=== PATIENT | female | born 1960 | race Caucasian/White ===

== ENCOUNTER → 2019-04-04 07:48 | Outpatient (CLI) | payer BC, SELFPAY ==
[2019-04-04 09:20] LABS: Alanine Aminotransferase 33 U/L (12-78); Albumin Level 3.4 gm/dL (3.4-5.0); Albumin/Globulin Ratio 0.9 (1.1-1.8); Alkaline Phosphatase 63 U/L (46-116); Aspartate Amino Transferase 16 U/L (15-37); Bilirubin,Total 0.3 mg/dL (0.2-1.0); Blood Urea Nitrogen 18 mg/dL (7-18); Calcium 9.3 mg/dL (8.5-10.1); Carbon Dioxide 31 mmol/L (21.0-32.0); Chloride 106 mmol/L (98-107); Chol/HDL Ratio 1.9 (1-3.5); Cholesterol 176 mg/dL (140-200); Creatinine,Serum 0.81 mg/dL (0.55-1.02); Estimated Glomerular Filt Rate 73 ml/min (>60); Free T4 (Free Thyroxine) 1.18 ng/dl (0.76-1.46); GFR (African American) 88 ML/MIN (>60); Globulin 3.6 gm/dl (1.3-3.2); Glucose 103 mg/dL (74-106); HDL Cholesterol 94 mg/dL (29-89); LDL Cholesterol 65 mg/dL (0-130); Sodium 143 mmol/L (136-145); Thyroid Stimulating Hormone 4.92 uIU/ml (0.358-3.740); Triglycerides 84 mg/dL (30-200); VLDL Cholesterol 17 mg/dL (0-40)
== END ==
PROVIDERS: Visit Provider Physician Assistant
DX: E03.9 Hypothyroidism, unspecified (principal); E78.5 Hyperlipidemia, unspecified; I10 Essential (primary) hypertension
CPT/HCPCS: 36415; 80053; 80061; 84439; 84443

== ENCOUNTER → 2019-10-15 11:51 | Outpatient (CLI) | payer BC, SELFPAY ==
--- NOTE | 2019-10-15 11:57 | XR_ITS ---
PROCEDURE: XR CHEST 2V CLINICAL HISTORY: BRONCHITIS Abnormal breath sounds COMPARISON: CXR CHEST(2 VIEWS-NOT PORTABLE) from 06/15/2016 FINDINGS: There is borderline cardiomegaly without failure. There is attenuation of the lower lung watson by breast implants on both sides. No lobar consolidation or collapse. No acute bony abnormalities. IMPRESSION: No acute findings. Dictated by: Inocente Aquino MD 10/15/2019 12:24 Electronically signed by Inocente Aquino MD in [place] 10/15/2019 12:24
== END ==
PROVIDERS: PCP Family Medicine; Visit Provider Nurse Practitioner Family
DX: J40 Bronchitis, not specified as acute or chronic (principal)
CPT/HCPCS: 71046

== ENCOUNTER → 2021-02-02 08:05 | Outpatient (CLI) | payer BC, SELFPAY ==
[2021-02-02 10:12] LABS: Chloride 101 mmol/L (98-107); Sodium 137 mmol/L (136-145)
[2021-02-02 10:14] LABS: Alanine Aminotransferase 22 U/L (12-78); Aspartate Amino Transferase 30 U/L (14-36); Blood Urea Nitrogen 19 mg/dl (7-17); Estimated Glomerular Filt Rate 73 ml/min (>60); GFR (African American) 89 ML/MIN (>60)
[2021-02-02 10:15] LABS: Albumin Level 4.3 g/dl (3.5-5.0); Albumin/Globulin Ratio 1.4 (1.1-1.8); Alkaline Phosphatase 77 U/L (38-126); Bilirubin,Total 0.6 mg/dl (0.2-1.3); Calcium 9.6 mg/dl (8.4-10.2); Carbon Dioxide 28 mmol/L (22.0-30.0); Chol/HDL Ratio 2.2 (1-3.5); Cholesterol 216 mg/dl (140-200); Globulin 3.1 g/dL (1.3-3.2); Glucose 106 mg/dl (74-100); HDL Cholesterol 97 mg/dl (40-60); Total Protein,Serum 7.4 g/dl (6.3-8.2); Triglycerides 119 mg/dl (30-150); VLDL Cholesterol 24 mg/dL (0-40)
[2021-02-02 10:26] LABS: Direct LDL Cholesterol 89.34 mg/dL (100-129)
[2021-02-02 10:29] LABS: Free T4 (Free Thyroxine) 1.29 ng/dl (0.78-2.19)
[2021-02-02 10:46] LABS: Thyroid Stimulating Hormone 1.61 uIU/mL (0.465-4.68)
== END ==
PROVIDERS: Visit Provider Physician Assistant
DX: E03.9 Hypothyroidism, unspecified (principal); E78.5 Hyperlipidemia, unspecified; I10 Essential (primary) hypertension
CPT/HCPCS: 36415; 80053; 80061; 84439; 84443

== ENCOUNTER → 2021-05-06 10:08 | Outpatient (CLI) | payer BC, SELFPAY | PROVIDERS: PCP Physician Assistant; Visit Provider Nurse Practitioner | DX: Z20.822 Contact with and (suspected) exposure to COVID-19 (principal) | CPT/HCPCS: C9803; U0003; U0005 ==

== ENCOUNTER → 2023-04-18 07:00 | Outpatient (CLI) | payer BC, SELFPAY ==
[2023-04-18 08:16] LABS: Chol/HDL Ratio 2.1 (1-3.5); Cholesterol 219 mg/dl (140-200); HDL Cholesterol 103 mg/dl (40-60); Triglycerides 116 mg/dl (30-150); VLDL Cholesterol 23 mg/dL (0-40)
[2023-04-18 08:26] LABS: Direct LDL Cholesterol 88.51 mg/dL (100-129)
[2023-04-18 08:32] LABS: Free T4 (Free Thyroxine) 1.46 ng/dl (0.78-2.19)
[2023-04-18 08:46] LABS: Thyroid Stimulating Hormone 3.07 uIU/mL (0.465-4.68)
== END ==
PROVIDERS: PCP Physician Assistant; Visit Provider Physician Assistant
DX: E03.9 Hypothyroidism, unspecified (principal); E78.5 Hyperlipidemia, unspecified
CPT/HCPCS: 36415; 80061; 84439; 84443

== ENCOUNTER 2024-02-19 03:04 | Inpatient (IN) | payer BC, SELFPAY ==
[2024-02-19] VITALS (27 sets, daily range): BP systolic 77–153; BP diastolic 34–97; PULSE 39–83; RESP 15–25; TEMP 36.4–37.1; O2SAT 66–100; BMI 29.9
--- NOTE | 2024-02-19 | IR_ITS ---
APPROVED REPORT Patient Location: [facility] Consultant: AVELINA Carrington RT (R) PROCEDURES Left heart catheterization Left ventriculogram Selective coronary angiogram Drug-eluting stent deployment to the ostial proximal codominant right coronary artery Drug-eluting stent deployment to the proximal left main artery extending into the proximal codominant circumflex artery Drug-eluting stent deployment to the proximal LAD INDICATION Coronary artery disease, Cardiogenic shock, Acute inferolateral ST elevation myocardial infarction, Third-degree heart block Informed consent was obtained prior to the procedure. COMPLICATIONS None Estimated Blood Loss: Less than 10 mls TECHNIQUE 1% lidocaine was used anesthetize the right anterior aspect of the right wrist and the right radial artery was accessed via the Salinger technique. A 6 Kosovan hydrophilic sheath was advanced. The wire immediately met significant tortuosity and would not pass beyond beyond the antecubital area. When the sheath was deployed there was aspiration and blood return in the sheath however it did not appear to be adequate. Because of this it was decided to abandon the right radial access and proceed with right groin access. One percent lidocaine was used to anesthetize the right groin. The right femoral artery was accessed via the Seldinger technique. A 6 Kosovan sheath was placed in the right femoral artery and a JR4 guide catheter was used to perform right coronary artery angiography. Immediately the critical stenosis was identified therefore Choice PT extra-support wire was placed across. A penumbra mechanical aspiration catheter was advanced however would not traverse the ostial proximal segment. Primary stenting could not be performed therefore 2.5 x 12 mm noncompliant balloon was deployed at 20 chelly in the ostial proximal segment. Despite the predilatation a stent could still not be performed therefore a 2.5 x 27 mm noncompliant balloon was deployed at 20 chelly in the ostial proximal segment. With some difficulty and negotiations the 3 mm x 38 mm Jason frontier stent could eventually be placed in the ostial proximal segment and deployed at 18 chelly. The balloon was brought back 10 mm and then deployed at 24 chelly in the ostium to further post dilate. JACIEL II flow was present at the beginning of the procedure with JACIEL-3 flow at the end of the procedure. Following this a JL 4 guide catheter was placed in left main artery and a critical codominant circumflex artery stenosis was identified. Patient also had lesions in the distal left main artery extending into the ostial proximal LAD. Given patient's history of breast cancer she likely is experiencing mediastinitis post radiation. Can patient continue to have ST elevation accompanied by JACIEL II flow in the circumflex artery. A Choice PT extra-support wire was placed into the circumflex artery and predilatation was made with a 3 mm balloon. Following this a 3.5 x 34 mm Jason frontier stent was placed in the mid left main artery extending into the circumflex artery and deployed at 20 chelly. The wire was pulled back and placed into the LAD and a 3 mm balloon was used to open the struts going into the LAD. Following this a 3.5 x 18 mm Barto frontier stent was placed into the mid left main artery extending into the ostial proximal LAD and then deployed at 20 chelly. An additional wire was placed into the circumflex artery and a 3.5 x 12 mm noncompliant balloon was deployed at 24 chelly in the left main artery extending the circumflex artery. A fresh 3.5 x 12 mm balloon was then placed in the left main artery extending into the LAD and also deployed at 20 chelly to further post dilate. JACIEL II flow was present down the circumflex artery before the procedure with JACIEL-3 flow at the end the procedure. JACIEL-3 flow was present down the LAD before and after the procedure. At the end of the procedure the apparatus was removed the groin was reprepped closure change sheath was removed and hemostasis was achieved using Perclose device patient was transferred to the postop holding in stable condition. ANGIOGRAPHIC RESULTS The left main artery Has distal 50% stenosis The left anterior descending artery Has an ostial 40% stenosis with 30% stenoses throughout the mid vessel The circumflex artery Large codominant with an ostial proximal 90% stenosis extending into a tubular 40% stenosis The right coronary artery Codominant with an ostial proximal 90% complex stenosis with mid vessel 40% stenosis The MARTÍNEZ ventriculogram reveals Normal 65% The left ventricular end-diastolic pressure 20 mmHg IMPRESSION Coronary disease as described above Cardiogenic shock complicated by third-degree heart block Successful drug-eluting stent deployment to the ostial proximal codominant right coronary critical disease reduced to 0% with 1 drug-eluting stent Successful stenting of the proximal left main artery extending into a proximal codominant circumflex artery critical disease reduced to 0% with 1 drug-eluting stent Successful stenting of the proximal left main artery extending to the proximal LAD severe disease reduced to 0% with 1 drug-eluting stent Resolution of third-degree heart block following revascularization Normal ejection fraction Elevated LVEDP 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 Effient 10 mg daily plus aspirin 81 mg daily 2. Echocardiogram Tuesday to better evaluate ejection fraction 3. Supportive care with continuous telemetry 4. LDL less than 55 to be achieved with high intensity statin 5. Standard therapy with CT inhibitor and possibly beta-blockers after echocardiogram 6. Avoidance of tobacco products Electronically signed by : Chava Sanders MD 02/19/2024 04:33:24
--- NOTE | 2024-02-19 02:47 | PC.NURSE ---
Report from Medic Kenneth Manrique at this time for possible STEMI. BP 66/39, HR 38, a/o x3. Dr. Faye speaking to Dr. Sanders at this time.
[2024-02-19] MEDS: ASPIRIN 81MG CHEWABLE TABLET 324 MG PO (02:59)
[2024-02-19] MEDS: PRASUGREL 10MG TAB 60 MG PO (02:59)
[2024-02-19] MEDS: HEPARIN SODIUM 5,000 UNIT/ML VIAL 8200 UNIT IV (02:59)
--- NOTE | 2024-02-19 03:03 | ECG_ITS ---
APPROVED REPORT Exam: Resting ECG HR:39 bpm ECG Measurements Heart Rate 39 AXES QRSd 107 QRS 1 QT 527 T 98 QTc 453 Conclusion SUPRAVENTRICULAR BRADYCARDIA INFERIOR MYOCARDIAL INFARCTION , POSSIBLY ACUTE [40+ ms Q WAVE AND/OR ST/T ABNORMALITY IN II/aVF] ST ELEVATION, CONSIDER ANTERIOR INJURY [MARKED ST ELEVATION W/O NORMALLY INFLECTED T-WAVE IN V2-V5] ACUTE [place] Electronically signed by : BABS LOCKWOOD, 02/20/2024 15:03:54
[2024-02-19] MEDS: NOREPINEPHRINE BITARTRATE/D5W 8 MG/250 ML PLAST..BAG 15 MG IV (03:05)
--- NOTE | 2024-02-19 03:06 | XR_ITS ---
PROCEDURE INFORMATION: Exam: XR Chest Exam date and time: 02/19/2024 3:15 AM Age: 63 years old Clinical indication: Other: Stemi TECHNIQUE: Imaging protocol: Radiologic exam of the chest. Views: 1 view. COMPARISON: DX XR CHEST 2V 10/15/2019 12:03 PM FINDINGS: Lungs: Unremarkable. No consolidation. Pleural spaces: Unremarkable. No pleural effusion. No pneumothorax. Heart/Mediastinum: Unremarkable. No cardiomegaly. Bones/joints: Unremarkable. IMPRESSION: No acute findings.
[2024-02-19] MEDS: ONDANSETRON 4MG/2ML VIAL 4 MG IV (03:17)
--- NOTE | 2024-02-19 03:17 | ED_ITS ---
Discharge Plan Disposition Patient Disposition: Admitted Clinical Impressions Clinical Impression: STEMI (ST elevation myocardial infarction), Cardiogenic shock Discharge ED Provider: Rodolfo Faye Adult HPI General Chief complaint: Chest Pain Stated complaint: burning in chest, dizziness Time Seen by Provider: 02/19/24 03:06 Mode of Arrival: EMS Source of Information: EMS Limitations: No Limitations Description of Symptoms (Recalled from ER Triage Doc. by RN): 63 F presents from home via EMS after calling out for dizziness, chest burning, and nausea. Patient reports having these symptoms over the last few days, but became worse this evening. Patient is hypotensive, bradycardic, and showed to be having an active STEMI on EMS' 12-lead. Patient has remained a/o x3. History of Present Illness HPI narrative: 63-year-old female with history of vocal cord paralysis, breast cancer status post double mastectomy presents via EMS with STEMI. She reports that approximately 11 PM she started feeling nauseous, short of breath, generally ill. Reported chest pain. Upon EMS arrival, patient was noted to be hypotensive with systolics in the 60s. Bradycardic with rate in the 40s. Related Data Allergies Allergy/AdvReac Type Severity Reaction Status Date / Time No Known Allergies Allergy Unverified 08/09/17 14:34 [facility] Disclaimer: The information contained in this section may have been updated after the patient was seen, as this information can be updated by other users. Social History Smoking Status: Never smoker alcohol intake: never current occupational status: other Travel in the last 8 weeks: None ROS Obtained: Yes All systems reviewed & no additional complaints except as documented Physical Exam General General appearance: alert Comment: Ill-appearing, cyanotic Head Head exam: atraumatic and normocephalic Eye Eye exam: Present normal appearance, PERRL and EOMI ENT ENT exam: Present normal oropharynx and normal external ear exam Neck Neck exam: Present normal inspection and full ROM Chest Chest inspection: Present normal inspection and symmetric chest wall rise; Absent tenderness Respiratory Respiratory exam: Present normal lung sounds bilaterally; Absent respiratory distress Cardiovascular Cardiovascular exam: Present bradycardia Abdominal Exam Abdominal exam: Present soft; Absent distention, tenderness or guarding Extremities Exam Extremities exam: Present other (Cold, cyanotic, no significant capillary refill in all extremities) Back Exam Back exam: Present normal inspection; Absent tenderness Neurological Exam Neurological exam: Present alert and oriented X3; Absent motor sensory deficit Psychiatric Psychiatric exam: Present anxious Skin Skin exam: Present warm, dry and cyanosis Lymphatic Lymphatic Findings: no adenopathy Medical Decision Making Medical Records Medical records reviewed: Yes I reviewed the patient's medical records. Souleymane Inquiry Pt receiving controlled substance: No Souleymane was queried for this patient: No Vital Signs: 02/19/24 03:04 02/19/24 03:05 02/19/24 03:09 Temperature 97.7 F Temperature Source Oral Pulse Rate 43 L 43 L Pulse Rate [Left] 39 L Respiratory Rate 16 16 16 Blood Pressure 82/38 L 92/76 L Blood Pressure [Right Arm] 77/34 L Blood Pressure Mean 51 81 Blood Pressure Mean [Right Arm] 48 Blood Pressure Source Blood Pressure Source [Right Arm] Automatic Cuff Blood Pressure Position Blood Pressure Position [Right Arm] Supine 02 Sat by Pulse Oximetry 100 100 99 Oxygen Delivery Method Nasal Cannula Nasal Cannula Nasal Cannula Oxygen Flow Rate (LPM) 2 2 2 02/19/24 03:13 02/19/24 03:15 02/19/24 03:18 Temperature Temperature Source Pulse Rate 53 L 49 L 50 L Pulse Rate [Left] Respiratory Rate 16 15 Blood Pressure 98/59 L 100/64 L Blood Pressure [Right Arm] Blood Pressure Mean 72 69 Blood Pressure Mean [Right Arm] Blood Pressure Source Blood Pressure Source [Right Arm] Blood Pressure Position Blood Pressure Position [Right Arm] 02 Sat by Pulse Oximetry 100 93 L Oxygen Delivery Method Nasal Cannula Nasal Cannula Oxygen Flow Rate (LPM) 2 2 02/19/24 03:22 02/19/24 03:24 02/19/24 03:36 Temperature 97.7 F Temperature Source Oral Pulse Rate 62 60 49 L Pulse Rate [Left] Respiratory Rate 15 16 16 Blood Pressure 112/58 L 106/54 L 100/76 L Blood Pressure [Right Arm] Blood Pressure Mean 70 72 Blood Pressure Mean [Right Arm] Blood Pressure Source Automatic Cuff Blood Pressure Source [Right Arm] Blood Pressure Position Sitting Blood Pressure Position [Right Arm] 02 Sat by Pulse Oximetry 66 L 67 L Oxygen Delivery Method Nasal Cannula Non-Rebreather Nasal Cannula Oxygen Flow Rate (LPM) 2 15 2 Lab Data Lab results reviewed: Yes I reviewed the patient's lab results. Lab Results 02/19/24 03:05: WBC 8.8, RBC 3.58 L, Hgb 12.1 L, Hct 38.7, MCV 107.9 H, MCH 33.7 H, MCHC 31.2 L, RDW 14.2, Plt Count 309, MPV 8.6, Neut % (Auto) 71.0, Lymph % (Auto) 22.2, Prowers % (Auto) 5.6, Eos % (Auto) 0.7, Baso % (Auto) 0.6, Neut # (Auto) 6.2, Lymph # (Auto) 1.9, Prowers # (Auto) 0.5, Eos # (Auto) 0.1, Baso # (Auto) 0.1, Sodium 135 L, Potassium 4.2, Chloride 102, Carbon Dioxide 23, Anion Gap 14.2, BUN 23 H, Creatinine 1.70 H, Estimated Creat Clear 44, Estimated GFR 30 L, Est GFR ( Amer) 37 L, Glucose 192 H, Calcium 8.5, Total Bilirubin 0.4, AST 82 H, ALT 87 H, Alkaline Phosphatase 118, Troponin I 0.64 H, Total Protein 6.4, Albumin 3.5, Globulin 2.9, Albumin/Globulin Ratio 1.2 02/19/24 04:02: Activated Clotting Time 304 H* 02/19/24 03:05 02/19/24 03:05 Orders (Tests/Meds): ED MEDICATIONS Generic Name Dose Route Start Last Admin Trade Name Freq PRN Reason Stop Dose Admin Aspirin 81 mg 02/19/24 09:00 Aspirin Ec 81mg Tablet PO 03/20/24 08:59 DAILY WILL Fentanyl Citrate 50 mcg 02/19/24 03:42 Fentanyl 100mcg/2ml Vial IV 02/19/24 15:19 Q3MINP PRN Moderate to Severe Pain (4-10) Fentanyl Citrate 25 mcg 02/19/24 03:42 Fentanyl 250mcg/5ml Vial IV 02/19/24 15:19 Q3MINP PRN Moderate to Severe Pain (4-10) Fentanyl Citrate 50 mcg 02/19/24 03:42 Fentanyl 250mcg/5ml Vial IV 02/19/24 15:19 Q3MINP PRN Moderate to Severe Pain (4-10) Fentanyl Citrate 25 mcg 02/19/24 03:42 02/19/24 04:22 Fentanyl 100mcg/2ml Vial IV 02/19/24 15:19 25 mcg Q3MINP PRN Administration Moderate to Severe Pain (4-10) Flumazenil 0.2 mg 02/19/24 03:42 Flumazenil 0.1mg/Ml 5ml Vial IV 02/19/24 15:19 NEEDED PRN Sedation Heparin Sodium (Porcine) 10,000 unit 02/19/24 03:18 02/19/24 03:33 Heparin 1,000 Units/Ml 10ml Vial (Driver License Reviewing Officer) IV 02/19/24 07:19 3,000 unit NEEDED PRN Administration Emergency Box Business Account Specialist Hydralazine HCl 20 mg 02/19/24 03:42 Hydralazine 20mg/Ml Vial IV 02/19/24 07:19 ONCE PRN sbp>160 Norepinephrine/Dextrose 8 mg in 250 mls @ 15 mls/hr 02/19/24 03:15 02/19/24 03:13 Norepinephrine 8mg/250ml-D5w Premix IV 03/20/24 03:14 6 mcg/min .[id number] WILL 11.25 mls/hr Titration Protocol 8 MCG/MIN Sodium Chloride 1,000 mls @ 25 mls/hr 02/19/24 03:30 02/19/24 03:33 Sod Chloride 0.9% 500ml Bag IV 02/20/24 03:19 25 mls/hr .Q25H WILL Administration Adenosine 180 mg/ Sodium 90 mls @ 440.894 mls/hr 02/19/24 03:42 Chloride IV 02/19/24 07:19 ONCE PRN fractional flow reserve 180 MCG/KG/MIN Adenosine 90 mg/ Sodium 90 mls @ 881.788 mls/hr 02/19/24 03:42 Chloride IV 02/19/24 07:19 ONCE PRN fractional flow reserve 180 MCG/KG/MIN Iopamidol 210 ml 02/19/24 04:43 02/19/24 04:44 Iopamidol-370 (76%);100ml Bottle IV 02/19/24 04:44 210 ml ONCE ONE Administration Labetalol HCl 20 mg 02/19/24 03:42 Labetalol 20mg/4ml Syringe IV 02/19/24 07:19 ONCE PRN sbp>160 Lidocaine HCl 20 ml 02/19/24 03:18 Lidocaine 1% 5ml Pf Vial IJ 02/19/24 03:19 ONCE ONE Midazolam HCl 1 mg 02/19/24 03:42 Midazolam 2mg/2ml Vial IV 02/19/24 15:19 Q3MINP PRN Sedation Midazolam HCl 1 mg 02/19/24 03:42 02/19/24 04:22 Midazolam Hcl 1mg/1ml 5ml Vial IV 02/19/24 15:19 1 mg Q3MINP PRN Administration Sedation Miscellaneous 1 each 02/19/24 04:43 Consider Pt For Dual Antiplatelet Therapy At Discharge-Stent NOTAPPLIC 03/20/24 04:42 NEEDED PRN Reminder for s/p stent Naloxone HCl 0.4 mg 02/19/24 03:42 Naloxone 0.4mg/Ml Vial IV 02/19/24 15:19 Q5MINP PRN Decreased Respirations Nitroglycerin 800 mcg 02/19/24 03:18 02/19/24 03:33 Nitroglycerin 800mcg/8ml Syr (Driver License Reviewing Officer) IA 02/19/24 07:19 800 mcg NEEDED PRN Administration Emergency Box Business Account Specialist Nitroglycerin 0.4 mg 02/19/24 04:43 Nitroglycerin 0.4mg Sl Tablet SL 03/20/24 04:42 Q5MINP PRN Chest Pain Prasugrel 10 mg 02/19/24 09:00 Prasugrel 10mg Tab PO 03/20/24 08:59 DAILY WILL Protamine Sulfate 50 mg 02/19/24 03:42 Protamine Sulfate 50mg/5ml Vial (Driver License Reviewing Officer) IV 02/19/24 07:19 ONCE PRN act>200 Sodium Chloride 10 ml 02/19/24 03:06 Sodium Chloride 0.9% 10ml Flush Syringe IV 03/20/24 03:05 NEEDED PRN Maintain IV Site Discontinued Medications Generic Name Dose Route Start Last Admin Trade Name Freq PRN Reason Stop Dose Admin Aspirin 324 mg 02/19/24 02:48 02/19/24 02:59 Aspirin 81mg Chewable Tablet PO 02/19/24 02:49 324 mg ONCE ONE Administration Diphenhydramine HCl 50 mg 02/19/24 03:18 02/19/24 03:33 Diphenhydramine 50mg/Ml Vial IV 02/19/24 03:19 50 mg ONCE ONE Administration Fentanyl Citrate 50 mcg 02/19/24 03:18 Fentanyl 100mcg/2ml Vial IV 02/19/24 15:19 Q3MINP PRN Moderate to Severe Pain (4-10) Fentanyl Citrate 25 mcg 02/19/24 03:18 Fentanyl 250mcg/5ml Vial IV 02/19/24 15:19 Q3MINP PRN Moderate to Severe Pain (4-10) Fentanyl Citrate 50 mcg 02/19/24 03:18 Fentanyl 250mcg/5ml Vial IV 02/19/24 15:19 Q3MINP PRN Moderate to Severe Pain (4-10) Fentanyl Citrate 25 mcg 02/19/24 03:18 02/19/24 03:50 Fentanyl 100mcg/2ml Vial IV 02/19/24 15:19 25 mcg Q3MINP PRN Administration Moderate to Severe Pain (4-10) Flumazenil 0.2 mg 02/19/24 03:18 Flumazenil 0.1mg/Ml 5ml Vial IV 02/19/24 15:19 NEEDED PRN Sedation Heparin Sodium (Porcine) 8,200 unit 02/19/24 02:58 02/19/24 02:59 Heparin Sodium 5,000 Unit/Ml Vial 100 unit/kg (8200 unit) 02/19/24 02:59 8,200 unit IV Administration ONCE ONE Heparin Sodium/Sodium Chloride 3,000 unit 02/19/24 03:18 02/19/24 03:33 Heparin 1,000 Units/500ml Ns (Driver License Reviewing Officer) IV 02/19/24 03:19 3,000 unit ONCE ONE Administration Hydralazine HCl 20 mg 02/19/24 03:18 Hydralazine 20mg/Ml Vial IV 02/19/24 07:19 ONCE PRN sbp>160 Adenosine 180 mg/ Sodium 90 mls @ 440.894 mls/hr 02/19/24 03:18 Chloride IV 02/19/24 07:19 ONCE PRN fractional flow reserve 180 MCG/KG/MIN Adenosine 90 mg/ Sodium 90 mls @ 881.788 mls/hr 02/19/24 03:18 Chloride IV 02/19/24 07:19 ONCE PRN fractional flow reserve 180 MCG/KG/MIN Labetalol HCl 20 mg 02/19/24 03:18 Labetalol 20mg/4ml Syringe IV 02/19/24 07:19 ONCE PRN sbp>160 Lidocaine HCl 20 ml 02/19/24 03:18 02/19/24 03:33 Lidocaine 1% 10ml Mdv IJ 02/19/24 03:19 10 ml ONCE ONE Administration Lidocaine HCl 20 ml 02/19/24 03:18 Lidocaine 1% 5ml Pf Vial IJ 02/19/24 03:19 ONCE ONE Midazolam HCl 1 mg 02/19/24 03:18 Midazolam 2mg/2ml Vial IV 02/19/24 15:19 Q3MINP PRN Sedation Midazolam HCl 1 mg 02/19/24 03:18 02/19/24 03:51 Midazolam Hcl 1mg/1ml 5ml Vial IV 02/19/24 15:19 1 mg Q3MINP PRN Administration Sedation Naloxone HCl 0.4 mg 02/19/24 03:18 Naloxone 0.4mg/Ml Vial IV 02/19/24 15:19 Q5MINP PRN Decreased Respirations Ondansetron HCl 4 mg 02/19/24 03:16 02/19/24 03:17 Ondansetron 4mg/2ml Vial IV 02/19/24 03:17 4 mg ONCE ONE Administration Prasugrel 60 mg 02/19/24 02:49 02/19/24 02:59 Prasugrel 10mg Tab PO 02/19/24 02:50 60 mg DAILY ONE Administration Prasugrel 60 mg 02/19/24 02:49 02/19/24 03:17 Prasugrel 10mg Tab PO 02/19/24 02:50 Not Given ONCE ONE Protamine Sulfate 50 mg 02/19/24 03:18 Protamine Sulfate 50mg/5ml Vial (Driver License Reviewing Officer) IV 02/19/24 07:19 ONCE PRN act>200 Verapamil HCl 2.5 mg 02/19/24 03:18 02/19/24 03:34 Verapamil 2.5mg/Ml 2ml Vial IV 02/19/24 03:19 2.5 mg ONCE ONE Administration ORDERS Category Date Time Status Consult to Cardiology [CONS] Stat Cons 02/19/24 03:06 Active XR chest portable Stat Exams 02/19/24 03:06 Completed Activated Partial Thrombo Time Stat Lab 02/19/24 03:05 Ordered Complete Blood Count Auto Diff Stat Lab 02/19/24 03:05 Completed Comprehensive Metabolic Panel Stat Lab 02/19/24 03:05 Completed Prothrombin Time INR Stat Lab 02/19/24 03:05 Ordered Troponin I Stat Lab 02/19/24 03:05 Completed VBG [Venous Blood Gas] Stat RT 02/19/24 03:24 Ordered ECG Data Tracing #1: I reviewed this ECG and interpreted as documented below: ST elevation in lead III, aVF, V3, V4, V5, ST depressions in the high lateral leads, third-degree heart block noted. ECG initial impression date: 02/19/24 ECG initial impression time: 03:03 HEART Score History (anamnesis): Highly suspicious ECG: Significant ST-deviation Age: 45-65 years Risk factors: 1-2 risk factors Troponin: > 3x normal limit HEART Score: 8 Medical Decision Narrative: 63-year-old female with history of prior breast cancer, distant history of Hodgkin's lymphoma status postradiation, hypertension presents with a STEMI via EMS in cardiogenic shock.. History was obtained interactive discussion with patient, EMS. On arrival, patient is bradycardic in the 30s and 40s, hypotensive with systolics in the 60s and 70s, alert and oriented x 4, diffusely cyanotic, complaining of nausea and general unease. EKG on arrival consistent with inferior STEMI as well as third-degree heart block. Driver License Reviewing Officer was activated immediately and Dr. Sanders was consulted. Differential includes but is not limited to ACS, PE, tamponade, tension pneumothorax, acute aortic syndrome. Patient was given 100 units/kg of heparin, 60 mg prasugrel, 324 aspirin. Given hypotension, patient was given total 2 L IV fluid bolus and was placed on Levophed at 0.1 ug/kg/min. On re-evaluation, blood pressure improved with interventions, we began down titrating the Levophed. Patient had a episode of hypoxia when we laid her more flat. Reports that she has difficulty breathing secondary to her paralyzed vocal cord. Upon sitting up the hypoxia significantly improved. Laboratory workup independently interpreted by me and significant for elevated initial troponin at 0.64, elevated creatinine 1.7 with normal baseline, no significant electrolyte derangement. Imaging independently interpreted by me and significant for chest x-ray without focal opacity. See radiology read for full review of final results. Given patient history, exam and workup, patient's presentation most likely represents acute cardiogenic shock secondary to STEMI. Patient was transferred immediately to the Driver License Reviewing Officer for further intervention.. Procedures Risk/Benefits of Procedure(s) Were Explained: Yes Critical Care Critical Care Time Critical Care Time: Yes Attestation: On 02/19/24, the high probability of a clinically significant, sudden or life threatening deterioration of the following system(s) cardiac required my full and direct attention, intervention and personal management. The time I documented below is in addition to time spent performing reported procedures but includes the following listed in this critical care notation. Total Time Total Critical Care Time: 35
[2024-02-19 03:25] LABS: Basophils # 0.1 K/mm3 (0-0.2); Basophils % 0.6 % (0.1-2.0); Eosinophils # 0.1 K/mm3 (0.0-0.4); Eosinophils % 0.7 % (0.1-12.0); Hematocrit 38.7 % (37.0-47.0); Hemoglobin 12.1 g/dL (12.2-16.2); Lymphocytes # 1.9 K/mm3 (0.7-4.5); Lymphocytes % 22.2 % (10-50); Mean Corpuscular HGB Conc 31.2 g/dL (31.8-35.4); Mean Corpuscular Hemoglobin 33.7 pg (27.0-31.2); Mean Corpuscular Volume 107.9 fl (81-99); Mean Platelet Volume 8.6 fl (7.4-10.4); Monocytes # 0.5 K/mm3 (0.1-1.0); Monocytes % 5.6 % (1.7-9.3); Neutrophils # 6.2 K/mm3 (1.8-7.8); Platelet Count 309 K/mm3 (142-424); Red Blood Count 3.58 M/mm3 (4.20-5.40); Red Cell Distribution Width 14.2 % (11.5-17.5); White Blood Count 8.8 K/mm3 (4.8-10.8)
[2024-02-19 03:27] LABS: Chloride 102 mmol/L (98-107); Potassium 4.2 mmoL/L (3.5-5.1); Sodium 135 mmol/L (136-145)
[2024-02-19 03:30] LABS: Alanine Aminotransferase 87 U/L (12-78); Albumin Level 3.5 g/dl (3.5-5.0); Albumin/Globulin Ratio 1.2 (1.1-1.8); Alkaline Phosphatase 118 U/L (38-126); Anion Gap 14.2 mEq/L (5-15); Aspartate Amino Transferase 82 U/L (14-36); Bilirubin,Total 0.4 mg/dl (0.2-1.3); Blood Urea Nitrogen 23 mg/dl (7-17); Calcium 8.5 mg/dl (8.4-10.2); Carbon Dioxide 23 mmol/L (22.0-30.0); Creatinine Clearance Estimated 44 mL/min (50-200); Estimated Glomerular Filt Rate 30 ml/min (>60); GFR (African American) 37 ML/MIN (>60); Globulin 2.9 g/dL (1.3-3.2); Glucose 192 mg/dl (74-100); Total Protein,Serum 6.4 g/dl (6.3-8.2)
--- NOTE | 2024-02-19 03:31 | PC.NURSE ---
patient leaving unit to labor utilization superintendent
[2024-02-19] MEDS: 0.9 % SODIUM CHLORIDE 500 ML 25 ML IV (03:33)
[2024-02-19] MEDS: NITROGLYCERIN 800MCG/8ML SYR (CATH LAB) 800 MCG IA (03:33)
[2024-02-19] MEDS: diphenhydrAMINE 50MG/ML VIAL 50 MG IV (03:33)
[2024-02-19] MEDS: HEPARIN 1,000 UNITS/500ML NS (CATH LAB) 3000 UNIT IV (03:33)
[2024-02-19] MEDS: HEPARIN 1,000 UNITS/ML 10ML VIAL (CATH LAB) 10000 UNIT IV (03:33)
[2024-02-19] MEDS: LIDOCAINE 1% 10ML MDV 20 ML IJ (03:33)
[2024-02-19] MEDS: VERAPAMIL 2.5MG/ML 2ML VIAL 2.5 MG IV (03:34)
--- NOTE | 2024-02-19 03:40 | PC.NURSE ---
Patient taken to molder labels [id number]
[2024-02-19 03:50] LABS: Troponin I 0.64 ng/ml (0.00-0.034)
[2024-02-19] MEDS: FENTANYL 100MCG/2ML VIAL 25 MCG IV ×2 (03:50→04:22)
[2024-02-19] MEDS: MIDAZOLAM HCL 1MG/1ML 5ML VIAL 1 MG IV ×2 (03:51→04:22)
[2024-02-19] MEDS: IOPAMIDOL-370 (76%);100ML BOTTLE 210 ML IV (04:44)
[2024-02-19 04:46] LABS: CATHL Activated Clotting Time 304 SEC (74-125)
[2024-02-19 04:47] LABS: CATHL Activated Clotting Time 220 SEC (74-125)
--- NOTE | 2024-02-19 04:58 | PC.NURSE ---
PT ARRIVED TO FLOOR AT THIS TIME
--- NOTE | 2024-02-19 05:47 | EXP.HP ---
History of Present Illness *Admission Date: 02/19/24 *Reason for visit:: STEMI *History of present illness: This is a 63-year-old female with history of vocal cord paralysis secondary to radiation treatment for breast cancer, status post double mastectomy, HTN, HLD, presented via EMS with STEMI. She reports that approximately 11 PM she started feeling nauseous, short of breath, generally ill. Reported chest pain. Upon EMS arrival, patient was noted to be hypotensive with systolics in the 60s. Bradycardic with rate in the 40s. bluish coloraton around mouth and lips. was taken emergently into a manager labor delivery. Patient seen at the floor after procedure hemodynamically stable. Cardiogenic shock resolved. Blood pressure stabilized. Sinus rhythm on the monitor. No signs of bleeding or hematoma throughout both of the surgical site access. Admitted for further management. [facility] Disclaimer: The information contained in this section may have been updated after the patient was seen, as this information can be updated by other users. Medical History (Updated 02/19/24 @ 06:01 by Myron Cash APRN) Hodgkin lymphoma Breast cancer Surgical History (Updated 02/19/24 @ 06:01 by Myron Cash APRN) History of thyroidectomy, subtotal H/O splenectomy Hx of tonsillectomy Tubal ligation status Social History (Updated 02/19/24 @ 04:58 by Rodolfo Faye MD) Smoking Status: Never smoker alcohol intake: never current occupational status: other Travel in the last 8 weeks: None Review of Systems Review of Systems Review of systems:: pertinent systems reviewed and negative unless documented below Meds Home Medications and Allergies Home Medications Medication Instructions Recorded Confirmed Type aspirin 81 mg chewable tablet 81 mg PO DAILY 02/19/24 02/19/24 History bisoprolol fumarate 5 mg tablet 5 mg PO DAILY 02/19/24 02/19/24 History famotidine 20 mg tablet 20 mg PO BID 02/19/24 02/19/24 History fluticasone propionate 50 1 spray intranasal DIRECTED 02/19/24 02/19/24 History mcg/actuation nasal Allergies spray,suspension levothyroxine 125 mcg tablet 125 mcg PO DAILY 02/19/24 02/19/24 History lisinopril 5 mg tablet 5 mg PO DAILY 02/19/24 02/19/24 History pravastatin 40 mg tablet 40 mg PO DAILY 02/19/24 02/19/24 History New Prescriptions to Start Prescriptions: Allergies Allergy/AdvReac Type Severity Reaction Status Date / Time No Known Allergies Allergy Unverified 08/09/17 14:34 Exam Data for Last 24 hours Vital signs and Labs for Last 24 Hours: Temp Pulse Resp BP Pulse Ox O2 Del Method O2 Flow Rate 97.7 F 74 20 133/75 90 L Room Air 2 02/19/24 03:36 02/19/24 04:45 02/19/24 04:45 02/19/24 04:45 02/19/24 04:45 02/19/24 04:45 02/19/24 03:36 Laboratory Results - last 24 hr 02/19/24 03:05: WBC 8.8, RBC 3.58 L, Hgb 12.1 L, Hct 38.7, MCV 107.9 H, MCH 33.7 H, MCHC 31.2 L, RDW 14.2, Plt Count 309, MPV 8.6, Neut % (Auto) 71.0, Lymph % (Auto) 22.2, Crane % (Auto) 5.6, Eos % (Auto) 0.7, Baso % (Auto) 0.6, Neut # (Auto) 6.2, Lymph # (Auto) 1.9, Crane # (Auto) 0.5, Eos # (Auto) 0.1, Baso # (Auto) 0.1, Sodium 135 L, Potassium 4.2, Chloride 102, Carbon Dioxide 23, Anion Gap 14.2, BUN 23 H, Creatinine 1.70 H, Estimated Creat Clear 44, Estimated GFR 30 L, Est GFR ( Amer) 37 L, Glucose 192 H, Calcium 8.5, Total Bilirubin 0.4, AST 82 H, ALT 87 H, Alkaline Phosphatase 118, Troponin I 0.64 H, Total Protein 6.4, Albumin 3.5, Globulin 2.9, Albumin/Globulin Ratio 1.2 02/19/24 03:45: Activated Clotting Time 220 H* 02/19/24 04:02: Activated Clotting Time 304 H* D I & O for Last 24 hours: Intake & Output 02/16/24 02/17/24 02/18/24 02/19/24 23:59 23:59 23:59 23:59 Intake Total 2 / 2 Balance 2 / 2 Weight 81.647 kg Constitutional Constitutional: mild distress, obese and cooperative *Routine HEENT Exam Head: Present normocephalic and atraumatic Eye: Present EOMI and PERRL ENT: Present mucous membranes moist *Routine Neck Exam Neck: Present supple; Absent lymphadenopathy *Routine Respiratory Exam Respiratory: Present CTA bilaterally, normal respiratory effort and symmetric chest movement; Absent respiratory distress *Routine Cardiovascular Exam Cardiovascular: Present RRR, Normal S1 and Normal S2 *Routine Abdominal Exam Abdominal: Present soft and normoactive bowel sounds; Absent tenderness *Routine Rectal Exam Rectal:: deferred *Routine Genitalia Exam Genitalia:: deferred *Routine Extremities Exam Extremities: Present pulses intact and normal capillary refill; Absent cyanosis, clubbing or edema *Routine Skin Exam Skin: Present warm and wounds; Absent rash *Routine Neurological Exam Neurological: Present alert, oriented X3, normal reflexes and normal speech Detailed Extremities Exam: Vascular Peripheral pulses: 4+: femoral (R), 4+: popliteal (L), 4+: popliteal (R), 4+: posterior tibialis (L), 4+: posterior tibialis (R), 4+: dorsalis pedis (L) and 4+: dorsalis pedis (R) H&P: Result Imaging and Cardiology EKG: Status: image reviewed by me, Preliminary report and final report Chest x-ray: Status: image reviewed by me, Preliminary report and final report Assessment and Plan *Assessment and plan (1) STEMI (ST elevation myocardial infarction): Status: Acute Qualifiers: Involved coronary artery: unspecified coronary artery Qualified Code(s): I21.3 - ST elevation (STEMI) myocardial infarction of unspecified site Category: Medical Code(s): I21.3 - ST elevation (STEMI) myocardial infarction of unspecified site (2) Status post coronary artery stent placement: Status: Acute Category: Surgical Code(s): Z95.5 - Presence of coronary angioplasty implant and graft (3) Cardiogenic shock: Status: Acute Category: Medical Code(s): R57.0 - Cardiogenic shock (4) HTN (hypertension): Status: Acute Qualifiers: Hypertension type: unspecified Qualified Code(s): I10 - Essential (primary) hypertension Category: Medical Code(s): I10 - Essential (primary) hypertension (5) HLD (hyperlipidemia): Status: Acute Qualifiers: Hyperlipidemia type: unspecified Qualified Code(s): E78.5 - Hyperlipidemia, unspecified Category: Medical Code(s): E78.5 - Hyperlipidemia, unspecified (6) History of breast cancer: Status: Acute Category: Medical Code(s): Z85.3 - Personal history of malignant neoplasm of breast (7) H/O mastectomy: Status: Acute Qualifiers: Laterality: bilateral Qualified Code(s): Z90.13 - Acquired absence of bilateral breasts and nipples Category: Surgical Code(s): Z90.10 - Acquired absence of unspecified breast and nipple Plan 63-year-old female with history of vocal cord paralysis secondary to radiation treatment for breast cancer, status post double mastectomy, HTN, HLD, presented via EMS with STEMI. On arrival patient patient presented hypotensive, bradycardic, cyanosis. Presumed cardiogenic shock. Was taking into a Purchasing Contracting Clerk. Found to has coronary disease with cardiogenic shock complicated by third-degree heart block. Successfully placed 3 drug-eluting stent. Ostial proximal codominant right coronary, proximal circumflex and left main artery. Patient off pressors. Hemodynamically stable. Discussed with the ED prior to admission. Agreed continue patient management. plan as follow: -STEMI s/p 3 coronary stent placement Cardiogenic shock. resolved Admit patient for continuous cardiac telemetry. Dispo Med surg cardiology consult. follow they recommendation currently off pressor. Resolution of third-degree heart block following revascularization. Normal ejection fraction Elevated LVEDP. recommended ECHO to follow up and assess on Tuesday monitor for VS pr unit bed rest until 6:30am. monitor incision pint right blanca and right wrist for bleeding anticoagulated on manager labor delivery -HTN: monitor for hypotension. currently of levophed HLD: resume statin and aspirin lipid profile Hx of brest cancer and bilateral mastectomy. 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
[2024-02-19] MEDS: 0.9 % SODIUM CHLORIDE 1000ML 1,000 ML 75 ML IV ×2 (06:33→23:17)
[2024-02-19 08:14] LABS: Basophils % 0.4 % (0.1-2.0); Eosinophils % 0.1 % (0.1-12.0); Hematocrit 39.7 % (37.0-47.0); Hemoglobin 12.7 g/dL (12.2-16.2); Lymphocytes # 1.1 K/mm3 (0.7-4.5); Lymphocytes % 15.1 % (10-50); Mean Corpuscular Hemoglobin 34.5 pg (27.0-31.2); Mean Corpuscular Volume 107.9 fl (81-99); Mean Platelet Volume 8.5 fl (7.4-10.4); Monocytes # 0.4 K/mm3 (0.1-1.0); Monocytes % 5.5 % (1.7-9.3); Neutrophils # 5.9 K/mm3 (1.8-7.8); Neutrophils % 78.8 % (37.0-80.0); Platelet Count 277 K/mm3 (142-424); Red Blood Count 3.68 M/mm3 (4.20-5.40); Red Cell Distribution Width 14.1 % (11.5-17.5); White Blood Count 7.4 K/mm3 (4.8-10.8)
[2024-02-19 08:25] LABS: Chloride 104 mmol/L (98-107); Sodium 134 mmol/L (136-145)
[2024-02-19 08:28] LABS: Blood Urea Nitrogen 22 mg/dl (7-17); Creatinine Clearance Estimated 53 mL/min (50-200); Estimated Glomerular Filt Rate 38 ml/min (>60); GFR (African American) 46 ML/MIN (>60)
[2024-02-19 08:29] LABS: Calcium 8.5 mg/dl (8.4-10.2); Carbon Dioxide 18 mmol/L (22.0-30.0); Glucose 131 mg/dl (74-100)
[2024-02-19 08:31] LABS: INR 1.02 (0.9-1.1); Prothrombin Time 11.4 seconds (10.1-12.5)
[2024-02-19] MEDS: DOCUSATE SODIUM 100 MG CAPSULE PO (08:33)
[2024-02-19] MEDS: PANTOPRAZOLE 40MG TABLET 40 MG PO (08:33)
[2024-02-19] MEDS: PRASUGREL 10MG TAB 10 MG PO (08:33)
[2024-02-19] MEDS: ASPIRIN EC 81MG TABLET 81 MG PO (08:33)
[2024-02-19 09:10] LABS: Chol/HDL Ratio 2.6 (1-3.5); Cholesterol 141 mg/dl (140-200); HDL Cholesterol 55 mg/dl (40-60); Triglycerides 50 mg/dl (30-150); VLDL Cholesterol 10 mg/dL (0-40)
[2024-02-19 09:20] LABS: Direct LDL Cholesterol 62.08 mg/dL (100-129)
[2024-02-19 10:15] LABS: Activated Partial Thrombo Time 61.2 seconds (22.8-30.6)
--- NOTE | 2024-02-19 13:09 | HMH.PHAINT1 ---
Pharmacy Intervention Comments: MEDICATION RECONCILIATION COMPLETE VIA PATIENT INTERVIEW.
--- NOTE | 2024-02-19 18:22 | PC.NURSE ---
AOX4, TOLERATING ROM AIR, HAS DENIED CHEST PAIN TODAY. HEART CATH SITE TO R GROIN AND R WRIST FREE FROM SIGNS OF BLEEDING OR HEMATOMA. AMBULATING IN ROOM WITHOUT ISSUES.
[2024-02-20] VITALS (8 sets, daily range): BP systolic 117–177; BP diastolic 68–95; PULSE 70–90; RESP 16–18; TEMP 36.4–37.3; O2SAT 93–99; BMI 29.9
--- NOTE | 2024-02-20 05:59 | PC.NURSE ---
Patient is alert and oriented and has tolerated room air. Family has been at pt bedside the majority of the night. She has been ambulating self to bathroom as needed. She has not called out for anything and has no requests at this time.
[2024-02-20 07:07] LABS: Basophils % 0.5 % (0.1-2.0); Eosinophils # 0.1 K/mm3 (0.0-0.4); Eosinophils % 1.7 % (0.1-12.0); Hematocrit 35.2 % (37.0-47.0); Lymphocytes # 2.5 K/mm3 (0.7-4.5); Mean Corpuscular Hemoglobin 33.7 pg (27.0-31.2); Mean Platelet Volume 8.4 fl (7.4-10.4); Monocytes # 0.6 K/mm3 (0.1-1.0); Monocytes % 9.4 % (1.7-9.3); Neutrophils # 3.3 K/mm3 (1.8-7.8); Neutrophils % 50.4 % (37.0-80.0); Platelet Count 300 K/mm3 (142-424); Red Blood Count 3.35 M/mm3 (4.20-5.40); Red Cell Distribution Width 14.5 % (11.5-17.5); White Blood Count 6.5 K/mm3 (4.8-10.8)
[2024-02-20 07:11] LABS: Alanine Aminotransferase 98 U/L (12-78); Albumin Level 3.4 g/dl (3.5-5.0); Albumin/Globulin Ratio 1.1 (1.1-1.8); Alkaline Phosphatase 106 U/L (38-126); Anion Gap 12.2 mEq/L (5-15); Aspartate Amino Transferase 90 U/L (14-36); Bilirubin,Total 0.4 mg/dl (0.2-1.3); Blood Urea Nitrogen 18 mg/dl (7-17); Calcium 8.6 mg/dl (8.4-10.2); Carbon Dioxide 23 mmol/L (22.0-30.0); Chloride 106 mmol/L (98-107); Creatinine Clearance Estimated 74 mL/min (50-200); Estimated Glomerular Filt Rate 63 ml/min (>60); GFR (African American) 77 ML/MIN (>60); Glucose 109 mg/dl (74-100); Potassium 4.2 mmoL/L (3.5-5.1); Sodium 137 mmol/L (136-145); Total Protein,Serum 6.4 g/dl (6.3-8.2)
[2024-02-20 07:32] LABS: Hemoglobin 11.3 g/dL (12.2-16.2)
--- NOTE | 2024-02-20 07:59 | EXP.ACUTE.PN ---
Subjective *Date: 02/20/24 *Time: 12:09 Interval history: Patient feels well this morning. Denies any chest pain or shortness of breath. No nausea or vomiting. Stable on room air. Afebrile. Requesting her home medications to be resumed. Tolerated breakfast without incident. No events on telemetry overnight Medical Exam Vital signs and Labs for Last 24 Hours: Vital Signs Temp Pulse Pulse Resp BP Pulse Ox O2 Del Method 02/20/24 07:00 Room Air 02/20/24 05:00 Room Air 02/20/24 04:00 80 02/20/24 04:00 98.0 F 79 16 122/71 95 Room Air 02/20/24 03:00 Room Air 02/20/24 01:00 Room Air 02/20/24 00:00 80 02/20/24 00:00 97.9 F 80 18 117/68 95 Room Air 02/19/24 23:00 Room Air 02/19/24 21:00 Room Air 02/19/24 20:00 80 02/19/24 20:00 Room Air 02/19/24 20:00 98.7 F 83 18 146/89 H 97 Room Air 02/19/24 18:20 Room Air 02/19/24 17:00 Room Air 02/19/24 16:00 80 02/19/24 16:00 98.1 F 80 17 133/88 96 Room Air 02/19/24 15:00 Room Air 02/19/24 12:34 Room Air 02/19/24 12:00 77 02/19/24 12:00 98.1 F 73 17 141/80 H 100 Room Air 02/19/24 11:00 Room Air 02/19/24 10:45 79 18 136/82 98 Room Air 02/19/24 09:45 77 18 138/83 97 Room Air 02/19/24 09:00 Room Air 02/19/24 08:45 78 18 153/81 H 98 Room Air 02/19/24 08:00 74 02/19/24 08:00 Room Air Intake and Output 02/19/24 02/19/24 02/20/24 15:59 23:59 07:59 Intake Total 540 / 2404 390 / 2404 1472 / 1472 Output Total 0 / 0 0 / 0 Balance 540 / 2404 390 / 2404 1472 / 1472 Intake: Intake, Oral Amount 540 / 930 390 / 930 Intake, Total IV Amount 147 / 147 0.9 % Sodium Chloride 1000ML 1, 147 / 147 000 ml @ 75 mls/hr IV .[id number] [facility] Rx#:[id number] Output: Output, Urine Amount 0 / 0 0 / 0 Other: Number of Unmeasured Voids 1 1 Weight 81.647 kg Patient Weight 02/20/24 23:59 Weight 81.647 kg Laboratory Results - last 24 hr 02/19/24 07:50: PT 11.4, INR 1.02, APTT 61.2 H*, Sodium 134 L, Potassium 5.0, Chloride 104, Carbon Dioxide 18 L, Anion Gap 17.0 H, BUN 22 H, Creatinine 1.40 H, Estimated Creat Clear 53, Estimated GFR 38 L, Est GFR ( Amer) 46 L D, Glucose 131 H D, Calcium 8.5, Triglycerides 50, Cholesterol 141, LDL Cholesterol Direct 62.08 L, VLDL Cholesterol 10, HDL Cholesterol 55, Cholesterol/HDL Ratio 2.6 02/19/24 08:05: WBC 7.4, RBC 3.68 L, Hgb 12.7, Hct 39.7, MCV 107.9 H, MCH 34.5 H, MCHC 32.0, RDW 14.1, Plt Count 277, MPV 8.5, Neut % (Auto) 78.8, Lymph % (Auto) 15.1, Isabela % (Auto) 5.5, Eos % (Auto) 0.1, Baso % (Auto) 0.4, Neut # (Auto) 5.9, Lymph # (Auto) 1.1, Isabela # (Auto) 0.4, Eos # (Auto) 0.0, Baso # (Auto) 0.0 02/20/24 05:57: WBC 6.5, RBC 3.35 L, Hgb 11.3 L D, Hct 35.2 L, MCV 105.0 H, MCH 33.7 H, MCHC 32.0, RDW 14.5, Plt Count 300, MPV 8.4, Neut % (Auto) 50.4, Lymph % (Auto) 38.0, Isabela % (Auto) 9.4 H, Eos % (Auto) 1.7, Baso % (Auto) 0.5, Neut # (Auto) 3.3, Lymph # (Auto) 2.5, Isabela # (Auto) 0.6, Eos # (Auto) 0.1, Baso # (Auto) 0.0, Sodium 137, Potassium 4.2, Chloride 106, Carbon Dioxide 23, Anion Gap 12.2, BUN 18 H, Creatinine 0.90 D, Estimated Creat Clear 74, Estimated GFR 63, Est GFR ( Amer) 77 D, Glucose 109 H, Calcium 8.6, Total Bilirubin 0.4, AST 90 H, ALT 98 H, Alkaline Phosphatase 106, Total Protein 6.4, Albumin 3.4 L, Globulin 3.0, Albumin/Globulin Ratio 1.1 I & O for Labs for Last 24 Hours: Intake & Output 02/17/24 02/18/24 02/19/24 02/20/24 23:59 23:59 23:59 23:59 Intake Total 932 / 2404 1472 / 1472 Output Total 0 / 0 Balance 932 / 2404 1472 / 1472 Weight 81.647 kg 81.647 kg Constitutional: Present no acute distress, average body habitus and cooperative Head: Present atraumatic and normocephalic ENT: Present normal exam Neck: Present normal inspection Respiratory: Present normal respiratory effort; Absent accessory muscle use, rhonchi, wheezes or crackles Cardiac: Present Reg Rate and Rhythm GI: Present soft and normal bowel sounds; Absent distention or tenderness Extremities: Present normal inspection and full ROM Skin: Present intact; Absent erythema Neuro: Present Grossly Intact, alert, awake, oriented x 3 and moves all extremities Assessment and Plan *Assessment and plan (1) STEMI (ST elevation myocardial infarction): Status: Acute Qualifiers: Involved coronary artery: unspecified coronary artery Qualified Code(s): I21.3 - ST elevation (STEMI) myocardial infarction of unspecified site Category: Medical Code(s): I21.3 - ST elevation (STEMI) myocardial infarction of unspecified site (2) Status post coronary artery stent placement: Status: Acute Category: Surgical Code(s): Z95.5 - Presence of coronary angioplasty implant and graft (3) Cardiogenic shock: Status: Acute Category: Medical Code(s): R57.0 - Cardiogenic shock (4) HTN (hypertension): Status: Acute Qualifiers: Hypertension type: unspecified Qualified Code(s): I10 - Essential (primary) hypertension Category: Medical Code(s): I10 - Essential (primary) hypertension (5) HLD (hyperlipidemia): Status: Acute Qualifiers: Hyperlipidemia type: unspecified Qualified Code(s): E78.5 - Hyperlipidemia, unspecified Category: Medical Code(s): E78.5 - Hyperlipidemia, unspecified (6) History of breast cancer: Status: Acute Category: Medical Code(s): Z85.3 - Personal history of malignant neoplasm of breast (7) H/O mastectomy: Status: Acute Qualifiers: Laterality: bilateral Qualified Code(s): Z90.13 - Acquired absence of bilateral breasts and nipples Category: Surgical Code(s): Z90.10 - Acquired absence of unspecified breast and nipple Plan 63-year-old female with history of vocal cord paralysis secondary to radiation treatment for breast cancer, status post double mastectomy, HTN, HLD, presented via EMS with STEMI. On arrival patient patient presented hypotensive, bradycardic, cyanosis. Presumed cardiogenic shock. Was taking into a Stevedoring Supervisor. Found to has coronary disease with cardiogenic shock complicated by third-degree heart block. Successfully placed 3 drug-eluting stent. Ostial proximal codominant right coronary, proximal circumflex and left main artery. Patient off pressors. Hemodynamically stable for over 24 hours. Cardiology consulted and assisting with care. Continues to require inpatient management for at least 48 hours after her WI. Problems addressed as follows: -STEMI s/p 3 coronary stent placement Cardiogenic shock. resolved Ischemic cardiomyopathy/heart failure with reduced ejection fraction Cardiology consulted, discussed case this morning. Will continue to monitor for at least 48 hours. Status post heart cath on 02/18 at 3 in the morning. Received drug-eluting stents to the ostial proximal codominant RCA, left main extending into the codominant circumflex and proximal left main extending into the proximal LAD. Echo obtained showing EF 40%, moderate hypokinesis of the inferior and inferoseptal LV islas Continue aspirin 81 daily and prasugrel 10 mg daily In the setting of heart failure, cardiology recommends initiating Entresto 24/26 mg twice daily, and carvedilol 3.125 mg twice daily. -Will need 2-week event monitor at discharge Hyperlipidemia LDL goal less than 55 LDL is 62. AST and ALT both 90. Will hold on statin pending improvement in enzymes. Have ordered repeat CMP for the morning. Hx of brest cancer and bilateral mastectomy. 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
--- NOTE | 2024-02-20 08:04 | EXP.CARD.CON ---
History of Present Illness History of Present Illness Consult date: 02/20/24 Requesting physician: Stewart Messina Consult reason: shortness of breath Chief complaint: stemi History of present illness: This is a 63-year-old white female with past medical history of vocal cord paralysis secondary to radiation treatments for breast cancer, status post double mastectomy, hypertension, hyperlipidemia who presented to emergency department with STEMI. Patient reports she had had symptoms intermittently for the past week including dizziness and nausea. Patient reports that she went to bed at approximately 11 PM and shortly afterwards started to feel nauseated, short of breath and dizzy to the extent that she called EMS. Upon arrival of EMS patient was found to be bradycardic with a heart rate in the 40s with a blue discoloration around mouth and lips. Upon arrival to emergency department ST elevation was noted in leads III, aVF, V3, V4, V5 and depression in the lateral leads with a third-degree heart block noted. Family reports patient did have 1 episode of syncope earlier in the week. Patient was taken directly to [facility] for evaluation and underwent YANN to ostial proximal codominant RCA, proximal left main extending into the codominant circumflex and proximal left main extending into the proximal LAD. Third-degree heart block resolved after stenting. This morning patient is sitting up in bed smiling and talking with family. She reports she feels much better and denies chest pain or shortness of breath. Echocardiogram is pending. Morning labs as follow: WBC 6.5, hemoglobin 11.3, sodium 137, potassium 4.2, creatinine 0.9, AST 90, ALT 98. [facility] Disclaimer: The information contained in this section may have been updated after the patient was seen, as this information can be updated by other users. Medical History (Updated 02/19/24 @ 06:01 by Myron Cash APRN) Hodgkin lymphoma Breast cancer Surgical History (Updated 02/19/24 @ 06:01 by Myron Cash APRN) History of thyroidectomy, subtotal H/O splenectomy Hx of tonsillectomy Tubal ligation status Social History (Updated 02/19/24 @ 04:58 by Rodolfo Faye MD) Smoking Status: Never smoker alcohol intake: never current occupational status: other Travel in the last 8 weeks: None Review of Systems Review of Systems Review of systems:: pertinent systems reviewed and negative unless documented below Constitutional Constitutional: Reports system reviewed and no additional complaints, except as documented *Cardiovascular Cardiovascular: Reports system reviewed and no additional complaints, except as documented and Reports dyspnea Comments: Generalized weakness *Respiratory Respiratory: Reports system reviewed and no additional complaints, except as documented and Reports dyspnea *Gastrointestinal Gastrointestinal: Reports system reviewed and no additional complaints, except as documented *Genitourinary Comments: Nausea *Neurologic Neurologic: Reports system reviewed and no additional complaints, except as documented and Denies confusion Psychiatric Psychiatric: Reports system reviewed and no additional complaints, except as documented and Denies confusion Exam Data for Last 24 hours Vital signs and Labs for Last 24 Hours: Temp Pulse Resp BP Pulse Ox O2 Del Method O2 Flow Rate 98.0 F 79 16 122/71 95 Room Air 2 02/20/24 04:00 02/20/24 04:00 02/20/24 04:00 02/20/24 04:00 02/20/24 04:00 02/20/24 07:00 02/19/24 03:36 Laboratory Results - last 24 hr 02/19/24 07:50: PT 11.4, INR 1.02, APTT 61.2 H*, Sodium 134 L, Potassium 5.0, Chloride 104, Carbon Dioxide 18 L, Anion Gap 17.0 H, BUN 22 H, Creatinine 1.40 H, Estimated Creat Clear 53, Estimated GFR 38 L, Est GFR ( Amer) 46 L D, Glucose 131 H D, Calcium 8.5, Triglycerides 50, Cholesterol 141, LDL Cholesterol Direct 62.08 L, VLDL Cholesterol 10, HDL Cholesterol 55, Cholesterol/HDL Ratio 2.6 02/19/24 08:05: WBC 7.4, RBC 3.68 L, Hgb 12.7, Hct 39.7, MCV 107.9 H, MCH 34.5 H, MCHC 32.0, RDW 14.1, Plt Count 277, MPV 8.5, Neut % (Auto) 78.8, Lymph % (Auto) 15.1, Gregory % (Auto) 5.5, Eos % (Auto) 0.1, Baso % (Auto) 0.4, Neut # (Auto) 5.9, Lymph # (Auto) 1.1, Gregory # (Auto) 0.4, Eos # (Auto) 0.0, Baso # (Auto) 0.0 02/20/24 05:57: WBC 6.5, RBC 3.35 L, Hgb 11.3 L D, Hct 35.2 L, MCV 105.0 H, MCH 33.7 H, MCHC 32.0, RDW 14.5, Plt Count 300, MPV 8.4, Neut % (Auto) 50.4, Lymph % (Auto) 38.0, Gregory % (Auto) 9.4 H, Eos % (Auto) 1.7, Baso % (Auto) 0.5, Neut # (Auto) 3.3, Lymph # (Auto) 2.5, Gregory # (Auto) 0.6, Eos # (Auto) 0.1, Baso # (Auto) 0.0, Sodium 137, Potassium 4.2, Chloride 106, Carbon Dioxide 23, Anion Gap 12.2, BUN 18 H, Creatinine 0.90 D, Estimated Creat Clear 74, Estimated GFR 63, Est GFR ( Amer) 77 D, Glucose 109 H, Calcium 8.6, Total Bilirubin 0.4, AST 90 H, ALT 98 H, Alkaline Phosphatase 106, Total Protein 6.4, Albumin 3.4 L, Globulin 3.0, Albumin/Globulin Ratio 1.1 I & O for Last 24 hours: Intake & Output 02/17/24 02/18/24 02/19/24 02/20/24 23:59 23:59 23:59 23:59 Intake Total 932 / 2404 1472 / 1472 Output Total 0 / 0 Balance 932 / 2404 1472 / 1472 Weight 180 lb 0.013 oz 180 lb 0.013 oz Constitutional Constitutional: no acute distress *Routine Respiratory Exam Respiratory: Present CTA bilaterally and symmetric chest movement *Routine Cardiovascular Exam Cardiovascular: Present RRR, Normal S1 and Normal S2 *Routine Abdominal Exam Abdominal: Present soft and normoactive bowel sounds; Absent tenderness *Routine Extremities Exam Extremities: Present full ROM and normal capillary refill; Absent edema *Routine Skin Exam Skin: Present intact, dry and warm Detailed Neck Exam: Thyroids Thyroid: Absent bruit Meds Home Medications and Allergies Home Medications Medication Instructions Recorded Confirmed Type aspirin 81 mg chewable tablet 81 mg PO DAILY 02/19/24 02/19/24 History bisoprolol fumarate 5 mg tablet 5 mg PO DAILY 02/19/24 02/19/24 History calcium carbonate 500 mg PO DAILY 02/19/24 02/19/24 History famotidine 20 mg tablet 20 mg PO BID 02/19/24 02/19/24 History levothyroxine 125 mcg tablet 125 mcg PO DAILYDM 02/19/24 02/19/24 History lisinopril 5 mg tablet 5 mg PO DAILY 02/19/24 02/19/24 History pravastatin 40 mg tablet 40 mg PO DAILY 02/19/24 02/19/24 History New Prescriptions to Start Prescriptions: Allergies Allergy/AdvReac Type Severity Reaction Status Date / Time No Known Allergies Allergy Unverified 08/09/17 14:34 Assessment and Plan *Assessment and plan (1) Cardiogenic shock: Status: Acute Category: Medical Code(s): R57.0 - Cardiogenic shock (2) HTN (hypertension): Status: Acute Qualifiers: Hypertension type: unspecified Qualified Code(s): I10 - Essential (primary) hypertension Category: Medical Code(s): I10 - Essential (primary) hypertension (3) HLD (hyperlipidemia): Status: Acute Qualifiers: Hyperlipidemia type: unspecified Qualified Code(s): E78.5 - Hyperlipidemia, unspecified Category: Medical Code(s): E78.5 - Hyperlipidemia, unspecified (4) STEMI (ST elevation myocardial infarction): Status: Acute Qualifiers: Involved coronary artery: unspecified coronary artery Qualified Code(s): I21.3 - ST elevation (STEMI) myocardial infarction of unspecified site Category: Medical Code(s): I21.3 - ST elevation (STEMI) myocardial infarction of unspecified site Plan STEMI Coronary artery disease Cardiogenic shock-resolved Third-degree block upon presentation resolved after stenting YANN to ostial proximal codominant RCA, left main extending into the codominant circumflex, proximal left main extending into proximal LAD Echocardiogram: EF 40%, moderate hypokinesis of the inferior and inferoseptal LV islas, mild RV dilation with mild reduction in RV function, mild AI mild TR Continue aspirin 81 mg daily, and Effient 10 mg daily. Will add beta-kellen after echocardiogram results. Statin on hold due to elevated liver enzymes likely secondary to cardiogenic shock Will place patient in a 2-week event monitor prior to discharge home Ischemic cardiomyopathy/HFrEF No obvious signs of volume overload at this time. Will start patient on Entresto 24/25mg po BID and coreg 3.125mg po BID. Tomorrow will add jardiance and aldactone. Elevated liver enzymes AST 90 ALT 98 Likely secondary to cardiogenic shock which is now resolved Will continue to closely monitor Hold statin until resolution Hypertension Well-controlled Hyperlipidemia LDL goal less than 55 LDL is 62. Will resume statin once liver enzymes improve CV summary 02/20/2024: Continue to monitor for 48 hours post STEMI. Add Entresto and Coreg for ischemic cardiomyopathy with EF of 40. Cardiac meds Aspirin 81 mg daily Effient 10 mg daily Entresto 24/26 mg p.o. twice daily Coreg 3.125mg p.o. twice daily
[2024-02-20 08:22] LABS: Chol/HDL Ratio 2.5 (1-3.5); Cholesterol 118 mg/dl (140-200); HDL Cholesterol 48 mg/dl (40-60); Triglycerides 108 mg/dl (30-150); VLDL Cholesterol 22 mg/dL (0-40)
[2024-02-20 08:40] LABS: 25-OH Vitamin D, Total 80.6 ng/mL (30-100)
[2024-02-20] MEDS: PANTOPRAZOLE 40MG TABLET 40 MG PO (09:45)
[2024-02-20] MEDS: ASPIRIN EC 81MG TABLET 81 MG PO (09:45)
[2024-02-20] MEDS: PRASUGREL 10MG TAB 10 MG PO (09:45)
[2024-02-20] MEDS: DOCUSATE SODIUM 100 MG CAPSULE PO (09:45)
--- NOTE | 2024-02-20 09:50 | PC.NURSE ---
spoke with MD regarding pts home medications.
[2024-02-20] MEDS: LEVOTHYROXINE 125MCG (0.125MG) TAB 125 MCG PO (11:53)
[2024-02-20] MEDS: PRAVASTATIN 40MG TAB 40 MG PO (11:53)
--- NOTE | 2024-02-20 11:59 | PC.NURSE ---
Per cardiology stop lisinopril and start entresto and carvedilol.
[2024-02-20] MEDS: SACUBITRIL/VALSARTAN 24-26MG TABLET 1 EACH PO ×2 (12:09→20:54)
[2024-02-20] MEDS: CARVEDILOL 3.125MG TABLET 3.125 MG PO ×2 (12:09→20:54)
--- NOTE | 2024-02-20 18:06 | PC.NURSE ---
Pt A&Ox4. Pt denies any chest pain. Ambulating independently around deal and in room. family members at bedside this shift. Pt has no complaints at this time.
--- NOTE | 2024-02-20 22:54 | CA_ITS ---
APPROVED REPORT EXAM: Comprehensive 2D, Doppler, and color-flow Echocardiogram St[facility]er: Danna Eason CRT Ht: 5 ft 4 in Wt: 180lbs BSA: 1.87 BP: 100/76 mmHg Indications: PR,CAD,CP,HTN,H/O CA BREAST,HODGKINS LYMPHOMA,POST RADIATION 2D Dimensions LA Volume 36.90 mL LA Volume Index 19.73 mL/m2 (M/F) 16-34 M-Mode Dimensions RVDd 2.95 cm (0.9-2.6) LA Diam 3.35 cm (1.9-4.0) LVDd 4.60 cm (3.5-5.7) LVDs 3.28 cm (3.5-5.7) IVSd 1.58 cm (0.6-1.1) PWd 0.79 cm (0.6-1.1) EF (Teich) 55.30% FS 28.70% EDV (Teich) 97.30 mL TAPSE 1.65 (<1.7) ESV (Teich) 43.50 mL LV Diastology E Decel Time 150 (160-240 msec) E/A Ratio 1.1 MED A' 6.40 cm/s LAT A' 10.30 cm/s Aortic Valve AI PHT 575.00 ms AO Peak GR. 11.20 mmHg Mitral Valve MV E Max Alexandre. 110.0 (40-130 cm/s) MV A Velocity 101.0 (40-130 cm/s) E/A Ratio 1.09 MV PHT 44.0 ms Pulmonary Valve PV Peak Velocity 96.0 (50-150 cm/s) Tricuspid Valve TR P. Velocity 258.00 cm/s RAP Estimate 10.00 mmHg RVSP 36.70 mmHg Left Ventricle The left ventricle is normal size. Left ventricular systolic function is mild to moderately decreased. There is increased LV wall thickness. There is moderate hypokinesis of the inferior and inferoseptal LV islas. Grade 1 diastolic dysfunction is present. LVEF is 40%. Right Ventricle Right ventricle is mildly dilated. Right ventricle is mildly hypokinetic. Atria The left atrium size is normal. The right atrium size is normal. There is no Doppler evidence of interatrial shunt. Aortic Valve The aortic valve is mildly thickened. There is no aortic valvular stenosis. Mild aortic regurgitation. Mitral Valve The mitral valve leaflets are mildly thickened. No evidence of mitral valve stenosis. Trace mitral regurgitation. Tricuspid Valve The tricuspid valve leaflets are thin and pliable. Mild tricuspid regurgitation. RVSP is 30-35 mmHg. Pulmonic Valve The pulmonary valve is normal in structure. Trace pulmonic regurgitation. Great Vessels The aortic root is normal in size. The ascending aorta is normal in size. IVC is dilated, but collapses >50% with inspiration. RA pressure is estimated at 8 mmHg. Pericardium There is no pericardial effusion. Other Information Study Quality: Technically Difficult Conclusion Technically difficult study due to poor acoustic window. Mild to moderate reduction in LV systolic function (LVEF 40%). Moderate hypokinesis of the inferior and inferoseptal LV islas. Mild RV dilation with mild reduction in RV function. Mild AI, mild TR. Future evaluations with TTE are suggested with administration of ultrasound enhancing agent to better delineate the endocardial borders and estimate the LVEF. Electronically signed by : Kirstin Dorsey MD 02/20/2024 11:16:28
[2024-02-21] VITALS: BP 156/79; PULSE 86; PULSE 91; RESP 18; TEMP 36.8; O2SAT 97
[2024-02-21 04:00] VITALS: BP 134/65; PULSE 82; PULSE 85; RESP 18; TEMP 36.9; O2SAT 96; BMI 32.6
--- NOTE | 2024-02-21 05:57 | PC.NURSE ---
Patient is alert and oriented x4. She has a history of breast cancer. Patient is on room air and tolerates it well. Patient reported she had a bowel movement yesterday (02/19) at 14:00, during the previous shift; she has not had another at this time. She ambulates to the bathroom and in her room by her self; her ambulation has been good. Patient's heart rate has been normal sinus rhythm on telemetry. Patient has not had any complaints of pain or burning in her chest this shift. She received her scheduled medications per OCT. Patient's daughter has slept at bedside in the chair by patient throughout the night. Patient has not had any other further complaints at this time. It has been a decent night overall. Patient is resting at this time. No acute changes noted. Discharge is expected today, per MD (02/20).
[2024-02-21] MEDS: LEVOTHYROXINE 125MCG (0.125MG) TAB 125 MCG PO (06:34)
[2024-02-21 06:44] LABS: Basophils # 0.1 K/mm3 (0-0.2); Basophils % 0.8 % (0.1-2.0); Eosinophils # 0.2 K/mm3 (0.0-0.4); Eosinophils % 3.2 % (0.1-12.0); Hematocrit 36.4 % (37.0-47.0); Hemoglobin 11.6 g/dL (12.2-16.2); Lymphocytes # 1.7 K/mm3 (0.7-4.5); Mean Corpuscular Hemoglobin 33.6 pg (27.0-31.2); Mean Platelet Volume 8.1 fl (7.4-10.4); Monocytes # 0.6 K/mm3 (0.1-1.0); Neutrophils # 3.4 K/mm3 (1.8-7.8); Platelet Count 310 K/mm3 (142-424); Red Blood Count 3.47 M/mm3 (4.20-5.40); Red Cell Distribution Width 14.6 % (11.5-17.5); White Blood Count 5.9 K/mm3 (4.8-10.8)
[2024-02-21 06:49] LABS: Chloride 109 mmol/L (98-107); Potassium 3.8 mmoL/L (3.5-5.1); Sodium 138 mmol/L (136-145)
[2024-02-21 06:52] LABS: Alanine Aminotransferase 75 U/L (12-78); Albumin Level 3.3 g/dl (3.5-5.0); Albumin/Globulin Ratio 1.1 (1.1-1.8); Alkaline Phosphatase 100 U/L (38-126); Anion Gap 5.8 mEq/L (5-15); Aspartate Amino Transferase 56 U/L (14-36); Bilirubin,Total 0.4 mg/dl (0.2-1.3); Blood Urea Nitrogen 11 mg/dl (7-17); Calcium 8.8 mg/dl (8.4-10.2); Carbon Dioxide 27 mmol/L (22.0-30.0); Creatinine Clearance Estimated 81 mL/min (50-200); Estimated Glomerular Filt Rate 85 ml/min (>60); GFR (African American) 102 ML/MIN (>60); Globulin 3.1 g/dL (1.3-3.2); Glucose 104 mg/dl (74-100); Total Protein,Serum 6.4 g/dl (6.3-8.2)
[2024-02-21 07:27] LABS: Magnesium 1.6 mg/dl (1.6-2.3)
[2024-02-21 07:36] VITALS: BP 134/68; PULSE 81; RESP 18; TEMP 36.8; O2SAT 98
--- NOTE | 2024-02-21 07:40 | P.DS_ITS ---
General Admission date:: 02/19/24 Discharge date: 02/21/24 HPI HPI HPI: This is a 63-year-old female with history of vocal cord paralysis secondary to radiation treatment for breast cancer, status post double mastectomy, HTN, HLD, presented via EMS with STEMI. She reports that approximately 11 PM she started feeling nauseous, short of breath, generally ill. Reported chest pain. Upon EMS arrival, patient was noted to be hypotensive with systolics in the 60s. Bradycardic with rate in the 40s. bluish coloraton around mouth and lips. was taken emergently into a laboratory veterinarian. Patient seen at the floor after procedure hemodynamically stable. Cardiogenic shock resolved. Blood pressure stabilized. Sinus rhythm on the monitor. No signs of bleeding or hematoma throughout both of the surgical site access. Admitted for further management. Hospital Course Hospital Course Hospital Course: 63-year-old female with history of vocal cord paralysis secondary to radiation treatment for breast cancer, status post double mastectomy, HTN, HLD, presented via EMS with STEMI. On arrival patient patient presented hypotensive, bradycardic, cyanosis. Presumed cardiogenic shock. Was taking into a Industrial Truck Operator. Found to has coronary disease with cardiogenic shock complicated by third- degree heart block. Successfully placed 3 drug-eluting stent. Ostial proximal codominant right coronary, proximal circumflex and left main artery. Patient was admitted after her event. Monitored for 48 hours. Showed drastic i mprovement, clinically stable for discharge home. Continue medical management. Problems addressed as follows: STEMI s/p 3 coronary stent placement Cardiogenic shock. resolved Ischemic cardiomyopathy/heart failure with reduced ejection fraction Patient admitted for monitoring after heart cath. Status post heart cath on 02/18 at 3 in the morning. Received drug-eluting stents to the ostial proximal codominant RCA, left main extending into the codominant circumflex and proximal left main extending into the proximal LAD. Tolerated procedure well. Echo obtained during admission with EF of 40%, moderate hypokinesis of the inferior and inferoseptal LV islas. Started on goal-directed therapy with dual antiplatelet therapy of aspirin 81 mg daily and prasugrel 10 mg daily. Initiated since 4 heart failure and blood pressure including Entresto 24/26 mg twice daily, carvedilol 3.125 mg twice daily, Jardiance 10 mg daily, spironolactone 12.5 mg daily, and Lipitor 40 mg daily. No events on telemetry for 48 hours after heart cath. Clinically stable to discharge home. Recommend 2-week event monitor at discharge. Close follow-up with cardiology in the coming weeks. Patient reports she is supposed to travel to [place] this coming Tuesday. No medical contraindication to travel. Follow-up with cardiology after she returns home. Hyperlipidemia LDL goal less than 55 LDL is 62. Liver and analyzed by day of discharge. Will initiate statin with Lipitor 40 mg daily as above. Hx of breast cancer and bilateral mastectomy. 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 Exam Data for Last 24 hours Vital signs and Labs for Last 24 Hours: Temp Pulse Resp BP Pulse Ox O2 Del Method O2 Flow Rate 98.3 F 81 18 134/68 98 Room Air 2 02/21/24 07:36 02/21/24 07:36 02/21/24 07:36 02/21/24 07:36 02/21/24 07:36 02/21/24 07:36 02/20/24 16:00 Laboratory Results - last 24 hr 02/20/24 05:57: Triglycerides 108, Cholesterol 118 L, LDL Cholesterol Direct 39.70 L, VLDL Cholesterol 22, HDL Cholesterol 48, Cholesterol/HDL Ratio 2.5, 25- OH Vitamin D Total 80.6 02/21/24 05:38: WBC 5.9, RBC 3.47 L, Hgb 11.6 L, Hct 36.4 L, MCV 105.0 H, MCH 33.6 H, MCHC 32.0, RDW 14.6, Plt Count 310, MPV 8.1, Neut % (Auto) 58.0, Lymph % (Auto) 28.0, Chambers % (Auto) 10.0 H, Eos % (Auto) 3.2, Baso % (Auto) 0.8, Neut # (Auto) 3.4, Lymph # (Auto) 1.7, Chambers # (Auto) 0.6, Eos # (Auto) 0.2, Baso # (Auto) 0.1, Sodium 138, Potassium 3.8, Chloride 109 H, Carbon Dioxide 27, Anion Gap 5.8, BUN 11 D, Creatinine 0.70 D, Estimated Creat Clear 81, Estimated GFR 85, Est GFR ( Amer) 102 D, Glucose 104 H, Calcium 8.8, Magnesium 1.6, Total Bilirubin 0.4, AST 56 H D, ALT 75, Alkaline Phosphatase 100, Total Protein 6.4, Albumin 3.3 L, Globulin 3.1, Albumin/Globulin Ratio 1.1 I & O for Last 24 hours: Intake & Output 02/18/24 02/19/24 02/20/24 02/21/24 23:59 23:59 23:59 23:59 Intake Total 932 / 2404 2322 / 2442 120 / 120 Output Total 0 / 0 Balance 932 / 2404 2321 / 2441 120 / 120 Weight 81.647 kg 81.647 kg 88.904 kg Constitutional Constitutional: no acute distress *Routine HEENT Exam Head: Present normocephalic Eye: Present EOMI and PERRL ENT: Present mucous membranes moist *Routine Neck Exam Neck: Present supple; Absent lymphadenopathy *Routine Respiratory Exam Respiratory: Present CTA bilaterally *Routine Cardiovascular Exam Cardiovascular: Present RRR *Routine Abdominal Exam Abdominal: Present soft and normoactive bowel sounds; Absent tenderness *Routine Extremities Exam Extremities: Absent cyanosis, clubbing or edema *Routine Skin Exam Skin: Present warm; Absent rash *Routine Neurological Exam Neurological: Present alert and oriented X3 Results Data Completed and Pending Labs on day of discharge: Labs from last 24 hours 02/21/24 02/20/24 05:38 05:57 WBC 5.9 RBC 3.47 L Hgb 11.6 L Hct 36.4 L MCV 105.0 H MCH 33.6 H MCHC 32.0 RDW 14.6 Plt Count 310 MPV 8.1 Neut % (Auto) 58.0 Lymph % (Auto) 28.0 Chambers % (Auto) 10.0 H Eos % (Auto) 3.2 Baso % (Auto) 0.8 Neut # (Auto) 3.4 Lymph # (Auto) 1.7 Chambers # (Auto) 0.6 Eos # (Auto) 0.2 Baso # (Auto) 0.1 Sodium 138 Potassium 3.8 Chloride 109 H Carbon Dioxide 27 Anion Gap 5.8 BUN 11 D Creatinine 0.70 D Estimated Creat Clear 81 Estimated GFR 85 Est GFR ( Amer) 102 D Glucose 104 H Calcium 8.8 Magnesium 1.6 Total Bilirubin 0.4 AST 56 H D ALT 75 Alkaline Phosphatase 100 Total Protein 6.4 Albumin 3.3 L Globulin 3.1 Albumin/Globulin Ratio 1.1 Triglycerides 108 Cholesterol 118 L LDL Cholesterol Direct 39.70 L VLDL Cholesterol 22 HDL Cholesterol 48 Cholesterol/HDL Ratio 2.5 25-OH Vitamin D Total 80.6 DS: Diagnosis Discharge Diagnosis (1) Cardiogenic shock: Status: Acute Code(s): R57.0 - Cardiogenic shock (2) HTN (hypertension): Status: Acute Code(s): I10 - Essential (primary) hypertension Qualifiers: Hypertension type: unspecified Qualified Code(s): I10 - Essential (primary) hypertension (3) HLD (hyperlipidemia): Status: Acute Code(s): E78.5 - Hyperlipidemia, unspecified Qualifiers: Hyperlipidemia type: unspecified Qualified Code(s): E78.5 - Hyperlipidemia, unspecified (4) STEMI (ST elevation myocardial infarction): Status: Acute Code(s): I21.3 - ST elevation (STEMI) myocardial infarction of unspecified site Qualifiers: Involved coronary artery: unspecified coronary artery Qualified Code(s): I21.3 - ST elevation (STEMI) myocardial infarction of unspecified site Meds Home Medications and Allergies Home Medications Medication Instructions Recorded Confirmed Type aspirin 81 mg chewable tablet 81 mg PO DAILY 02/19/24 02/19/24 History calcium carbonate 500 mg PO DAILY 02/19/24 02/19/24 History famotidine 20 mg tablet 20 mg PO BID 02/19/24 02/19/24 History levothyroxine 125 mcg tablet 125 mcg PO DAILYDM 02/19/24 02/19/24 History atorvastatin 40 mg tablet 40 mg PO HS 30 days #30 tabs 02/21/24 Rx carvedilol 3.125 mg tablet 3.125 mg PO BID 30 days #60 tabs 02/21/24 Rx empagliflozin 10 mg tablet 10 mg PO DAILY 30 days #30 tabs 02/21/24 Rx (Jardiance) prasugrel 10 mg tablet 10 mg PO DAILY 30 days #30 tabs 02/21/24 Rx sacubitril 24 mg-valsartan 26 mg 1 tab PO BID 30 days #60 tabs 02/21/24 Rx tablet (Entresto) spironolactone 25 mg tablet 12.5 mg (1/2 x 25 mg) PO DAILY 30 07/02/24 Rx days #15 tabs New Prescriptions to Start Prescriptions: atorvastatin Mayuri,Stewart carvedilol Stewart Messina empagliflozin [Jardiance] Stewart Messina prasugrel Stewart Messina sacubitril-valsartan [Entresto] Mayuri,Stewart spironolactone Stewart Messina Allergies Allergy/AdvReac Type Severity Reaction Status Date / Time No Known Allergies Allergy Unverified 08/09/17 14:34 Discharge Plan Disposition Patient Disposition: Home, Self-Care Condition: Good Discharge Order Discharge Orders: Discharge Order (Routine); Ordered 02/21/24 Ordered By: Stewart Messina Follow up Plan Follow up with: Farzana Pereira MD [Staff Physician] - 03/12/24 3:30 pm Chava Sanders MD [Staff Physician] - 03/06/24 2:30 pm Prescriptions/Medication Reconciliation: New prasugrel 10 mg Tablet 10 mg PO DAILY 30 Days Qty: 30 0RF Entresto 24-26 mg Tablet 1 tab PO BID 30 Days Qty: 60 0RF atorvastatin 40 mg Tablet 40 mg PO HS 30 Days Qty: 30 0RF spironolactone 25 mg Tablet 12.5 mg PO DAILY 30 Days Qty: 15 0RF carvedilol 3.125 mg Tablet 3.125 mg PO BID 30 Days Qty: 60 0RF Jardiance 10 mg Tablet 10 mg PO DAILY 30 Days Qty: 30 0RF Continued famotidine 20 mg tablet 20 mg PO BID Patient Comments: TAKE 1 TABLET BY MOUTH TWICE DAILY levothyroxine 125 mcg Tablet 125 mcg PO DAILYDM aspirin 81 mg Tablet,Chewable 81 mg PO DAILY calcium carbonate 500 mg calcium (1,250 mg) Tablet 500 mg PO DAILY Discontinued pravastatin 40 mg Tablet 40 mg PO DAILY bisoprolol fumarate 5 mg Tablet 5 mg PO DAILY lisinopril 5 mg Tablet 5 mg PO DAILY Other Ambulatory Orders: Basic Metabolic Panel (Routine) Timeframe: 20240306 Facility: [facility] - Location: Laboratory Ordered By: Chava Sanders Complete Blood Count Auto Diff (Routine) Timeframe: 20240306 Facility: [facility] - Location: Laboratory Ordered By: Chava Sanders Problem Reconciliation Problems Reviewed?: Yes Patient Discharge Instructions ACTIVITY: Continue current activity DIET: continue same diet Patient Instructions: Heart Attack, DI for Cardiac Catheterization, DI for Surgical Site Infection Providers Primary Care Provider: Provider,Referral Admit Provider: Kirill Griffith Attending Provider: Kirill Griffith
[2024-02-21 07:48] LABS: Hemoglobin A1C 5.8 % (4.0-6.0)
[2024-02-21 08:00] VITALS: PULSE 90; O2SAT 98
[2024-02-21] MEDS: MAGNESIUM SULFATE IN WATER 2 GM/50 ML PIGGYBACK IV (08:20)
--- NOTE | 2024-02-21 08:56 | EXP.CARD.PN ---
Subjective Subjective Date: 02/21/24 Time: 08:30 Principal diagnosis: STEMI Interval history: Patient doing well this morning. Sitting up in bed smiling talking with family. Patient denies chest pain or shortness of breath. Vitals remained stable. Morning labs reviewed. Exam Data for Last 24 hours Vital signs and Labs for Last 24 Hours: Temp Pulse Resp BP Pulse Ox O2 Del Method O2 Flow Rate 98.3 F 81 18 134/68 98 Room Air 2 02/21/24 07:02/21/24 07:02/21/24 07:02/21/24 07:02/21/24 07:36 02/21/24 07:36 02/20/24 16:00 Laboratory Results - last 24 hr 02/21/24 05:38: WBC 5.9, RBC 3.47 L, Hgb 11.6 L, Hct 36.4 L, MCV 105.0 H, MCH 33.6 H, MCHC 32.0, RDW 14.6, Plt Count 310, MPV 8.1, Neut % (Auto) 58.0, Lymph % (Auto) 28.0, [place] % (Auto) 10.0 H, Eos % (Auto) 3.2, Baso % (Auto) 0.8, Neut # (Auto) 3.4, Lymph # (Auto) 1.7, [place] # (Auto) 0.6, Eos # (Auto) 0.2, Baso # (Auto) 0.1, Sodium 138, Potassium 3.8, Chloride 109 H, Carbon Dioxide 27, Anion Gap 5.8, BUN 11 D, Creatinine 0.70 D, Estimated Creat Clear 81, Estimated GFR 85, Est GFR ( Amer) 102 D, Glucose 104 H, Hemoglobin A1c 5.8, Calcium 8.8, Magnesium 1.6, Total Bilirubin 0.4, AST 56 H D, ALT 75, Alkaline Phosphatase 100, Total Protein 6.4, Albumin 3.3 L, Globulin 3.1, Albumin/Globulin Ratio 1.1 I & O for Last 24 hours: Intake & Output 02/18/24 02/19/24 02/20/24 02/21/24 23:59 23:59 23:59 23:59 Intake Total 932 / 2404 2322 / 2442 390 / 390 Output Total 0 / 0 1 / 1 0 / 0 Balance 932 / 2404 2321 / 2441 390 / 390 Weight 180 lb 0.013 oz 180 lb 0.013 oz 196 lb Constitutional Constitutional: no acute distress *Routine Respiratory Exam Respiratory: Present CTA bilaterally and symmetric chest movement *Routine Cardiovascular Exam Cardiovascular: Present RRR, Normal S1 and Normal S2 *Routine Abdominal Exam Abdominal: Present soft and normoactive bowel sounds; Absent tenderness *Routine Extremities Exam Extremities: Present full ROM, pulses intact and normal capillary refill; Absent edema Comments: Right groin access site-minimal bruising present. No active bleeding or swelling noted. *Routine Skin Exam Skin: Present intact, dry and warm Detailed Neck Exam: Thyroids Thyroid: Absent bruit Progress Note: A&P Assessment and plan (1) Cardiogenic shock: Status: Acute (2) HTN (hypertension): Status: Acute (3) HLD (hyperlipidemia): Status: Acute (4) STEMI (ST elevation myocardial infarction): Status: Acute Assessment and Plan Assessment and Plan for All Diagnoses:: Coronary artery disease Cardiogenic shock-resolved Third-degree block upon presentation resolved after stenting YANN to ostial proximal codominant RCA, left main extending into the codominant circumflex, proximal left main extending into proximal LAD Echocardiogram: EF 40%, moderate hypokinesis of the inferior and inferoseptal LV islas, mild RV dilation with mild reduction in RV function, mild AI mild TR Continue aspirin 81 mg daily, Effient 10 mg daily, Coreg 3.125 mg p.o. twice daily and atorvastatin 40 [address] daily Will place patient in a 2-week event monitor prior to discharge home Ischemic cardiomyopathy/HFrEF NYHA class 1 No obvious signs of volume overload at this time. Continue Entresto 24/25mg po BID and coreg 3.125 mg p.o. twice daily. Add Jardiance 10 mg daily and spironolactone 12.5 mg p.o. daily. Elevated liver enzymes-resolving AST 90 ALT 98-today AST is 56 and ALT is 75 Initial elevation likely secondary to cardiogenic shock which is now resolved Start atorvastatin 40 mg daily, continue to monitor Hypertension Well-controlled Hyperlipidemia LDL goal less than 55 LDL is 62. Start atorvastatin 40 mg daily CV summary 02/21/2024: Patient is CV stable for discharge home. Please have patient follow-up in cardiology clinic in 1 week for reevaluation. DC patient home with a 2-week event monitor. Continue below listed cardiac meds. Cardiac meds Aspirin 81 mg daily Effient 10 mg daily Entresto 24/26 mg p.o. twice daily Coreg 3.125mg p.o. twice daily Jardiance 10 mg p.o. daily Spironolactone 12.5 mg p.o. daily Atorvastatin 40 mg p.o. daily
[2024-02-21] MEDS: EMPAGLIFLOZIN 10MG TABLET 10 MG PO (09:40)
[2024-02-21] MEDS: DOCUSATE SODIUM 100 MG CAPSULE PO (09:40)
[2024-02-21] MEDS: ASPIRIN EC 81MG TABLET 81 MG PO (09:40)
[2024-02-21] MEDS: SPIRONOLACTONE 25MG TABLET 12.5 MG PO (09:41)
[2024-02-21] MEDS: PRASUGREL 10MG TAB 10 MG PO (09:41)
[2024-02-21] MEDS: SACUBITRIL/VALSARTAN 24-26MG TABLET 1 EACH PO (09:42)
[2024-02-21] MEDS: CARVEDILOL 3.125MG TABLET 3.125 MG PO (09:42)
[2024-02-21] MEDS: PANTOPRAZOLE 40MG TABLET 40 MG PO (09:42)
--- NOTE | 2024-02-22 13:21 | CARE MANAGER ---
Contacted patient related to hospital discharge. She states she is feeling well. She has all her medications and follow up appointments. She denies questions or concerns. TATI Ervin
== END 2024-02-21 12:35 | disposition home or self-care (01) | DRG 321 ==
LOC: ER 03:12 → CATHLAB 03:41 → 2ND 04:34
PROVIDERS: Internal Medicine; Internal Medicine Adolescent Medicine; Nurse Practitioner; Nurse Practitioner Family; Admitting Provider Internal Medicine; Emergency Provider Emergency Medicine; Visit Provider Internal Medicine
PROC: 02H Heart and Great Vessels, Insertion (ICD-10-PCS; principal; 2024-02-19 03:20)
DX: I21.3 ST elevation (STEMI) myocardial infarction of unspecified site (principal); R57.0 Cardiogenic shock; I44.2 Atrioventricular block, complete; Z95.5 Presence of coronary angioplasty implant and graft; I10 Essential (primary) hypertension; E78.5 Hyperlipidemia, unspecified; Z85.3 Personal history of malignant neoplasm of breast; Z79.899 Other long term (current) drug therapy; Z90.13 Acquired absence of bilateral breasts and nipples; I25.5 Ischemic cardiomyopathy; Z85.72 Personal history of non-Hodgkin lymphomas; I08.2 Rheumatic disorders of both aortic and tricuspid valves
CPT/HCPCS: 36415; 71045; 80048; 80053; 80061; 82306; 83036; 83735; 84484; 85025; 85347; 85610; 85730; 92928; 92941; 93005; 93270; 93306; 93458; 99152; 99153; 99291; C1725; C1760; C1769; C1874; C1894; C9600; C9606; J1644; J2250; J2405; J3010; J3475; Q9967

== ENCOUNTER 2024-02-25 03:11 | Emergency (ER) | payer BC, SELFPAY ==
[2024-02-25] VITALS (9 sets, daily range): BP systolic 92–159; BP diastolic 49–82; PULSE 88–105; RESP 16; TEMP 36.6; O2SAT 96–99; BMI 29.6
--- NOTE | 2024-02-25 03:17 | ECG_ITS ---
APPROVED REPORT Exam: Resting ECG HR:97 bpm ECG Measurements Heart Rate 97 AXES GA 137 P 65 QRSd 94 QRS 11 QT 346 T 134 QTc [address] DEVIATION AND MODERATE T-WAVE ABNORMALITY, CONSIDER LATERAL ISCHEMIA [-0.1+ mV T-WAVE IN I/aVL/V5/V6] ABNORMAL ECG T wave inversions lateral leads Electronically signed by : ILIANA CHAVEZ, 02/25/2024 15:05:37
--- NOTE | 2024-02-25 03:20 | XR_ITS ---
PROCEDURE INFORMATION: Exam: XR Chest Exam date and time: 02/25/2024 3:33 AM Age: 63 years old Clinical indication: Other: Left thoracic back pain TECHNIQUE: Imaging protocol: Radiologic exam of the chest. Views: 2 views. COMPARISON: CR XR CHEST PORTABLE 02/19/2024 3:15 AM FINDINGS: Lungs: Unremarkable. No consolidation. Pleural spaces: Unremarkable. No pleural effusion. No pneumothorax. Heart/Mediastinum: Unremarkable. No cardiomegaly. Bones/joints: Unremarkable. IMPRESSION: No acute findings.
[2024-02-25] MEDS: ACETAMINOPHEN 500MG TAB 1000 MG PO (03:25)
[2024-02-25] MEDS: CYCLOBENZAPRINE 10MG TABLET 10 MG PO (03:26)
[2024-02-25] MEDS: LIDOCAINE 5% TRANSDERMAL PATCH 1 EACH TP (03:26)
[2024-02-25 03:35] LABS: Basophils # 0.1 K/mm3 (0-0.2); Eosinophils # 0.2 K/mm3 (0.0-0.4); Eosinophils % 2.3 % (0.1-12.0); Hematocrit 35.8 % (37.0-47.0); Hemoglobin 11.6 g/dL (12.2-16.2); Lymphocytes # 2.6 K/mm3 (0.7-4.5); Lymphocytes % 30.2 % (10-50); Mean Corpuscular HGB Conc 32.5 g/dL (31.8-35.4); Mean Corpuscular Hemoglobin 34.1 pg (27.0-31.2); Mean Corpuscular Volume 105.1 fl (81-99); Mean Platelet Volume 8.3 fl (7.4-10.4); Monocytes # 0.7 K/mm3 (0.1-1.0); Monocytes % 7.9 % (1.7-9.3); Neutrophils % 58.6 % (37.0-80.0); Platelet Count 400 K/mm3 (142-424); Red Blood Count 3.41 M/mm3 (4.20-5.40); Red Cell Distribution Width 14.3 % (11.5-17.5); White Blood Count 8.5 K/mm3 (4.8-10.8)
--- NOTE | 2024-02-25 03:43 | HMH.EDGENADL ---
Discharge Plan Disposition Patient Disposition: Home, Self-Care Prescriptions Prescriptions: New methocarbamol 500 mg tablet 1,000 mg PO Q6H PRN (Reason: pain) Qty: 30 0RF lidocaine 5 % adhesive patch,medicated 1 patch topical DAILY PRN (Reason: pain) Qty: 30 0RF Rx Instructions: leave on most painful area for up to 12 hrs No Action famotidine 20 mg tablet 20 mg PO BID Patient Comments: TAKE 1 TABLET BY MOUTH TWICE DAILY levothyroxine 125 mcg Tablet 125 mcg PO DAILYDM aspirin 81 mg Tablet,Chewable 81 mg PO DAILY calcium carbonate 500 mg calcium (1,250 mg) Tablet 500 mg PO DAILY prasugrel 10 mg Tablet 10 mg PO DAILY 30 Days Qty: 30 0RF Entresto 24-26 mg Tablet 1 tab PO BID 30 Days Qty: 60 0RF atorvastatin 40 mg Tablet 40 mg PO HS 30 Days Qty: 30 0RF spironolactone 25 mg Tablet 12.5 mg PO DAILY 30 Days Qty: 15 0RF carvedilol 3.125 mg Tablet 3.125 mg PO BID 30 Days Qty: 60 0RF Jardiance 10 mg Tablet 10 mg PO DAILY 30 Days Qty: 30 0RF Referrals Follow up/Referrals: Farzana Pereira MD [Primary Care Provider] - See instructions Activity Restrictions/Add. Instructions Additional Instructions/Restrictions: Please take Tylenol, muscle relaxers and use lidocaine patches as needed for pain. Clinical Impressions Clinical Impression: Back pain Qualifiers: Back pain location: thoracic back pain Chronicity: acute Back pain laterality: left Qualified Code(s): M54.6 - Pain in thoracic spine Instructions Patient Instructions: DI for Low Back Pain Discharge ED Provider: Rodolfo Faye Adult HPI General Chief complaint: Back Pain/Injury Stated complaint: Back pain Time Seen by Provider: 02/25/24 03:18 Mode of Arrival: Wheelchair Source of Information: Patient Limitations: No Limitations Description of Symptoms (Recalled from ER Triage Doc. by RN): pt states had [address] on t[address]. pt c/o left side back pain that started yesterday around 3 in afternoon and woke her up from sleep this am, History of Present Illness HPI narrative: 63-year-old male with history of hypertension hyperlipidemia, STEMI 6 days ago with 3 stents placed, presents with left-sided thoracic back pain. She reports it started this afternoon and has been slowly worsening. got better with massage and with a heating pad. It woke her from sleep this morning and so she was concerned and presents to the ER. She denies any chest pain abdominal pain shortness of breath urinary symptoms etc. Denies any trauma. She also reports that she has been seeing some blood in her stool after starting anticoagulation from her IA. She reports that she had blood work drawn earlier today which showed that she is not anemic. Related Data Home Medications Medication Instructions Recorded Confirmed aspirin 81 mg chewable tablet 81 mg PO DAILY 02/19/24 02/19/24 calcium carbonate 500 mg PO DAILY 02/19/24 02/19/24 famotidine 20 mg tablet 20 mg PO BID 02/19/24 02/19/24 levothyroxine 125 mcg tablet 125 mcg PO DAILYDM 02/19/24 02/19/24 Previous Rx's Medication Instructions Recorded atorvastatin 40 mg tablet 40 mg PO HS 30 days #30 tabs 02/21/24 carvedilol 3.125 mg tablet 3.125 mg PO BID 30 days #60 tabs 02/21/24 empagliflozin 10 mg tablet 10 mg PO DAILY 30 days #30 tabs 02/21/24 (Jardiance) prasugrel 10 mg tablet 10 mg PO DAILY 30 days #30 tabs 02/21/24 sacubitril 24 mg-valsartan 26 mg 1 tab PO BID 30 days #60 tabs 02/21/24 tablet (Entresto) spironolactone 25 mg tablet 12.5 mg (1/2 x 25 mg) PO DAILY 30 02/21/24 days #15 tabs lidocaine 5 % topical patch 1 patch topical DAILY PRN pain #30 02/25/24 ea methocarbamol 500 mg tablet 1,000 mg (2 x 500 mg) PO Q6H PRN 02/25/24 pain #30 tabs Allergies Allergy/AdvReac Type Severity Reaction Status Date / Time No Known Allergies Allergy Unverified 08/09/17 14:34 [facility] Disclaimer: The information contained in this section may have been updated after the patient was seen, as this information can be updated by other users. Medical History (Updated 02/25/24 @ 06:58 by Rodolfo Faye MD) Hodgkin lymphoma Breast cancer Surgical History (Updated 07/06/24 @ 00:00 by Omar Wallace) History of thyroidectomy, subtotal H/O splenectomy Hx of tonsillectomy Tubal ligation status Social History (Updated 02/19/24 @ 04:58 by Rodolfo Faye MD) Smoking Status: Never smoker alcohol intake: never current occupational status: other Travel in the last 8 weeks: None ROS Obtained: Yes All systems reviewed & no additional complaints except as documented Physical Exam General General appearance: alert, in no apparent distress and anxious Head Head exam: atraumatic and normocephalic Eye Eye exam: Present normal appearance, PERRL and EOMI ENT ENT exam: Present normal oropharynx and normal external ear exam Neck Neck exam: Present normal inspection and full ROM Chest Chest inspection: Present normal inspection and symmetric chest wall rise; Absent tenderness Respiratory Respiratory exam: Present normal lung sounds bilaterally; Absent respiratory distress Cardiovascular Cardiovascular exam: Present normal rhythm and tachycardia Abdominal Exam Abdominal exam: Present soft; Absent distention, tenderness or guarding Extremities Exam Extremities exam: Present normal inspection; Absent edema or joint swelling Back Exam Back exam: Present normal inspection and tenderness (Focal pain in the left thoracic back just inferior to the scapula, no midline tenderness. Patient reports that it feels better after you massage it.) Neurological Exam Neurological exam: Present alert and oriented X3; Absent motor sensory deficit Psychiatric Psychiatric exam: Present normal affect and normal mood Skin Skin exam: Present warm, dry and normal color Lymphatic Lymphatic Findings: no adenopathy Medical Decision Making Medical Records Medical records reviewed: Yes I reviewed the patient's medical records. Souleymane Inquiry Pt receiving controlled substance: No Souleymane was queried for this patient: No Vital Signs: 02/25/24 03:11 02/25/24 03:30 02/25/24 04:00 Temperature 97.8 F Temperature Source Oral Pulse Rate 98 H 90 Pulse Rate [Left] 105 H Respiratory Rate 16 Blood Pressure 159/82 H 123/57 L Blood Pressure [Right Arm] 132/73 Blood Pressure Mean 107 79 Blood Pressure Mean [Right Arm] 92 02 Sat by Pulse Oximetry 99 99 96 Oxygen Delivery Method 02/25/24 04:30 02/25/24 05:00 02/25/24 05:30 Temperature Temperature Source Pulse Rate 89 89 88 Pulse Rate [Left] Respiratory Rate Blood Pressure 121/63 122/60 117/64 Blood Pressure [Right Arm] Blood Pressure Mean 80 77 73 Blood Pressure Mean [Right Arm] 02 Sat by Pulse Oximetry 96 96 97 Oxygen Delivery Method 02/25/24 06:00 02/25/24 06:31 02/25/24 06:54 Temperature 97.8 F Temperature Source Oral Pulse Rate 90 95 H 91 H Pulse Rate [Left] Respiratory Rate 16 Blood Pressure 131/65 92/49 L 110/63 Blood Pressure [Right Arm] Blood Pressure Mean 73 65 Blood Pressure Mean [Right Arm] 02 Sat by Pulse Oximetry 97 97 Oxygen Delivery Method Room Air Lab Data Lab results reviewed: Yes I reviewed the patient's lab results. Lab Results 02/25/24 03:20: WBC 8.5, RBC 3.41 L, Hgb 11.6 L, Hct 35.8 L, MCV 105.1 H, MCH 34.1 H, MCHC 32.5, RDW 14.3, Plt Count 400 D, MPV 8.3, Neut % (Auto) 58.6, Lymph % (Auto) 30.2, Emanuel % (Auto) 7.9, Eos % (Auto) 2.3, Baso % (Auto) 1.0, Neut # (Auto) 5.0, Lymph # (Auto) 2.6, Emanuel # (Auto) 0.7, Eos # (Auto) 0.2, Baso # (Auto) 0.1, D-Dimer 0.83 H, Sodium 135 L, Potassium 4.1, Chloride 106, Carbon Dioxide 24, Anion Gap 9.1, BUN 26 H, Creatinine 0.90, Estimated Creat Clear 73, Estimated GFR 63, Est GFR ( Amer) 77, Glucose 121 H, Calcium 9.2, Total Bilirubin 0.6, AST 43 H, ALT 51, Alkaline Phosphatase 92, Troponin I 0.58 H, Total Protein 7.5, Albumin 4.2, Globulin 3.3 H, Albumin/Globulin Ratio 1.3 02/25/24 06:01: Troponin I 0.53 H 02/25/24 03:20 02/25/24 03:20 Orders (Tests/Meds): ED MEDICATIONS Discontinued Medications Generic Name Dose Route Start Last Admin Trade Name Freq PRN Reason Stop Dose Admin Acetaminophen 1,000 mg 02/25/24 03:18 02/25/24 03:25 Acetaminophen 500mg Tab PO 02/25/24 03:19 1,000 mg ONCE ONE Administration Aspirin 324 mg 02/25/24 04:50 02/25/24 04:54 Aspirin 81mg Chewable Tablet PO 02/25/24 04:51 324 mg ONCE ONE Administration Cyclobenzaprine HCl 10 mg 02/25/24 03:18 02/25/24 03:26 Cyclobenzaprine 10mg Tablet PO 02/25/24 03:19 10 mg ONCE ONE Administration Lidocaine 1 each 02/25/24 03:18 02/25/24 03:26 Lidocaine 5% Transdermal Patch TP 02/25/24 03:19 1 each ONCE ONE Administration ORDERS Category Date Time Status CXR 2 view (NOT portable) [XR chest 2V] Stat Exams 02/25/24 03:20 Completed CBC w/Auto Diff [Complete Blood Count Auto Diff] Stat Lab 02/25/24 03:20 Completed CMP [Comprehensive Metabolic Panel] Stat Lab 02/25/24 03:20 Completed D-Dimer Stat Lab 02/25/24 03:20 Completed Troponin I Q3H Lab 02/25/24 03:20 Completed Troponin I Q3H Lab 02/25/24 06:01 Completed ECG Data Tracing #1: I reviewed this ECG and interpreted as documented below: Sinus rhythm with a rate of 97, there is mild ST depression with T wave inversions in lead I and aVL. Subtle ST depression in V6 ECG initial impression date: 02/25/24 ECG initial impression time: 03:17 HEART Score History (anamnesis): Moderately suspicious ECG: Significant ST-deviation Age: 45-65 years Risk factors: Atherosclerosis history Troponin: > 3x normal limit HEART Score: 8 Medical Decision Narrative: 83-year-old female with history of acute IA with 3 stents placed 6 days ago presents with intermittent positional left thoracic back pain. Patient denies any chest pain or shortness of breath. History was obtained via interactive discussion with patient, family, chart review. On arrival, patient is [afebrile, hemodynamically stable, satting appropriately, alert, oriented x4, GCS 15], moving all extremities spontaneously. Full physical exam performed and significant for focal musculoskeletal back pain inferior to the left scapula. Differential includes but is not limited to ACS, PE, musculoskeletal back pain, pneumonia, pneumothorax, rib fracture. Patient was given full dose aspirin, Tylenol, Robaxin, lidocaine patch for symptomatic management and correction of underlying abnormalities. Workup initiated including CBC CMP 2 view chest x-ray EKG troponin. Initial EKG interpreted by me and shows sinus rhythm with a rate of 97, ST depression and inverted T waves in lead I and aVL, subtle horizontal ST depression in lead V6. No acute ST elevation in contiguous leads. The only comparison EKG we have is from her STEMI. On re-evaluation, patient [remains afebrile, HD stable.] Reports that the pain has almost completely gone. When she moves around a little bit, she can get the pain to go away completely. Repeat EKG interpreted by me, sinus rhythm with rate of 87, stable T wave inversions and downsloping ST segment in 1 and aVL, Laboratory workup independently interpreted by me and significant for elevated initial troponin at 0.58. D-dimer negative by years criteria. Imaging independently interpreted by me and significant for no pneumothorax, focal opacity, rib fracture. See radiology read for full review of final results. Repeat troponin 0.53. Patient continues to be pain-free. I had an interactive discussion with Dr. Sanders regarding the patient's presentation. No concern for acute cardiac event at this time. Patient was deemed appropriate for discharge. She was discharged with prescription for Robaxin and lidocaine patches. She was agreeable to plan and discharged in stable condition. Procedures Risk/Benefits of Procedure(s) Were Explained: Yes Critical Care Critical Care Time Critical Care Time: No
[2024-02-25 03:50] LABS: Alanine Aminotransferase 51 U/L (12-78); Albumin Level 4.2 g/dl (3.5-5.0); Albumin/Globulin Ratio 1.3 (1.1-1.8); Alkaline Phosphatase 92 U/L (38-126); Anion Gap 9.1 mEq/L (5-15); Aspartate Amino Transferase 43 U/L (14-36); Bilirubin,Total 0.6 mg/dl (0.2-1.3); Blood Urea Nitrogen 26 mg/dl (7-17); Calcium 9.2 mg/dl (8.4-10.2); Carbon Dioxide 24 mmol/L (22.0-30.0); Chloride 106 mmol/L (98-107); Creatinine Clearance Estimated 73 mL/min (50-200); Estimated Glomerular Filt Rate 63 ml/min (>60); GFR (African American) 77 ML/MIN (>60); Globulin 3.3 g/dL (1.3-3.2); Glucose 121 mg/dl (74-100); Potassium 4.1 mmoL/L (3.5-5.1); Sodium 135 mmol/L (136-145); Total Protein,Serum 7.5 g/dl (6.3-8.2)
[2024-02-25 03:55] LABS: D-Dimer 0.83 ug/mL (0.0-0.5)
--- NOTE | 2024-02-25 04:00 | PC.NURSE ---
Patient sleeping in bed at this time. Respirations even and unlabored.
[2024-02-25 04:23] LABS: Troponin I 0.58 ng/ml (0.00-0.034)
--- NOTE | 2024-02-25 04:23 | PC.NURSE ---
critical result received of Troponin of 0.58 from Lisy in lab. notified
--- NOTE | 2024-02-25 04:33 | ECG_ITS ---
APPROVED REPORT Exam: Resting ECG HR:87 bpm ECG Measurements Heart Rate 87 AXES SD 144 P 45 QRSd 90 QRS -1 QT 356 T 139 QTc 401 Conclusion SINUS RHYTHM LEFT VENTRICULAR HYPERTROPHY AND ST-T CHANGE [VOLTAGE CRITERIA PLUS ST/T ABNORMALITY] ABNORMAL ECG T wave inversions lateral leads Electronically signed by : ILIANA CHAVEZ, 02/25/2024 15:05:11
[2024-02-25] MEDS: ASPIRIN 81MG CHEWABLE TABLET 324 MG PO (04:54)
--- NOTE | 2024-02-25 06:43 | PC.NURSE ---
Received critical trop of 0.53 from lab. HENRIQUEZ aware
--- NOTE | 2024-02-25 06:46 | PC.NURSE ---
Called Eliseo and asked him to page Cardiology for Dr Faye. CR
[2024-02-25 06:47] LABS: Troponin I 0.53 ng/ml (0.00-0.034)
--- NOTE | 2024-02-25 06:49 | PC.NURSE ---
on phone with Dr. Sanders
== END 2024-02-25 07:04 | disposition home or self-care (01) ==
PROVIDERS: Emergency Provider Emergency Medicine; PCP Family Medicine
DX: M54.6 Pain in thoracic spine (principal); I11.9 Hypertensive heart disease without heart failure; I25.10 Atherosclerotic heart disease of native coronary artery without angina pectoris; E78.5 Hyperlipidemia, unspecified; Z95.5 Presence of coronary angioplasty implant and graft
CPT/HCPCS: 71046; 80053; 84484; 85025; 85378; 93005; 99284

== ENCOUNTER 2024-03-06 13:49 | Outpatient (CLI) | payer BC, SELFPAY ==
[2024-03-06 14:05] LABS: Basophils % 0.5 % (0.1-2.0); Eosinophils # 0.1 K/mm3 (0.0-0.4); Eosinophils % 2.4 % (0.1-12.0); Hematocrit 32.3 % (37.0-47.0); Hemoglobin 10.1 g/dL (12.2-16.2); Lymphocytes # 2.1 K/mm3 (0.7-4.5); Lymphocytes % 36.4 % (10-50); Mean Corpuscular HGB Conc 31.3 g/dL (31.8-35.4); Mean Corpuscular Volume 105.4 fl (81-99); Mean Platelet Volume 7.9 fl (7.4-10.4); Monocytes # 0.5 K/mm3 (0.1-1.0); Monocytes % 7.9 % (1.7-9.3); Neutrophils % 52.7 % (37.0-80.0); Platelet Count 661 K/mm3 (142-424); Red Blood Count 3.06 M/mm3 (4.20-5.40); Red Cell Distribution Width 14.2 % (11.5-17.5); White Blood Count 5.7 K/mm3 (4.8-10.8)
[2024-03-06 14:37] LABS: Anion Gap 11.2 mEq/L (5-15); Blood Urea Nitrogen 13 mg/dl (7-17); Calcium 9.4 mg/dl (8.4-10.2); Carbon Dioxide 26 mmol/L (22.0-30.0); Chloride 105 mmol/L (98-107); Estimated Glomerular Filt Rate 72 ml/min (>60); GFR (African American) 88 ML/MIN (>60); Glucose 131 mg/dl (74-100); Potassium 4.2 mmoL/L (3.5-5.1); Sodium 138 mmol/L (136-145)
--- NOTE | 2024-03-06 15:53 | CT_ITS ---
PROCEDURE INFORMATION: Exam: CTA Chest With Contrast Exam date and time: 03/06/2024 3:25 PM Age: 63 years old Clinical indication: Shortness of breath and tachypnea; Additional info: Back pain, tachycardia, shortness of breath, eleva TECHNIQUE: Imaging protocol: Computed tomographic angiography of the chest with contrast. Exam focused on the arteries. 3D rendering (Not supervised by radiologist): MIP and/or 3D reconstructed images were created by the technologist. Radiation optimization: All CT scans at this facility use at least one of these dose optimization techniques: automated exposure control; mA and/or kV adjustment per patient size (includes targeted exams where dose is matched to clinical indication); or iterative reconstruction. Contrast material: ISOVUE 370; Contrast volume: 70 ml; Contrast route: INTRAVENOUS (IV); COMPARISON: CR XR CHEST 2V 02/25/2024 3:33 AM FINDINGS: Pulmonary arteries: Normal. No pulmonary emboli. Aorta: Atherosclerotic changes of the thoracic aorta. Aorta normal caliber. No evidence of aneurysm or dissection. Larynx: Indeterminate 14 x 4 mm benign-appearing calcified lesion located in the upper larynx just above the vocal cords to the left of midline centered on axial image 4 of series 3. Lungs: A 10 x 8 mm subpleural triangular shaped opacity seen in the medial left lung apex centered on axial image 22 of series 3 that demonstrates bandlike and nodular appearing characteristics. Multiple calcified nodules noted bilaterally. Mild bibasilar fibro atelectatic changes. Lung watson otherwise clear. Pleural spaces: Unremarkable. No pneumothorax. No pleural effusion. Heart: Unremarkable. No cardiomegaly. No pericardial effusion. Coronary arteries: Moderate coronary artery calcifications suggesting coronary artery disease. Lymph nodes: Unremarkable. No enlarged lymph nodes. Bones/joints: Unremarkable. No acute fracture. Soft tissues: Unremarkable. IMPRESSION: 1. No evident PE. No other acute findings. 2. Incidental subpleural bandlike nodular density in the medial left lung apex measuring 9 mm an average transverse dimension. Favor pseudo nodule related to scarring or atelectasis. True nodule not absolutely excluded. Advise follow-up CT in 3 months to reassess this finding. If stable at that time then progressively longer follow-up CTs could be performed. 3. Incidental calcified lesion in the upper larynx on the left above the vocal cords. Favor benign process but lesion is incompletely assessed with this exam. Advise further assessment with a nonemergent CT of the neck. 4. Moderate coronary artery calcifications suggesting coronary artery disease.
[2024-03-06] MEDS: SODIUM CHLORIDE 0.9% 10ML SYR (RAD ONLY) 10 ML IV (15:59)
[2024-03-06] MEDS: IOPAMIDOL-370 (76%);100ML BOTTLE 70 ML IV (15:59)
[2024-03-06] MEDS: 0.9 % SODIUM CHLORIDE 50 ML VIAL IV (15:59)
== END 2024-03-06 23:59 | disposition home or self-care (01) ==
PROVIDERS: PCP Family Medicine; Visit Provider Internal Medicine
DX: Z95.5 Presence of coronary angioplasty implant and graft (principal); R00.0 Tachycardia, unspecified; R79.89 Other specified abnormal findings of blood chemistry; M54.6 Pain in thoracic spine; R06.00 Dyspnea, unspecified
CPT/HCPCS: 36415; 71275; 80048; 85025; Q9967

== ENCOUNTER 2024-03-12 17:26 | Outpatient (CLI) | payer BC, SELFPAY ==
--- NOTE | 2024-03-12 17:37 | XR_ITS ---
PROCEDURE INFORMATION: Exam: XR Thoracic Spine Exam date and time: 03/12/2024 5:29 PM Age: 63 years old Clinical indication: Pain in thoracic spine; Additional info: Pain x 3 weeks TECHNIQUE: Imaging protocol: Radiologic exam of the thoracic spine. Views: 3 views. COMPARISON: CT ANGIO CHEST PE PROTOCOL 03/06/2024 3:25 PM FINDINGS: Bones/joints: No acute fracture. No bone lesions. Normal alignment. Disc spaces are well preserved. Soft tissues: No soft tissue masses. Heart/Mediastinum: Coronary artery stent. Vasculature: Atherosclerotic calcifications. IMPRESSION: No acute findings in the thoracic spine.
== END 2024-03-12 23:59 | disposition home or self-care (01) ==
PROVIDERS: PCP Family Medicine; Visit Provider Family Medicine
DX: M54.6 Pain in thoracic spine (principal)
CPT/HCPCS: 72072

== ENCOUNTER 2024-03-19 13:13 | Outpatient (RCR) | payer BC, SELFPAY | END 2024-03-19 23:59 | disposition home or self-care (01) | LOC: PT 13:13 | PROVIDERS: Visit Provider Internal Medicine | DX: Z95.5 Presence of coronary angioplasty implant and graft (principal) ==

== ENCOUNTER 2024-05-07 09:06 | Outpatient (CLI) | payer BC, SELFPAY ==
--- NOTE | 2024-05-07 09:09 | XR_ITS ---
FINAL REPORT TECHNIQUE: Bone densitometry calculations of the lumbar spine and left hip were obtained. CLINICAL HISTORY: SCREENING COMPARISON: None FINDINGS: Using L1-4, the bone mineral density of the spine is 1.012 g/cm2, corresponding to T-score of -0.3 and a Z score of 1.4. This is within the range of normal. Using the left hip, the bone mineral density of the femoral neck is 0.750 g/cm2, corresponding to a T-score of -0.9 and a Z-score of 0.6. This is within the range of normal. NOTE: T-score: Standard deviation compared with peak bone mass of young adult mean. *Following the recommendations of the International Society of Bone densitometry, classification of hip BMD is based on the lower of two T-scores; total hip or femoral neck. IMPRESSION: 1. Bone mineral density of the lumbar spine within the range of normal. 2. Bone mineral density of the left femoral neck within the range of normal. Reviewed, Interpreted and Dictated by Susana Echols MD Transcribed by Flor Fulton Authenticated and [facility]
== END 2024-05-07 23:59 | disposition home or self-care (01) ==
LOC: RAD 09:06
PROVIDERS: PCP Physician Assistant; Visit Provider Physician Assistant
DX: Z13.820 Encounter for screening for osteoporosis (principal)
CPT/HCPCS: 77080

== ENCOUNTER 2024-05-24 08:00 | Outpatient (RCR) | payer BC, SELFPAY | END 2024-05-24 23:59 | disposition home or self-care (01) | LOC: PT 08:00 | PROVIDERS: Visit Provider Physician Assistant | DX: M19.09 Primary osteoarthritis, other specified site (principal); M48.54XA Collapsed vertebra, not elsewhere classified, thoracic region, initial encounter for fracture | CPT/HCPCS: 93798; 97014; 97110; 97140; 97163; 97530; G0283 ==

== ENCOUNTER 2024-07-11 10:02 | Outpatient (CLI) | payer BC, SELFPAY ==
[2024-07-11 10:47] LABS: Basophils # 0.1 K/mm3 (0-0.2); Basophils % 0.8 % (0.1-2.0); Eosinophils # 0.1 K/mm3 (0.0-0.4); Eosinophils % 1.9 % (0.1-12.0); Hematocrit 32.4 % (37.0-47.0); Hemoglobin 9.9 g/dL (12.2-16.2); Lymphocytes # 1.9 K/mm3 (0.7-4.5); Lymphocytes % 31.4 % (10-50); Mean Corpuscular HGB Conc 30.4 g/dL (31.8-35.4); Mean Corpuscular Hemoglobin 24.6 pg (27.0-31.2); Mean Platelet Volume 7.4 fl (7.4-10.4); Monocytes # 0.7 K/mm3 (0.1-1.0); Monocytes % 11.1 % (1.7-9.3); Neutrophils # 3.2 K/mm3 (1.8-7.8); Neutrophils % 54.8 % (37.0-80.0); Platelet Count 445 K/mm3 (142-424); Red Cell Distribution Width 18.7 % (11.5-17.5); White Blood Count 5.9 K/mm3 (4.8-10.8)
[2024-07-11 11:00] LABS: Alanine Aminotransferase 63 U/L (12-78); Albumin Level 3.8 g/dl (3.5-5.0); Alkaline Phosphatase 106 U/L (38-126); Anion Gap 12.6 mEq/L (5-15); Aspartate Amino Transferase 29 U/L (14-36); Bilirubin,Direct 0.3 mg/dl (0.0-0.4); Bilirubin,Indirect 0.1 mg/dL (0.0-0.9); Bilirubin,Total 0.4 mg/dl (0.2-1.3); Bilirubin,Unconjugated 0.2 mg/dL (0.0-1.1); Blood Urea Nitrogen 16 mg/dl (7-17); Calcium 9.2 mg/dl (8.4-10.2); Carbon Dioxide 25 mmol/L (22.0-30.0); Chloride 105 mmol/L (98-107); Chol/HDL Ratio 1.8 (1-3.5); Cholesterol 153 mg/dl (140-200); Estimated Glomerular Filt Rate 72 ml/min (>60); GFR (African American) 87 ML/MIN (>60); Glucose 90 mg/dl (74-100); HDL Cholesterol 85 mg/dl (40-60); Potassium 4.6 mmoL/L (3.5-5.1); Sodium 138 mmol/L (136-145); Total Protein,Serum 6.6 g/dl (6.3-8.2); Triglycerides 100 mg/dl (30-150); VLDL Cholesterol 20 mg/dL (0-40)
[2024-07-11 11:12] LABS: Direct LDL Cholesterol 54.45 mg/dL (100-129)
[2024-07-11 11:18] LABS: Free T4 (Free Thyroxine) 1.43 ng/dl (0.78-2.19)
[2024-07-11 11:32] LABS: Thyroid Stimulating Hormone 3.64 uIU/mL (0.465-4.68)
== END 2024-07-11 23:59 | disposition home or self-care (01) ==
LOC: LAB 10:05
PROVIDERS: PCP Physician Assistant; Visit Provider Physician Assistant
DX: R00.2 Palpitations (principal); I50.20 Unspecified systolic (congestive) heart failure; R06.09 Other forms of dyspnea; R00.0 Tachycardia, unspecified; I25.10 Atherosclerotic heart disease of native coronary artery without angina pectoris; E78.5 Hyperlipidemia, unspecified; I10 Essential (primary) hypertension
CPT/HCPCS: 36415; 80048; 80061; 80076; 84439; 84443; 85025; 93225; 93227

== ENCOUNTER 2024-07-16 11:02 | Outpatient (CLI) | payer BC, SELFPAY ==
--- NOTE | 2024-07-16 11:05 | CA_ITS ---
APPROVED REPORT EXAM: Comprehensive 2D, Doppler, and color-flow Echocardiogram Day Light Relief Operator: Danna Eason CRT Ht: 5 ft 4 in Wt: 179lbs BSA: 1.87 BP: 122/78 mmHg Indications: Congestive Heart Failure, hx lymphoma, breast CA, chemo, bilateral mastectomy, ef 40% echo 02/12 Echo Enhancing Agent Indication: Endocardial border delineation Agent(s) / Amount(s) Used: Definity 2 cc Comments: Definity ordered 2D Dimensions Left Atrium 3.16 cm F: 2.7 - 3.8 LA Volume 36.10 mL LVOT 1.80 cm (M/F) 1.5-2.5 LA Volume Index 19.30 mL/m2 (M/F) 16-34 EF AP4 53.80 % GL Strain -19.7 % M-Mode Dimensions RVDd 3.14 cm (0.9-2.6) LVDd 4.91 cm (3.5-5.7) Ao Diam 4.07 cm (2.0-3.7) LVDs 3.77 cm (3.5-5.7) IVSd 1.26 cm (0.6-1.1) PWd 0.76 cm (0.6-1.1) EF (Teich) 46.40% FS 23.20% EDV (Teich) 113.40 mL ESV (Teich) 60.80 mL LV Diastology E Decel Time 236 (160-240 msec) E/A Ratio 1.2 MED E' 6.5 (>= 7 cm/sec) MED A' 4.40 cm/s E'/MED E' Ratio 16.34 (<= 14) LAT E' 10.6 (>= 10 cm/sec) LAT A' 8.40 cm/s E/LAT E' Ratio 10.02 (<= 14) Aortic Valve AoV Peak Alexandre. 142.0 (50-130 cm/s) AI PHT 565.00 ms AO Peak GR. 8.00 mmHg Mitral Valve MV E Max Alexandre. 106.0 (40-130 cm/s) MV A Velocity 88.0 (40-130 cm/s) E/A Ratio 1.21 MV Decel. Time 236 (160-240 ms) Tricuspid Valve TR P. Velocity 214.00 cm/s RAP Estimate 10.00 mmHg RVSP 28.20 mmHg Left Ventricle The left ventricle is normal size. Left ventricular systolic function is mildly decreased. There is increased LV wall thickness. There is moderate hypokinesis of the basal septal and inferoseptal LV islas. Grade 1 diastolic dysfunction is present. No left ventricle thrombus noted on this study. LVEF is 45%. Right Ventricle The right ventricle is mildly dilated. The right ventricular systolic function is normal. Atria The left atrium size is normal. The right atrium size is normal. There is no Doppler evidence of interatrial shunt. Aortic Valve The aortic valve is mildly thickened. There is no aortic valvular stenosis. Mild aortic regurgitation. Mitral Valve The mitral valve is mildly thickened. No evidence of mitral valve stenosis. Trace mitral regurgitation. Tricuspid Valve The tricuspid valve leaflets are thin and pliable. Trace tricuspid regurgitation. There is insufficient TR jet to estimate RVSP. Pulmonic Valve The pulmonary valve is normal in structure. Trace pulmonic regurgitation. Great Vessels The aortic root is normal in size. The ascending aorta is normal in size. IVC is normal in size and collapses >50% with inspiration. Pericardium There is no pericardial effusion. Electronically signed by : Kirstin Dorsey MD 07/25/2024 12:40:38
[2024-07-16] MEDS: DEFINITY US ECHO CONTRAST 2ML INJ 2 MG IV (14:21)
== END 2024-07-16 23:59 | disposition home or self-care (01) ==
LOC: RT 11:02
PROVIDERS: PCP Physician Assistant; Visit Provider Physician Assistant
DX: I35.1 Nonrheumatic aortic (valve) insufficiency (principal); R00.2 Palpitations; I11.0 Hypertensive heart disease with heart failure; I25.10 Atherosclerotic heart disease of native coronary artery without angina pectoris; I50.20 Unspecified systolic (congestive) heart failure; R06.09 Other forms of dyspnea; R00.0 Tachycardia, unspecified; E78.5 Hyperlipidemia, unspecified
CPT/HCPCS: 93306; Q9957

== ENCOUNTER 2024-11-21 07:44 | Outpatient (CLI) | payer BC, SELFPAY ==
--- NOTE | 2024-11-21 | CA_ITS ---
APPROVED REPORT Exam: Pharmacologic Technologist: Breanna Hou Ht: 5 ft 4 in Wt: 65 lbs BSA: 1.21 m2 HR: 87 bpm BP: 141/82 mmHg Stress Test Details Test: Lexiscan HR Resting HR: 87 bpm Max Heart Rate (APMHR): 156.233579 bpm Max HR Achieved: 102 bpm Target HR (85% APMHR): 132.849843 bpm % of APMHR: 65.38 Recovery HR: 89 bpm BP Resting BP: 141.0/82.0 mmHg Max BP: 141.0/82.0 mmHg Recovery BP: 115.0/66.0 mmHg ECG Stress ECG Conclusion Symptoms: Shortness of breath with Lexiscan Arrhythmias/Ectopy: PVCs noted pre, during and post Lexiscan ST-T Changes: Unremarkable with Lexiscan. Electronically signed by : Kirstin Dorsey MD 11/21/2024 12:47:30
[2024-11-21] MEDS: SODIUM CHLORIDE 0.9% 10ML SYR (RAD ONLY) 10 ML IV ×2 (07:10→09:30)
--- NOTE | 2024-11-21 08:00 | NM_ITS ---
APPROVED REPORT Exam: Nuclear Stress Test Indication: cad, htn, hyperlipidemia, fm hx Patient Location: Outpatient Stress Tech: Breanna Hou MA Tech:Anitha Ibrahim KIAdwoa RT (R)(N)(M) Ht: 5 ft 5 in Wt: 170 lbs Bra Size: c HR: 87 bpm BP: 141/82 mmHg BSA: 1.85 m2 TID: 0.53 BMI: 28.2 History: cad, htn, hyperlipidemia, fm hx Procedure: Patient received 0.4 mg of intravenous Lexiscan, resting heart rate 87 bpm, resting blood pressure 141/82 mmHg, with Lexiscan maximum heart rate achieved was 102 bpm which is % of the maximum predicted heart rate and blood pressure was 124/67 mmHg. With Lexiscan, patient denied any complaint of chest pain. Cardiac Stress and Resting SPECT Images: Cardiac Stress and Resting SPECT images were obtained using technetium 99m Myoview 30.9 mCi stress and 10.69 mCi at rest. Resting and stress imaging in supine and prone positions demonstrate a medium sized, moderate, partially reversible perfusion defect in the basal to mid lateral LV wall. Gated imaging demonstrates mild reduction global LV systolic function. There is moderate hypokinesis of the basal to mid lateral LV islas. LVEF is calculated at 42%. Conclusion: Medium sized, moderate, partially reversible perfusion defect in the basal to mid inferior lateral LV wall. Findings are suggestive of partial reversible ischemia. Gated imaging demonstrates mild reduction global LV systolic function. There is moderate hypokinesis of the basal to mid inferior and lateral LV islas. LVEF is calculated at 42%. Electronically signed by : Kirstin Dorsey MD 11/21/2024 12:46:59
[2024-11-21] MEDS: REGADENOSON 0.4MG/5ML SYRINGE 0.4 MG IV (09:30)
[2024-11-21] MEDS: ISOTOPE MYOVIEW (PER STUDY) 1 DOSE IV (11:19)
== END 2024-11-21 23:59 | disposition home or self-care (01) ==
LOC: RAD 07:45
PROVIDERS: PCP Physician Assistant; Visit Provider Physician Assistant
DX: I25.10 Atherosclerotic heart disease of native coronary artery without angina pectoris (principal); I10 Essential (primary) hypertension; I50.20 Unspecified systolic (congestive) heart failure
CPT/HCPCS: 78452; 93017; 93018; A9502; J2785

== ENCOUNTER 2024-11-29 08:40 | Day surgery (SDC) | payer BC, SELFPAY ==
[2024-11-29] VITALS (12 sets, daily range): BP systolic 102–140; BP diastolic 58–79; PULSE 82–92; RESP 17–20; O2SAT 93–100; BMI 29.4
--- NOTE | 2024-11-29 07:14 | IR_ITS ---
APPROVED REPORT Patient Location: Outpatient PROCEDURES Left heart catheterization Left ventriculogram Selective coronary angiogram INDICATION History of ST elevation myocardial infarction, History of mediastinal x-ray therapy 45 years ago, History of breast cancer, Chronic aortitis/mediastinitis, Abnormal Myoview, Known multivessel coronary disease with multivessel stenting Informed consent was obtained prior to the procedure. COMPLICATIONS NONE Estimated Blood Loss: LESS THAN 10 ML TECHNIQUE One percent lidocaine was used to anesthetize the right groin. The right femoral artery was accessed via the Seldinger technique. A 4-Azerbaijani sheath was placed in the right femoral artery. The JL-4 and JR-4 catheter was also used to perform left heart catheterization left ventriculogram and selective coronary angiogram. At the end of the procedure the patient was transferred to the post-op holding area in stable condition for arterial sheath removal. ANGIOGRAPHIC RESULTS The left main artery Has a stent in the distal segment which extends into the proximal LAD. The left main stent is widely patent The left anterior descending artery Has a stent originating from the left main artery extending to the proximal segment the stent is widely patent free of in-stent restenosis with excellent distal transitioning. There is an additional 30% concentric stenosis distal to the stent and adjacent to the large first diagonal artery. There is additional 30% disease along tortuous bend. A large first diagonal artery is widely patent The circumflex artery Nondominant and gives rise to 3 small to medium sized obtuse marginal arteries. 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 Patient will be referred to the [facility] for consideration of brachytherapy to the ostial proximal circumflex artery versus drug-coated balloon angioplasty versus medical management 2. Continue risk factor modification 3. Remain on prasugrel and aspirin until further notice Electronically signed by : Chava Sanders MD 11/29/2024 13:48:19
[2024-11-29 09:15] LABS: Basophils % 0.8 % (0.1-2.0); Eosinophils # 0.1 K/mm3 (0.0-0.4); Eosinophils % 2.2 % (0.1-12.0); Hematocrit 42.1 % (37.0-47.0); Hemoglobin 14.4 g/dL (12.2-16.2); Lymphocytes # 1.6 K/mm3 (0.7-4.5); Lymphocytes % 30.6 % (10-50); Mean Corpuscular HGB Conc 34.2 g/dL (31.8-35.4); Mean Corpuscular Volume 96.6 fl (81-99); Mean Platelet Volume 9.8 fl (7.4-10.4); Monocytes # 0.6 K/mm3 (0.1-1.0); Monocytes % 12.6 % (1.7-9.3); Neutrophils # 2.7 K/mm3 (1.8-7.8); Neutrophils % 53.4 % (37.0-80.0); Nucleated Red Blood Cells # 0 10^3/uL; Nucleated Red Blood Cells % 0 %; Platelet Count 332 K/mm3 (142-424); Red Blood Count 4.36 M/mm3 (4.20-5.40); Red Cell Distribution Width 17.7 % (11.5-17.5); Red Cell Distribution Width-SD 60.9 fL; White Blood Count 5.1 K/mm3 (4.8-10.8)
[2024-11-29 09:34] LABS: Blood Urea Nitrogen 14 mg/dl (7-17); Calcium 9.4 mg/dl (8.4-10.2); Carbon Dioxide 29 mmol/L (22.0-30.0); Chloride 101 mmol/L (98-107); Creatinine Clearance Estimated 72 mL/min (50-200); Estimated Glomerular Filt Rate 72 ml/min (>60); GFR (African American) 87 ML/MIN (>60); Glucose 114 mg/dl (74-100); Sodium 139 mmol/L (136-145)
[2024-11-29] MEDS: diphenhydrAMINE 50MG/ML VIAL 50 MG IV (11:36)
[2024-11-29] MEDS: HEPARIN 1,000 UNITS/500ML NS (CATH LAB) 3000 UNIT IV (11:36)
[2024-11-29] MEDS: MIDAZOLAM HCL 1MG/ML 5ML VIAL 1 MG IV (11:37)
[2024-11-29] MEDS: LIDOCAINE 1% 10ML MDV 10 ML IJ (11:37)
[2024-11-29] MEDS: FENTANYL 100MCG/2ML VIAL 50 MCG IV (11:37)
[2024-11-29] MEDS: 0.9 % SODIUM CHLORIDE 500 ML 25 ML IV (11:37)
[2024-11-29] MEDS: IOPAMIDOL-370 (76%);100ML BOTTLE 70 ML IV (14:21)
== END 2024-11-29 15:20 | disposition home or self-care (01) ==
PROVIDERS: PCP Physician Assistant; Visit Provider Internal Medicine
DX: I25.10 Atherosclerotic heart disease of native coronary artery without angina pectoris (principal); R94.39 Abnormal result of other cardiovascular function study; Z79.899 Other long term (current) drug therapy; I25.2 Old myocardial infarction; Z95.5 Presence of coronary angioplasty implant and graft; E78.5 Hyperlipidemia, unspecified; I50.20 Unspecified systolic (congestive) heart failure; Z85.3 Personal history of malignant neoplasm of breast; I25.5 Ischemic cardiomyopathy; I11.0 Hypertensive heart disease with heart failure
CPT/HCPCS: 80048; 85025; 93458; 99152; C1725; C1769; J1200; J1644; J3010; Q9967

== ENCOUNTER 2025-02-26 12:16 | Outpatient (CLI) | payer BC, SELFPAY ==
--- OUTSIDE RECORDS SUMMARY | 2024-05-02 07:00 | XMS_ITS ---
Author Organization [facility] Address [address] [place] [phone] Care Team Providers Care Apartment Locator Name Role Phone Odette Pereira Primary Care Provider FiliEsther maldonado Unavailable [phone] Allergies No Known Allergies Results Component Value [...] Encounter Location Date Provider Diagnosis [facility] [address] [place] [phone] 05/02/2024 Esther Bobo Osteoporosis screeni ng Z13.820 [...] Reason: Progress Notes * Jennifer KRISHNAMURTHYDOB:1960 ( 64 yo F)Acc No.[id number]:05/02/2024 Progress Notes Patient: Jennifer MARIA Provider: MACI Boogie :1960 A ge:64 Y S ex:Female Date:05/02/2024 Address:[address] [address] Pcp:Odette Pereira Subjective: * Chief Complaints: * [...] 2024, with PCI (3 stents placed) at [facility]. * Surgical History: S plenectomy , Tubal Ligation , Tonsillectomy , Partial Thyroidectomy , Heart Cath 02/01/2012, Colonoscopy 03/18/2014, Small Bowel Obstruction 05/2014, LT Wrist Ganglion Cyst Removal 12/2014, Double Masectomy 09/2018, Reconstruction 12/2018, STEMI s/p 3 Coronary Stent Placement 02/19/2024. * Hospitalization/Major Diagno stic Procedure: B bowel Obstruction 03/2014, [facility] ER - L sided chest and [...] * Images: Billing Information: * Visit Code: 24283 Office Visit, Est Pt., Level 3. * Procedure Codes: * Electronic signature of MACI Mcgill on 02/26/2025 at 12:19 PM EDT Sign off status: Pending * Provider: MACI Boogie Date: 05/02/2024 Generated for Pat blankenship/Lizette/eTransmitting on: 02/26/2025 12:19 PM EDT History and Physical Notes * Examination Category Sub-Category Detail Notes Category Not es General Examination Heart: RSR Lungs: clear to auscultatio n General Appearance: NAD Back: ttp along the T-spin e Chest: normal shape and exp ansion
--- OUTSIDE RECORDS SUMMARY | 2024-09-24 06:00 | XMS_ITS ---
Author Organization [facility] Address [address] [facility] [address] [place] [phone] Care Team Providers Care Gis Technician Name Role Phone Odette Pereira Primary Care Provider Chuyita Vidales Unavailable [phone] Allergies No Known Allergies Results Component Value [...] 09/24/2024 Encounters En[facility] Date [facility] [address] [phone] 09/24/2024 Chuyita Vidales URI (upper respirato ry [...] * Jennifer KRISHNAMURTHYDOB:1960 ( 64 yo F)Acc No.[id number]:09/24/2024 Progress Notes Patient: Jennifer MARIA Provider: MERCEDEZ Coulter :1960 A ge:64 Y S ex:Female Date:09/24/2024 [address] Pcp:Odette Pereira Subjective: * Chief Complaints: * [...] 2024, with PCI (3 stents placed) at [facility]. * Surgical History: S plenectomy , [...] * Procedure Codes: 9 4760 [place], [address] CAPILLARY BLOOD DRAW, 91039 CBC WITH AUTO DIFF, 70134 Flu Test- Nasal Swab, Modifiers: QW , 32329 COVID TEST IN HOUSE, Modifiers: QW , 3074F SYST BP LT 130 MM HG, 3078F DIAST BP < 80 MM HG * Follow Up: p rn * Images: Billing Information: * Visit Code: 99785 Office Visit, Est Pt., Level 3. * Procedure Codes: [address] [place]. [address] CAPILLARY BLOOD DRAW. 41938 CBC WITH AUTO DIFF. 86046 Flu Test- Nasal Swab. Modifiers: QW 43927 COVID TEST IN HOUSE. Modifiers: QW 3074F SYST BP LT 130 MM HG. 3078F DIAST BP < 80 MM HG. * Electronic signature of Meryl Vidales APRN on 02/26/2025 at 12:18 PM EDT Sign off status: Pending * Provider: ZACHARY CoulterP Date: 0 09/24/2024 Generated for Pat blankenship/Lizette/Vishnuitting on: 0 02/26/2025 12:18 PM EDT History and Physical Notes * HPI (History [...]
--- OUTSIDE RECORDS SUMMARY | 2025-02-06 07:45 | XMS_ITS ---
Author Organization [facility] Address [address] [place] [id number] Care Team Providers Care Bail Attacher Name Role Phone Odette Pereira Primary Care Provider Hakeem Jason Unavailable [phone] Allergies No Known Allergies Results Component Value [...] 02/06/2025 Encounters Encounter Location Date Provider Diagnosis [facility] [address] [facility] 36 [facility] [address] [place] [address], [place] [id number] 02/06/2025 Hakeem Jason Acute UTI N39.0 ; [...] Reason: Progress Notes * Verito KRISHNAMURTHYDOB:1960 ( 64 yo F)Acc No.[id number]:02/06/2025 Progress Notes Patient: Verito MARIA Provider: Nathalie Jason M.D. :1960 A ge:64 Y S ex:Female Date:02/06/2025 Address:[place] [address], [place], [place] [phone] Pcp:Odette Pereira Subjective: * Chief Complaints: * [...] 2024, with PCI (3 stents placed) at [facility]. * Surgical History: S plenectomy , Tubal Ligation , Tonsillectomy , Partial Thyroidectomy , Heart Cath 02/01/2012, Colonoscopy 03/18/2014, Small Bowel Obstruction 05/2014, LT Wrist Ganglion Cyst Removal 12/2014, Double Masectomy 09/2018, Reconstruction 12/2018, STEMI s/p 3 Coronary Stent Placement 02/19/2024. * Hospitalization/Major Diagno stic Procedure: B bowel Obstruction 03/2014, [facility] ER - L sided chest [...] * Images: Billing Information: * Visit Code: 78255 Office Visit, Est Pt., Level 3. * Procedure Codes: 30793 Urinalysis, no micro. 1036F TOBACCO NON-USER. G8783 BP SCR PRFRM RCMDD DEFIND SCR INTVL. G8752 MOST RECENT SYSTOLIC BP < 140MM HG. G8754 MOST RECENT DIASTOLIC BP < 90MM HG. * Electronic signature of Merissa Jason MD on 02/26/2025 at 12:19 PM EDT Sign off status: Pending * Provider: Nathalie Jason M.D. Date: 0 02/06/2025 Generated for Pat blankenship/Lizette/Roxanna on: 0 02/26/2025 12:19 PM EDT History and Physical [...]
--- OUTSIDE RECORDS SUMMARY | 2025-02-26 12:18 | XMS_ITS | Encounter Summary ---
Author Organization [facility] Address [address] [place] [address] Care Team Providers Care Paint Brush Maker Name Role Phone Unknown, Unknown Primary Care Provider Unavailab Esther Molina Primary Care Provider [phone] Sonny Gonzalez MD Unavailable [phone] Chava Sanders MD Unavailable [phone] Encounter Details Date Type Department Care Team (Late Contact Info) Description 12/25/2021 Orders Only [facility] at [facility] [address] [place] [address] Sonny Gonzalez MD [address] [place] [address] Social History Tobacco Use Types Packs/Day Years Used Date Smoking Tobacco: Never Assessed Comments Unknown Sex and Gender Information Value Date Recorded Sex Assigned at Not on file Legal Sex Female 7:43 PM EDT Gender Identity Not on file Sexual Orientation Not on file COVID-19 Exposure Response Date Recorded In the last 10 days, have yo u been in contact with someone who was confirmed or suspected to have Coronavirus/COVID-19? No / Unsure 12/18/2021 8:30 AM EDT documented as of this encounter Plan of Treatment Upcoming Encounters Date Type Department Care Team (Late Contact Info) Description 10/18/2025 1:30 PM EST Office Visit [facility] [address] [place] [address] Sonny Gonzalez MD [address] [place] [address] 11/19/2025 1:30 PM EDT Ovarian Cancer Screening [facility] [address] [place] [address] documented as of this encounter Procedures Procedure Name Priority Date/Time Associated Diagnosis Comments CBC WITH AUTO DIFFERENTIAL Routine 12/25/2021 10:56 AM EDT documented in this encounter Results * (ABNORMAL) CBC and Differential (12/25/2021 10:56 AM EDT) External WBC 6.5 3.8 - 10.8 K/uL [facility] External Red Blood Cell (RBC) 4.07 3.80 - 5.20 M/uL [facility] External Hemoglobin 13.5 12.0 - 16.0 G/DL [facility] External Hematocrit 39.7 35.0 - 47.0 % [facility] External MCV 97 80 - 100 fL [facility] External MCH 33 26 - 35 PG [facility] External MCHC 34 32 - 36 G/DL [facility] External RDW 13.9 11.0 - 15.0 % [facility] External Mean Platelet Volume 8.6 6.2 - 10.5 fL [facility] External Platelets 289 130 - 400 K/uL [facility] External Neutrophil# 3.0 1.6 - 8.4 K/uL [facility] External Lymphocyte# 2.5 0.4 - 5.1 K/uL [facility] External Absolute Monocyte (Abs Baldwin) 0.8 0.0 - 1.2 K/uL [facility] External Eosinophils# 0.1 0.0 - 0.8 K/uL [facility] External Baso# 0.1 0.0 - 0.3 K/uL [facility] External Neutrophils % 46.6 42.0 - 78.0 % [facility] External Lymphocyte % 37.7 11.0 - 47.0 % [facility] External Monocyte % 12.6(H) 0.0 - 11.0 % [facility] External Eosinophil% 2.3 0.0 - 7.0 % [facility] External Basophil % 0.8 0.0 - 3.0 % [facility] External Nucleated RBC%-Auto 0.1 0.0 - 0.9 % [facility] External Nucleated RBC Absolute 0.01 Not Estab. K/uL [facility] 12/25/2021 10:5 6 AM EDT 12/25/2021 11:03 AM EDT Sonny Gonzalez MD LAB BLOOD ORDERABLES Final Res ult [facility] [address] [place] [address], documented in this encounter Visit Diagnoses Not on filedocumented in this encounter Care Teams Paint Brush Maker Relationship Specialty Start Date End Date Unknown, Unknown [place], [place] PCP - General Dental Hot Dip Plating Supervisor 08/22/20 01/14/22 Esther Bobo PA [facility] [address] [place] [address] PCP - General 01/15/22 Sonny Gonzalez MD [address] [place], [place] [id number] Medical Oncologist Medical Oncology 12/22/23 Chava Sanders MD [address] [facility] [address] [place] [address] Asphalt Paving Foreman 08/09/24 documented as of this encounter
--- OUTSIDE RECORDS SUMMARY | 2025-02-26 12:18 | XMS_ITS | Encounter Summary ---
Author Organization [facility] Address [address] [place] [address] Care Team Providers Care Bacteriologist Dairy Name Role Phone Unknown, Unknown Primary Care Provider Unavailab Esther Molina Primary Care Provider Sonny Gonzalez MD Unavailable [phone] Chava Sanders MD Unavailable [phone] Encounter Details Date Type Department Care Team (Late Contact Info) Description 12/25/2021 Orders Only [facility] at [facility] [address] [place] [address] Sonny Gonzalez MD [address] [place] [address] Social History Tobacco Use Types Packs/Day [...] Description 10/18/2025 1:30 PM EST Office Visit [facility] at [facility] [address] [place] [address] Sonny Gonzalez MD [address] [place] [address] 11/19/2025 1:30 PM EDT Ovarian Cancer Screening [facility] [address]rd [place] [address] documented as of this encounter Procedures Procedure Name Priority Date/Time Associated Diagnosis Comments COMPREHENSIVE METABOLIC PANEL, PLASMA Routine 12/25/2021 10:56 AM EDT documented in this encounter Results * (ABNORMAL) Comprehensive Metabolic Panel, Plasma (12/25/2021 10:56 AM EDT) External Glucose 101(H) 74 - 100 mg/dL [facility] External BUN 16 6 - 20 mg/dL [facility] External Creatinine Blood 0.90 0.50 - 0.95 mg/dL [facility] External BUN/Creat Ratio 18 10 - 20 (calc) [facility] External Sodium 142 136 - 145 mmol/L [facility] External Potassium 4.8 3.4 - 5.0 mmol/L [facility] External Chloride 103 98 - 107 mmol/L [facility] External Carbon Dioxide 27 22 - 31 mmol/L [facility] External Anion Gap (AG) 12 7 - 25 (calc) [facility] External Calcium 9.8 8.6 - 10.2 mg/dL [facility] External Total Protein 7.8 6.4 - 8.3 g/dL [facility] External Albumin 4.4 3.5 - 5.2 g/dL [facility] External Globulin 3.4 1.5 - 4.5 g/dL (calc) [facility] External Albumin/Globulin Ratio 1.3 1.1 - 2.5 (calc) [facility] External Bilirubin Total 0.2 0.1 - 1.2 mg/dL [facility] External Alkaline Phosphatase 73 30 - 121 U/L [facility] External AST (SGOT) 24 0 - 32 U/L [facility] External ALT (SGPT) 21 0 - 33 U/L [facility] External EGFR (If AFR/AM) 80 >=60 [facility] External Estimated GFR 69 >=60 [facility] Comment: NOTE Chronic kidney disease is defined as kidney damage for more than 3 months or a GFR less than 60 mL/min/1.73 m2 for greater than 3 months. This calculation has not been validated in women. For pediatric patients refer to [employer] https://www.kidney.org/professionals/KDOQI/gfr_calculatorPed 12/25/2021 10:5 6 AM EDT 12/25/2021 11:03 AM EDT us Sonny Gonzalez MD LAB BLOOD ORDERABLES Final Res ult [facility] [address] [place] [address], documented in this encounter Visit Diagnoses Not on filedocumented in this encounter Care Teams Bacteriologist Dairy Relationship Specialty Start Date End Date Unknown, Unknown [place], [place] PCP - General Dental Manager Environmental Health 08/22/20 01/14/22 Esther Bobo PA [facility] [address] [place] [address] PCP - General 01/15/22 Sonny Gonzalez MD [address] [place] [address] Medical Oncologist Medical Oncology 12/22/23 Chava Sanders MD [address] [place] [address] [address] [place] [address] Perinatal Nurse 08/09/24 documented as of this encounter
--- OUTSIDE RECORDS SUMMARY | 2025-02-26 12:18 | XMS_ITS | Clinical Summary ---
Author Organization [employer] ([place], [place], [place], [place]) Address [address] [place] [address] Care Team Providers Care Brim Plater Name Role Phone Esther Bobo Primary Care Provider [phone] Allergies No known active allergies Medications levothyroxine (SYNTHROID, LEVOTHROID) 125 MCG tablet Take 1 tablet (125 mcg total) by mouth Every morning on an empty stomach. Active bisoprolol (ZEBETA) 5 MG tablet Take 1 tablet (5 mg total) by mouth daily. 90 tablet 3 10/06/2023 Active lisinopriL (PRINIVIL,ZESTR IL) 5 MG tablet Take 1 tablet (5 mg total) by mouth daily. Active pravastatin (PRAVACHOL) 40 MG tablet Take 1 tablet (40 mg total) by mouth daily. Active famotidine (PEPCID) 20 MG tablet Take 1 tablet (20 mg total) by mouth 2 (two) times daily. Active Active Problems Problem Noted Date Diagnosed Date Malignant neoplasm of breast 10/06/2023 Primary hypertension 10/06/2023 Aortic valve regurgitation 07/23/202110/06 Hyperlipidemia 07/23/2021 10/06/2023 Carotid bruit 08/27/2019 10/06/2023 History of Hodgkin's lymphoma 01/27/2018 Family History Medical History Relation Name Comments Coronary artery disease Father Coronary artery disease Mother Relation Name Status Comments Father Mother Social History Tobacco Use Types Packs/Day Years Used Date Smoking Tobacco: Never Smokeless Tobacco: Never Tobacco Cessation:Counseling Given: Not Answered Alcohol Use Standard Drinks/Week Comments Yes 0 (1 standard drink = 0.6 oz pur e alcohol) socially Family and Community Support Answer Zach e Recorded Help with Day to Day Activities Not on file 09/09/2023 Feeling Lonely or Isolated Not on file 09/09 Educational Attainment Answer Date Kristofer rded Speak language other than Puerto Rican at home Not on file 09/09/2023 Want help with school or training Not on file 09/09/2023 Substance Use Answer Date Recorded Used prescription meds for non-medical reasons N ot on file 09/09/2023 Used illegal drugs past 12 months Not on file 09/09/2023 Comments Unknown Sex and Gender Information Value Date Recorded Sex Assigned at Not on file Legal Sex Female 1:42 PM CDT Gender Identity Not on file Sexual Orientation Not on file Last Filed Vital Signs Vital Sign Reading Time Taken Comments Blood Pressure 146/84 02/14/2024 10:42 AM EDT Pulse 77 02/14/2024 10:20 AM EDT Temperature - - Respiratory Rate - - Oxygen Saturation - - Inhaled Oxygen Concentration - - Weight 83.9 kg (185 lb) 02/14/2024 10:20 AM EDT Height 165.1 cm (5' 5 ) 02/14/2024 10:20 AM EDT Body Mass Index 30.79 02/14/2024 10:20 AM EDT Plan of Treatment Health Maintenance Due Date Last Done Comments CT Colonography 1960 Colonoscopy 1960 Colorectal Cancer Screening 1960 FOBT/FIT 1960 Fit-DNA (Cologuard) 1960 Sigmoidoscopy 1960 Depression Screening (12+) 1972 HIV Screening 1975 Hepatitis C Screening 1978 DTAP/TDAP/TD VACCINES (1 - Tdap) 1979 Pap Smear 1981 Lipid Panel 2005 Pneumococcal 50+ years (2 of 2 - PCV) 06/16/2019 06/16/2018 Respiratory Syncytial Virus (RSV) Adult or (1 - Risk 60-74 years 1-dose series) 2020 Breast Cancer Screening 08/04/2020 08/04/2018, 08/02 COVID-19 VACCINE (5 - 2023-2 5 season) 2024 07/21/2022, 06/09/2021, 09/24/2020, Additional history exists Tobacco Cessation Counseling and Screening (12+) 02/13/2025 02/14/2024 Influenza Vaccine (#1) 2025 0, 05/29/2019, 05/22/2019, Additional history exists Shingles Vaccine (Zoster) Completed 2018, 07/27/2018, 05/09/2018 Insurance BLUE CROSS/BLUE SHIELD Care Teams Brim Plater Relationship Specialty Start Date End Date Esther Bobo PA [address] [place] [address] PCP - General Physician Sales Team Manager 07/29/23
--- OUTSIDE RECORDS SUMMARY | 2025-02-26 12:19 | XMS_ITS | Encounter Summary ---
Author Organization [employer] ([place], [place], [place], [place]) Address [address] [place] [address] Care Team Providers Care Lens Mold Setter Name Role Phone Esther Bobo Primary Care Provider [phone] Reason for Referral * Consultation (Routine) - Closed Specialty Diagnoses / Procedures Referred By Samuel murrell Referred To Contact Speech Pathology Diagnoses Dysphonia Efrain Lerma MD [address] [place] [id number] Phone: tel: fax: Referral ID Status Reason Start Date Expiration Date V isits Requested Visits Authorized [id number] Closed Specialty Services Required 03/11/2023 09/07/2023 15 15 Encounter Details Date Type Department Care Team (Late st Contact Info) Description 03/11/2023 Outside Orders [facility] Outpatient Physical Therapy [address] [facility] [address] [place] [phone] Efrain Lerma MD [address] [place] [address] Dysphonia (Primary Dx) Social History Tobacco Use Types Packs/Day Years Used Date Smoking Tobacco: Never Assessed Family and Community Support Answer Zach e Recorded Help with Day to Day Activities Not on file 09/09/2023 Feeling Lonely or Isolated Not on file 09/09 Educational Attainment Answer Date Kristofer rded Speak language other than Luxembourgish at home Not on file 09/09/2023 Want [...] on file Sexual Orientation Not on file documented as of this encounter Plan of Treatment Scheduled Referrals Name Type Priority Associated Diagnoses Orde r Schedule AMB REFERRAL TO SPEECH THERAPY EVALUATE, TREAT, AND PLAN OF CARE Outpatient Referral Routine Dysphonia Expected: 03/11/2023, Expires: 03/11/2024 documented as of this encounter Visit Diagnoses Diagnosis Dysphonia- Primary documented in this encounter Care Teams Lens Mold Setter Relationship Specialty Start Date End Date Esther Bobo, MACI [address] [place] [address] PCP - General Physician Drawer In Stitch Bonding Machine 07/29/23 documented as of this encounter
--- OUTSIDE RECORDS SUMMARY | 2025-02-26 12:19 | XMS_ITS | Clinical Summary ---
Author Organization [facility] Address [address] [place] [address] Care Team Providers Care Catcher Helper Name Role Phone Esther Bobo Primary Care Provider [phone] Sonny Gonzalez MD Unavailable [phone] Chava Sanders MD Unavailable [phone] Allergies No known active allergies Medications * This document contains information received from the source organization and may not represent a complete record from that organization. levothyroxine (Synthroid, Levoxyl) 125 MCG tablet Take 1 tablet (125 mcg) by mouth. Active aspirin 81 MG EC tablet Take 1 tablet (81 mg) by mouth Daily. Active calcium carbonate (Os-Mak) 600 MG tablet Take 1 tablet (600 mg) by mouth 1 (one) time each day. Active atorvastatin (Lipitor) 40 MG tablet Take 1 tablet (40 mg) by mouth Daily. 03/06/2024 Active carvedilol (Coreg) 3.125 MG tablet Take 1 tablet (3.125 mg) by mouth 2 (two) times a day. 03/06/2024 Active empagliflozin (Jardiance) 10 MG Take 1 tablet (10 mg) by mouth Daily. 05/21/2024 Active methocarbamol (Robaxin) 750 MG tablet Take 1 tablet (750 mg) by mouth 2 (two) times a day. 06/25/2024 Active prasugrel (Effient) 10 MG tablet Take 1 tablet (10 mg) by mouth Daily. 03/06/2024 Active pantoprazole (Protonix) 40 MG EC tablet 1 tablet (40 mg). 03/06/2024 Active spironolactone (Aldactone) 25 MG tablet Take 1 tablet (25 mg) by mouth Daily. 03/06/2024 Active ferrous sulfate 325 (65 Fe) MG EC tablet Take 1 tablet (325 mg) by mouth 3 (three) times a day with meals. Do not crush, chew, or split. Active Active Problems Problem Noted Date Diagnosed Date Anemia, unspecified 10/18/2024 Personal history of Hodgkin lymphoma 10/18/2024 History of breast cancer 10/18/2024 History of thoracic irradiation 10/18/2024 Immunizations Immunization Administration Dates Next Due Hep A, Adult 02/06/2019,07/18/2018 Influenza, Unspecified 06/14/2020,2017,06/23/2017,2015,06/04/2015,06/04/2014,06/06/2013,1 ,06/09/2011 Influenza, injectable, quadr ivalent, preservative free 05/10/2023,05/26/2022,06/03/2021 Influenza, seasonal, injecta ble, preservative free 06/11/2024 PPD Skin Test (TB Skin Test) 12/09/2006,11/26/19 07 Pfizer-CactusNTSentisis COVID-19 Biv alent (Mo Cap) 12+ years (arron-sucrose) 07/21/2022 Pfizer-BioNTech COVID-19 Vac cine (Purple Cap) 12+ 06/09/2021,09/02/2020 Social History Tobacco Use Types Packs/Day Years Used Date Smoking Tobacco: Never Passive Smoke Exposure: Never Smokeless Tobacco: Never Tobacco Cessation:Counseling Given: Not Answered Alcohol Use Standard Drinks/Week Comments Yes 0 (1 standard drink = 0.6 oz pur e alcohol) 0ccasionally Comments Unknown Sex and Gender Information Value Date Recorded Sex Assigned at Not on file Legal Sex Female 7:43 PM EDT Gender Identity Not on file Sexual Orientation Not on file Last Filed Vital Signs Vital Sign Reading Time Taken Comments Blood Pressure 116/72 10/18/2024 2:57 PM EST Pulse 94 10/18/2024 2:57 PM EST Temperature 36.3 C (97.3 F) 10/18/2024 2:57 PM EST Respiratory Rate 22 01/15/2022 4:00 PM EDT Oxygen Saturation 98% 10/18/2024 2:57 PM EST Inhaled Oxygen Concentration - - Weight 80.4 kg (177 lb 4 oz) 10/18/2024 2:57 PM EST Height 165.1 cm (5' 5 ) 10/18/2024 2:57 PM EST Body Mass Index 29.5 10/18/2024 2:57 PM EST Plan of Treatment Upcoming Encounters Date Type Department Care Team (Late st Contact Info) Description 10/18/2025 1:30 PM EST Office Visit [facility] [address] [place] [phone] Sonny Gonzalez MD [address] [place] [phone] 11/19/2025 1:30 PM EDT Ovarian Cancer Screening [facility] [address] [place] [address] Health Maintenance Due Date Last Done Comments [facility]-Depression Screening 1960 [facility]-HIV Screening 1960 [facility]-Hepatitis C Screening 1960 [facility]-Infant/Child/Adol SDOH Screenings 1960 [facility]-Obesity Intervention 1966 [facility]- SDOH Screenings 1978 [facility]-Adult SDOH Screenings 1978 [facility]-DTaP,Tdap,and Td Vaccines (1 - Tdap) 1979 [facility]-HPV/Cotest 1990 CT Colonography 2005 Colonoscopy 2005 FIT-DNA 2005 FIT 2005 FOBT 2005 Sigmoidoscopy 2005 [facility]-Colorectal Cancer Screening 2005 [facility]-Pneumococcal Vaccine: 50+ Years (2 of 2 - PCV) 10/19/2019 10/19/2018, 06/16/2018, 06/05/2018 [facility]-RSV Vaccine: 60+ Years or (1 - Risk 60-74 years 1-dose series) 2020 QTO-PAJUA-11 Vaccine ( - season) 2024 07/21/2022, 06/09/2021, 09/24/2020, Additional history exists [facility]-Influenza Vaccine (#1) 04/22/202506/11, 05/10/2023, 05/26/2022, Additional history exists [facility]-Cervical Cancer Screening 06/14/2027 [facility]-Pap Smear 06/14/2027 06/14/2024 [facility]-Zoster Vaccines Completed 10/19/2018, 07/27/2018, 05/09/2018 [facility]-Hepatitis A Vaccines Aged Out 02/06/2019, 06/23 No longer eligible based on patient's age to complete this topic HPV Vaccines Aged Out No longer eligi ble based on patient's age to complete this topic [facility]-HIB Vaccines Aged Out No longer e ligible based on patient's age to complete this topic [facility]-IPV Vaccines Aged Out No longer e ligible based on patient's age to complete this topic [facility]-Rotavirus Vaccines Aged Out No lo nger eligible based on patient's age to complete this topic Procedures Procedure Name Priority Date/Time Associated Diagnosis Comments PAP TEST - CYTOLOGY Routine 06/14/2024 1 1:34 AM EDT from Last 3 Months or Most Recently Relevant to Health Maintenance Results * (ABNORMAL) Pap Test (06/14/2024 11:34 AM EDT) External AGENCY SALES MANAGEMENT ASSISTANT Cytology SEE BELOW(A) [facility] Comment: Department of Pathology GYNECOLOGICAL CYTOLOGY REPORT NAME:JENNIFER KRISHNAMURTHY PATHOLOGY NO.: [id number] Copy to: SOURCE OF SPECIMEN: CERVICAL/ENDOCERVICAL-THIN PREP RELEVANT HISTORY: No LMP given. Comment: HPV CO-TESTING SPECIMEN ADEQUACY SATISFACTORY FOR EVALUATION. ENDOCERVICAL/TRANSFORMATION ZONE COMPONENT PRESENT GENERAL CATEGORIZATION EPITHELIAL CELL ABNORMALITY. DESCRIPTIVE DIAGNOSIS SQUAMOUS CELL ABNORMALITY ATYPICAL SQUAMOUS CELLS OF UNDETERMINED SIGNIFICANCE. RELATED LABORATORY RESULTS Test Name Result Collected D and T HIGH RISK HPV Negative 06/14/2024 11:34 <Sign Out Dr[address] Johnson> KIM WOODS MD Signed Out Date: 06/22/2024 13:56 Cervical/vaginal cytology is a screening test with a recognized false negative rate. New technologies may decrease, but will not eliminate false negative results. Regular cytology screening is recommended to minimize false negative results. The ThinPrep(R) Imaging system is used to assist in primary cervical cancer screening of ThinPrep(R) Pap test slides. Page 1 of 1 06/14/2024 11:3 4 AM EDT 06/15/2024 9:10 AM EDT us Meg Machado [facility] CYTOLOGY ORDERABLES Fin al Result [facility] [address] [place] [address], from Last 3 Months or Most Recently Relevant to Health Maintenance Insurance [facility] Care Teams Catcher Helper Relationship Specialty Start Date End Date Esther Bobo PA [address] [facility] [address] [place] [address] PCP - General 01/15/22 Sonny Gonzalez MD [address] [place] [address] Medical Oncologist Medical Oncology 12/22/23 Chava Sanders MD [address] [facility] [address] [place], [place] [id number] (work) Edge Burnisher 08/09/24
--- OUTSIDE RECORDS SUMMARY | 2025-02-26 12:19 | XMS_ITS | Referral Summary ---
Author Organization [employer] ([place], [place], [place], [place]) Address [address] [place] [address] Care Team Providers Care Pouako Kura [place] Maori Name Role Phone Esther Bobo Primary Care Provider [phone] Allergies No known active allergies Medications levothyroxine [...] 08/27/2019 10/06/2023 History of Hodgkin's lymphoma 01/27/2018 Social History Tobacco Use Types Packs/Day Years [...] Date Kristofer rded Speak language other than Yak[place] at home Not on file 09/09/2023 Want [...] 02/14/2024 10:20 AM EDT Plan of Treatment Not on file Insurance BLUE CROSS/BLUE SHIELD Care Teams Pouako Kura [place] Maori Relationship Specialty Start Date End Date Esther Bobo PA [address] [place] [address] PCP - General Physician Printer Floor Covering Assistant 07/29/23
--- OUTSIDE RECORDS SUMMARY | 2025-02-26 12:19 | XMS_ITS | Data Portability ---
Author Organization [facility] [place] Address [address] [place] [address] Care Team Providers Care Sound Technician Supervisor Name Role Phone DONAVAN CASTANO Hematology/Oncology MASSIEL COLBERT Primary Care Provider MASSIEL ACEVEDO JR General Surgeon BRIGIDA LOREDO Emergency Physician [phone] ÓSCAR PERALTA Hematology/Oncology Unavailable Assessment Encounter Date Assessment Date Assessment LastModified by Organization Details LastModified Time 05/21/2024 05/21/2024 F/up yearly FSE recommended Going to [place] this [email or web address] Not available 05/21/2024 15:50:36 Plan of Treatment Reminders Order Date Submit Date Provider Last Modified By Organization Details Last Modified Time Details Appointments RECHECK 2024 11:00A M ASHISH DUARTE PA-C Not available Not available Not available 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 Procedures None recorded . Surgeries None recorded . Imaging None recorded . Medication Orders None recorded . Patient TargetsNo targets recorded. Patient Instructions Encounter Date Encounter Id Patient Instructions Last Modified By Organization Details Last Modified Time 05/21/2024 [id number] Education/alt/ri s ks/benefits/SE of Dx & Tx discussed. Daily UV protection with broad-spectrum SPF 30+ on exposed areas recommended. Pt encouraged to RTC with any new/changing lesions. [email or web address] Not available 05/21/2024 08:24:45 Reason for Referral None Reported. Results Created Date Observation Date Name Description Value Unit Range Abnormal Flag Note LastModifiedBy Organization Detail LastModifiedTime 06/14/2006/18/2024 HPV, HIGH RISK high risk HPV Negati ve negati ve normal This assay detec ts E6/E7 viral messe nger RNA (mRNA ) from 14 high- risk HPV types (16,1 8,31, 33,35 ,39,4 5,51, 52,56 , 58,59 ,66,6 8) witho ut diffe renti ation . Sensi tivit y may be affec mauricio by speci men colle ction metho ds, stage of infec tion, and the prese nce of inter roque g subst ances . Resul ts shoul d be inter prete d in conju nctio n with other avail able labor atory and clini rafiq data. A negat cici Aptim a HPV assay resul t does not exclu de the possi bilit y of cytol ogic abnor malit ies or futur e or under lying CIN2, CIN3, or cance r. This test is inten ded for medic al purpo ses and has not been evalu ated in cases of suspe cted abuse . This assay is not inten ded for use as a scree tamara devic e for women under age 30 with guadalupe l cervi rafiq cytol ogy. The Aptim a HPV assay is not inten ded to subst itute for regul ar cervi rafiq cytol ogy. Test metho dolog y is Nucle ic Acid Ampli ficat ion (NAAT ) Not Available [facility], [place], [address], 06/18/2024 11:45:00 06/14/2006/14/2024 PAP SMEAR Pap smear SEE BELOW abnormal Depar tment of Patho logy GYNEC OLOGI RAFIQ CYTOL OGY REPOR T NAME: JENNIFER KRISHNAMURTHY PATHO LOGY NO.: [id number] 2 Copy to: [facility] E OF SPECI MEN: CERVI RAFIQ/E NDOCE RVICA L-THI N PREP RELEV ANT HISTO RY: No LMP given . Comme nt: HPV CO-TE STING SPECI MEN ADEQU ACY SATIS FACTO RY FOR EVALU ATION . ENDOC ERVIC AL/TR ANSFO RMATI ON ZONE COMPO NENT PRESE NT GENER AL CATEG ORIZA TION EPITH ELIAL CELL ABNOR MALIT Y. DESCR IPTIV E DIAGN OSIS SQUAM OUS CELL ABNOR MALIT Y ATYPI RAFIQ SQUAM OUS CELLS OF UNDET ERMIN ED SIGNI FICAN CE. RELAT ED LABOR ATORY RESUL TS Test Name Resul t Colle cted D and T HIGH RISK HPV Negat cici 06/14 11:34 KIM GONZALEZ-Kecia DEL VALLE MD Caitlin d Out Date: 06/22 13:56 Cervi rafiq/v agina l cytol ogy is a scree tamara test with a recog nized false negat cici rate. New techn ologi es may decre ase, but will not elimi tigre false negat cici resul ts. Regul ar cytol ogy scree tamara is recom uzair d to minim ize false negat cici resul ts. The ThinP rep(R ) Imagi ng syste m is used to johnny t in prima ry cervi rafiq cance r scree tamara of ThinP rep(R ) Pap test slide s. Page 1 of 1 Not Available [facility] [address] [place] [address], [address], 06/22/2024 13:56:41 08/09/20 24 08/14/2024 HAPTO GLOBI N haptoglobin 293 mg/dL 43-212 high Not Available [facility] [address] [place] [address], [address], 08/14/2024 15:18:02 08/09/20 24 08/11/2024 PROTE IN ELECT ROPHO RESIS , SERUM protein, total 7.0 g/dL 6.1-8. 1 normal Not Available [facility] [address] [place], [address], 08/13/2024 21:20:59 08/09/20 24 08/13/2024 PROTE IN ELECT ROPHO RESIS , SERUM albumin 3.6 g/dL 3.8-4. 8 low Not Available [facility] [address] [place], [address], 08/13/2024 21:20:59 08/09/20 24 08/13/2024 PROTE IN ELECT ROPHO RESIS , SERUM jjqhq-4-pozd ulin 0.4 g/dL 0.2-0. 3 high Not Available [facility] [address] [place], [address], 08/13/2024 21:20:59 08/09/20 24 08/13/2024 PROTE IN ELECT ROPHO RESIS , SERUM wnzyk-8-rrbs ulin 0.9 g/dL 0.5-0. 9 normal Not Available [facility] [address] [place], [address], 08/13/2024 21:20:59 08/09/20 24 08/13/2024 PROTE IN ELECT ROPHO RESIS , SERUM beta 1 globulin 0.6 g/dL 0.4-0. 6 normal Not Available [facility] [address] [place], [address], 08/13/2024 21:20:59 08/09/20 24 08/13/2024 PROTE IN ELECT ROPHO RESIS , SERUM beta 2 globulin 0.4 g/dL 0.2-0. 5 normal Not Available [facility] [address] [place], [address], 08/13/2024 21:20:59 08/09/20 24 08/13/2024 PROTE IN ELECT [facility] RESIS , SERUM gamma globulin 1.2 g/dL 0.8-1. 7 normal Not Available [facility] [address] [place], [address], 08/13/2024 21:20:59 08/09/20 24 08/13/2024 PROTE IN ELECT [facility] RESIS , SERUM abn. protein band 1 0.3 g/dL none detect ed high Not Available [facility] [address] [place], [address], 08/13/2024 21:20:59 08/09/20 24 08/13/2024 PROTE IN ELECT [facility] RESIS , SERUM interpretati on SEE NOTE normal Faint restr icted band (M-sp jesus) migra ting in the gamma regio n. Consi tahmina serum immun ofixa tion to rule out a monoc lonal prote in if clini murphy indic ated. Not Available [facility] [address] [place], [address], 08/13/2024 21:20:59 08/09/20 24 08/11/2024 DIREC T COOMB S direct drew NEGATI VE negati ve normal Not Available [facility] [address] [place] [address], [address], 08/11/2024 17:51:11 08/09/20 24 08/09/2024 MANUA L DIFFE RENTI AL % band neutrophils 0.0 % 0.0-7. 0 normal Not Available [facility] [address] [place], [address], 08/10/2024 15:34:02 08/09/20 24 08/09/2024 MANUA L DIFFE RENTI AL % atypical lymphocytes 2 % 0-1 high Not Available [facility] [address] [place], [address], 08/10/2024 15:34:02 08/09/20 24 08/09/2024 MANUA L DIFFE RENTI AL % metamyelocyt es 0 % 0-1 normal Not Available [facility] [address] [place] [address], [address], 08/10/2024 15:34:02 08/09/20 24 08/09/2024 MANUA L DIFFE RENTI AL % myelocytes 0 % 0-1 normal Not Available [facility] [address] [place] [address], [address], 08/10/2024 15:34:02 08/09/20 24 08/09/2024 MANUA L DIFFE RENTI AL % promyelocyte s 0 % 0 normal Not Available [facility] [address] [place] [address], [address], 08/10/2024 15:34:02 08/09/20 24 08/09/2024 MANUA L DIFFE RENTI AL % blast 0 % 0 normal Not Available [facility] [address] [place] [address], [address], 08/10/2024 15:34:02 08/09/20 24 08/09/2024 MANUA L DIFFE RENTI AL nucleated red cells 0 /100{ WBC} 0-1 normal Not Available [facility] [address] [place] [address], [address], 08/10/2024 15:34:02 08/09/20 24 08/09/2024 MANUA L DIFFE RENTI AL smudge cells 0 /100{ WBC} 0 normal Not Available [facility] [address] [place] [address], [address], 08/10/2024 15:34:02 08/09/20 24 08/09/2024 MANUA L DIFFE RENTI AL anisocytosis MODERA TE abnormal Not Available [facility] [address] [place] [address], [address], 08/10/2024 15:34:02 08/09/20 24 08/09/2024 MANUA L DIFFE RENTI AL hypochromasi a SLIGHT abnormal Not Available [facility] [address] [place] [address], [address], 08/10/2024 15:34:02 08/09/20 24 08/09/2024 MANUA L DIFFE RENTI AL polychromasi a SLIGHT abnormal Not Available [facility] [address] [place] [address], [address], 08/10/2024 15:34:02 08/09/20 24 08/09/2024 MANUA L DIFFE RENTI AL target cells SLIGHT abnormal Not Available [facility] [address] [place] [address], [address], 08/10/2024 15:34:02 08/09/20 24 08/09/2024 MANUA L DIFFE RENTI AL acanthocytes MODERA TE abnormal Not Available [facility] [address] [place] [address], [address], 08/10/2024 15:34:02 08/09/20 24 08/09/2024 MANUA L DIFFE RENTI AL schistocytes SLIGHT abnormal Not Available [facility] [address] [place] [address], [address], 08/10/2024 15:34:02 08/09/20 24 08/09/2024 RETIC ULOCY TE COUNT reticulocyte count 2.16 % 0.87-2 .60 normal Not Available [facility] [address] [place] [address], [address], 08/10/2024 15:34:01 08/09/20 24 08/09/2024 RETIC ULOCY TE COUNT reticulocyte ,absol. 0.08 10*6/ uL 0.02-0 .13 normal Not Available [facility] [address] [place] [address], [address], 08/10/2024 15:34:01 08/09/20 24 08/09/2024 B12/F OLIC ACID PANEL folic acid 10.7 NG/mL 4.6-34 .8 normal Not Available [facility] [address] [place] [address], [address], 08/10/2024 15:34:00 08/09/20 24 08/09/2024 B12/F OLIC ACID PANEL vitamin B12 432 pg/mL 232-12 45 normal Not Available [facility] [address] [place] [address], [address], 08/10/2024 15:34:00 08/09/20 24 08/09/2024 BASHIR TIN ferritin 7 NG/mL 13-157 low Not Available [facility] [address] [place] [address], [address], 08/10/2024 15:33:58 08/09/20 24 08/09/2024 IRON PANEL -TOTA L AND TIBC iron 14 ug/dL 37-145 low Not Available [facility] [address] [place] [address], [address], 08/10/2024 15:33:57 08/09/20 24 08/09/2024 IRON PANEL -TOTA L AND TIBC total iron binding cap. 446 ug/dL _(rafiq c) 250-45 0 normal Not Available [facility] [address] [place] [address], [address], 08/10/2024 15:33:57 08/09/20 24 08/09/2024 IRON PANEL -TOTA L AND TIBC unsat.iron binding cap. 432 ug/dL 112-34 7 high Not Available [facility] [address] [place] [address], [address], 08/10/2024 15:33:57 08/09/20 24 08/09/2024 IRON PANEL -TOTA L AND TIBC % saturation 3 %_(ca lc) 15-50 low Not Available [facility] [address] [place] [address], [address], 08/10/2024 15:33:57 08/09/20 24 08/09/2024 COMP. METAB OLIC PANEL glucose 96 mg/dL 74-100 normal Not Available [facility] [address] [place] [address], [address], 08/10/2024 15:33:57 08/09/20 24 08/09/2024 COMP. METAB OLIC PANEL blood urea nitrogen 14 mg/dL 6-20 normal Not Available [facility] [address] [place] [address], [address], 08/10/2024 15:33:57 08/09/20 24 08/09/2024 COMP. METAB OLIC PANEL creatinine 0.80 mg/dL 0.50-0 .95 normal Not Available [facility] [address] [place] [address], [address], 08/10/2024 15:33:57 08/09/20 24 08/09/2024 COMP. METAB OLIC PANEL BUN/creatini ne ratio 18 (calc ) 10-20 normal Not Available [facility] [address] [place] [address], [address], 08/10/2024 15:33:57 08/09/20 24 08/09/2024 COMP. METAB OLIC PANEL sodium 139 mmol/ L 136-14 5 normal Not Available [facility] [address] [place] [address], [address], 08/10/2024 15:33:57 08/09/20 24 08/09/2024 COMP. METAB OLIC PANEL potassium 4.3 mmol/ L 3.4-5. 0 normal Not Available [facility] [address] [place] [address], [address], 08/10/2024 15:33:57 08/09/20 24 08/09/2024 COMP. METAB OLIC PANEL chloride 103 mmol/ L 98-107 normal Not Available [facility] [address] [place] [address], [address], 08/10/2024 15:33:57 08/09/20 24 08/09/2024 COMP. METAB OLIC PANEL carbon dioxide 23 mmol/ L 22-31 normal Not Available [facility] [address] [place] [address], [address], 08/10/2024 15:33:57 08/09/20 24 08/09/2024 COMP. METAB OLIC PANEL anion gap 13 (calc ) 7-25 normal Not Available [facility] [address] [place] [address], [address], 08/10/2024 15:33:57 08/09/20 24 08/09/2024 COMP. METAB OLIC PANEL calcium 9.0 mg/dL 8.6-10 .2 normal Not Available [facility] [address] [place] [address], [address], 08/10/2024 15:33:57 08/09/20 24 08/09/2024 COMP. METAB OLIC PANEL total protein 7.2 g/dL 6.4-8. 3 normal Not Available [facility] [address] [place] [address], [address], 08/10/2024 15:33:57 08/09/20 24 08/09/2024 COMP. METAB OLIC PANEL albumin 3.9 g/dL 3.5-5. 2 normal Not Available [facility] [address] [place] [address], [address], 08/10/2024 15:33:57 08/09/20 24 08/09/2024 COMP. METAB OLIC PANEL globulin 3.3 1.5-4. 5 normal Not Available [facility] [address] [place] [address], [address], 08/10/2024 15:33:57 08/09/20 24 08/09/2024 COMP. METAB OLIC PANEL albumin/glob ulin ratio 1.2 (calc ) 1.1-2. 5 normal Not Available [facility] [address] [place], [address], 08/10/2024 15:33:57 08/09/20 24 08/09/2024 COMP. METAB OLIC PANEL bilirubin, total 0.2 mg/dL 0.1-1. 2 normal Not Available [facility] [address] [place] [address], [address], 08/10/2024 15:33:57 08/09/20 24 08/09/2024 COMP. METAB OLIC PANEL alkaline phosphatase 112 U/L 30-121 normal Not Available [facility] [address] [place] [address], [address], 08/10/2024 15:33:57 08/09/20 24 08/09/2024 COMP. METAB OLIC PANEL AST 19 U/L 0-32 normal Not Available [facility] [address] [place] [address], [address], 08/10/2024 15:33:57 08/09/20 24 08/09/2024 COMP. METAB OLIC PANEL ALT 29 U/L 0-33 normal Not Available [facility] [address] [place] [address], [address], 08/10/2024 15:33:57 08/09/20 24 08/09/2024 COMP. METAB OLIC PANEL GFR 82 >= 60 normal NOT E New calcu latio n for GFR (CKD- EPI 2020) is formu lated witho ut race adjus tment facto rs at the recom menda tion of the Brandt Turner y Sebastian atyasmin and Therese Beauchamp ty of Nephr ology . This calcu latio n has not been valid ated in pregn ant women . For pedia tric patie nts refer to https ://ester dong.o rg/pr ofess ional s/KDO QI/gf r_cal culat orPed Not Available [facility] [address] [place] [address], [address], 08/10/2024 15:33:57 08/09/20 24 08/09/2024 COMPL ETE BLOOD COUNT red blood cells 3.58 10*6/ uL 3.80-5 .20 low Not Available [facility] [address] [place] [address], [address], 08/10/2024 15:33:56 08/09/20 24 08/09/2024 COMPL ETE BLOOD COUNT hemoglobin 9.3 g/dL 12.0-1 6.0 low Not Available [facility] [address] [place] [address], [address], 08/10/2024 15:33:56 08/09/20 24 08/09/2024 COMPL ETE BLOOD COUNT hematocrit 30.0 % 35.0-4 7.0 low Not Available [facility] [address] [place] [address], [address], 08/10/2024 15:33:56 08/09/20 24 08/09/2024 COMPL ETE BLOOD COUNT MCV 84 fL 80-100 normal Not Available [facility] [address] [place] [address], [address], 08/10/2024 15:33:56 08/09/20 24 08/09/2024 COMPL ETE BLOOD COUNT MCH 26 pg 26-35 normal Not Available [facility] [address] [place] [address], [address], 08/10/2024 15:33:56 08/09/20 24 08/09/2024 COMPL ETE BLOOD COUNT MCHC 31 g/dL 32-36 low Not Available [facility] [address] [place] [address], [address], 08/10/2024 15:33:56 08/09/20 24 08/09/2024 COMPL ETE BLOOD COUNT RDW 19.2 % 11.0-1 5.0 high Not Available [facility] [address] [place] [address], [address], 08/10/2024 15:33:56 08/09/20 24 08/09/2024 COMPL ETE BLOOD COUNT MPV 7.9 fL 6.2-10 .5 normal Not Available [facility] [address] [place] [address], [address], 08/10/2024 15:33:56 08/09/20 24 08/09/2024 COMPL ETE BLOOD COUNT platelet count 479 10*3/ uL 150-40 0 high Occ. macro throm bocyt es noted . Not Available [facility] [address] [place] [address], [address], 08/10/2024 15:33:56 08/09/20 24 08/09/2024 COMPL ETE BLOOD COUNT % neutrophils 49.0 % 42.0-7 8.0 normal Not Available [facility] [address] [place] [address], [address], 08/10/2024 15:33:56 08/09/20 24 08/09/2024 COMPL ETE BLOOD COUNT % lymphocytes 40.0 % 11.0-4 7.0 normal Not Available [facility] [address] [place] [address], [address], 08/10/2024 15:33:56 08/09/20 24 08/09/2024 COMPL ETE BLOOD COUNT % monocytes 8.0 % 0.0-11 .0 normal Not Available [facility] [address] [place] [address], [address], 08/10/2024 15:33:56 08/09/20 24 08/09/2024 COMPL ETE BLOOD COUNT % eosinophils 0.0 % 0.0-7. 0 normal Not Available [facility] [address] [place] [address], [address], 08/10/2024 15:33:56 08/09/20 24 08/09/2024 COMPL ETE BLOOD COUNT % basophils 1.0 % 0.0-3. 0 normal Not Available [facility] [address] [place], [address], 08/10/2024 15:33:56 08/09/20 24 08/09/2024 COMPL ETE BLOOD COUNT nucleated red cells 0.2 % 0.0-0. 9 normal Not Available [facility] [address] [place], [address], 08/10/2024 15:33:56 08/09/20 24 08/09/2024 COMPL ETE BLOOD COUNT nucleated RBCs, absolute 0.01 10*3/ uL not estab. normal Not Available [facility] [address] [place], [address], 08/10/2024 15:33:56 08/09/20 24 08/10/2024 COMPL ETE BLOOD COUNT white blood cells 7.0 10*3/ uL 3.8-10 .8 normal RESUL TS RECHE CKED CBC TO BE REVIE WED BY PATHO LOGIS T. PAT HOLOG Y REVIE W PERFO RMED BY JAMILAH WALTERS M.D. CBC AND SMEAR ARE NOTAB LE FOR ANEMI A, WITH LOW MCH, INCRE ASED RDW AND MARKE D ANISO POIKI LOCYT OSIS. NO DEFIN ITE IMMAT URE MYELO ID CELLS , NRBCs OR BLAST S. MOST OF THESE JAMESON ES COULD BE EXPLA INED BY IRON DEFIC IENCY ANEMI A. THE POSSI BILIT Y OF OTHER CONTR IBUTI NG FACTO RS (HEMO LYSIS , ETC.) CANNO T BE EXCLU DED. Not Available [facility] [address] [place], [address], 08/10/2024 15:33:56 08/09/20 24 08/10/2024 COMPL ETE BLOOD COUNT neutrophil,a bsolute 3.4 10*3/ uL 1.6-8. 4 normal Not Available [facility] [address] [place], [address], 08/10/2024 15:33:56 08/09/20 24 08/10/2024 COMPL ETE BLOOD COUNT lymphocyte,a bsolute 2.9 10*3/ uL 0.4-5. 1 normal Not Available [facility] [address] [place] [address], [address], 08/10/2024 15:33:56 08/09/20 24 08/10/2024 COMPL ETE BLOOD COUNT monocyte,abs olute 0.6 10*3/ uL 0.0-1. 2 normal Not Available [facility] [address] [place] [address], [address], 08/10/2024 15:33:56 08/09/20 24 08/10/2024 COMPL ETE BLOOD COUNT eosinophil,a bsolute 0.0 10*3/ uL 0.0-0. 8 normal Not Available [facility] [address] [place] [address], [address], 08/10/2024 15:33:56 08/09/20 24 08/10/2024 COMPL ETE BLOOD COUNT basophil,abs olute 0.1 10*3/ uL 0.0-0. 3 normal Smear revie wed to confi rm cell morph ology . Not Available [facility] [address] [place] [address], [address], 08/10/2024 15:33:56 08/09/20 24 08/09/2024 COMPL ETE BLOOD COUNT red blood cells 3.58 10*6/ uL 3.80-5 .20 low Not Available [facility] [address] [place] [address], [address], 08/10/2024 15:33:55 08/09/20 24 08/09/2024 COMPL ETE BLOOD COUNT hemoglobin 9.3 g/dL 12.0-1 6.0 low Not Available [facility] [address] [place] [address], [address], 08/10/2024 15:33:55 08/09/20 24 08/09/2024 COMPL ETE BLOOD COUNT hematocrit 30.0 % 35.0-4 7.0 low Not Available [facility] [address] [place], [address], 08/10/2024 15:33:55 08/09/20 24 08/09/2024 COMPL ETE BLOOD COUNT MCV 84 fL 80-100 normal Not Available [facility] [address] [place] [address], [address], 08/10/2024 15:33:55 08/09/20 24 08/09/2024 COMPL ETE BLOOD COUNT MCH 26 pg 26-35 normal Not Available [facility] [address] [place] [address], [address], 08/10/2024 15:33:55 08/09/20 24 08/09/2024 COMPL ETE BLOOD COUNT MCHC 31 g/dL 32-36 low Not Available [facility] [address] [place], [address], 08/10/2024 15:33:55 08/09/20 24 08/09/2024 COMPL ETE BLOOD COUNT RDW 19.2 % 11.0-1 5.0 high Not Available [facility] [address] [place] [address], [address], 08/10/2024 15:33:55 08/09/20 24 08/09/2024 COMPL ETE BLOOD COUNT MPV 7.9 fL 6.2-10 .5 normal Not Available [facility] [address] [place] [address], [address], 08/10/2024 15:33:55 08/09/20 24 08/09/2024 COMPL ETE BLOOD COUNT platelet count 479 10*3/ uL 150-40 0 high Occ. macro throm bocyt es noted . Not Available [facility] [address] [place] [address], [address], 08/10/2024 15:33:55 08/09/20 24 08/09/2024 COMPL ETE BLOOD COUNT % neutrophils 49.0 % 42.0-7 8.0 normal Not Available [facility] [address] [place] [address], [address], 08/10/2024 15:33:55 08/09/20 24 08/09/2024 COMPL ETE BLOOD COUNT % lymphocytes 40.0 % 11.0-4 7.0 normal Not Available [facility] [address] [place] [address], [address], 08/10/2024 15:33:55 08/09/20 24 08/09/2024 COMPL ETE BLOOD COUNT % monocytes 8.0 % 0.0-11 .0 normal Not Available [facility] [address] [place] [address], [id number], 08/10/2024 15:33:55 08/09/20 24 08/09/2024 COMPL ETE BLOOD COUNT % eosinophils 0.0 % 0.0-7. 0 normal Not Available [facility] [address] [place] [address], [id number], 08/10/2024 15:33:55 08/09/20 24 08/09/2024 COMPL ETE BLOOD COUNT % basophils 1.0 % 0.0-3. 0 normal Not Available [facility] [address] [place] [address], [id number], 08/10/2024 15:33:55 08/09/20 24 08/09/2024 COMPL ETE BLOOD COUNT nucleated red cells 0.2 % 0.0-0. 9 normal Not Available [facility] [address] [place] [address], [id number], 08/10/2024 15:33:55 08/09/20 24 08/09/2024 COMPL ETE BLOOD COUNT nucleated RBCs, absolute 0.01 10*3/ uL not estab. normal Not Available [facility] [address] [place] [address], [id number], 08/10/2024 15:33:55 08/09/20 24 08/10/2024 COMPL ETE BLOOD COUNT white blood cells 7.0 10*3/ uL 3.8-10 .8 normal RESUL TS RECHE CKED CBC TO BE REVIE WED BY PATHO LOGIS T. PAT HOLOG Y REVIE W PERFO RMED BY JAMILAH WALTERS M.D. CBC AND SMEAR ARE NOTAB LE FOR ANEMI A, WITH LOW MCH, INCRE ASED RDW AND MARKE D ANISO POIKI LOCYT OSIS. NO DEFIN ITE IMMAT URE MYELO ID CELLS , NRBCs OR BLAST S. MOST OF THESE JAMESON ES COULD BE EXPLA INED BY IRON DEFIC IENCY ANEMI A. THE POSSI BILIT Y OF OTHER CONTR IBUTI NG FACTO RS (HEMO LYSIS , ETC.) CANNO T BE EXCLU DED. Not Available [facility] [address] [place] [address], [address], 08/10/2024 15:33:55 08/09/20 24 08/10/2024 COMPL ETE BLOOD COUNT neutrophil,a bsolute 3.4 10*3/ uL 1.6-8. 4 normal Not Available [facility] [address] [place] [address], [address], 08/10/2024 15:33:55 08/09/20 24 08/10/2024 COMPL ETE BLOOD COUNT lymphocyte,a bsolute 2.9 10*3/ uL 0.4-5. 1 normal Not Available [facility] [address] [place], [address], 08/10/2024 15:33:55 08/09/20 24 08/10/2024 COMPL ETE BLOOD COUNT monocyte,abs olute 0.6 10*3/ uL 0.0-1. 2 normal Not Available [facility] [address] [place] [address], [address], 08/10/2024 15:33:55 08/09/20 24 08/10/2024 COMPL ETE BLOOD COUNT eosinophil,a bsolute 0.0 10*3/ uL 0.0-0. 8 normal Not Available [facility] [address] [place] [address], [phone], 08/10/2024 15:33:55 08/09/20 24 08/10/2024 COMPL ETE BLOOD COUNT basophil,abs olute 0.1 10*3/ uL 0.0-0. 3 normal Smear revie wed to confi rm cell morph ology . Not Available [facility] [address] [place] [address], [address], 08/10/2024 15:33:55 08/09/20 24 08/09/2024 MANUA L DIFFE RENTI AL % band neutrophils 0.0 % 0.0-7. 0 normal Not Available [facility] [address] [place] [address], [phone], 08/09/2024 18:13:19 08/09/20 24 08/09/2024 MANUA L DIFFE RENTI AL % atypical lymphocytes 2 % 0-1 high Not Available [facility] [address] [place] [address], [address], 08/09/2024 18:13:19 08/09/20 24 08/09/2024 MANUA L DIFFE RENTI AL % metamyelocyt es 0 % 0-1 normal Not Available [facility] [address] [place] [address], [address], 08/09/2024 18:13:19 08/09/20 24 08/09/2024 MANUA L DIFFE RENTI AL % myelocytes 0 % 0-1 normal Not Available [facility] [address] [place] [address], [address], 08/09/2024 18:13:19 08/09/20 24 08/09/2024 MANUA L DIFFE RENTI AL % promyelocyte s 0 % 0 normal Not Available [facility] [address] [place] [address], [address], 08/09/2024 18:13:19 08/09/20 24 08/09/2024 MANUA L DIFFE RENTI AL % blast 0 % 0 normal Not Available [facility] [address] [place] [address], [address], 08/09/2024 18:13:19 08/09/20 24 08/09/2024 MANUA L DIFFE RENTI AL nucleated red cells 0 /100{ WBC} 0-1 normal Not Available [facility] [address] [place] [address], [address], 08/09/2024 18:13:19 08/09/20 24 08/09/2024 MANUA L DIFFE RENTI AL smudge cells 0 /100{ WBC} 0 normal Not Available [facility] [address] [place] [address], [address], 08/09/2024 18:13:19 08/09/20 24 08/09/2024 MANUA L DIFFE RENTI AL anisocytosis MODERA TE abnormal Not Available [facility] [address] [place] [address], [address], 08/09/2024 18:13:19 08/09/20 24 08/09/2024 MANUA L DIFFE RENTI AL hypochromasi a SLIGHT abnormal Not Available [facility] [address] [place] [address], [address], 08/09/2024 18:13:19 08/09/20 24 08/09/2024 MANUA L DIFFE RENTI AL polychromasi a SLIGHT abnormal Not Available [facility] [address] [place] [address], [address], 08/09/2024 18:13:19 08/09/20 24 08/09/2024 MANUA L DIFFE RENTI AL target cells SLIGHT abnormal Not Available [facility] [address] [place] [address], [address], 08/09/2024 18:13:19 08/09/20 24 08/09/2024 MANUA L DIFFE RENTI AL acanthocytes MODERA TE abnormal Not Available [facility] [address] [place] [address], [address], 08/09/2024 18:13:19 08/09/20 24 08/09/2024 MANUA L DIFFE RENTI AL schistocytes SLIGHT abnormal Not Available [facility] [address] [place] [address], [address], 08/09/2024 18:13:19 08/09/20 24 08/09/2024 RETIC ULOCY TE COUNT reticulocyte count 2.16 % 0.87-2 .60 normal Not Available [facility] [address] [place] [address], [address], 08/09/2024 18:13:18 08/09/20 24 08/09/2024 RETIC ULOCY TE COUNT reticulocyte ,absol. 0.08 10*6/ uL 0.02-0 .13 normal Not Available [facility] [address] [place] [address], [address], 08/09/2024 18:13:18 08/09/20 24 08/09/2024 COMPL ETE BLOOD COUNT white blood cells 7.0 10*3/ uL 3.8-10 .8 normal RESUL TS RECHE CKED CBC TO BE REVIE WED BY PATHO LOGIS T. Not Available [facility] [address] [place] [address], [address], 08/09/2024 18:13:17 08/09/20 24 08/09/2024 COMPL ETE BLOOD COUNT red blood cells 3.58 10*6/ uL 3.80-5 .20 low Not Available [facility] [place], [address], 08/09/2024 18:13:17 08/09/20 24 08/09/2024 COMPL ETE BLOOD COUNT hemoglobin 9.3 g/dL 12.0-1 6.0 low Not Available [facility] [address] [place] [address], [address], 08/09/2024 18:13:17 08/09/20 24 08/09/2024 COMPL ETE BLOOD COUNT hematocrit 30.0 % 35.0-4 7.0 low Not Available [facility] [address] [place] [address], [address], 08/09/2024 18:13:17 08/09/20 24 08/09/2024 COMPL ETE BLOOD COUNT MCV 84 fL 80-100 normal Not Available [facility] [address] [place] [address], [address], 08/09/2024 18:13:17 08/09/20 24 08/09/2024 COMPL ETE BLOOD COUNT MCH 26 pg 26-35 normal Not Available [facility] [address] [place] [address], [address], 08/09/2024 18:13:17 08/09/20 24 08/09/2024 COMPL ETE BLOOD COUNT MCHC 31 g/dL 32-36 low Not Available [facility] [address] [place] [address], [address], 08/09/2024 18:13:17 08/09/20 24 08/09/2024 COMPL ETE BLOOD COUNT RDW 19.2 % 11.0-1 5.0 high Not Available [facility] [address] [place] [address], [address], 08/09/2024 18:13:17 08/09/20 24 08/09/2024 COMPL ETE BLOOD COUNT MPV 7.9 fL 6.2-10 .5 normal Not Available [facility] [address] [place] [address], [address], 08/09/2024 18:13:17 08/09/20 24 08/09/2024 COMPL ETE BLOOD COUNT platelet count 479 10*3/ uL 150-40 0 high Occ. macro throm bocyt es noted . Not Available [facility] [address] [place], [address], 08/09/2024 18:13:17 08/09/20 24 08/09/2024 COMPL ETE BLOOD COUNT neutrophil,a bsolute 3.4 10*3/ uL 1.6-8. 4 normal Not Available [facility] [address] [place] [address], [address], 08/09/2024 18:13:17 08/09/20 24 08/09/2024 COMPL ETE BLOOD COUNT lymphocyte,a bsolute 2.9 10*3/ uL 0.4-5. 1 normal Not Available [facility] [address] [place] [address], [address], 08/09/2024 18:13:17 08/09/20 24 08/09/2024 COMPL ETE BLOOD COUNT monocyte,abs olute 0.6 10*3/ uL 0.0-1. 2 normal Not Available [facility] [address] [place] [address], [address], 08/09/2024 18:13:17 08/09/20 24 08/09/2024 COMPL ETE BLOOD COUNT eosinophil,a bsolute 0.0 10*3/ uL 0.0-0. 8 normal Not Available [facility] [address] [place] [address], [address], 08/09/2024 18:13:17 08/09/20 24 08/09/2024 COMPL ETE BLOOD COUNT basophil,abs olute 0.1 10*3/ uL 0.0-0. 3 normal Smear revie wed to confi rm cell morph ology . Not Available [facility] [address] [place] [address], [address], 08/09/2024 18:13:17 08/09/20 24 08/09/2024 COMPL ETE BLOOD COUNT % neutrophils 49.0 % 42.0-7 8.0 normal Not Available [facility] [address] [place] [address], [address], 08/09/2024 18:13:17 08/09/20 24 08/09/2024 COMPL ETE BLOOD COUNT % lymphocytes 40.0 % 11.0-4 7.0 normal Not Available [facility] [address] [place] [address], [address], 08/09/2024 18:13:17 08/09/20 24 08/09/2024 COMPL ETE BLOOD COUNT % monocytes 8.0 % 0.0-11 .0 normal Not Available [facility] [address] [place] [address], [address], 08/09/2024 18:13:17 08/09/20 24 08/09/2024 COMPL ETE BLOOD COUNT % eosinophils 0.0 % 0.0-7. 0 normal Not Available [facility] [address] [place] [address], [address], 08/09/2024 18:13:17 08/09/20 24 08/09/2024 COMPL ETE BLOOD COUNT % basophils 1.0 % 0.0-3. 0 normal Not Available [facility] [address] [place] [address], [address], 08/09/2024 18:13:17 08/09/20 24 08/09/2024 COMPL ETE BLOOD COUNT nucleated red cells 0.2 % 0.0-0. 9 normal Not Available [facility] [address] [place] [address], [address], 08/09/2024 18:13:17 08/09/20 24 08/09/2024 COMPL ETE BLOOD COUNT nucleated RBCs, absolute 0.01 10*3/ uL not estab. normal Not Available [facility] [address] [place] [address], [address], 08/09/2024 18:13:17 08/09/20 24 08/09/2024 B12/F OLIC ACID PANEL folic acid 10.7 NG/mL 4.6-34 .8 normal Not Available [facility] [address] [place] [address], [address], 08/09/2024 17:53:58 08/09/20 24 08/09/2024 B12/F OLIC ACID PANEL vitamin B12 432 pg/mL 232-12 45 normal Not Available [facility] [address] [place] [address], [address], 08/09/2024 17:53:58 08/09/20 24 08/09/2024 BASHIR TIN ferritin 7 NG/mL 13-157 low Not Available [facility] [address] [place] [address], [address], 08/09/2024 17:53:57 08/09/20 24 08/09/2024 IRON PANEL -TOTA L AND TIBC iron 14 ug/dL 37-145 low Not Available [facility] [address] [place] [address], [address], 08/09/2024 17:53:56 08/09/20 24 08/09/2024 IRON PANEL -TOTA L AND TIBC total iron binding cap. 446 ug/dL _(rafiq c) 250-45 0 normal Not Available [facility] [address] [place] [address], [address], 08/09/2024 17:53:56 08/09/20 24 08/09/2024 IRON PANEL -TOTA L AND TIBC unsat.iron binding cap. 432 ug/dL 112-34 7 high Not Available [facility] [address] [place] [address], [address], 08/09/2024 17:53:56 08/09/20 24 08/09/2024 IRON PANEL -TOTA L AND TIBC % saturation 3 %_(ca lc) 15-50 low Not Available [facility] [address] [place] [address], [address], 08/09/2024 17:53:56 08/09/20 24 08/09/2024 COMP. METAB OLIC PANEL glucose 96 mg/dL 74-100 normal Not Available [facility] [address] [place] [address], [address], 08/09/2024 17:53:55 08/09/20 24 08/09/2024 COMP. METAB OLIC PANEL blood urea nitrogen 14 mg/dL 6-20 normal Not Available [facility] [address] [place] [address], [address], 08/09/2024 17:53:55 08/09/20 24 08/09/2024 COMP. METAB OLIC PANEL creatinine 0.80 mg/dL 0.50-0 .95 normal Not Available [facility] [address] [place] [address], [address], 08/09/2024 17:53:55 08/09/20 24 08/09/2024 COMP. METAB OLIC PANEL BUN/creatini ne ratio 18 (calc ) 10-20 normal Not Available [facility] [address] [place] [address], [address], 08/09/2024 17:53:55 08/09/20 24 08/09/2024 COMP. METAB OLIC PANEL sodium 139 mmol/ L 136-14 5 normal Not Available [facility] [address] [place] [address], [address], 08/09/2024 17:53:55 08/09/20 24 08/09/2024 COMP. METAB OLIC PANEL potassium 4.3 mmol/ L 3.4-5. 0 normal Not Available [facility] [address] [place] [address], [address], 08/09/2024 17:53:55 08/09/20 24 08/09/2024 COMP. METAB OLIC PANEL chloride 103 mmol/ L 98-107 normal Not Available [facility] [address] [place] [address], [address], 08/09/2024 17:53:55 08/09/20 24 08/09/2024 COMP. METAB OLIC PANEL carbon dioxide 23 mmol/ L 22-31 normal Not Available [facility] [address] [place] [address], [address], 08/09/2024 17:53:55 08/09/20 24 08/09/2024 COMP. METAB OLIC PANEL anion gap 13 (calc ) 7-25 normal Not Available [facility] [address] [place] [address], [address], 08/09/2024 17:53:55 08/09/20 24 08/09/2024 COMP. METAB OLIC PANEL calcium 9.0 mg/dL 8.6-10 .2 normal Not Available [facility] [address] [place] [address], [address], 08/09/2024 17:53:55 08/09/20 24 08/09/2024 COMP. METAB OLIC PANEL total protein 7.2 g/dL 6.4-8. 3 normal Not Available [facility] [address] [place] [address], [address], 08/09/2024 17:53:55 08/09/20 24 08/09/2024 COMP. METAB OLIC PANEL albumin 3.9 g/dL 3.5-5. 2 normal Not Available [facility] [address] [place] [address], [address], 08/09/2024 17:53:55 08/09/20 24 08/09/2024 COMP. METAB OLIC PANEL globulin 3.3 1.5-4. 5 normal Not Available [facility] [address] [place] [address], [address], 08/09/2024 17:53:55 08/09/20 24 08/09/2024 COMP. METAB OLIC PANEL albumin/glob ulin ratio 1.2 (calc ) 1.1-2. 5 normal Not Available [facility] [address] [place] [address], [address], 08/09/2024 17:53:55 08/09/20 24 08/09/2024 COMP. METAB OLIC PANEL bilirubin, total 0.2 mg/dL 0.1-1. 2 normal Not Available [facility] [address] [place], [address], 08/09/2024 17:53:55 08/09/20 24 08/09/2024 COMP. METAB OLIC PANEL alkaline phosphatase 112 U/L 30-121 normal Not Available [facility] [address] [place], [address], 08/09/2024 17:53:55 08/09/20 24 08/09/2024 COMP. METAB OLIC PANEL AST 19 U/L 0-32 normal Not Available [facility] [address] [place], [address], 08/09/2024 17:53:55 08/09/20 24 08/09/2024 COMP. METAB OLIC PANEL ALT 29 U/L 0-33 normal Not Available [facility] [address] [place], [address], 08/09/2024 17:53:55 08/09/20 24 08/09/2024 COMP. METAB OLIC PANEL GFR 82 >= 60 normal NOT E New calcu latio n for GFR (CKD- EPI 2020) is formu lated witho ut race adjus tment facto rs at the recom menda tion of the [employer] and [employer] of Nephr ology . This calcu latio n has not been valid ated in pregn ant women . For pedia naye patie nts refer to https ://ester dong.o jeanine/pr gelacio marc s/KDO QI/gf r_cal culat orPed Not Available [facility] [address] [place], [address], 08/09/2024 17:53:55 08/09/20 24 08/11/2024 PROTE IN ELECT ROPHO RESIS , SERUM protein, total 7.0 g/dL 6.1-8. 1 normal Not Available [facility] [address] [place] [address], [address], 08/11/2024 08:29:02 10/18/19 25 10/18/2024 BASHIR TIN ferritin 38 NG/mL 13-157 normal Not Available [facility] [address] [place] [address], [address], 10/18/2024 14:27:14 10/18/19 25 10/18/2024 IRON PANEL -TOTA L AND TIBC iron 45 ug/dL 37-145 normal Not Available [facility] [address] [place] [address], [address], 10/18/2024 14:27:14 10/18/19 25 10/18/2024 IRON PANEL -TOTA L AND TIBC total iron binding cap. 381 ug/dL _(rafiq c) 250-45 0 normal Not Available [facility] [address] [place] [address], [address], 10/18/2024 14:27:14 10/18/19 25 10/18/2024 IRON PANEL -TOTA L AND TIBC unsat.iron binding cap. 336 ug/dL 112-34 7 normal Not Available [facility] [address] [place] [address], [address], 10/18/2024 14:27:14 10/18/19 25 10/18/2024 IRON PANEL -TOTA L AND TIBC % saturation 12 %_(ca lc) 15-50 low Not Available [facility] [address] [place] [address], [address], 10/18/2024 14:27:14 10/18/19 25 10/18/2024 COMP. METAB OLIC PANEL glucose 95 mg/dL 74-100 normal Not Available [facility] [address] [place] [address], [address], 10/18/2024 14:27:13 10/18/19 25 10/18/2024 COMP. METAB OLIC PANEL blood urea nitrogen 12 mg/dL 6-20 normal Not Available [facility] [address] [place] [address], [address], 10/18/2024 14:27:13 10/18/19 25 10/18/2024 COMP. METAB OLIC PANEL creatinine 0.83 mg/dL 0.50-0 .95 normal Not Available [facility] [address] [place] [address], [address], 10/18/2024 14:27:13 10/18/19 25 10/18/2024 COMP. METAB OLIC PANEL BUN/creatini ne ratio 14 (calc ) 10-20 normal Not Available [facility] [address] [place] [address], [address], 10/18/2024 14:27:13 10/18/19 25 10/18/2024 COMP. METAB OLIC PANEL sodium 137 mmol/ L 136-14 5 normal Not Available [facility] [address] [place] [address], [address], 10/18/2024 14:27:13 10/18/19 25 10/18/2024 COMP. METAB OLIC PANEL potassium 4.3 mmol/ L 3.4-5. 0 normal Not Available [facility] [address] [place] [address], [address], 10/18/2024 14:27:13 10/18/19 25 10/18/2024 COMP. METAB OLIC PANEL chloride 101 mmol/ L 98-107 normal Not Available [facility] [address] [place] [address], [address], 10/18/2024 14:27:13 10/18/19 25 10/18/2024 COMP. METAB OLIC PANEL carbon dioxide 25 mmol/ L 22-31 normal Not Available [facility] [address] [place] [address], [address], 10/18/2024 14:27:13 10/18/19 25 10/18/2024 COMP. METAB OLIC PANEL anion gap 11 (calc ) 7-25 normal Not Available [facility] [address] [place] [address], [address], 10/18/2024 14:27:13 10/18/19 25 10/18/2024 COMP. METAB OLIC PANEL calcium 9.3 mg/dL 8.6-10 .2 normal Not Available [facility] [address] [place] [address], [address], 10/18/2024 14:27:13 10/18/19 25 10/18/2024 COMP. METAB OLIC PANEL total protein 7.4 g/dL 6.4-8. 3 normal Not Available [facility] [address] [place] [address], [address], 10/18/2024 14:27:13 10/18/19 25 10/18/2024 COMP. METAB OLIC PANEL albumin 3.9 g/dL 3.5-5. 2 normal Not Available [facility] [address] [place] [address], [address], 10/18/2024 14:27:13 10/18/19 25 10/18/2024 COMP. METAB OLIC PANEL globulin 3.5 1.5-4. 5 normal Not Available [facility] [address] [place] [address], [address], 10/18/2024 14:27:13 10/18/19 25 10/18/2024 COMP. METAB OLIC PANEL albumin/glob ulin ratio 1.1 (calc ) 1.1-2. 5 normal Not Available [facility] [address] [place] [address], [address], 10/18/2024 14:27:13 10/18/19 25 10/18/2024 COMP. METAB OLIC PANEL bilirubin, total 0.2 mg/dL 0.1-1. 2 normal Not Available [facility] [address] [place] [address], [address], 10/18/2024 14:27:13 10/18/19 25 10/18/2024 COMP. METAB OLIC PANEL alkaline phosphatase 89 U/L 30-121 normal Not Available [facility] [address] [place] [address], [address], 10/18/2024 14:27:13 10/18/19 25 10/18/2024 COMP. METAB OLIC PANEL AST 18 U/L 0-32 normal Not Available [facility] [address] [place] [address], [address], 10/18/2024 14:27:13 10/18/19 25 10/18/2024 COMP. METAB OLIC PANEL ALT 18 U/L 0-33 normal Not Available [facility] [address] [place] [address], [address], 10/18/2024 14:27:13 10/18/19 25 10/18/2024 COMP. METAB OLIC PANEL GFR 78 >= 60 normal NOT E New calcu latio n for GFR (CKD- EPI 2020) is formu lated witho ut race adjus tment facto rs at the recom menda tion of the [employer] [facility] and Therese pablo [facility] . This calcu latio n has not been valid ated in pregn ant women . For pedia tric patie nts refer to https ://ester w.jaime dong.o rg/pr ofess ional s/KDO QI/gf r_cal culat orPed Not Available [facility] [address] [place] [address], [address], 10/18/2024 14:27:13 10/18/19 25 10/18/2024 MANUA L DIFFE RENTI AL % band neutrophils 0.0 % 0.0-7. 0 normal Not Available [facility] [address] [place] [address], [address], 10/18/2024 14:22:01 10/18/19 25 10/18/2024 MANUA L DIFFE RENTI AL % atypical lymphocytes 0 % 0-1 normal Not Available [facility] [address] [place] [address], [address], 10/18/2024 14:22:01 10/18/19 25 10/18/2024 MANUA L DIFFE RENTI AL % metamyelocyt es 0 % 0-1 normal Not Available [facility] [address] [place] [address], [address], 10/18/2024 14:22:01 10/18/19 25 10/18/2024 MANUA L DIFFE RENTI AL % myelocytes 0 % 0-1 normal Not Available [facility] [address] [place] [address], [address], 10/18/2024 14:22:01 10/18/19 25 10/18/2024 MANUA L DIFFE RENTI AL % promyelocyte s 0 % 0 normal Not Available [facility] [address] [place] [address], [address], 10/18/2024 14:22:01 10/18/19 25 10/18/2024 MANUA L DIFFE RENTI AL % blast 0 % 0 normal Not Available [facility] [address] [place] [address], [address], 10/18/2024 14:22:01 10/18/19 25 10/18/2024 MANUA L DIFFE RENTI AL nucleated red cells 0 /100{ WBC} 0-1 normal Not Available [facility] [address] [place] [address], [address], 10/18/2024 14:22:01 10/18/19 25 10/18/2024 MANUA L DIFFE RENTI AL smudge cells 0 /100{ WBC} 0 normal Not Available [facility] [address] [place] [address], [address], 10/18/2024 14:22:01 10/18/19 25 10/18/2024 MANUA L DIFFE RENTI AL platelet morphology NORMAL normal Not Available [facility] [address] [place] [address], [address], 10/18/2024 14:22:01 10/18/19 25 10/18/2024 MANUA L DIFFE RENTI AL anisocytosis MODERA TE abnormal Not Available [facility] [address] [place] [address], [address], 10/18/2024 14:22:01 10/18/19 25 10/18/2024 MANUA L DIFFE RENTI AL hypochromasi a SLIGHT abnormal Not Available [facility] [address] [place] [address], [address], 10/18/2024 14:22:01 10/18/19 25 10/18/2024 MANUA L DIFFE RENTI AL ovalocytes SLIGHT abnormal Not Available [facility] [address] [place] [address], [address], 10/18/2024 14:22:01 10/18/19 25 10/18/2024 MANUA L DIFFE RENTI AL target cells SLIGHT abnormal Not Available [facility] [address] [place] [address], [phone], 10/18/2024 14:22:01 10/18/19 25 10/18/2024 MANUA L DIFFE RENTI AL acanthocytes SLIGHT abnormal Not Available [facility] [address] [place] [address], [phone], 10/18/2024 14:22:01 10/18/19 25 10/18/2024 MANUA L DIFFE RENTI AL schistocytes SLIGHT abnormal Not Available [facility] [address] [place] [address], [phone], 10/18/2024 14:22:01 10/18/19 25 10/18/2024 COMPL ETE BLOOD COUNT white blood cells 6.6 10*3/ uL 3.8-10 .8 normal RESUL TS RECHE CKED Not Available [facility] [address] [place] [address], [phone], 10/18/2024 14:22:00 10/18/19 25 10/18/2024 COMPL ETE BLOOD COUNT red blood cells 4.48 10*6/ uL 3.80-5 .20 normal Not Available [facility] [address] [place] [address], [phone], 10/18/2024 14:22:00 10/18/19 25 10/18/2024 COMPL ETE BLOOD COUNT hemoglobin 13.1 g/dL 12.0-1 6.0 normal Not Available [facility] [address] [place] [address], [phone], 10/18/2024 14:22:00 10/18/19 25 10/18/2024 COMPL ETE BLOOD COUNT hematocrit 40.3 % 35.0-4 7.0 normal Not Available [facility] [address] [place] [address], [phone], 10/18/2024 14:22:00 10/18/19 25 10/18/2024 COMPL ETE BLOOD COUNT MCV 90 fL 80-100 normal Not Available [facility] [address] [place] [address], [phone], 10/18/2024 14:22:00 10/18/19 25 10/18/2024 COMPL ETE BLOOD COUNT MCH 29 pg 26-35 normal Not Available [facility] [address] [place] [address], [phone], 10/18/2024 14:22:00 10/18/19 25 10/18/2024 COMPL ETE BLOOD COUNT MCHC 33 g/dL 32-36 normal Not Available [facility] [address] [place] [address], [phone], 10/18/2024 14:22:00 10/18/19 25 10/18/2024 COMPL ETE BLOOD COUNT RDW 26.0 % 11.0-1 5.0 high Not Available [facility] [address] [place] [address], [address], 10/18/2024 14:22:00 10/18/19 25 10/18/2024 COMPL ETE BLOOD COUNT MPV 8.3 fL 6.2-10 .5 normal Not Available [facility] [address] [place] [address], [address], 10/18/2024 14:22:00 10/18/19 25 10/18/2024 COMPL ETE BLOOD COUNT platelet count 308 10*3/ uL 150-40 0 normal Not Available [facility] [address] [place] [address], [address], 10/18/2024 14:22:00 10/18/19 25 10/18/2024 COMPL ETE BLOOD COUNT neutrophil,a bsolute 3.2 10*3/ uL 1.6-8. 4 normal Not Available [facility] [address] [place] [address], [address], 10/18/2024 14:22:00 10/18/19 25 10/18/2024 COMPL ETE BLOOD COUNT lymphocyte,a bsolute 2.2 10*3/ uL 0.4-5. 1 normal Not Available [facility] [address] [place] [address], [address], 10/18/2024 14:22:00 10/18/19 25 10/18/2024 COMPL ETE BLOOD COUNT monocyte,abs olute 1.0 10*3/ uL 0.0-1. 2 normal Not Available [facility] [address] [place] [address], [address], 10/18/2024 14:22:00 10/18/19 25 10/18/2024 COMPL ETE BLOOD COUNT eosinophil,a bsolute 0.1 10*3/ uL 0.0-0. 8 normal Not Available [facility] [address] [place] [address], [address], 10/18/2024 14:22:00 10/18/19 25 10/18/2024 COMPL ETE BLOOD COUNT basophil,abs olute 0.1 10*3/ uL 0.0-0. 3 normal Not Available [facility] [address] [place] [address], [address], 10/18/2024 14:22:00 10/18/19 25 10/18/2024 COMPL ETE BLOOD COUNT % neutrophils 49.0 % 42.0-7 8.0 normal Not Available [facility] [address] [place] [address], [address], 10/18/2024 14:22:00 10/18/19 25 10/18/2024 COMPL ETE BLOOD COUNT % lymphocytes 34.0 % 11.0-4 7.0 normal Not Available [facility] [address] [place] [address], [address], 10/18/2024 14:22:00 10/18/19 25 10/18/2024 COMPL ETE BLOOD COUNT % monocytes 15.0 % 0.0-11 .0 high Not Available [facility] [address] [place] [address], [address], 10/18/2024 14:22:00 10/18/19 25 10/18/2024 COMPL ETE BLOOD COUNT % eosinophils 1.0 % 0.0-7. 0 normal Not Available [facility] [address] [place] [address], [address], 10/18/2024 14:22:00 10/18/19 25 10/18/2024 COMPL ETE BLOOD COUNT % basophils 1.0 % 0.0-3. 0 normal Not Available [facility] [address] [place] [address], [address], 10/18/2024 14:22:00 10/18/19 25 10/18/2024 COMPL ETE BLOOD COUNT nucleated red cells 0.1 % 0.0-0. 9 normal Not Available [facility] [address] [place], [address], 10/18/2024 14:22:00 10/18/19 25 10/18/2024 COMPL ETE BLOOD COUNT nucleated RBCs, absolute 0.00 10*3/ uL not estab. normal Not Available [facility] [address] [place], [address], 10/18/2024 14:22:00 10/18/19 25 10/18/2024 CT, chest , w/o contr ast Madeline [place] [address] [facility] [place] [address] Patien t Name: JENNIFER KRISHNAMURTHY Patien t : 960 Patien t 0 Orderi ng Provid er: TRUDY PERALTA EXAM DATE: 2024 EXAM: CT CHEST W/O CONTRA ST CLINIC AL INFORM ATION: Kevan roberts TECHNI QUE: Multip le axial CT images of the chest were obtain ed withou t inject ion of IV contra st. COMPAR DEMIAN: None. FINDIN GS: AIRWAY S AND LUNGS: Trache a, princi pal bronch i and major bronch ial branch es are patent and normal . Stable chroni c appear ing pleura l parenc hymal scarri ng in the medial left apex. Scatte red multif ocal benign granul omas are presen t. No acute infilt rate is seen MEDIAS TINUM: No medias tinal lympha denopa thy. Aorta, SVC, pulmon munir arteri es, pulmon munir veins and their major branch es and tribut neal are normal . No gross cardia c abnorm ality. PLEURA AND CHEST WALL: No pleura l effusi on or mass. No chest wall abnorm ality. Bilate ral breast implan ts with intact elasto aneta shells UPPER ABDOMI NAL ORGANS : Liver, gallbl adder, spleen , pancre as, adrena ls and both kidney s are normal . COMBIN ED IMPRES DELFINO: Stable exam with benign change s in lung watson . No new adenop athy is detect ed Interp reted By: Massiel Barraza MD Electr onical ly Signed By: Massiel Barrzaa MD on 1:10 PM INTERFACE [facility] [address] , [place], [address], 10/18/2024 13:15:52 Result Notes Documentation Provider Name and Address Organization Details Recorded Time Ct, Chest, W/o Contrast : [address] [place] [address] Patient Name: JENNIFER KRISHNAMURTHY Patient : 1960 Patient Ordering Provider: ÓSCAR PERALTA EXAM DATE: 10/18/2024 EXAM: CT CHEST W/O CONTRAST CLINICAL INFORMATION: Lymphoma TECHNIQUE: Multiple axial CT images of the chest were obtained without injection of IV contrast. COMPARISON: None. FINDINGS: AIRWAYS AND LUNGS: Trachea, principal bronchi and major bronchial branches are patent and normal. Stable chronic appearing pleural parenchymal scarring in the medial left apex. Scattered multifocal benign granulomas are present. No acute infiltrate is seen MEDIASTINUM: No mediastinal lymphadenopathy. Aorta, SVC, pulmonary arteries, pulmonary veins and their major branches and tributaries are normal. No gross cardiac abnormality. PLEURA AND CHEST WALL: No pleural effusion or mass. No chest wall abnormality. Bilateral breast implants with intact elastomer shells UPPER ABDOMINAL ORGANS: Liver, gallbladder, spleen, pancreas, adrenals and both kidneys are normal. COMBINED IMPRESSION: Stable exam with benign changes in lung watson. No new adenopathy is detected Interpreted By: Massiel Barraza MD Not Available [facility] 10/18/2024 13:15:52 Problems Name Problem SNOMED Code Status Onset Date Resolution Date Notes Provider Name and Address Organization Details Recorded Time History of Hodgkin lymphoma 088564085 Active 2017 [facility] 9 14:12:01 Screening for malignant neoplasm of respirator y tract Active 2017 [facility] 9 14:12:01 Malignant tumor of breast 747648142 Active 2018 Julia Hou [facility] 15:05:58 Inflammato ry polyarthro partha 527293664 Active 2015 From Automated Load;Provi tahmina: Stepan Houston;Sta tus: Active Julia Hou [facility] 15:05:58 Hodgkin's disease of lymph nodes of head, face AND/OR neck 87829471 Active 2015 From Automated Load;Provi tahmina: Donavan Castano; atus: Active Iza Parmar [facility] 9 14:12:01 Problem Notes None recorded. Procedures Surgical History Date Name Laterality Status Provider Name and Address Organization Details Recorded Time 025 Nasolaryngoscopy completed DONAVAN MONROE MD [facility] [place], [address], [facility] 11/07/2024 12:47:25 024 Date of Last Pap Smear completed Bhumika Sotomayor [facility] 06/27/2024 11:12:17 024 Paring BN Lesion(s) completed Radha Winchester [facility] 05/21/2024 15:46:51 024 Destruction BN Lesions completed Radha Winchester [facility] 05/21/2024 15:49:07 024 Nasolaryngoscopy completed DONAVAN MONROE MD [facility] [place], [address], [facility] 05/11/2024 12:05:18 024 Nasolaryngoscopy completed DONAVAN MONROE MD [facility] [place], [address], [facility] 02/07/2024 12:41:00 024 Nasolaryngoscopy completed DONAVAN MONROE MD [facility] [place], [address], [facility] 10/03/2023 17:06:56 023 Nasolaryngoscopy completed Kaylene Rai [facility] 06/13/2023 16:46:26 023 Nasolaryngoscopy completed DONAVAN MONROE MD [address] [place] [address], [address], [facility] 02/18/2023 12:44:28 021 Laryngoscopy Flex completed DONAVAN MONROE MD [address] [place] [address], [address], [facility] 12/16/2020 12:06:29 020 Biopsy Skin Lesion; Tangential completed ASHISH DUARTE PA-C [address] [place] [address], [address], [facility] 09/04/2019 09:14:11 020 Date of Last Colonoscopy completed [facility] 02/15/2020 15:05:00 019 DXA Normal completed ECHO FORDE MD [address] [place] [address], [address], [facility] 11/03/2018 12:01:25 019 Most Recent Bone Density completed [facility] 06/14/2019 13:29:38 019 excision of bilateral breasts completed Jewels Kapoor [facility] 10/12/2018 10:06:40 018 Most Recent Mammogram completed [facility] 06/14/2019 13:29:20 Tubal Ligation completed [facility] 02/17/2017 13:05:57 Removal of tonsils completed Elida l [facility] 02/17/2017 13:06:04 Removal of spleen total completed [facility] 02/17/2017 13:06:23 Other completed [facility] 02/17/2017 13:06:47 Other completed [facility] 02/17/2017 13:06:54 Other completed [facility] 02/17/2017 13:07:09 biopsy of breast completed Milliecnt Pickering [facility] 09/05/2018 08:45:25 Nipple/areola reconstruction completed Juanis Olivarez [facility] 06/14/2019 13:30:20 Imaging Results None recorded. Procedure Notes None recorded. Medical Equipment None Reported. Allergies No known drug allergies Medications Name Sig Start Date Stop Date Status Note LastModified by Organization Details LastModified Time atorvasta tin 40 mg tablet Take 1 tablet every day by oral route. active Not Available Not Available No t Available pravastat in 40 mg tablet 05/21 completed stopped Not Available Not Available Not Available nystatin 100,000 unit/gram topical ointment APPLY TO THE AFFECTED AREA(S) BY TOPICAL ROUTE 2 TIMES PER DAY 02/17 completed Not Available Not Available Not Available hydrocodo ne 5 mg-acetam inophen 325 mg tablet Take 1 tablet(s ) EVERY 6 HOURS by oral route as needed for pain 05/21 completed Not Available Not Available Not Available famotidin e 40 mg tablet TAKE 1 TABLET BY MOUTH EVERY DAY AT BEDTIME 08/03 completed Not Available Not Available Not Available Medrol (Carson) 4 mg tablets in a dose pack Take as directed on package 06/13 completed Not Available Not Available Not Available Synthroid 100 mcg tablet Daily 2010 active Frequenc y: daily;Me dication Descript ion: levothyr oxine; Dosage:1 ; Route:or al; refills: 11; Quantity :30 tablet Not Available Not Available Not Available Diflucan 150 mg tablet Take 1 tablet twice a week by oral route. 02/17 completed Not Available Not Available Not Available omeprazol e 40 mg capsule,d elayed release TAKE 1 CAPSULE BY MOUTH DAILY IN THE MORNING 06/09 completed Not Available Not Available Not Available spironola ctone 25 mg tablet Take 1 tablet every day by oral route. active Not Available Not Available No t Available carvedilo l 3.125 mg tablet Take 1 tablet twice a day by oral route. active Not Available Not Available No t Available lidocaine -prilocai ne 2.5 %-2.5 % topical cream Apply 1 applicat ion by topical route for 1 day. 10/12 completed Not Available Not Available Not Available bisoprolo l fumarate 10 mg tablet 05/21 completed stopped Not Available Not Available Not Available famotidin e 20 mg tablet TAKE 1 TABLET BY MOUTH TWICE DAILY 2022 active Not Available Not Available Not Avai lable omeprazol e 20 mg capsule,d elayed release TAKE 1 CAPSULE DAILY 08/04 completed Not Available Not Available Not Available Arimidex 1 mg tablet Take 1 tablet every day by oral route. 05/21 completed Not Available Not Available Not Available aspirin 81 mg tablet Daily active Duration : 30 days;Sohan quency: daily;Me dication Descript ion: aspirin; Dosage:1 ; Route:or al; refills: 0; Quantity :30 tablet Not Available Not Available Not Available lisinopri l 5 mg tablet Daily active stopped Not Available Not Available Not Available clobetaso l 0.05 % topical ointment APPLY A THIN LAYER TO THE AFFECTED AREA(S) BY TOPICAL ROUTE 2 TIMES PER DAY for 2 weeksn then daily for another 2 weeks then 3 x week 05/21 completed not taking Not Available Not Available Not Available vitamin E 268 mg (400 unit) capsule 09/05 completed Medicati on Descript ion: vitamin E; Route:or al; refills: 0; Quantity :1 capsule Not Available Not Available Not Available Calcium-V itamin D Daily active Frequenc y: daily;Me dication Descript ion: calcium- vitamin D; Dosage:1 ; Route:or al; refills: 0 Not Available Not Available Not Available prasugrel HCl 10 mg tablet Take 1 tablet every day by oral route. active Not Available Not Available No t Available vit D3-folic acid-B2-B 6-B12 10/12 completed Not Available Not Available Not Available empaglifl ozin 10 mg tablet Take 1 tablet every day by oral route. active Not Available Not Available No t Available Entresto 24 mg-26 mg tablet Take 1 tablet twice a day by oral route. active Not Available Not Available No t Available Vitals Date Recorded Body height Body mass index (BMI) Body weight Systolic And Diastolic Provider Name and Address Organization Details Last Updated DateTime 11/07/2024 165.1 cm 28.3 kg/m2 76606.7 g 136/71 mm[Hg] Jacki Butcher [facility] 11/07/2024 11:24:33 Date Recorded Body height Body mass index (BMI) Body weight Provider Name and Address Organization Details Last Updated DateTime 02/07/2024 165.1 cm 30 kg/m2 32261.63 g Kelly Rendon [facility] 02/07/2024 09:41:07 Date Recorded Body height Heart rate Systolic And Diastolic Provider Name and Address Organization Details Last Updated DateTime 05/11/2024 165.1 cm 58 /min 137/71 mm[Hg] Zach Leong [facility] 05/11/2024 10:20:27 Date Recorded Body height Body mass index (BMI) Body weight Systolic And Diastolic Provider Name and Address Organization Details Last Updated DateTime 06/14/2024 165.1 cm 29.9 kg/m2 74932.83 g 128/84 mm[Hg] Karine Palak [facility] 06/14/2024 10:13:19 Social History Question Answer Notes LastModified by [email or web address] ion Details LastModified Time Tobacco Smoking Status [facility]/17[facility]2017 13:05:37 What Is Your Level Of Caffeine Consumption? Moderate [email or web address] Information not available 02/17/2017 Marital Status [email or web address] Informatio n not available 02/17/2017 What Was The Date Of Your Most Recent Tobacco Screening? 03/10/2021 [email or web address] Information not available 03/10/2021 Sex: Female Functional Status None recorded. Mental Status None recorded. Family History Relationship Description Onset Age of this Age Resolved Age Notes LastModified by Organization Details LastModified Time Mother Myocardial infarction [email or web address] Not available 01/21 13:05:06 Mother Cerebrovascu lar accident [email or web address] Not available 13:05:11 Mother Hypertensive disorder [email or web address] Not available 02/17 13:05:20 Mother Heart disease [email or web address] Not available 02/17 13:05:26 Mother Hyperlipidem ia [email or web address] Not available 2018 08:43:42 Mother Kidney disease [email or web address] Not available 2018 08:44:16 Father Hypertensive disorder [email or web address] Not available 02/17 13:05:20 Father Malignant neoplasm of prostate [email or web address] Not available 2018 08:43:22 Maternal Aunt Malignant tumor of breast 2 aunts breast cancer [email or web address] Not available 09/05/2018 08:43:09 Medical History Condition Response Thyroid Disease Y Kidney Stones N Hyperthyroidism N Heart Arrhythmia N Emphysema N Esophagus/swallowing troubles N Depression N Lung Disease N Hypothyroidism Y Glaucoma N Anesthesia Complications N Deep Vein Thrombosis N Anxiety Disorder N Arthritis N Hearing Loss N Acid Reflux (GERD) Y Cancer Y Stroke N Hoarseness Y Alcohol Overuse/Alcohol Abuse N High Cholesterol N Snoring problems N Liver Disease N Headaches N Kidney Disease N Allergies/Hayfever N Heart Problems Y Mental handicap N Ear or Hearing Problems N Gallbladder Disease N Migraines N Thyroid Problems Y Goiter N Anemia N Immune System Disorder N Chest Pain N Stomach trouble N Ulcers N Heart Attack (NE) Y Diabetes N Rheumatic Fever N Bleeding Disorder N Tuberculosis N AIDS/HIV N Hyperlipidemia Y Asthma N Epilepsy/Seizures N Sleep Apnea N Sleep Disorder N Hepatitis N Heart Disease Y Hypertension N Gynecological History Statement/Question Response Abnormal Pap N Date of Last Colonoscopy 08/31/2019 Most Recent Bone Density 10/26/2018 Sexually Active? Y Post Menopausal Bleeding N Date of Last Pap Smear 06/14/2024 Current Control Method Menopause Most Recent Mammogram 08/04/2018 Ovarian Cancer Screening? Y Obstetrics History GPAL:G 4 P 3 0 0 0 Type Value Full Term 3 Total 4 Immunizations Vaccine Type Date Status Note Provider Nam e and Address Organization Details Recorded Time Influenza, split virus, quadrivalent, preservative 8 completed Julia Hou [facility] 12/10/2020 15:05:58 pneumococcal, unspecified formulation 8 completed Julia Hou [facility] 12/10/2020 15:05:58 Hep A, live attenuated 8 completed Julia Hou [facility] 12/10/2020 15:05:58 COVID-19, mRNA, LNP-S, PF, 30 mcg/0.3 mL dose 1 completed Julia Hou [facility] 12/10/2020 15:05:58 COVID-19, mRNA, LNP-S, PF, 30 mcg/0.3 mL dose 1 completed Julia Ameya [facility] 12/10/2020 15:05:58 Influenza, split virus, quadrivalent, preservative 0 completed Julia Ameya [facility] 12/10/2020 15:05:58 zoster live 9 completed Julia Ameya [facility] 12/10/2020 15:05:58 pneumococcal, unspecified formulation 9 completed Julia Ameya [facility] 12/10/2020 15:05:58 Influenza, split virus, quadrivalent, preservative 9 completed Julia Ameya [facility] 12/10/2020 15:05:58 Past Encounters Encounter ID Performer Location Encounter Start Date Encounter Closed Date Diagnosis/Indication Diagnosis SNOMED-CT Code Diagnosis ICD10 Code Diagnosis Note [id number] DONAVAN CASTANO MD HEM[facility] [address],[facility] [address] [place] [address] 01/21/2017 11:44:29 01/21/2017 14:25:28 History of Hodgkin lymphoma 327338586 Z85.71 [id number] BRIGIDA LOREDO MD [facility] [employer] [facility] [facility] [address] [place] [address] 02/17/2017 12:54:26 02/17/2017 13:46:53 Routine gynecologic examination done 3713051099 9101 Z01.419 pap due in 2019. she has clinical exam every year. Screening for malignant neoplasm of breast 006618474 Z12.31 up to date At [facility] for malignant neoplasm of breast 2806821284 27129 Z78.9 due to chest radiation age 20, lymphoma. Dr Castano, checking mri/ mammo q 6 months, exam neg today Screening for malignant neoplasm of ovary 388834188 Z12.73 doing yearly at . not due til Aug 2017 [id number] DONAVAN CASTANO MD HEM/[facility]C [facility] [address],[facility] [address] [place] [address] 01/27/2018 11:57:17 01/27/2018 13:24:11 History of Hodgkin lymphoma 175421065 Z85.71 Screening for malignant neoplasm of respiratory tract 353095743 Z12.2 [id number] BRIGIDA LOREDO MD [facility] [employer] [facility] [address] [place] [address] 08/03/2018 13:52:32 08/03/2018 14:24:45 Routine gynecologic examination done 9285595511 9101 Z01.419 pap due in 2019. she has clinical exam every year. pap due in 2019 doing weight watchers and has lost lbs. Screening for malignant neoplasm of breast 969415507 Z12.31 [facility] breast 3803242933 59865 Z78.9 due to chest radiation age 20, lymphoma. Dr Castano, checking mri/ mammo q 6 months, exam neg today [id number] MASSIEL ACEVEDO JR, MD GENERAL SURGERY [address] [address] 09/05/2018 08:18:31 09/12/2018 08:15:08 History of Hodgkin lymphoma 064529613 Z85.71 Malignant tumor of breast 250798060 C50.411 Low-grade mammary carcinoma of right breast that is estrogen positive and HER-2/myrna negative. Normally would proceed with breast conserving therapy; however prior history of chest axillary radiation makes her not a candidate for adjuvant radiation therapy as part of breast conserving therapy. She is best served with mastectomy . I explained she could have lumpectomy without radiation but would be worrisome for recurrence . History of prior radiation also makes her at increased risk for further breast cancer as does her family history. She has already considered her options and has chosen bilateral mastectomy with immediate reconstruc tion by Dr. Alonzo. I discussed the surgical risks of this surgery. I explained she would also need right axillary sentinel lymph node biopsy. This would have 5% chance of long-term arm swelling. If she has positive axillary lymph node, she would need completion x-ray dissection which would have 15% chance of lymphedema . [id number] MASSIEL ACEVEDO JR, MD GENERAL SURGERY [address] [address] 10/12/2018 09:52:10 10/13/2018 14:01:17 History of Hodgkin lymphoma 326194233 Z85.71 Malignant tumor of breast 511474842 C50.411 S/p right skin sparing mastectomy , left prophylact ic mastectomy , right sentinel lymph node biopsy with immediate reconstruc tion ( 9) -Healing well without signs of infection -Pathology reviewed: Colo lymph nodes negative, margins clear. -Follow up with Dr. Castano heme/onc and with Dr. Alonzo plastics as directed. -Follow up with me as needed. [id number] DONAVAN CASTANO MD HEM/[facility]C [facility] [address],[facility] [address] [place] [address] 10/19/2018 15:08:39 10/20/2018 09:29:59 Malignant tumor of breast 873220498 C50.147 [id number] ECHO FORDE MD BONE DENSITY [address] [place] [address] 10/26/2018 14:42:53 10/26/2018 15:06:53 Menopausal syndrome 093221893 N95.8 [id number] DONAVAN CASTANO MD H[facility]C [facility] [address],[facility] [place] [address] 01/26/2019 11:36:33 01/26/2019 13:03:08 Malignant tumor of breast 796965093 C50.893 [id number] DONAVAN CASTANO MD HEM/ONC [facility] CLOSED [address] [place] [address] 04/26/2019 09:47:03 04/26/2019 10:29:26 [id number] BRIGIDA LOREDO MD [employer] [employer] [facility] [facility] CL[facility] [address] [place] [id number] 06/14/2019 13:20:48 06/14/2019 15:03:59 Hemorrhoids 82166808 K64.9 hemorrhoid al skin, will refer to colorectal for consultati on to discuss removal. Educated she can try using some hemorrhoid cream while waiting for her consult. Personal h istory of primary malignant neoplasm of breast 832601038 Z85.3 Currently on arimidex. [id number] DONAVAN CASTANO MD HEM/ONC [facility] CLOSED [address] [place] [address] 07/26/2019 09:18:32 07/26/2019 12:46:01 [id number] ASHISH DUARTE PA-C DERMATOLO [facility] [address] [place] [address] 09/04/2019 08:29:26 09/04/2019 10:28:29 Multiple benign melanocytic nevi 038211708 D22.9 Benign reassuranc e Solar lentigo 43447092 L 81.4 Benign reassuranc e Hemangioma 023412921 D18 .00 Benign reassuranc e Blue nevus of skin 56927 6009 D23.9 Benign reassuranc e Raised [facility]den orrheic keratosis [id number] 44384 L82.1 Benign reassuranc e Neoplasm o f uncertain behavior of skin 25433867 D48.5 central upper back r/o SBCC shave biopsy - f/up pending path results [id number] BRIGIDA LOREDO MD RESIDENTIAL ROOFER HELPER [facility] CLOSED [address] [place] [address] 09/18/2019 13:14:39 09/18/2019 14:10:55 Vulvitis 50718381 N76.2 if not better wtih this tx come back, diflucan every 3 days for 4 doses. epsoms salts sitz baths. d/c pads and other contact irritants. topical nystatin/ vaseling after sitx baths. return 2 weeks if not better. Bacterial vaginosis 4197 78531 N76.0 Candidiasis of vagina 72 538405 B37.3 [id number] ÓSCAR PERALTA MD HEM/ONC SB CLOSED [address] [place] [address] 01/09/2020 08:57:57 01/09/2020 10:08:32 [id number] BRIGIDA LOREDO MD RESIDENTIAL ROOFER HELPER [facility] CLOSED [address] [place] [address] 02/18/2020 11:39:12 02/18/2020 12:20:43 Routine gynecologic examination done [id number] 9101 Z01.419 hx bilateral mastectomy . breast cancer. on arimidex Infection screening 2437 58031 Z11.51 Screening for malignant neoplasm of cervix 999623563 Z12.4 If pap and HPV cotesting normal recheck 3 years. [id number] ÓSCAR PERALTA MD HEM/ONC SB CLOSED [address] [place] [address] 07/11/2020 11:27:58 07/11/2020 12:18:43 [id number] ASHISH DUARTE PA-C [facility] [address] [place] [address] 11/17/2020 11:37:33 11/17/2020 12:18:22 Multiple benign melanocytic nevi 762538314 D22.9 Benign reassuranc e Solar lentigo 11530275 L 81.4 Benign reassuranc e Hemangioma 827253519 D18 .00 Benign reassuranc e Blue nevus of skin 11234 6009 D23.9 Benign reassuranc e Raised hayden orrheic keratosis 1727423856 01622 L82.1 Benign reassuranc e Patient ad vised about exposure to the sun 174284090 Z71.89 Counseled on sun protective clothing and daily UV protection with ot broad-spec trum SPF 30+ on exposed areas. Regular self-skin exams recommende d. Pt encouraged to RTC with any new/changi ng lesions. Tick bite 11263877 W57.X XXA Numbed site, removed entire tick body with forceps. Polysporin and bandage applied Pt tolerated well Recommende d tick repellent when in wooded areas outside on [place] Advised to let me know if she develops bullseye rash and would immediatel y start doxycyclin e [id number] ÓSCAR PERALTA MD HEM/ONC SB CLOSED [address] [place] [address] 12/10/2020 14:10:52 12/12/2020 14:50:49 [id number] DONAVAN MONROE MD ENT SB [address] [place] [address] 12/16/2020 11:24:40 12/16/2020 13:57:11 Gastroesophageal reflux disease without esophagitis 266422019 K21.9 Pepcid and Omeprazole . Follow-up 6 weeks Feeling of lump in throat 880325685 F45.8 With a history of radiation to the neck years ago. No evidence of malignancy on exam or endoscopy. Has findings consistent with reflux laryngitis . [id number] ÓSCAR PERALTA MD HEM/ONC SB CLOSED [address] 1 01/02/2021 11:42:22 01/02/2021 12:34:11 [id number] DONAVAN MONROE MD ENT SB [address] [place] [address] 1 01/21/2021 11:11:31 01/22/2021 11:22:41 Feeling of lump in throat 551143096 F45.8 Resolved with treatment for reflux laryngitis . Continue omeprazole at the same dose and stop Pepcid since she is having dry mouth secondary to Pepcid. Follow-up 6 weeks. Gastroesop hageal reflux disease without esophagitis 385625921 K21.9 [id number] BRIGIDA LOREDO MD RESIDENTIAL ROOFER HELPER SB CLOSED [address] [place] [address] 0 03/10/2021 12:57:45 03/10/2021 13:29:46 Routine gynecologic examination done 4041357900 9101 Z01.419 pap due in 2 years, last 2019 , hpv neg.prior bilateral mastectomy , hx of breast cancer. [id number] DONAVAN MONROE MD ENT SB [address] [place] [address] 1 03/10/2021 12:58:44 03/10/2021 15:08:34 Gastroesophageal reflux disease without esophagitis 394298871 K21.9 Much improved. Decrease omeprazole to 20 mg. Discussed risks of osteoporos is. F/u 3 mo. [id number] DONAVAN MONROE MD ENT SB [address] [place] [address] 1 06/09/2021 13:26:56 06/10/2021 08:15:43 Gastroesophageal reflux disease without esophagitis 599769787 K21.9 Has been taking omeprazole . Developing symptoms. Stop omeprazole . Start 20 mg pepcid twice daily. f/u 6-8 weeks. She will call back in a month if not improved. At that time if not improved I would change back to Prilosec 40 and Pepcid 40 [id number] ÓSCAR PERALTA MD HEM/ONC SB CLOSED [address] 1 06/26/2021 11:02:29 06/26/2021 12:04:38 [id number] DONAVAN MONROE MD ENT SB [address] [place] [address] 08/04/2021 15:57:24 08/05/2021 09:38:26 Gastroesophageal reflux disease without esophagitis 888868189 K21.9 Much improved with reflux therapy. Continue 20 mg of pepcid twice daily. f/u prn. [id number] ÓSCAR PERALTA MD HEM/ONC SB CLOSED [address] [facility] [address] [address] [place] [address] 12/25/2021 12:55:37 12/25/2021 13:37:02 [id number] BRIGIDA LOREDO MD OBGYN E[facility] [address] ,[address] [place] [address] 04/13/2022 13:31:08 04/13/2022 14:49:12 Routine gynecologic examination done 0199573126 9101 Z01.419 Pruritus of vulva 574215 00 L29.2 Carcinoma of female breast 128999412 C50.919 on arimidex , 2019. from the radiation for LYmphoma. Dr Peralta following too. [id number] ÓSCAR PERALTA MD HEM/ONC SB CLOSED [address] [facility] [address] [place] [address] 12/24/2022 12:44:51 12/24/2022 13:31:05 [id number] [place] [address] [place] [address] 02/18/2023 11:09:50 02/18/2023 13:07:59 Chronic hoarseness 6831406652 105 R49.0 History of hoarseness improved significan tly in the past with reflux therapy. Only recent changes taking Pepcid 40 mg once daily instead of 20 twice daily. Will change back to twice daily. On endoscopy her left vocal fold was not moving. Uncertain etiology. Had a CT of the chest in December which was normal but since this is new onset I will repeat a chest CT and get a neck CT to look at the course of the recurrent laryngeal nerve. We will try steroids in case this is a viral Paralysis of left vocal cord 262589969 J38.01 Gastroesop hageal reflux disease without esophagitis 732192077 K21.9 [id number] DONAVAN MONROE MD ENT SB [address] [place] [address] 1 03/07/2023 11:24:15 03/07/2023 13:10:20 Chronic hoarseness 1869743742 105 R49.0 History of hoarseness improved significan tly in the past with reflux therapy. On endoscopy last visit left vocal fold not moving. No improvemen t with Medrol dose pack. CT neck and CT chest reviewed. Normal. Recommend voice therapy to improve voice. Will arrange that. If no improvemen t may recommend temporary vocal fold augmentati on. F/u in a few months Paralysis of left vocal cord 718624425 J38.01 Gastroesop hageal reflux disease without esophagitis 248500957 K21.9 [id number] DONAVAN OMNROE MD ENT SB [address] [place] [address] 1 06/13/2023 16:09:43 06/14/2023 10:16:46 Chronic hoarseness 1227889323 105 R49.0 Secondary to left true vocal fold paralysis of uncertain etiology. Some improvemen t with voice therapy but not normal. Nasolaryng oscopy performed, left vocal fold still not moving. Recommend temporary left vocal fold augmentati on at least until we could do a permanent augmentati on next January. She agrees. Risks and complicati ons discussed including failure to improve her voice, bleeding, infection, risk of anesthesia . Consent obtained. Paralysis of left vocal cord 191675982 J38.01 [id number] DONAVAN MONROE MD SURGERY SCHEDULE [address] [place] [address] 1 07/11/2023 09:46:05 07/11/2023 09:47:30 [id number] DONAVAN MONROE MD ENT SB [address] [place] [address] 1 08/03/2023 09:08:32 08/03/2023 15:35:50 Chronic hoarseness 2682705767 105 R49.0 3 weeks s/p s/p microscopi c direct laryngosco py with left true vocal fold augmentati on for vocal cord paralysis 07/11/23. Voice is improved. F/u 2-3 months to reassess Paralysis of left vocal cord 695359089 J38.01 [id number] DONAVAN MONROE MD ENT SB [address] [place] [address] 1 10/03/2023 13:23:50 10/04/2023 07:29:36 Chronic hoarseness 4902560421 105 R49.0 <3mo s/p s/p microscopi c direct laryngosco py with left true vocal fold augmentati on for vocal cord paralysis 07/11/23. Voice had improved but now starting to weaken. Nasolaryng oscopy performed. Will plan for more semiperman ent MSDL w/ vocal fold augmentati on with Pro-Laryn voice in January. She agrees. Schedule. Paralysis of left vocal cord 914402953 J38.01 [id number] DONAVAN MONROE MD SURGERY SCHEDULE [address] [place] [address] 1 01/30/2024 11:04:09 01/30/2024 11:04:57 [id number] DONAVAN MONROE MD ENT SB [address] [place] [address] 1 02/07/2024 09:38:01 02/07/2024 15:42:22 Chronic hoarseness 3896830572 105 R49.0 8 days s/p microscopi c direct laryngosco py with left true vocal fold augmentati on 01/30/24 with Pro-Laryn. Voice is raspy. Nasolaryng oscopy performed, left vocal fold meeting up with right and medialized very well. 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 Recommend voice therapy. Will arrange that. F/u in 2-3mo Paralysis of left vocal cord 960746016 J38.01 Ventricular dysphonia 43 461329 R49.0 [id number] DONAVAN MONROE MD ENT SB [address] [place] [address] 1 05/11/2024 10:08:33 05/11/2024 14:27:52 Chronic hoarseness 9216397001 105 R49.0 3 months s/p microscopi c direct laryngosco py with left true vocal fold augmentati on 01/30/24 with Pro-Laryn. Last visit left vocal fold was meeting up with right and medialized very well but had ventricula r dysphonia. Did only one session of voice therapy due to having an NE in late January. Nasolaryng oscopy performed, vocal folds are meeting up well- left medialized - and see no evidence of ventricula r dysphonia. Continued hoarseness likely from poor vibration of the left vocal fold. Hopefully will improve with time. F/u 6 months Paralysis of left vocal cord 206231876 J38.01 Ventricular dysphonia 43 212559 R49.0 [id number] BRIAN CARVAJAL APRN-JANICE [facility] [address] [place] [address] 06/14/2024 10:04:21 06/14/2024 11:05:56 Gynecologic examination 04490236 Z01.419 Discussed routine well woman exams, mammograms , colonoscop ies after age 45 or sooner if a strong family history, bone density scans once postmenopa usal. Eat a healthy diet and exercise regularly. Consider calcium and vitamin D supplement ation for healthy bones. [id number] ASHISH DUARTE PA-C [facility] [address] [place] [address] 05/21/2024 14:59:33 05/21/2024 16:02:37 Multiple benign melanocytic nevi 791729824 D22.9 Benign reassuranc e Solar lentigo 94535176 L 81.4 Benign reassuranc e Hemangioma 278704583 D18 .00 Benign reassuranc e Blue nevus of skin 66761 6009 D23.9 Benign reassuranc e Raised hayden orrheic keratosis 4163214180 80441 L82.1 Benign reassuranc e Patient ad vised about exposure to the sun 151495260 Z71.89 Counseled on sun protective clothing and daily UV protection with otc broad-spec trum SPF 30+ on exposed areas. Regular self-skin exams recommende d. Pt encouraged to RTC with any new/changi ng lesions. Milia 424746618 L72.0 Benign reassuranc eL forehead x 2Lesions were extracted using an 11 blade and extractorP atient tolerated procedure wellAfterc are given Verruca vulgaris 7554015 3 B07.9 Benign reassuranc eLesion was pared with a 10 blade to pinpoint bleeding followed by cryotherap y freeze and thaw x 2 cyclesSee procedure notePatien t tolerated procedure wellAfterc are instructio ns givenEduca mauricio not to shave in the area until warts resolved Skin tag L91.8 Lesion was numbed and snip excision was performedS ee procedure notePatien t tolerated procedure well Skin sensa tion disturbance 58369008 R20.8 Lesions are bothersome due to locationsk in tag and warts [id number] DONAVAN MONROE MD ENT SB [address] [place] [address] 11/07/2024 11:05:49 11/07/2024 14:35:14 Chronic hoarseness 9676974767 105 R49.0 9months s/p microscopi c direct laryngosco py with left true vocal fold augmentati on 01/30/24 with Pro-Laryn. nasolaryng oscopy performed: the true vocal cords are coming together well. The false vocal cords are moving, consistent with ventricula r dysphonia, leading to her vocal changes. She did voice therapy elsewhere in the past without much improvemen t. Recommend voice therapy @ . F/u in 1 yr Paralysis of left vocal cord 981260741 J38.01 Ventricular dysphonia 43 774279 R49.0 Health Concerns Section Related Observation LastModified by Organization Detai ls LastModified Time None Recorded Concern Status LastModified by Organization Details LastModified Time None Recorded Advance Directives Directive None Recorded Payers Insurance Date Sequence Insurance Name Policy Number Policy Nicole Covered Member ID Nicole Member ID Guarantor Name 03/14/2022 PAYMENT PLAN Jennifer Krishnamurthy 11/12/2024 1 [place] [id number] Jennifer Krishnamurthy [id number] Jennifer Krishnamurthy Notes Date Note Type Note Provider Name and Address Organization Details Recorded Time 02/07/2024 text/html Chief Complaint: s/p semipermanent MSDL w/ vocal fold augmentation with Pro-LarynTimin/1 Duration:Locati on:Severity:healing Quality:Context:Mod ifying Factors:tylenol for pain only one dose the day of surgery at nightAssoc signs and symptoms: no bleeding, not noticed any improvement in voice, eating and drinking well, no fever, feels like something stuck in throat, no nausea/ vomiting, dyspnea at times DONAVAN MONROE MD [address] [place], [address], [facility] 02/07/2024 12:41:25 05/11/2024 text/html Chief Complaint: chronic hoarsenessTiming: >1 yearDuration:Locati on:Severity: no significant improvementQuality: Context: STEMI Heart attack 02/19/24 and three stents were placed, semi-permanent MSDL w/ vocal fold augmentation with Pro-Laryn 01/30/24, has a fractured T6 as wellModifying Factors: recent NE has causes delay in voice therapy - has had 1 session - was given at-home exercises and has another session next weekAssoc signs and symptoms: no bleeding, not noticed any improvement in voice, eating and drinking well, no fever, feels like something stuck in throat, no nausea/ vomiting, dyspnea at times DONAVAN MONROE MD [facility] [place], [address], [facility] 05/11/2024 12:05:30 05/21/2024 text/html New Patient - Erica stapleton seen 11-17-2020 Patient presents to clinic today to re-establish care and to have a FSE, she also would like a mole to be evaluated that has popped up since this last weekend in her groin area. Reports lesion is sore and itchy. Also has some places on her L popliteal that she would like to have removed. Had heart attack February 19 2024. Denies any other new, changing, or bleeding lesions, or other rashes, feels well, presents in a good mood, and has no family history of melanoma. ASHISH DUARTE PA-C [address] [place], [address], [facility] 05/21/2024 17:33:54 06/14/2024 text/html 64yo presents fo r Annual, Hx of breast cancer. Mastectomy done 10/04/2018. She didn't have radiation with the double mastectomy but had Hodgkin's lymphoma and had strong radiation then. She took anastrazole for 5 years and finished it this year. She fell in January and had a heart attack and had a fractured vertebrae. She believes the radiation is what caused her heart disease because she didn't have plaque build up but had scar tissue in her tissue. She also has a paralyzed vocal cord that they think is due to the radiation she received. Pap - 02/18/2020 (Normal, Repeat 3yrs)Mammo - 08/04/2018 (BR4)Colon - 2019 per [facility] Ovarian Cancer Screening ProgramBone Density- earlier this year was normal per patient Family hx:Breast cancer - 2x maternal auntProstate cancer - Father BRIAN CARVAJAL, BREAKFAST ATTENDANT-WHNP [address] [place], [address], [facility] 06/14/2024 11:00:57 11/07/2024 text/html Chief Complaint: chronic hoarsenessTiming: ~ 2YRDuration:Locatio n:Left vocal cord paralysisSeverity:Q uality:Context: STEMI Heart attack 02/19/24 and three stents were placed, semi-permanent MSDL w/ vocal fold augmentation with Pro-Laryn 01/30/24, has a fractured T6 as wellModifying Factors: Hx of Hodgkin's DzAssoc signs and symptoms: No dysphagia, has intermittent cough, no shortness of breath. DONAVAN MONROE MD [address] [place], [address], [facility] 11/07/2024 12:47:41 OBGyn Episode No OBEpisode recorded.
--- OUTSIDE RECORDS SUMMARY | 2025-02-26 12:19 | XMS_ITS | Encounter Summary ---
Author Organization [facility] Address [address] [place] [address] Care Team Providers Care Solid Waste Facility Operator Name Role Phone Esther Bobo Primary Care Provider Sonny Gonzalez MD Unavailable [phone] Chava Sanders MD Unavailable [phone] Encounter Details Date Type Department Care Team (Late st Contact Info) Description 12/24/2022 Orders Only [facility] [address] [place] [phone] Sonny Gonzalez MD [address] [place] [phone] Social History Tobacco Use Types Packs/Day [...] Description 10/18/2025 1:30 PM EST Office Visit [facility] [address] [place] [address] Sonny Gonzalez MD [address] [place] [phone] 11/19/2025 1:30 PM EDT Ovarian Cancer Screening [facility] [address] [place] [address] documented as of this encounter Procedures Procedure Name Priority Date/Time Associated Diagnosis Comments COMPREHENSIVE METABOLIC PANEL, PLASMA Routine 12/24/2022 10:43 AM EDT documented in this encounter Results * (ABNORMAL) Comprehensive Metabolic Panel, Plasma (12/24/2022 10:43 AM EDT) External Glucose 105(H) 74 - 100 mg/dL [facility] External BUN 9 6 - 20 mg/dL [facility] External Creatinine Blood 0.70 0.50 - 0.95 mg/dL [facility] External BUN/Creat Ratio 13 10 - 20 (calc) [facility] External Sodium 140 136 - 145 mmol/L [facility] External Potassium 4.5 3.4 - 5.0 mmol/L [facility] External Chloride 101 98 - 107 mmol/L [facility] External Carbon Dioxide 28 22 - 31 mmol/L [facility] External Anion Gap (AG) 11 7 - 25 (calc) [facility] External Calcium 10.3(H) 8.6 - 10.2 mg/dL [facility] External Total Protein 7.8 6.4 - 8.3 g/dL [facility] External Albumin 4.2 3.5 - 5.2 g/dL [facility] External Globulin 3.6 1.5 - 4.5 g/dL (calc) [facility] External Albumin/Globulin Ratio 1.2 1.1 - 2.5 (calc) [facility] External Bilirubin Total 0.2 0.1 - 1.2 mg/dL [facility] External Alkaline Phosphatase 80 30 - 121 U/L [facility] External AST (SGOT) 25 0 - 32 U/L [facility] External ALT (SGPT) 24 0 - 33 U/L [facility] External Estimated GFR 97 >=60 [facility] Comment: NOTE New calculation for GFR (CKD-EPI 2020) is formulated without race adjustment factors at the recommendation of the National Kidney Foundation and [place] [employer]ph[employer]. This calculation has not been validated in women. For pediatric patients refer to https://www.kidney.org/professionals/KDOQI/gfr_calculatorPed 12/24/2022 10:4 3 AM EDT 12/24/2022 10:46 AM EDT Sonny Gonzalez MD LAB BLOOD ORDERABLES Final Res ult [facility] [address] [place] [address], documented in this encounter Visit Diagnoses Not on filedocumented in this encounter Care Teams Solid Waste Facility Operator Relationship Specialty Start Date End Date Esther Bobo PA [facility] [address] [place] [address] PCP - General 01/15/22 Sonny Gonzalez MD [address] [place], [place] [id number] Medical Oncologist Medical Oncology 12/22/23 Chava Sanders MD [address] [facility] [address] [place] [address] Pc Maintenance Technician 08/09/24 documented as of this encounter
--- OUTSIDE RECORDS SUMMARY | 2025-02-26 12:19 | XMS_ITS | Patient Health Record ---
Author Organization [facility] Address [address] [facility] [address] [place] [id number] Care Team Providers Care Abalone Fisherman Name Role Phone Odette Pereira Primary Care Provider [phone] Andre Jasonian Unavailable [phone] Sobeida Chuyita Unavailable [phone] Esther Bobo Unavailable [phone] Allergies No Known Allergies Results Component Value [...] Interpretation:neg Performing Lab: Notes/Report: neg Result: neg Urinalysis - Inhouse Reviewed date:02/07/2025 09:52:19 AM Interpretation: Performing Lab: Notes/Report: Color/Clarity yellow/clowdy Leuk trace Nitrite neg Urobili 3.2 Protein 2+ pH 7.0 Blood 3+ Sp. Gr. 1.015 Ketone neg Bili neg Gluc 3+ TEN-UTI panel Reviewed date:02/08/2025 01:49:29 PM Interpretation:E. Coli Performing Lab: Notes/Report: E. Coli X ray : Spine, thoracic spin e Reviewed date:03/16/2024 12:14:15 PM Interpretation:Negative Performing Lab: Notes/Report: Negative DEXA Hip and Spine Reviewed date:06/07/2024 12:51:02 PM Interpretation:Normal Performing Lab: Notes/Report: Normal Reason For Referral Reason upper back pain Diagnosis 1 Acute midline thorac ic back pain (M54.6) Referral Organization [facility] Referring Provider First Name Odette Archie Referring Provider Last Name Randall Referring Provider Speciality Family Pra ctice Referred Provider Specialty Physical The rapist General Notes Radha Cid 03/19/20 24 3:48:39 PM > faxed to scheduling Referral Priority Routine Medications Medication SIG (Take, Route, Frequency, Duration) Notes Start Date End Date Status Iron 325 (65 Fe) MG 1 tablet Orally Thre e times a Week; Duration: 30 day(s) Active Protonix 40 MG 1 tablet 1/2 to 1 ho ur before morning meal Orally Once a day; Duration: 30 day(s) Active Macrobid 100 MG 1 capsule with food Orally every 12 hrs; Duration: 5 days 02/06/2025 Active Fluticasone Propionate 50 MCG/ACT 1 spray each nostril as needed 01/30/2011 Active Synthroid 125 MCG 1 tablet in the morn ing on an empty stomach Orally Once a day; Duration: 90 days Active Prasugrel HCl 10 MG as directed Orally Active Empagliflozin 10 MG 1 tablet Orally Once a day; Duration: 30 day(s) Active Carvedilol 3.125 MG 1 tablet with food O rally Twice a day; Duration: 30 day(s) Active Nitrostat 0.4 MG 1 tab(s) sublinguall y every 5 minutes prn; Duration: 0 02/24/2015 Active Atorvastatin Calcium 40 MG 1 tablet Orally MWF Active Calcium Carbonate 1250 (500 Ca) MG 1 tablet with food Orally Twice a day; Duration: 30 day(s) Active Spironolactone 25 MG 1 tablet Orally; Duration: 30 day(s) Active Sacubitril-Valsartan 24-26 MG 1 tablet Orally Twice a day; Duration: 30 day(s) Active Immunizations Vaccine Route Administration Date Status Comme nts Tetanus Tdap-Adacel (over 7yrs) IM Intramuscular 05/14/2013 Administered Shingrix Unknown 05/09/2018 Administered Shingrix Unknown 07/27/2018 Administered PNEUMOVAX 23 VACCINE IM Intramuscular 06/16/2018 Administe red Hepatitis A (adult) IM Intramuscular 07/18/2018 Administer ed Fluzone PF Quad (6-35 months) Unknown 06/03/2021 Administered Fluzone PF Quad (6-35 months) Unknown 05/26/2022 Administered Fluzone PF Quad (6-35 months) Unknown 05/10/2023 Administered COVID 19 Pfizer Unknown 09/02/2020 Administered COVID 19 Pfizer Unknown 09/24/2020 Administered COVID 19 Pfizer Unknown 06/09/2021 Administered Problems Problem Type SNOMED Code ICD Code Onset Dates Problem Status W/U Status Risk Notes Problem Carotid artery occlusion without infarction (053394594179937) STENOSIS OF CAROTID ARTERY WITHOUT INFARCTION (433.10) Active confirmed Problem Sinusitis (26082446) Sinusitis (J32.9) Active confirmed Problem Hyperlipidemia (08243951) Hyperlipidemia (E78.5) Active confirmed Problem Essential hypertension (23169308) Essential hypertension (I10) Active confirmed Problem Hypothyroidism (31327218) Hypothyroidism (E03.9) Active confirmed Problem Hyperlipidemia (81597385) Other and unspecified hyperlipidemia (E78.5) Active confirmed Low Problem Stented coronary artery (058474185) Stented coronary artery (Z95.5) Active confirmed Problem Multi vessel coronary artery disease (459431344) CAD, multiple vessel (I25.10) Active confirmed Vital Signs Heart Rate 87 /min 02/06/2025 Blood pressure diastolic 80 mm Hg 02/06/2025 Height 64.25 in 02/06/2025 Blood pressure systolic 130 mm Hg 02/06/2025 Weight 172 lbs 02/06/2025 BMI 29.29 kg/m2 02/06/2025 Encounters Encounter Location Date Provider Diagnosis [facility] [address] [place] [id number] 03/12/2024 Odette Pereira Upper back pain M54. 9 ; CAD, multiple vessel I25.10 and Stented coronary artery Z95.5 [facility] [address] [place] [id number] 03/19/2024 Odette Pereira Acute midline thorac ic back pain M54.6 and CAD, multiple vessel I25.10 [facility] [address] [place] [id number] 05/02/2024 Esther Bobo Osteoporosis screeni ng Z13.820 and Back pain, unspecified back location, unspecified back pain laterality, unspecified chronicity M54.9 [facility] [address] [place] [id number] 09/24/2024 Chuyita Vidales URI (upper respirato ry infection) J06.9 and Sinusitis J32.9 [facility] [address] [place] [address] [place] [id number] 02/06/2025 Hakeem Jason Acute UTI N39.0 ; Dysuria R30.0 and BMI 29.0-29.9,adult Z68.29 [facility] [address] [place] [address] [place] [id number] 02/18/2025 Odette Pereira Assessments Encounter Date Diagnosis (ICD Code) Assessment Notes Treatment Notes Treatment Clinical Notes Section Notes 03/12/2024 Upper back pain (ICD-10 - M54.9) 03/12/2024 CAD, multiple vessel (ICD-10 - I25.10) 03/19/2024 Acute midline thoracic back pain (ICD-10 - M54.6) Stop Methacarbamol 03/19/2024 CAD, multiple vessel (ICD-10 - I25.10) 05/02/2024 Osteoporosis screening (ICD-10 - Z13.820) 09/24/2024 URI (upper respiratory infection) (ICD-10 - J06.9) stressed, fluids, rest, supportive measures for fever/symptom relief; to use inhaler qid prn and q4h prn 09/24/2024 Sinusitis (ICD-10 - J32.9) 02/06/2025 Dysuria (ICD-10 - R30.0) 02/06/2025 Acute UTI (ICD-10 - N39.0) 02/06/2025 BMI 29.0-29.9,adult (ICD-10 - Z68.29) 05/02/2024 Back pain, unspecified back location, unspecified back pain laterality, unspecified chronicity (ICD-10 - M54.9) 03/12/2024 Stented coronary artery (ICD-10 - Z95.5) Plan Of Treatment No Information Insurance Providers Payer Name Payer Address Payer Phone Subscriber Number Group Number Insured Name Patient Relationship to Insured Coverage Start Date Coverage End Date [employer] [address] [place] [address] [id number] Verito Melgoza Self - patient is the insured Medical (General) History Medical History History ICD Code Hypothyroid Hodgkins Disease Broken neck Moderate Aortic insufficency on Cath 01/21 012 Right Breast cancer Coronary Artery Disease Myocardial Infarction, February 20, 2024, wit h PCI (3 stents placed) at [facility] Surgical History Surgery Date(Month/Year) Splenectomy Tubal Ligation Tonsillectomy Partial Thyroidectomy Heart Cath 02/01/2012 Colonoscopy 03/18/2014 Small Bowel Obstruction 05/2014 LT Wrist Ganglion Cyst Removal 12/2014 Double Masectomy 09/2018 Reconstruction 12/2018 STEMI s/p 3 Coronary Stent Placement Hospitalization History Reason Date(Month/Year) [facility] ER - L sided chest and shoulder pain 06/15/2015 Bbowel Obstruction 03/2014
--- OUTSIDE RECORDS SUMMARY | 2025-02-26 12:19 | XMS_ITS | Encounter Summary ---
Author Organization [facility] Address [address] [place] [address] Care Team Providers Care Director Of Instruction Name Role Phone Esther Bobo Primary Care Provider Sonny Gonzlaez MD Unavailable [phone] Chava Sanders MD Unavailable Encounter Details Date Type Department Care Team (Late st Contact Info) Description 12/24/2022 Orders Only [facility] [address] [place] [phone] Sonny Gonzalez MD [address] [place] [phone] Social History Tobacco Use Types Packs/Day [...] 10/18/2025 1:30 PM EST Office Visit [facility] [address] [place] [address] Sonny Gonzalez MD [address] [place] [phone] 11/19/2025 1:30 PM EDT Ovarian Cancer Screening [facility] [address] [place] [address] documented as of this encounter Procedures Procedure Name Priority Date/Time Associated Diagnosis Comments RBC MORPHOLOGY ([facility]) Routine 12/24/2022 10:43 AM EDT documented in this encounter Results * (ABNORMAL) RBC MORPHOLOGY ([facility]) (12/24/2022 10:43 AM EDT) External Platelet Morphology NORMAL [facility] External Ovalocytes SLIGHT(A) [facility] External Stomatocyte SLIGHT(A) [facility] Comment: Smear reviewed to confirm cell morphology. 12/24/2022 10:4 3 AM EDT 12/24/2022 10:46 AM EDT Sonny Gonzalez MD LAB BLOOD ORDERABLES Final Res ult Performing Organization Address City/State/[facility] Co de Phone Number [facility] [address] [place] [address], documented in this encounter Visit Diagnoses Not on filedocumented in this encounter Care Teams Director Of Instruction Relationship Specialty Start Date End Date Esther Bobo PA [facility] [address] [place] [address] PCP - General 01/15/22 Sonny Gonzalez MD [address] [place] [address] Medical Oncologist Medical Oncology 12/22/23 Chava Sanders MD [address] [facility] [address] [place] [address] Tung Nut Grower 08/09/24 documented as of this encounter
--- OUTSIDE RECORDS SUMMARY | 2025-02-26 12:19 | XMS_ITS | Encounter Summary ---
Author Organization [facility] ([place], [place], [place], [place]) Address [address] [place] [address] Care Team Providers Care Geotechnical Operating Engineer Name Role Phone Esther Bobo Primary Care Provider [phone] Reason for Visit * Reason Comments Medication Refill Encounter Details Date Type Department Care Team (Late st Contact Info) Description 07/12/2023 Refill [facility] Cardiology [address] [place] [address] [place] [address] [place] [address] [address] [place] [address] Social History Tobacco Use Types Packs/Day Years Used Date Smoking Tobacco: Never Assessed Comments Unknown Sex and Gender Information Value Date Recorded Sex Assigned at Not on file Legal Sex Female 1:42 PM CDT Gender Identity Not on file Sexual Orientation Not on file documented as of this encounter Plan of Treatment Not on file documented as of this encounter Visit Diagnoses Not on filedocumented in this encounter Care Teams Geotechnical Operating Engineer Relationship Specialty Start Date End Date Esther Bobo PA [address] [place] [address] PCP - General Physician Cooperer 07/29/23 documented as of this encounter
--- OUTSIDE RECORDS SUMMARY | 2025-02-26 12:19 | XMS_ITS | Encounter Summary ---
Author Organization [facility] Address [address] [place] [address] Care Team Providers Care Scientific Photographer Name Role Phone Esther Bobo Primary Care Provider Sonny Gonzalez MD Unavailable [phone] Chava Sanders MD Unavailable Encounter Details Date Type Department Care Team (Late st Contact Info) Description 12/24/2022 Orders Only [facility] [address] [place] [phone] Sonny Gonzalez MD [address] [place] [phone] Social History Tobacco Use Types Packs/Day [...] Description 10/18/2025 1:30 PM EST Office Visit [facility] [address] [place] [address] Sonny Gonzalez MD [address] [place] [phone] 11/19/2025 1:30 PM EDT Ovarian Cancer Screening [facility] [address] [place] [address] documented as of this encounter Procedures Procedure Name Priority Date/Time Associated Diagnosis Comments CBC WITH AUTO DIFFERENTIAL Routine 12/24/2022 10:43 AM EDT documented in this encounter Results * (ABNORMAL) CBC and Differential (12/24/2022 10:43 AM EDT) External WBC 7.5 3.8 - 10.8 K/uL [facility] External Red Blood Cell (RBC) 4.12 3.80 - 5.20 M/uL [facility] External Hemoglobin 14.0 12.0 - 16.0 G/DL [facility] External Hematocrit 41.1 35.0 - 47.0 % [facility] External MCV 100 80 - 100 fL [facility] External MCH 34 26 - 35 PG [facility] External MCHC 34 32 - 36 G/DL [facility] External RDW 14.8 11.0 - 15.0 % [facility] External Mean Platelet Volume 8.7 6.2 - 10.5 fL [facility] External Platelets 297 130 - 400 K/uL [facility] Comment: Platelet count confirmed by slide estimate. External Neutrophil# 3.3 1.6 - 8.4 K/uL [facility] External Lymphocyte# 3.0 0.4 - 5.1 K/uL [facility] External Absolute Monocyte (Abs Dodge) 0.9 0.0 - 1.2 K/uL [facility] External Eosinophils# 0.2 0.0 - 0.8 K/uL [facility] External Baso# 0.1 0.0 - 0.3 K/uL [facility] External Neutrophils % 44.3 42.0 - 78.0 % [facility] External Lymphocyte % 40.1 11.0 - 47.0 % [facility] External Monocyte % 12.1(H) 0.0 - 11.0 % [facility] External Eosinophil% 2.7 0.0 - 7.0 % [facility] External Basophil % 0.8 0.0 - 3.0 % [facility] External Nucleated RBC%-Auto 0.0 0.0 - 0.9 % [facility] External Nucleated RBC Absolute 0.00 Not Estab. K/uL [facility] 12/24/2022 10:4 3 AM EDT 12/24/2022 10:46 AM EDT Sonny Gonzalez MD LAB BLOOD ORDERABLES Final Res ult [facility] [address] [place] [address], documented in this encounter Visit Diagnoses Not on filedocumented in this encounter Care Teams Scientific Photographer Relationship Specialty Start Date End Date Esther Bobo PA [address] [facility] [address] [place] [address] PCP - General 01/15/22 Sonny Gonzalez MD [address] [place] [address] Medical Oncologist Medical Oncology 12/22/23 Chava Sanders MD [address] [facility] [address] [place] [address] Technology Sales Consultant 08/09/24 documented as of this encounter
--- OUTSIDE RECORDS SUMMARY | 2025-02-26 12:19 | XMS_ITS | Clinical Summary ---
Author Organization [facility] (Formerly [facility]) Address [address] [place] [id number] Care Team Providers Care Director Surface Transportation Name Role Phone Nonstaff, Referring MD Primary Care Provider [phone] Allergies No known active allergies Medications aspirin 81 mg Tablet, Delayed Release (E.C.) Take 81 mg by mouth daily. Active atorvastatin (LIPITOR) 40 mg Tablet Take 40 mg by mouth daily. Active calcium carbonate 1250 mg (500 mg elemental) tablet Take 1,250 mg by mouth daily (with breakfast). Active carvediloL (COREG) 3.125 mg Tablet Take 3.125 mg by mouth 2 times daily (with meals). Active ferrous sulfate 325 mg (65 mg iron) tablet Take 325 mg by mouth daily. Active empagliflozin (Jardiance) 10 mg Tablet tablet Take 10 mg by mouth daily. Active levothyroxine (SYNTHROID) 125 mcg tablet Take 125 mcg by mouth daily. Active pantoprazole (PROTONIX) 40 mg Tablet, Delayed Release (E.C.) Take 40 mg by mouth daily. Active PRASUGREL (Effient) 10 MG Tablet Take 10 mg by mouth daily. Active sacubitriL-valsa rtan (Entresto) 24-26 mg Tablet Take 1 Tablet by mouth 2 times daily. 12/09/2024 Active spironolactone (ALDACTONE) 25 mg tablet Take 1 Tablet by mouth. 12/09/2024 Active Active Problems Problem Noted Date Diagnosed Date CAD (coronary artery disease) 12/07/2024 Restenosis of arterial stent, initial encounter ([facility]) 11/29/2024 Encounters Date Type Department Care Team Description 12/07/2024 8:00 AM EDT - 12/07/2024 9:15 AM EDT Surgery Cardiac Associate Financial Representative [address] [place] [address] Rod Fuller MD LEFT HEART CATH w/[facility] 12/07/2024 5:51 AM EDT - 12/08/2024 9:50 AM EDT Hospital Encounter Cardiovascular Stepdown Unit (CVSU) [address] [place] [address] Rod Fuller MD Restenosis of arterial stent, initial encounter ([facility]) Discharge Disposition: Home or Self Care 12/07/2024 Travel 12/04/2024 Lab Results The [address] [phone] Luis Eduardo Dahl, DISPATCH COORDINATOR 12/03/[address] [phone] Luis Eduardo Dahl, DISPATCH COORDINATOR Correspondence (Hotel and directions to [facility]) 12/03/20[address] Tele[address] The [address] [phone] Luis Eduardo Dahl, DISPATCH COORDINATOR Correspondence (Cath Letter for 12/07/24) 11/29/2024 Telephone The [address] [phone] Rod Fuller MD Other from Last 3 Months Family History Medical History Relation Name Comments Heart Problems Father Heart Problems Mother Relation Name Status Comments Father Alive Mother Social History Tobacco Use Types Packs/Day Years Used Date Smoking Tobacco: Never Smokeless Tobacco: Never Tobacco Cessation:Counseling Given: Not Answered Alcohol Use Standard Drinks/Week Comments Not Asked 0 (1 standard drink = 0.6 oz pur e alcohol) occasionally Comments Unknown Sex and Gender Information Value Date Recorded Sex Assigned at Not on file Legal Sex Female 3:25 PM EDT Gender Identity Not on file Sexual Orientation Not on file Last Filed Vital Signs Vital Sign Reading Time Taken Comments Blood Pressure 99/57 12/08/2024 7:25 AM EDT Pulse 93 12/08/2024 7:25 AM EDT Temperature 36.8 C (98.2 F) 12/08/2024 7:25 AM EDT Respiratory Rate 18 12/08/2024 7:25 AM EDT Oxygen Saturation 94% 12/08/2024 7:25 AM EDT Inhaled Oxygen Concentration - - Weight 79.2 kg (174 lb 8 oz) 12/07/2024 3:08 PM EDT Height 172.7 cm (5' 8 ) 12/07/2024 3:08 PM EDT Body Mass Index 26.53 12/07/2024 3:08 PM EDT Plan of Treatment Health Maintenance Due Date Last Done Comments Cologuard 1960 Colonoscopy 1960 Colorectal Cancer Screening 1960 FIT 1960 Tetanus Vaccination (Every 1 0 Years) 1978 Cervical Cancer Screening 1981 Hepatitis C Virus (HCV) Screening 1981 Breast Cancer Screening 2010 Pneumococcal Vaccine: 50+ Ye ars (1 of 1 - PCV) 2010 Zoster-RZV(Shingrix) (1 of 2) 2010 RSV Vaccines (1 - Risk 60-74 years 1-dose series) 2020 COVID-19 Vaccine (1 - 2023-2 5 season) 2024 BMI Counseling 08/22/2024 Depression Screening 08/22/2024 Influenza Vaccination (#1) 04/22/202506/11, 05/10/2023, 05/26/2022, Additional history exists Lipid Monitoring 12/07/2025 12/07/2024 Lipid Screening Discontinued 12/07/2024 Goals Goal Patient Goal Type Associated Problems Recent Progress Patient-Stated? Author Increase physical activity Lifestyle No Letty Castellano BS Medical Devices Implanted Type Area Senior Engineering Associate Device Identifier Shelf Expiration Date Model / Serial / Lot Perclose Prostyle. - [id number] Implanted:Qty: 1 on 12/07/2024 by Rod Fuller MD at [facility] [employer] [id number] 10/19/2026 [id number] / [id number] Description:RFA Procedures Procedure Name Priority Date/Time Associated Diagnosis Comments RSM TELEMONITORING Routine 12/08/2024 7: 00 AM EDT RSM TELEMONITORING Routine 12/07/2024 7: 00 PM EDT RSM TELEMONITORING Routine 12/07/2024 2: 56 PM EDT ECG Routine 12/07/2024 10:31 AM EDT LEFT HEART CATH Routine 12/07/2024 9:34 AM EDT Restenosis of arterial stent, initial encounter ([facility]) INTERVENTION - CORONARY Routine 12/08/19 9:34 AM EDT Restenosis of arterial stent, initial encounter ([facility]) POC ACT LOW RANGE Routine 12/07/2024 9:2 5 AM EDT POC ACT LOW RANGE Routine 12/07/2024 9:0 1 AM EDT ECG STAT 12/07/2024 6:17 AM EDT LIPID PROFILE Routine 12/07/2024 6:10 AM EDT CBC (COMPLETE BLOOD COUNT) Routine 11/30/2024 COMPREHENSIVE METABOLIC PANEL Routine 11/30/2024 from Last 3 Months Results * RSM TELEMONITORING (12/08/2024 7:00 AM EDT) Only the most recent of3 resultswithin the time period is included. IA 0.17 [facility] CLERICAL ADMINISTRATIVE ASSISTANT AL LAB QRS 0.06 [facility] CLERICAL ADMINISTRATIVE ASSISTANT AL LAB RR 0.70 [facility] CLERICAL ADMINISTRATIVE ASSISTANT AL LAB QT 0.37 [facility] CLERICAL ADMINISTRATIVE ASSISTANT AL [facility] QTc 0.44 [facility] CLERICAL ADMINISTRATIVE ASSISTANT AL LAB Rhythm Interpretation Sinus Rhythm [facility] EXTERNAL LAB 12/08/2024 7:00 AM EDT us Unknown Provider RSM TELEMONITORING ORDERABLES F inal Result [facility] [address] [place] [address], [facility] * ECG (12/07/2024 10:31 AM EDT) Only the most recent of2 resultswithin the time period is included. Heart Rate 79 bpm [facility] EXTER NAL LAB QRS Interval 113 ms [facility] EXT ERNAL LAB QT Interval 407 ms [facility] EXTE RNAL LAB QTc Interval 467 ms [facility] EXT ERNAL LAB P [place] 54 deg [facility] CLERICAL ADMINISTRATIVE ASSISTANT AL LAB QRS [place] -8 deg [facility] CLERICAL ADMINISTRATIVE ASSISTANT AL LAB T Wave [place] -80 deg [facility] EXTE RNAL LAB P-R Interval 160 msec [facility] EXT ERNAL LAB 12/07/2024 10:3 1 AM EDT Narrative [facility] - 12/07/2024 11:30 AM EDT [facility] Test Date: 2024-12-07 10:31:33 Pat Name: JENNIFER KRISHNAMURTHY Department: [facility] Room: LOCK EXPERT POOL Gender: Female Wellness Rn: [facility] : 1960 Requested By: DANNA Smith Order Number: [id number] Reading MD: Michael Mcgarry MD Interpretive Statements Sinus rhythm LVH with IVCD and secondary ST-T changes Inferior infarct, remote Compared to the prior tracing, there is no significant change Electronically Signed On 12-07-2024 11:30:21 EDT by Michael Mcgarry MD Procedure Note Michael Mcgarry MD - 12/07/2024 [facility] Test Date: 2024-12-07 10:31:33 Pat Name: JENNIFER KRISHNAMURTHY Department: [facility] Room: LOCK EXPERT POOL Gender: Female Wellness Rn: [facility] : 1960 Requested By: DANNA Smith Order Number: [id number] Reading MD: Michael Mcgarry MD Interpretive Statements Sinus rhythm LVH with IVCD and secondary ST-T changes Inferior infarct, remote Compared to the prior tracing, there is no significant change Electronically Signed On 12-07-2024 11:30:21 EDT by Michael Mcgarry MD us Danna MontalvoShahram Cavanaugh NP ECG ORDERABLES Final Result [facility] [address] [place] [address], [facility] * INTERVENTION - CORONARY, LEFT HEART CATH (12/07/2024 9:34 AM EDT) Addenda Addendum by Rod Fuller MD on 12/10/2024 10:43 AM EDT Left heart catheterization: Left heart catheterization coronary angiogram was performed with 5 Austrian diagnostic catheters. Left ventricular ejection fraction of 40% with inferobasal hypokinesia. Left ventricular end-diastolic pressure is 6 mm Hg right coronary artery is totally occluded at its origin from the aorta and fills distally if clinically from collaterals from the circumflex and distal left anterior descending coronary artery. The left main and left anterior descending are widely patent with a stent and a previously stent placed at the origin of the circumflex coronary artery has 99% obstructed with diminished distal flow. This represents a 0 0 1 classification branch vessel stenosis. There were no complications of the procedure. The left anterior descending is free of significant atherosclerotic involvement. Percutaneous coronary intervention with kissing balloon angioplasty: Because of diminished distal flow JACIEL grade 2 in the circumflex coronary artery with a 99% stenosis and total occlusion of the dominant right coronary artery vessel percutaneous intervention was performed. A 6 Austrian Monica left 4 Milo short tip guiding catheter was positioned in the origin of the left main coronary artery and a Prowater flex wire was passed down the length of circumflex and she on blue catheter down the left anterior descending a 2.0 2 Alvarez balloon was used to pre dilate followed by 3.0 NC balloon to 18 atmospheres. A 3.0 x 10 mm cutting balloon was then used in the restenotic area. This represents in stent restenosis of 99% with diminished distal flow. Following us a 3.5 mm x 20 mm agent drug coated balloon was inflated to 12 atmospheres in the target area stenosis 2 separate times for 10-15 seconds each because of intolerance due to relative hypotension. Following this kissing balloon angioplasty was performed with a 3.5 mm NC balloon in the left anterior descending and left main and a 3.5 mm balloon in the circumflex origin both of which were inflated to 12 atmospheres simultaneously. All balloons were removed selective angiography demonstrated 0% residual blockage no evidence of dissection and normal JACIEL grade 3 flow. Hemostasis was achieved in right femoral access with a single 6 Austrian Perclose. There were no complications of the procedure. Angiographic findings pre dilatation angiography of the circumflex demonstrates a 99% in stent restenosis involving the origin of the circumflex from the left main coronary artery with diminished JACIEL 2 flow distally. Post dilatation angiography demonstrates a 0% residual narrowing with JACIEL grade 3 flow following intervention. Coronary Findings Diagnostic Dominance: Right Left Anterior Descendin% stenosed Ost LAD lesion. JACIEL flow is 3. Left Circumflex: Prox Cx lesion is 99% stenosed. JACIEL flow is 2. Intervention Ost LAD lesion: Angioplasty: The lesion was treated with angioplasty using a standard balloon. The balloon used was a BLLN NC EMERGE 3.5X12. Initial inflation pressure: 12 chelly. Kissing balloons Supplies Used: BLLN NC EMERGE 3.5X12 Post-Intervention Lesion Assessment: Post-intervention JACIEL flow is 3. There is a 0% residual stenosis post intervention. Prox Cx lesion: Angioplasty: The lesion was treated with angioplasty using a standard balloon. The balloon used was a BLLN TAKERU 2.0X20 MM. Initial inflation pressure: 14 chelly. 2nd inflation pressure: 14 chelly. Supplies Used: BLLN TAKERU 2.0X20 MM Angioplasty: The lesion was treated with angioplasty using a standard balloon. The balloon used was a BLLN NC EMERGE 3X20. Initial inflation pressure: 16 chelly. Supplies Used: BLLN NC EMERGE 3X20 Angioplasty: The lesion was treated with angioplasty using a standard balloon. The balloon used was a BLLN NC EMERGE 3X20. Initial inflation pressure: 16 chelly. Supplies Used: BLLN NC EMERGE 3X20 Angioplasty: The lesion was treated with angioplasty using a cutting balloon. The balloon used was a BLLN WOLVRINE RX 3.5X10. Initial inflation pressure: 5 chelly. 2nd inflation pressure: 6 chelly. Supplies Used: BLLN WOLVRINE RX 3.5X10 Angioplasty: The lesion was treated with angioplasty using a drug-coated balloon. The balloon used was a AGENT US MR 3.50 X 20MM. Initial inflation pressure: 10 chelly. 2nd inflation pressure: 12 chelly. Supplies Used: AGENT US MR 3.50 X 20MM Angioplasty: The lesion was treated with angioplasty using a drug-coated balloon. The balloon used was a AGENT US MR 3.50 X 20MM. Initial inflation pressure: 12 chelly. Kissing balloons Supplies Used: AGENT US MR 3.50 X 20MM Post-Intervention Lesion Assessment: Post-intervention JACIEL flow is 3. There is a 0% residual stenosis post intervention. Left Ventricle There is mild to moderate left ventricular systolic dysfunction. LV systolic pressure is normal. LV end diastolic pressure is normal. The ejection fraction is estimated to be 40%. 40-45% EF us Rod Fuller MD CV CARDIAC CATH PROCEDURES Edited Result - Final * POC ACT LOW RANGE (12/07/2024 9:25 AM EDT) Only the most recent of2 resultswithin the time period is included. Pathologist [facility] POC ACTLR 270 seconds [facility] CLERICAL ADMINISTRATIVE ASSISTANT AL LAB Comment: ACT TARGET RANGES : Line pull: <=180 seconds Interventional cardiology with GP IIb/IIIa inhibitors: 220-300 seconds Interventional cardiology without GP IIb/IIIa inhibitors: >250 seconds Peripheral and Neuroradiology: 250-300 seconds Afib ablation: MD pope Ablation (other than Afib): MD pope Normal range generated from normal volunteer donors: 113-149 seconds Normal range generated from hospitalized patients not receiving heparin: 89-169 seconds Target ranges are suggested ranges only. Suggested ranges are overridden by specific physician order. Whole Blood 12/07/2024 9:25 AM EDT 12/07/2024 9:33 AM EDT us Rod Fuller MD POINT OF CARE TEST ORDERABL ES Final Result [facility] [address] * LIPID PROFILE (12/07/2024 6:10 AM EDT) [facility] Cholesterol 157 125 - 199 mg/dL [facility] Comment: TOTAL CHOLESTEROL INTERPRETATION: Less than 200 mg/dL Desireable 200-239 mg/dL Borderline Greater or Equal to 240 mg/dL High LDL Calculated 68 0 - 100 mg/dL [facility] Comment: LDL CHOLESTEROL INTERPRETATION: Less than 100 mg/dL Optimal 100-129 mg/dL Near optimal/above optimal 130-159 mg/dL Borderline High 160-189 mg/dL High Greater or Equal to 190 mg/dL Very High HDL 74 40 - 180 mg/dL [facility] Comment: HDL CHOLESTEROL INTERPRETATION: Less than 40 mg/dL Low Greater than 60 mg/dL Desirable Triglycerides 77 0 - 149 mg/dL [facility] Comment: TOTAL TRIGLYCERIDE INTERPRETATION: Less than 150 mg/dL Normal 150-199 mg/dL Borderline HIgh 200-499 mg/dL High Greater or Equal to 500 mg/dL Very High NONHDL Calculated 83 0 - 129 mg/dL [facility] Comment: NON-HDL INTERPRETATION: Less than 130 mg/dL Desirable 130-159 mg/dL Above Desirable 160-189 mg/dL Borderline High 190-219 mg/dL High Greater than or equal to 220 mg/dL Very High Plasma (Blood) 12/07/2024 6: 10 AM EDT 12/07/2024 6:26 AM EDT Rodxiomara Fuller MD CHEMISTRY ORDERABLES Final Result Performing Organization Address [facility] de Phone Number [facility] [address] * CBC (COMPLETE BLOOD COUNT) (11/30/2024) Hemoglobin 14.4 g/dL [facility] EX[facility] Hematocrit Blood 42.1 [facility] Platelets 332 K/uL [facility] CLERICAL ADMINISTRATIVE ASSISTANT AL LAB Whole Blood Historical Provider HEMATOLOGY ORDERABLES Final Result Performing Organization Address [facility] Co de Phone Number [facility] [address] * COMPREHENSIVE METABOLIC PANEL (11/30/2024) Glucose 114 TC CLERICAL ADMINISTRATIVE ASSISTANT AL LAB Anion Gap 13 mmol/L [facility] CLERICAL ADMINISTRATIVE ASSISTANT AL LAB CO2 29 mmol/L [facility] CLERICAL ADMINISTRATIVE ASSISTANT AL LAB Creatinine 0.80 mg/dL [facility] EXTER NAL LAB Potassium 4.0 mmol/L [facility] CLERICAL ADMINISTRATIVE ASSISTANT AL LAB Sodium 139 mmol/L [facility] CLERICAL ADMINISTRATIVE ASSISTANT AL LAB Calcium 9.4 mg/dL [facility] CLERICAL ADMINISTRATIVE ASSISTANT AL LAB BUN 14 [facility] CLERICAL ADMINISTRATIVE ASSISTANT AL LAB Chloride 101 [facility] CLERICAL ADMINISTRATIVE ASSISTANT AL LAB Plasma us Historical Provider CHEMISTRY ORDERABLES Final R esult [facility] [address] [place] [address], [facility] from Last 3 Months Insurance ANTHEM Advance Directives For more information, please contact: [phone] * Full Code (Latest Code Status on File) Date Activated Date Inactivated Comments 12/07/2024 9:42 AM No automated c hest compression devices for VAD Patients Care Teams Director Surface Transportation Relationship Specialty Start Date End Date Felix Nicole MD [address] [place], [place] [id number] PCP - General 12/07/24
--- OUTSIDE RECORDS SUMMARY | 2025-02-26 12:20 | XMS_ITS | Encounter Summary ---
Author Organization [facility] Address [address] [place] [address] Care Team Providers Care Dining Room Attendant Cafeteria Name Role Phone Unknown, Unknown Primary Care Provider Unavailab Esther Molina Primary Care Provider Sonny Gonzalez MD Unavailable [phone] Chava Sanders MD Unavailable Encounter Details Date Type Department Care Team (Late st Contact Info) Description 06/26/2021 Orders Only [facility] [address] [place] [phone] Sonny Gonzalez MD [address] [place], [place] [address] [phone] Social History Tobacco Use Types Packs/Day Years [...] Description 10/18/2025 1:30 PM EST Office Visit [facility] [address] [place] [phone] Sonny Gonzalez MD [address] [phone] 11/19/2025 1:30 PM EDT Ovarian Cancer Screening [facility] [address] [place] [phone] documented as of this encounter Procedures Procedure Name Priority Date/Time Associated Diagnosis Comments RBC MORPHOLOGY ([facility]) Routine 06/26/2021 10:32 AM EDT documented in this encounter Results * RBC MORPHOLOGY ([facility]) (06/26/2021 10:32 AM EDT) External RBC Morphology Comment NORMAL [facility] 06/26/2021 10:3 2 AM EDT 06/26/2021 10:32 AM EDT Sonny Gonzalez MD LAB BLOOD ORDERABLES Final Res ult [facility] [address] [place] [address], documented in this encounter Visit Diagnoses Not on filedocumented in this encounter Care Teams Dining Room Attendant Cafeteria Relationship Specialty Start Date End Date Unknown, Unknown [place], [place] PCP - General Dental Wind Science And Planning 08/22/20 01/14/22 Esther Bobo PA [address] [facility] [address] [place] [address] PCP - General 01/15/22 Sonny Gonzalez MD [address] [place] [address] Medical Oncologist Medical Oncology 12/22/23 Chava Sanders MD [address] [facility] [address] [place] [address] Garden Implement Mechanic 08/09/24 documented as of this encounter
--- OUTSIDE RECORDS SUMMARY | 2025-02-26 12:20 | XMS_ITS | Data Portability ---
Author Organization [facility], HEM[facility] Address [address] [place] [address] Care Team Providers Care Laborer [facility] Name Role Phone MASSIEL ACEVEDO JR General Surgeon BEBRIGIDA ROMERO Computer Hardware Developer MASSIEL COLBERT Primary Care Provider [phone] ÓSCAR PERALTA Hematology/Oncology Assessment Encounter Date Assessment Date Assessment LastModified by Organization Details LastModified Time 12/10/2020 12/10/2020 This is a 60-year-old female with a history of radiation and diagnosis of breast cancer, early stage with sort of a last 3- to 4-week history of general fullness. It may be this is just purely acid reflux and possible something going on with the esophagus; however, given her prior history of extensive neck radiation, I think I would like her initially to be seen by ENT to get their thoughts and maybe even just do laryngoscopic examination to rule out any sort of local issues. I think if that is all unremarkable, then maybe quickly we will get her referred to GI to do an upper endoscopy to evaluate there as well. We will try to get her and will see Dr. Monroe in the next week or so and certainly get his counts. If he feels that she needs any specific imaging for this, we will be happy to. I am sure she will comply. Unfortunately, she is planning on going on a trip in the next 3 to 4 weeks and would like to try to get everything evaluated as quickly as possible, but certainly will be thorough and accurate, most importantly. I do feel like I would like her to see an ENT 1st, so that we just do not simply fail to look within the head and neck as a possible source of issues as well. [email or web address] Not available 12/11/2020 11:29:48 01/02/2021 01/02/2021 This is a 60-year-old female with the above history and please see previous dictated note. History of remote Hodgkin's, radiation, thoracic, breast cancer early stage, and she is on anastrozole now about 2 years. She has had a recent scare, some swallowing issues and some feelings of abnormality. Given her history of radiation, she was concerned about some type of cancer in her throat. We appreciate Dr. Monroe rapidly evaluating her and kind of just reviewing this and this was felt to be just acid reflux and she is very pleased with that. At this point, we will just see her back in about another 6 months and repeat labs and exam at that time. We will probably re-image her in another year, but really not. We are going to cut back on every 6 months imaging just concerned about her small lymph node. [email or web address] Not available 01/08/2021 04:59:58 06/26/2021 06/26/2021 This is a 61-year-old female with; 1. A history of Hodgkin's disease and thoracic radiation. 2. She is 2-1/2 years out from diagnosis of an early stage right-sided breast cancer, quadrant unspecified. It is a very stage I ER positive, IA positive, HER-2/myrna negative, status post partial mastectomies in September 2018. No evidence of any recurrent disease. At this point, we will see her back in 6 months, repeat labs and exam and we will also do a CT scan of the chest as we have done for many years now. All this is discussed at length with the patient. She is pleased with the discussion. [email or web address] Not available 07/02/2021 03:57:29 12/25/2021 12/25/2021 This is a 61-year-old female with: 1. History more than 40 years ago of thoracic radiation for Hodgkin disease, now status post bilateral mastectomies due to an early stage breast cancer. We will continue followup CAT scans in 1 year for her Hodgkin's disease. 2. Early stage, ER positive breast cancer, status post bilateral mastectomies. No need for adjuvant radiation. Adjuvant hormonal therapy with Arimidex, now 3 years. We will see her back in another year, repeat labs, exam and CT scan. Our goal is 5 years worth of adjuvant hormonal therapy, but we will continue Hodgkin's screening for her lung issues. [email or web address] Not available 12/30/2021 02:51:47 12/24/2022 12/24/2022 This is a 62-year-old female with; 1. A history of Hodgkin's disease and thoracic radiation. Followup CAT scan done today shows no evidence of malignancy. 2. A history of early stage ER positive breast cancer. We are now more than 4 years out from bilateral mastectomies and adjuvant hormonal therapy. She continues on Arimidex. Our goal is 5 years worth of therapy. She will come back in another year, repeat labs and scans and most likely we will discontinue the Arimidex at that time. [email or web address] Not available 12/25/2022 03:22:28 Plan of Treatment Reminders Order Date Submit Date Provider Last Modified By Organization Details Last Modified Time Details Appointments RECHECK 2024 11:00A M ASHISH DUARTE PA-C Not available Not available Not available ANNUAL PRODUCTION FLOATER 2024 11:00A M HIREN CARVAJAL QUALITY IMPROVEMENT CONSULTANT Not available Not available Not available CT SCAN 2025 11:00A M ct_scan Not available Not available Not available Lab None recorded . Referral None recorded . Procedures None recorded . Surgeries None recorded . Imaging None recorded . Medication Orders None recorded . Patient TargetsNo targets recorded. Patient InstructionsNo instructions recorded. Reason for Referral None Reported. Results Created Date Observation Date Name Description Value Unit Range Abnormal Flag Note LastModifiedBy Organization Detail LastModifiedTime 01/03/2001/02/2021 CBC w/ auto diff white blood cells 6.3 K/uL 3.8-10 .8 normal Not Available [facility] [address] [place], [address], 01/02/2021 10:51:01 01/03/20 21 01/02/2021 CBC w/ auto diff red blood cells 3.84 M/uL 3.80-5 .20 normal Not Available [facility] [address] [place], [address], 01/02/2021 10:51:01 01/03/20 21 01/02/2021 CBC w/ auto diff hemoglobin 12.8 g/dL 12.0-1 6.0 normal Not Available [facility] [address] [place] [address], [address], 01/02/2021 10:51:01 01/03/20 21 01/02/2021 CBC w/ auto diff hematocrit 38.6 % 35.0-4 7.0 normal Not Available [facility] [address] [place] [address], [address], 01/02/2021 10:51:01 01/03/20 21 01/02/2021 CBC w/ auto diff MCV 101 fL 80-100 high Not Available [facility] [address] [place] [address], [address], 01/02/2021 10:51:01 01/03/20 21 01/02/2021 CBC w/ auto diff MCH 33 pg 26-35 normal Not Available [facility] [address] [place] [address], [address], 01/02/2021 10:51:01 01/03/20 21 01/02/2021 CBC w/ auto diff MCHC 33 g/dL 32-36 normal Not Available [facility] [address] [place] [address], [address], 01/02/2021 10:51:01 01/03/20 21 01/02/2021 CBC w/ auto diff RDW 13.0 % 11.0-1 5.0 normal Not Available [facility] [address] [place] [address], [address], 01/02/2021 10:51:01 01/03/20 21 01/02/2021 CBC w/ auto diff MPV 9.3 fL 6.2-10 .5 normal Not Available [facility] [address] [place] [address], [address], 01/02/2021 10:51:01 01/03/20 21 01/02/2021 CBC w/ auto diff platelet count 273 K/uL 130-40 0 normal Not Available [facility] [address] [place] [address], [address], 01/02/2021 10:51:01 01/03/20 21 01/02/2021 CBC w/ auto diff neutrophil,a bsolute 2.7 K/uL 1.6-8. 4 normal Not Available [facility] [address] [place] [address], [address], 01/02/2021 10:51:01 01/03/20 21 01/02/2021 CBC w/ auto diff lymphocyte,a bsolute 2.6 K/uL 0.4-5. 1 normal Not Available [facility] [address] [place] [address], [address], 01/02/2021 10:51:01 01/03/20 21 01/02/2021 CBC w/ auto diff monocyte,abs olute 0.8 K/uL 0.0-1. 2 normal Not Available [facility] [address] [place] [address], [address], 01/02/2021 10:51:01 01/03/20 21 01/02/2021 CBC w/ auto diff eosinophil,a bsolute 0.1 K/uL 0.0-0. 8 normal Not Available [facility] [address] [place] [address], [id number], 01/02/2021 10:51:01 01/03/20 21 01/02/2021 CBC w/ auto diff basophil,abs olute 0.1 K/uL 0.0-0. 3 normal Not Available [facility] [address] [place] [address], [address], 01/02/2021 10:51:01 01/03/20 21 01/02/2021 CBC w/ auto diff % neutrophils 43.0 % 42.0-7 8.0 normal Not Available [facility] [address] [place] [address], [address], 01/02/2021 10:51:01 01/03/20 21 01/02/2021 CBC w/ auto diff % lymphocytes 40.6 % 11.0-4 7.0 normal Not Available [facility] [address] [place] [address], [address], 01/02/2021 10:51:01 01/03/20 21 01/02/2021 CBC w/ auto diff % monocytes 13.4 % 0.0-11 .0 high Not Available [facility] [address] [place] [address], [address], 01/02/2021 10:51:01 01/03/20 21 01/02/2021 CBC w/ auto diff % eosinophils 2.1 % 0.0-7. 0 normal Not Available [facility] [address] [place] [address], [address], 01/02/2021 10:51:01 01/03/20 21 01/02/2021 CBC w/ auto diff % basophils 0.9 % 0.0-3. 0 normal Not Available [facility] [address] [place] [address], [address], 01/02/2021 10:51:01 01/03/20 21 01/02/2021 CBC w/ auto diff nucleated red cells 0.1 % 0.0-0. 9 normal Not Available [facility] [address] [place] [address], [address], 01/02/2021 10:51:01 01/03/20 21 01/02/2021 CBC w/ auto diff nucleated RBCs, absolute 0.01 K/uL not estab. normal Not Available [facility] [address] [place] [address], [address], 01/02/2021 10:51:01 01/03/20 21 01/02/2021 CMP, serum or plasm a glucose 98 mg/dL 74-100 normal Not Available [facility] [address] [place] [address], [address], 01/02/2021 11:04:57 01/03/20 21 01/02/2021 CMP, serum or plasm a blood urea nitrogen 16 mg/dL 6-20 normal Not Available [facility] [address] [place] [address], [address], 01/02/2021 11:04:57 01/03/20 21 01/02/2021 CMP, serum or plasm a creatinine 0.92 mg/dL 0.50-0 .90 high Not Available [facility] [address] [place] [address], [address], 01/02/2021 11:04:57 01/03/20 21 01/02/2021 CMP, serum or plasm a BUN/creatini ne ratio 17 (calc ) 10-20 normal Not Available [facility] [address] [place] [address], [address], 01/02/2021 11:04:57 01/03/20 21 01/02/2021 CMP, serum or plasm a sodium 141 mmol/ L 136-14 5 normal Not Available [facility] [address] [place] [address], [address], 01/02/2021 11:04:57 01/03/20 21 01/02/2021 CMP, serum or plasm a potassium 4.5 mmol/ L 3.4-5. 0 normal Not Available [facility] [address] [place] [address], [address], 01/02/2021 11:04:57 01/03/20 21 01/02/2021 CMP, serum or plasm a chloride 104 mmol/ L 98-107 normal Not Available [facility] [address] [place] [address], [address], 01/02/2021 11:04:57 01/03/20 21 01/02/2021 CMP, serum or plasm a carbon dioxide 29 mmol/ L 22-29 normal Not Available [facility] [address] [place] [address], [address], 01/02/2021 11:04:57 01/03/20 21 01/02/2021 CMP, serum or plasm a anion gap 8 (calc ) 7-25 normal Not Available [facility] [address] [place] [address], [address], 01/02/2021 11:04:57 01/03/20 21 01/02/2021 CMP, serum or plasm a calcium 9.3 mg/dL 8.6-10 .2 normal Not Available [facility] [address] [place] [address], [address], 01/02/2021 11:04:57 01/03/20 21 01/02/2021 CMP, serum or plasm a total protein 7.0 g/dL 6.4-8. 3 normal Not Available [facility] [address] [place] [address], [address], 01/02/2021 11:04:57 01/03/20 21 01/02/2021 CMP, serum or plasm a albumin 3.9 g/dL 3.5-5. 2 normal Not Available [facility] [address] [place] [address], [address], 01/02/2021 11:04:57 01/03/20 21 01/02/2021 CMP, serum or plasm a globulin 3.1 g/dL_ (calc ) 1.5-4. 5 normal Not Available [facility] [address] [place] [address], [address], 01/02/2021 11:04:57 01/03/20 21 01/02/2021 CMP, serum or plasm a albumin/glob ulin ratio 1.3 (calc ) 1.1-2. 5 normal Not Available [facility] [address] [place] [address], [address], 01/02/2021 11:04:57 01/03/20 21 01/02/2021 CMP, serum or plasm a bilirubin, total <0.2 mg/dL 0.1-1. 2 normal Not Available [facility] [address] [place] [address], [address], 01/02/2021 11:04:57 01/03/20 21 01/02/2021 CMP, serum or plasm a alkaline phosphatase 65 U/L 35-104 normal Not Available [facility] [address] [place] [address], [address], 01/02/2021 11:04:57 01/03/2001/02/2021 CMP, serum or plasm a AST 19 U/L 0-32 normal Not Available [facility] [address] [place] [address], [address], 01/02/2021 11:04:57 01/03/20 21 01/02/2021 CMP, serum or plasm a ALT 19 U/L 0-33 normal Not Available [facility] [address] [place] [address], [address], 01/02/2021 11:04:57 01/03/20 21 01/02/2021 CMP, serum or plasm a GFR 78 >= 60 normal Not Available [facility] [address] [place] [address], [address], 01/02/2021 11:04:57 01/03/2001/02/2021 CMP, serum or plasm a GFR non- 67 >= 60 normal NOT E Chron ic kidne y disea se is defin ed as kidne y damag e for more than 3 month s or a GFR less than 60 mL/mi n/1.7 3 m2 for great er than 3 month s. This calcu latio n has not been valid ated in pregn ant women . For pedia tric patie nts refer to Brandt Turner y Found ation https ://ester [email or web address] [email or web address].o rg/pr ofess ional s/KDO QI/gf r_cal culat orPed Not Available [facility] [address] [place] [address], [address], 01/02/2021 11:04:57 06/26/20 21 06/26/2021 COMPL ETE BLOOD COUNT white blood cells 7.8 K/uL 3.8-10 .8 normal Not Available [facility] [address] [place] [address], [address], 06/26/2021 11:07:33 06/26/20 21 06/26/2021 COMPL ETE BLOOD COUNT red blood cells 4.02 M/uL 3.80-5 .20 normal Not Available [facility] [address] [place] [address], [address], 06/26/2021 11:07:33 06/26/20 21 06/26/2021 COMPL ETE BLOOD COUNT hemoglobin 13.7 g/dL 12.0-1 6.0 normal Not Available [facility] [address] [place] [address], [address], 06/26/2021 11:07:33 06/26/20 21 06/26/2021 COMPL ETE BLOOD COUNT hematocrit 40.3 % 35.0-4 7.0 normal Not Available [facility] [address] [place] [address], [address], 06/26/2021 11:07:33 06/26/20 21 06/26/2021 COMPL ETE BLOOD COUNT MCV 100 fL 80-100 normal Not Available [facility] [address] [place] [address], [address], 06/26/2021 11:07:33 06/26/20 21 06/26/2021 COMPL ETE BLOOD COUNT MCH 34 pg 26-35 normal Not Available [facility] [address] [place] [address], [address], 06/26/2021 11:07:33 06/26/20 21 06/26/2021 COMPL ETE BLOOD COUNT MCHC 34 g/dL 32-36 normal Not Available [facility] [address] [place] [address], [address], 06/26/2021 11:07:33 06/26/20 21 06/26/2021 COMPL ETE BLOOD COUNT RDW 13.4 % 11.0-1 5.0 normal Not Available [facility] [address] [place] [address], [address], 06/26/2021 11:07:33 06/26/20 21 06/26/2021 COMPL ETE BLOOD COUNT MPV 8.8 fL 6.2-10 .5 normal Not Available [facility] [address] [place] [address], [address], 06/26/2021 11:07:33 06/26/20 21 06/26/2021 COMPL ETE BLOOD COUNT platelet count 284 K/uL 130-40 0 normal Plate let count confi rmed by slide estim ate. Occ. macro throm bocyt es noted . Not Available [facility] [address] [place] [address], [address], 06/26/2021 11:07:33 06/26/20 21 06/26/2021 COMPL ETE BLOOD COUNT neutrophil,a bsolute 4.0 K/uL 1.6-8. 4 normal Not Available [facility] [address] [place] [address], [address], 06/26/2021 11:07:33 06/26/20 21 06/26/2021 COMPL ETE BLOOD COUNT lymphocyte,a bsolute 2.6 K/uL 0.4-5. 1 normal Not Available [facility] [address] [place] [address], [address], 06/26/2021 11:07:33 06/26/20 21 06/26/2021 COMPL ETE BLOOD COUNT monocyte,abs olute 1.0 K/uL 0.0-1. 2 normal Not Available [facility] [address] [place] [address], [address], 06/26/2021 11:07:33 06/26/20 21 06/26/2021 COMPL ETE BLOOD COUNT eosinophil,a bsolute 0.1 K/uL 0.0-0. 8 normal Not Available [facility] [address] [place] [address], [address], 06/26/2021 11:07:33 06/26/20 21 06/26/2021 COMPL ETE BLOOD COUNT basophil,abs olute 0.1 K/uL 0.0-0. 3 normal Not Available [facility] [address] [place] [address], [address], 06/26/2021 11:07:33 06/26/20 21 06/26/2021 COMPL ETE BLOOD COUNT % neutrophils 51.0 % 42.0-7 8.0 normal Not Available [facility] [address] [place] [address], [address], 06/26/2021 11:07:33 06/26/20 21 06/26/2021 COMPL ETE BLOOD COUNT % lymphocytes 33.9 % 11.0-4 7.0 normal Not Available [facility] [address] [place] [address], [address], 06/26/2021 11:07:33 06/26/20 21 06/26/2021 COMPL ETE BLOOD COUNT % monocytes 12.3 % 0.0-11 .0 high Not Available [facility] [address] [place] [address], [address], 06/26/2021 11:07:33 06/26/20 21 06/26/2021 COMPL ETE BLOOD COUNT % eosinophils 1.9 % 0.0-7. 0 normal Not Available [facility] [address] [place] [address], [address], 06/26/2021 11:07:33 06/26/20 21 06/26/2021 COMPL ETE BLOOD COUNT % basophils 0.9 % 0.0-3. 0 normal Not Available [facility] [address] [place] [address], [address], 06/26/2021 11:07:33 06/26/20 21 06/26/2021 COMPL ETE BLOOD COUNT nucleated red cells 0.1 % 0.0-0. 9 normal Not Available [facility] [address] [place] [address], [address], 06/26/2021 11:07:33 06/26/20 21 06/26/2021 COMPL ETE BLOOD COUNT nucleated RBCs, absolute 0.01 K/uL not estab. normal Not Available [facility] [address] [place] [address], [address], 06/26/2021 11:07:33 06/26/20 21 06/26/2021 MORPH OLOGY RBC morphology NORMAL normal Not Available [facility] [address] [place] [address], [address], 06/26/2021 11:07:35 06/26/20 21 06/26/2021 COMP. METAB OLIC PANEL glucose 96 mg/dL 74-100 normal Not Available [facility] [address] [place] [address], [address], 06/26/2021 11:48:14 06/26/20 21 06/26/2021 COMP. METAB OLIC PANEL blood urea nitrogen 15 mg/dL 6-20 normal Not Available [facility] [address] [place] [address], [address], 06/26/2021 11:48:14 06/26/20 21 06/26/2021 COMP. METAB OLIC PANEL creatinine 0.79 mg/dL 0.50-0 .95 normal Not Available [facility] [address] [place] [address], [address], 06/26/2021 11:48:14 06/26/20 21 06/26/2021 COMP. METAB OLIC PANEL BUN/creatini ne ratio 19 (calc ) 10-20 normal Not Available [facility] [address] [place] [address], [address], 06/26/2021 11:48:14 06/26/20 21 06/26/2021 COMP. METAB OLIC PANEL sodium 141 mmol/ L 136-14 5 normal Not Available [facility] [address] [place] [address], [address], 06/26/2021 11:48:14 06/26/20 21 06/26/2021 COMP. METAB OLIC PANEL potassium 4.8 mmol/ L 3.4-5. 0 normal Not Available [facility] [address] [place] [address], [address], 06/26/2021 11:48:14 06/26/20 21 06/26/2021 COMP. METAB OLIC PANEL chloride 101 mmol/ L 98-107 normal Not Available [facility] [address] [place] [address], [address], 06/26/2021 11:48:14 06/26/20 21 06/26/2021 COMP. METAB OLIC PANEL carbon dioxide 27 mmol/ L 22-31 normal Not Available [facility] [address] [place] [address], [address], 06/26/2021 11:48:14 06/26/20 21 06/26/2021 COMP. METAB OLIC PANEL anion gap 13 (calc ) 7-25 normal Not Available [facility] [address] [place] [address], [address], 06/26/2021 11:48:14 06/26/20 21 06/26/2021 COMP. METAB OLIC PANEL calcium 10.3 mg/dL 8.6-10 .2 high Not Available [facility] [address] [place] [address], [address], 06/26/2021 11:48:14 06/26/20 21 06/26/2021 COMP. METAB OLIC PANEL total protein 7.6 g/dL 6.4-8. 3 normal Not Available [facility] [address] [place] [address], [address], 06/26/2021 11:48:14 06/26/20 21 06/26/2021 COMP. METAB OLIC PANEL albumin 4.6 g/dL 3.5-5. 2 normal Not Available [facility] [address] [place] [address], [address], 06/26/2021 11:48:14 06/26/20 21 06/26/2021 COMP. METAB OLIC PANEL globulin 3.0 g/dL_ (calc ) 1.5-4. 5 normal Not Available [facility] [address] [place] [address], [address], 06/26/2021 11:48:14 06/26/20 21 06/26/2021 COMP. METAB OLIC PANEL albumin/glob ulin ratio 1.5 (calc ) 1.1-2. 5 normal Not Available [facility] [address] [place] [address], [address], 06/26/2021 11:48:14 06/26/20 21 06/26/2021 COMP. METAB OLIC PANEL bilirubin, total 0.2 mg/dL 0.1-1. 2 normal Not Available [facility] [address] [place] [address], [address], 06/26/2021 11:48:14 06/26/20 21 06/26/2021 COMP. METAB OLIC PANEL alkaline phosphatase 76 U/L 35-106 normal Not Available [facility] [address] [place] [address], [address], 06/26/2021 11:48:14 06/26/20 21 06/26/2021 COMP. METAB OLIC PANEL AST 21 U/L 0-32 normal Not Available [facility] [address] [place] [address], [address], 06/26/2021 11:48:14 06/26/20 21 06/26/2021 COMP. METAB OLIC PANEL ALT 21 U/L 0-33 normal Not Available [facility] [address] [place] [address], [address], 06/26/2021 11:48:14 06/26/20 21 06/26/2021 COMP. METAB OLIC PANEL GFR 94 >= 60 normal Not Available [facility] [address] [place] [address], [address], 06/26/2021 11:48:14 06/26/20 21 06/26/2021 COMP. METAB OLIC PANEL GFR non- 81 >= 60 normal NOT E Chron ic kidne y disea se is defin ed as kidne y damag e for more than 3 month s or a GFR less than 60 mL/mi n/1.7 3 m2 for great er than 3 month s. This calcu latio n has not been valid ated in pregn ant women . For pedia tric patie nts refer to Brandt Turner y Found ation https :[email or web address] [email or web address] [email or web address].o rg/pr gelacio marc s/KDO QI/gf r_cal culat orPed Not Available [facility] [address] [place] [address], [id number], 06/26/2021 11:48:14 12/26/19 22 12/25/2021 COMPL ETE BLOOD COUNT white blood cells 6.5 K/uL 3.8-10 .8 normal Not Available [facility] [address] [place] [address], [address], 12/25/2021 11:08:11 12/26/19 22 12/25/2021 COMPL ETE BLOOD COUNT red blood cells 4.07 M/uL 3.80-5 .20 normal Not Available [facility] [address] [place] [address], [id number], 12/25/2021 11:08:11 12/26/19 22 12/25/2021 COMPL ETE BLOOD COUNT hemoglobin 13.5 g/dL 12.0-1 6.0 normal Not Available [facility] [address] [place] [address], [address], 12/25/2021 11:08:11 12/26/19 22 12/25/2021 COMPL ETE BLOOD COUNT hematocrit 39.7 % 35.0-4 7.0 normal Not Available [facility] [address] [place] [address], [address], 12/25/2021 11:08:11 12/26/19 22 12/25/2021 COMPL ETE BLOOD COUNT MCV 97 fL 80-100 normal Not Available [facility] [address] [place] [address], [address], 12/25/2021 11:08:11 12/26/19 22 12/25/2021 COMPL ETE BLOOD COUNT MCH 33 pg 26-35 normal Not Available [facility] [address] [place] [address], [address], 12/25/2021 11:08:11 12/26/19 22 12/25/2021 COMPL ETE BLOOD COUNT MCHC 34 g/dL 32-36 normal Not Available [facility] [address] [place] [address], [address], 12/25/2021 11:08:11 12/26/19 22 12/25/2021 COMPL ETE BLOOD COUNT RDW 13.9 % 11.0-1 5.0 normal Not Available [facility] [address] [place] [address], [address], 12/25/2021 11:08:11 12/26/19 22 12/25/2021 COMPL ETE BLOOD COUNT MPV 8.6 fL 6.2-10 .5 normal Not Available [facility] [address] [place] [address], [address], 12/25/2021 11:08:11 12/26/19 22 12/25/2021 COMPL ETE BLOOD COUNT platelet count 289 K/uL 130-40 0 normal Not Available [facility] [address] [place] [address], [address], 12/25/2021 11:08:11 12/26/19 22 12/25/2021 COMPL ETE BLOOD COUNT neutrophil,a bsolute 3.0 K/uL 1.6-8. 4 normal Not Available [facility] [address] [place] [address], [address], 12/25/2021 11:08:11 12/26/19 22 12/25/2021 COMPL ETE BLOOD COUNT lymphocyte,a bsolute 2.5 K/uL 0.4-5. 1 normal Not Available [facility] [address] [place] [address], [address], 12/25/2021 11:08:11 12/26/19 22 12/25/2021 COMPL ETE BLOOD COUNT monocyte,abs olute 0.8 K/uL 0.0-1. 2 normal Not Available [facility] [address] [place] [address], [address], 12/25/2021 11:08:11 12/26/19 22 12/25/2021 COMPL ETE BLOOD COUNT eosinophil,a bsolute 0.1 K/uL 0.0-0. 8 normal Not Available [facility] [address] [place] [address], [address], 12/25/2021 11:08:11 12/26/19 22 12/25/2021 COMPL ETE BLOOD COUNT basophil,abs olute 0.1 K/uL 0.0-0. 3 normal Not Available [facility] [address] [place] [address], [address], 12/25/2021 11:08:11 12/26/19 22 12/25/2021 COMPL ETE BLOOD COUNT % neutrophils 46.6 % 42.0-7 8.0 normal Not Available [facility] [address] [place] [address], [address], 12/25/2021 11:08:11 12/26/19 22 12/25/2021 COMPL ETE BLOOD COUNT % lymphocytes 37.7 % 11.0-4 7.0 normal Not Available [facility] [address] [place] [address], [address], 12/25/2021 11:08:11 12/26/19 22 12/25/2021 COMPL ETE BLOOD COUNT % monocytes 12.6 % 0.0-11 .0 high Not Available [facility] [address] [place] [address], [address], 12/25/2021 11:08:11 12/26/19 22 12/25/2021 COMPL ETE BLOOD COUNT % eosinophils 2.3 % 0.0-7. 0 normal Not Available [facility] [address] [place] [address], [address], 12/25/2021 11:08:11 12/26/19 22 12/25/2021 COMPL ETE BLOOD COUNT % basophils 0.8 % 0.0-3. 0 normal Not Available [facility] [address] [place] [address], [address], 12/25/2021 11:08:11 12/26/19 22 12/25/2021 COMPL ETE BLOOD COUNT nucleated red cells 0.1 % 0.0-0. 9 normal Not Available [facility] [address] [place] [address], [address], 12/25/2021 11:08:11 12/26/19 22 12/25/2021 COMPL ETE BLOOD COUNT nucleated RBCs, absolute 0.01 K/uL not estab. normal Not Available [facility] [address] [place] [address], [address], 12/25/2021 11:08:11 12/26/19 22 12/25/2021 COMP. METAB OLIC PANEL glucose 101 mg/dL 74-100 high Not Available [facility] [address] [place] [address], [address], 12/25/2021 11:39:43 12/26/19 22 12/25/2021 COMP. METAB OLIC PANEL blood urea nitrogen 16 mg/dL 6-20 normal Not Available [facility] [address] [place] [address], [address], 12/25/2021 11:39:43 12/26/19 22 12/25/2021 COMP. METAB OLIC PANEL creatinine 0.90 mg/dL 0.50-0 .95 normal Not Available [facility] [address] [place] [address], [address], 12/25/2021 11:39:43 12/26/19 22 12/25/2021 COMP. METAB OLIC PANEL BUN/creatini ne ratio 18 (calc ) 10-20 normal Not Available [facility] [address] [place] [address], [address], 12/25/2021 11:39:43 12/26/19 22 12/25/2021 COMP. METAB OLIC PANEL sodium 142 mmol/ L 136-14 5 normal Not Available [facility] [address] [place] [address], [address], 12/25/2021 11:39:43 12/26/19 22 12/25/2021 COMP. METAB OLIC PANEL potassium 4.8 mmol/ L 3.4-5. 0 normal Not Available [facility] [address] [place] [address], [address], 12/25/2021 11:39:43 12/26/19 22 12/25/2021 COMP. METAB OLIC PANEL chloride 103 mmol/ L 98-107 normal Not Available [facility] [address] [place] [address], [address], 12/25/2021 11:39:43 12/26/19 22 12/25/2021 COMP. METAB OLIC PANEL carbon dioxide 27 mmol/ L 22-31 normal Not Available [facility] [address] [place] [address], [address], 12/25/2021 11:39:43 12/26/19 22 12/25/2021 COMP. METAB OLIC PANEL anion gap 12 (calc ) 7-25 normal Not Available [facility] [address] [place] [address], [address], 12/25/2021 11:39:43 12/26/19 22 12/25/2021 COMP. METAB OLIC PANEL calcium 9.8 mg/dL 8.6-10 .2 normal Not Available [facility] [address] [place] [address], [address], 12/25/2021 11:39:43 12/26/19 22 12/25/2021 COMP. METAB OLIC PANEL total protein 7.8 g/dL 6.4-8. 3 normal Not Available [facility] [address] [place] [address], [address], 12/25/2021 11:39:43 12/26/19 22 12/25/2021 COMP. METAB OLIC PANEL albumin 4.4 g/dL 3.5-5. 2 normal Not Available [facility] [address] [place] [address], [address], 12/25/2021 11:39:43 12/26/19 22 12/25/2021 COMP. METAB OLIC PANEL globulin 3.4 g/dL_ (calc ) 1.5-4. 5 normal Not Available [facility] [address] [place] [address], [address], 12/25/2021 11:39:43 12/26/19 22 12/25/2021 COMP. METAB OLIC PANEL albumin/glob ulin ratio 1.3 (calc ) 1.1-2. 5 normal Not Available [facility] [address] [place] [address], [address], 12/25/2021 11:39:43 12/26/19 22 12/25/2021 COMP. METAB OLIC PANEL bilirubin, total 0.2 mg/dL 0.1-1. 2 normal Not Available [facility] [address] [place] [address], [address], 12/25/2021 11:39:43 12/26/19 22 12/25/2021 COMP. METAB OLIC PANEL alkaline phosphatase 73 U/L 30-121 normal Not Available [facility] [address] [place] [address], [address], 12/25/2021 11:39:43 12/26/19 22 12/25/2021 COMP. METAB OLIC PANEL AST 24 U/L 0-32 normal Not Available [facility] [address] [place] [address], [address], 12/25/2021 11:39:43 12/26/19 22 12/25/2021 COMP. METAB OLIC PANEL ALT 21 U/L 0-33 normal Not Available [facility] [address] [place] [address], [address], 12/25/2021 11:39:43 12/26/19 22 12/25/2021 COMP. METAB OLIC PANEL GFR 80 >= 60 normal Not Available [facility] [address] [place] [address], [address], 12/25/2021 11:39:43 12/26/19 22 12/25/2021 COMP. METAB OLIC PANEL GFR non- 69 >= 60 normal NOT E Chron ic kidne y disea se is defin ed as kidne y damag e for more than 3 month s or a GFR less than 60 mL/mi n/1.7 3 m2 for great er than 3 month s. This calcu latio n has not been valid ated in pregn ant women . For pedia tric patie nts refer to Natio nal Kidne y Found ation https ://ester w.jaime dong.o rg/pr ofess ional s/KDO QI/gf r_cal culat orPed Not Available [facility] [address] [place] [address], [address], 12/25/2021 11:39:43 12/25/19 23 12/24/2022 COMPL ETE BLOOD COUNT white blood cells 7.5 K/uL 3.8-10 .8 normal Not Available [facility] [address] [place] [address], [address], 12/24/2022 11:20:08 12/25/19 23 12/24/2022 COMPL ETE BLOOD COUNT red blood cells 4.12 M/uL 3.80-5 .20 normal Not Available [facility] [address] [place] [address], [address], 12/24/2022 11:20:08 12/25/19 23 12/24/2022 COMPL ETE BLOOD COUNT hemoglobin 14.0 g/dL 12.0-1 6.0 normal Not Available [facility] [address] [place] [address], [address], 12/24/2022 11:20:08 12/25/19 23 12/24/2022 COMPL ETE BLOOD COUNT hematocrit 41.1 % 35.0-4 7.0 normal Not Available [facility] [address] [place] [address], [address], 12/24/2022 11:20:08 12/25/19 23 12/24/2022 COMPL ETE BLOOD COUNT MCV 100 fL 80-100 normal Not Available [facility] [address] [place] [address], [address], 12/24/2022 11:20:08 12/25/19 23 12/24/2022 COMPL ETE BLOOD COUNT MCH 34 pg 26-35 normal Not Available [facility] [address] [place] [address], [address], 12/24/2022 11:20:08 12/25/19 23 12/24/2022 COMPL ETE BLOOD COUNT MCHC 34 g/dL 32-36 normal Not Available [facility] [address] [place] [address], [address], 12/24/2022 11:20:08 12/25/19 23 12/24/2022 COMPL ETE BLOOD COUNT RDW 14.8 % 11.0-1 5.0 normal Not Available [facility] [address] [place] [address], [address], 12/24/2022 11:20:08 12/25/19 23 12/24/2022 COMPL ETE BLOOD COUNT MPV 8.7 fL 6.2-10 .5 normal Not Available [facility] [address] [place] [address], [address], 12/24/2022 11:20:08 12/25/19 23 12/24/2022 COMPL ETE BLOOD COUNT platelet count 297 K/uL 130-40 0 normal Plate let count confi rmed by slide estim ate. Not Available [facility] [address] [place] [address], [address], 12/24/2022 11:20:08 12/25/19 23 12/24/2022 COMPL ETE BLOOD COUNT neutrophil,a bsolute 3.3 K/uL 1.6-8. 4 normal Not Available [facility] [address] [place] [address], [address], 12/24/2022 11:20:08 12/25/19 23 12/24/2022 COMPL ETE BLOOD COUNT lymphocyte,a bsolute 3.0 K/uL 0.4-5. 1 normal Not Available [facility] [address] [place] [address], [address], 12/24/2022 11:20:08 12/25/19 23 12/24/2022 COMPL ETE BLOOD COUNT monocyte,abs olute 0.9 K/uL 0.0-1. 2 normal Not Available [facility] [address] [place] [address], [address], 12/24/2022 11:20:08 12/25/19 23 12/24/2022 COMPL ETE BLOOD COUNT eosinophil,a bsolute 0.2 K/uL 0.0-0. 8 normal Not Available [facility] [address] [place] [address], [address], 12/24/2022 11:20:08 12/25/19 23 12/24/2022 COMPL ETE BLOOD COUNT basophil,abs olute 0.1 K/uL 0.0-0. 3 normal Not Available [facility] [address] [place] [address], [address], 12/24/2022 11:20:08 12/25/19 23 12/24/2022 COMPL ETE BLOOD COUNT % neutrophils 44.3 % 42.0-7 8.0 normal Not Available [facility] [address] [place] [address], [address], 12/24/2022 11:20:08 12/25/19 23 12/24/2022 COMPL ETE BLOOD COUNT % lymphocytes 40.1 % 11.0-4 7.0 normal Not Available [facility] [address] [place] [address], [address], 12/24/2022 11:20:08 12/25/19 23 12/24/2022 COMPL ETE BLOOD COUNT % monocytes 12.1 % 0.0-11 .0 high Not Available [facility] [address] [place] [address], [address], 12/24/2022 11:20:08 12/25/19 23 12/24/2022 COMPL ETE BLOOD COUNT % eosinophils 2.7 % 0.0-7. 0 normal Not Available [facility] [address] [place] [address], [address], 12/24/2022 11:20:08 12/25/19 23 12/24/2022 COMPL ETE BLOOD COUNT % basophils 0.8 % 0.0-3. 0 normal Not Available [facility] [address] [place] [address], [address], 12/24/2022 11:20:08 12/25/19 23 12/24/2022 COMPL ETE BLOOD COUNT nucleated red cells 0.0 % 0.0-0. 9 normal Not Available [facility] [address] [place] [address], [address], 12/24/2022 11:20:08 12/25/19 23 12/24/2022 COMPL ETE BLOOD COUNT nucleated RBCs, absolute 0.00 K/uL not estab. normal Not Available [facility] [address] [place] [address], [address], 12/24/2022 11:20:08 12/25/19 23 12/24/2022 MORPH OLOGY platelet morphology NORMAL normal Not Available [facility] [address] [place] [address], [address], 12/24/2022 11:20:10 12/25/19 23 12/24/2022 MORPH OLOGY ovalocytes SLIGHT abnormal Not Available [facility] [address] [place] [address], [address], 12/24/2022 11:20:10 12/25/19 23 12/24/2022 MORPH OLOGY stomatocytes SLIGHT abnormal Smear revie wed to confi rm cell morph ology . Not Available [facility] [address] [place] [address], [address], 12/24/2022 11:20:10 12/25/19 23 12/24/2022 COMP. METAB OLIC PANEL glucose 105 mg/dL 74-100 high Not Available [facility] [address] [place] [address], [address], 12/24/2022 11:26:34 12/25/19 23 12/24/2022 COMP. METAB OLIC PANEL blood urea nitrogen 9 mg/dL 6-20 normal Not Available [facility] [address] [place] [address], [address], 12/24/2022 11:26:34 12/25/19 23 12/24/2022 COMP. METAB OLIC PANEL creatinine 0.70 mg/dL 0.50-0 .95 normal Not Available [facility] [address] [place] [address], [address], 12/24/2022 11:26:34 12/25/19 23 12/24/2022 COMP. METAB OLIC PANEL BUN/creatini ne ratio 13 (calc ) 10-20 normal Not Available [facility] [address] [place] [address], [address], 12/24/2022 11:26:34 12/25/19 23 12/24/2022 COMP. METAB OLIC PANEL sodium 140 mmol/ L 136-14 5 normal Not Available [facility] [address] [place] [address], [address], 12/24/2022 11:26:34 12/25/19 23 12/24/2022 COMP. METAB OLIC PANEL potassium 4.5 mmol/ L 3.4-5. 0 normal Not Available [facility] [address] [place] [address], [address], 12/24/2022 11:26:34 12/25/19 23 12/24/2022 COMP. METAB OLIC PANEL chloride 101 mmol/ L 98-107 normal Not Available [facility] [address] [place] [address], [address], 12/24/2022 11:26:34 12/25/19 23 12/24/2022 COMP. METAB OLIC PANEL carbon dioxide 28 mmol/ L 22-31 normal Not Available [facility] [address] [place] [address], [address], 12/24/2022 11:26:34 12/25/19 23 12/24/2022 COMP. METAB OLIC PANEL anion gap 11 (calc ) 7-25 normal Not Available [facility] [address] [place] [address], [address], 12/24/2022 11:26:34 12/25/19 23 12/24/2022 COMP. METAB OLIC PANEL calcium 10.3 mg/dL 8.6-10 .2 high Not Available [facility] [address] [place] [address], [address], 12/24/2022 11:26:34 12/25/19 23 12/24/2022 COMP. METAB OLIC PANEL total protein 7.8 g/dL 6.4-8. 3 normal Not Available [facility] [address] [place] [address], [address], 12/24/2022 11:26:34 12/25/19 23 12/24/2022 COMP. METAB OLIC PANEL albumin 4.2 g/dL 3.5-5. 2 normal Not Available [facility] [address] [place] [address], [address], 12/24/2022 11:26:34 12/25/19 23 12/24/2022 COMP. METAB OLIC PANEL globulin 3.6 g/dL_ (calc ) 1.5-4. 5 normal Not Available [facility] [address] [place] [address], [address], 12/24/2022 11:26:34 12/25/19 23 12/24/2022 COMP. METAB OLIC PANEL albumin/glob ulin ratio 1.2 (calc ) 1.1-2. 5 normal Not Available [facility] [address] [place] [address], [address], 12/24/2022 11:26:34 12/25/19 23 12/24/2022 COMP. METAB OLIC PANEL bilirubin, total 0.2 mg/dL 0.1-1. 2 normal Not Available [facility] [address] [place] [address], [address], 12/24/2022 11:26:34 12/25/19 23 12/24/2022 COMP. METAB OLIC PANEL alkaline phosphatase 80 U/L 30-121 normal Not Available [facility] [address] [place] [address], [address], 12/24/2022 11:26:34 12/25/19 23 12/24/2022 COMP. METAB OLIC PANEL AST 25 U/L 0-32 normal Not Available [facility] [address] [place] [address], [address], 12/24/2022 11:26:34 12/25/19 23 12/24/2022 COMP. METAB OLIC PANEL ALT 24 U/L 0-33 normal Not Available [facility] [address] [place], [address], 12/24/2022 11:26:34 12/25/19 23 12/24/2022 COMP. METAB OLIC PANEL GFR 97 >= 60 normal NOT E New calcu latio n for GFR (CKD- EPI 2020) is formu lated witho ut race adjus tment facto rs at the recom menda tion of the Brandt Turner y Sebastian nicolas and Therese Antone ty of Nephr ology . This calcu latio n has not been valid ated in pregn ant women . For pedia tric patie nts refer to https ://estre simon.jaime dong.o rg/pr gelacio marc s/KDO QI/gf r_cal culat orPed Not Available [facility] [address] [place] [address], [address], 12/24/2022 11:26:34 12/30/19 24 12/30/2023 COMPL ETE BLOOD COUNT white blood cells 6.8 10*3/ uL 3.8-10 .8 normal Not Available [facility] [address] [place], [address], 12/30/2023 10:41:35 12/30/19 24 12/30/2023 COMPL ETE BLOOD COUNT red blood cells 4.22 10*6/ uL 3.80-5 .20 normal Not Available [facility] [address] [place] [address], [address], 12/30/2023 10:41:35 12/30/19 24 12/30/2023 COMPL ETE BLOOD COUNT hemoglobin 14.6 g/dL 12.0-1 6.0 normal Not Available [facility] [address] [place] [address], [address], 12/30/2023 10:41:35 12/30/19 24 12/30/2023 COMPL ETE BLOOD COUNT hematocrit 42.5 % 35.0-4 7.0 normal Not Available [facility] [address] [place] [address], [address], 12/30/2023 10:41:35 12/30/19 24 12/30/2023 COMPL ETE BLOOD COUNT MCV 101 fL 80-100 high Not Available [facility] [address] [place] [address], [address], 12/30/2023 10:41:35 12/30/19 24 12/30/2023 COMPL ETE BLOOD COUNT MCH 35 pg 26-35 normal Not Available [facility] [address] [place] [address], [address], 12/30/2023 10:41:35 12/30/19 24 12/30/2023 COMPL ETE BLOOD COUNT MCHC 34 g/dL 32-36 normal Not Available [facility] [address] [place] [address], [address], 12/30/2023 10:41:35 12/30/19 24 12/30/2023 COMPL ETE BLOOD COUNT RDW 13.6 % 11.0-1 5.0 normal Not Available [facility] [address] [place] [address], [address], 12/30/2023 10:41:35 12/30/19 24 12/30/2023 COMPL ETE BLOOD COUNT MPV 8.6 fL 6.2-10 .5 normal Not Available [facility] [address] [place] [address], [address], 12/30/2023 10:41:35 12/30/19 24 12/30/2023 COMPL ETE BLOOD COUNT platelet count 327 10*3/ uL 150-40 0 normal Not Available [facility] [address] [place] [address], [address], 12/30/2023 10:41:35 12/30/19 24 12/30/2023 COMPL ETE BLOOD COUNT neutrophil,a bsolute 2.7 10*3/ uL 1.6-8. 4 normal Not Available [facility] [address] [place] [address], [address], 12/30/2023 10:41:35 12/30/19 24 12/30/2023 COMPL ETE BLOOD COUNT lymphocyte,a bsolute 3.0 10*3/ uL 0.4-5. 1 normal Not Available [facility] [address] [place] [address], [address], 12/30/2023 10:41:35 12/30/19 24 12/30/2023 COMPL ETE BLOOD COUNT monocyte,abs olute 0.9 10*3/ uL 0.0-1. 2 normal Not Available [facility] [address] [place] [address], [address], 12/30/2023 10:41:35 12/30/19 24 12/30/2023 COMPL ETE BLOOD COUNT eosinophil,a bsolute 0.1 10*3/ uL 0.0-0. 8 normal Not Available [facility] [address] [place] [address], [address], 12/30/2023 10:41:35 12/30/19 24 12/30/2023 COMPL ETE BLOOD COUNT basophil,abs olute 0.1 10*3/ uL 0.0-0. 3 normal Not Available [facility] [address] [place] [address], [address], 12/30/2023 10:41:35 12/30/19 24 12/30/2023 COMPL ETE BLOOD COUNT % neutrophils 39.8 % 42.0-7 8.0 low Not Available [facility] [address] [place] [address], [address], 12/30/2023 10:41:35 12/30/19 24 12/30/2023 COMPL ETE BLOOD COUNT % lymphocytes 44.0 % 11.0-4 7.0 normal Not Available [facility] [address] [place] [address], [address], 12/30/2023 10:41:35 12/30/19 24 12/30/2023 COMPL ETE BLOOD COUNT % monocytes 13.4 % 0.0-11 .0 high Not Available [facility] [address] [place] [address], [address], 12/30/2023 10:41:35 12/30/19 24 12/30/2023 COMPL ETE BLOOD COUNT % eosinophils 2.0 % 0.0-7. 0 normal Not Available [facility] [address] [place] [address], [address], 12/30/2023 10:41:35 12/30/19 24 12/30/2023 COMPL ETE BLOOD COUNT % basophils 0.8 % 0.0-3. 0 normal Not Available [facility] [address] [place] [address], [address], 12/30/2023 10:41:35 12/30/19 24 12/30/2023 COMPL ETE BLOOD COUNT nucleated red cells 0.0 % 0.0-0. 9 normal Not Available [facility] [address] [place] [address], [address], 12/30/2023 10:41:35 12/30/19 24 12/30/2023 COMPL ETE BLOOD COUNT nucleated RBCs, absolute 0.00 10*3/ uL not estab. normal Not Available [facility] [address] [place] [address], [address], 12/30/2023 10:41:35 12/30/19 24 12/30/2023 COMP. METAB OLIC PANEL glucose 98 mg/dL 74-100 normal Not Available [facility] [address] [place] [address], [address], 12/30/2023 11:06:04 12/30/19 24 12/30/2023 COMP. METAB OLIC PANEL blood urea nitrogen 15 mg/dL 6-20 normal Not Available [facility] [address] [place] [address], [address], 12/30/2023 11:06:04 12/30/19 24 12/30/2023 COMP. METAB OLIC PANEL creatinine 0.84 mg/dL 0.50-0 .95 normal Not Available [facility] [address] [place] [address], [address], 12/30/2023 11:06:04 12/30/19 24 12/30/2023 COMP. METAB OLIC PANEL BUN/creatini ne ratio 18 (calc ) 10-20 normal Not Available [facility] [address] [place] [address], [address], 12/30/2023 11:06:04 12/30/19 24 12/30/2023 COMP. METAB OLIC PANEL sodium 138 mmol/ L 136-14 5 normal Not Available [facility] [address] [place] [address], [address], 12/30/2023 11:06:04 12/30/19 24 12/30/2023 COMP. METAB OLIC PANEL potassium 4.4 mmol/ L 3.4-5. 0 normal Not Available [facility] [address] [place] [address], [address], 12/30/2023 11:06:04 12/30/19 24 12/30/2023 COMP. METAB OLIC PANEL chloride 100 mmol/ L 98-107 normal Not Available [facility] [address] [place] [address], [address], 12/30/2023 11:06:04 12/30/19 24 12/30/2023 COMP. METAB OLIC PANEL carbon dioxide 28 mmol/ L 22-31 normal Not Available [facility] [address] [place] [address], [address], 12/30/2023 11:06:04 12/30/19 24 12/30/2023 COMP. METAB OLIC PANEL anion gap 10 (calc ) 7-25 normal Not Available [facility] [address] [place] [address], [id number], 12/30/2023 11:06:04 12/30/19 24 12/30/2023 COMP. METAB OLIC PANEL calcium 9.8 mg/dL 8.6-10 .2 normal Not Available [facility] [address] [place] [address], [id number], 12/30/2023 11:06:04 12/30/19 24 12/30/2023 COMP. METAB OLIC PANEL total protein 7.8 g/dL 6.4-8. 3 normal Not Available [facility] [address] [place] [address], [id number], 12/30/2023 11:06:04 12/30/19 24 12/30/2023 COMP. METAB OLIC PANEL albumin 4.0 g/dL 3.5-5. 2 normal Not Available [facility] [address] [place] [address], [id number], 12/30/2023 11:06:04 12/30/19 24 12/30/2023 COMP. METAB OLIC PANEL globulin 3.8 1.5-4. 5 normal Not Available [facility] [address] [place] [address], [id number], 12/30/2023 11:06:04 12/30/19 24 12/30/2023 COMP. METAB OLIC PANEL albumin/glob ulin ratio 1.1 (calc ) 1.1-2. 5 normal Not Available [facility] [address] [place] [address], [id number], 12/30/2023 11:06:04 12/30/19 24 12/30/2023 COMP. METAB OLIC PANEL bilirubin, total 0.2 mg/dL 0.1-1. 2 normal Not Available [facility] [address] [place] [address], [id number], 12/30/2023 11:06:04 12/30/19 24 12/30/2023 COMP. METAB OLIC PANEL alkaline phosphatase 83 U/L 30-121 normal Not Available [facility] [address] [place] [address], [phone], 12/30/2023 11:06:04 12/30/19 24 12/30/2023 COMP. METAB OLIC PANEL AST 20 U/L 0-32 normal Not Available [facility] [address] [place] [address], [phone], 12/30/2023 11:06:04 12/30/19 24 12/30/2023 COMP. METAB OLIC PANEL ALT 18 U/L 0-33 normal Not Available [facility] [address] [place] [address], [phone], 12/30/2023 11:06:04 12/30/19 24 12/30/2023 COMP. METAB OLIC PANEL GFR 78 >= 60 normal NOT E New calcu latio n for GFR (CKD- EPI 2020) is formu lated witho ut race adjus tment facto rs at the recom menda tion of the Brandt Turner y Sebastian atyasmin and Ammoise pablo Socie ty of Nephr ology . This calcu latio n has not been valid ated in pregn ant women . For pedia tric patie nts refer to https ://ester dong.o rg/pr ofess ional s/KDO QI/gf r_cal culat orPed Not Available [facility] [address] [place] [address], [phone], 12/30/2023 11:06:04 01/03/20 21 01/02/2021 CT, chest , w/o contr ast [facility] [address] [place] [id number] [place] Name: JENNIFER Medrano t : [phone] 0 Orderi ng Provid er: TRUDY PERALTA EXAM DATE: 2020 EXAM: CT CHEST W/O CONTRA ST CLINIC AL INFORM ATION: Histor y of lympho ma and breast cancer . TECHNI QUE: Multip le axial CT images of the chest were obtain ed withou t inject ion of IV contra st. COMPAR DEMIAN: None FINDIN GS: AIRWAY S AND LUNGS: Trache a, princi pal bronch i and major bronch ial branch es are patent and normal . Stable mild fibrot ic change s are seen in the left lung apex. Calcif ied granul omata are seen in both lungs. Mild fibrot ic change s are seen in both lung bases. MEDIAS TINUM: Limite d evalua tion due to absenc e of IV contra st. Calcif ied lymph nodes are seen in the medias tinum and leanne. Aorta shows athero sclero tic calcif icatio ns with normal calibe r. SVC, pulmon munir arteri es, pulmon munir veins and their major branch es and tribut neal are normal . Machado ry artery calcif icatio ns are noted. PLEURA AND CHEST WALL: No pleura l effusi on or mass. Bilate ral breast recons tructi on is noted. No chest wall abnorm ality. UPPER ABDOMI NAL ORGANS : Liver, gallbl adder, spleen , pancre as, adrena ls and both kidney s are normal . COMBIN ED IMPRES DELFINO: No CT eviden ce of neopla stic recurr ence in the chest or upper abdome n. Interp reted By: Yonis Ge MD Electr onical ly Signed By: Yonis Ge MD on 021 10:34 AM [email or web address] [facility] [address] [place], [phone], 01/02/2021 11:20:26 12/26/19 22 12/25/2021 CT, chest , w[facility] [address] [place] [id number] [place] Name: JENNIFER Medrano t : [phone] 0 Orderi ng Provid er: TRUDY PERALTA EXAM DATE: 2021 EXAM: CT CHEST W/O CONTRA ST CLINIC AL INFORM ATION: Histor y of Hodgki n's diseas e and breast cancer . TECHNI QUE: Multip le axial CT images of the chest were obtain ed withou t inject ion of IV contra st. COMPAR DEMIAN: 021. FINDIN GS: AIRWAY S AND LUNGS: Trache a, princi pal bronch i and major bronch ial branch es are patent and normal . Calcif ied granul omata are seen in both lungs. Mild fibrot ic change s are seen in the left lung apex. MEDIAS TINUM: Limite d evalua tion due to absenc e of IV contra st. No medias tinal lympha denopa thy. Aorta shows athero sclero tic calcif icatio ns with normal calibe r. SVC, pulmon munir arteri es, pulmon munir veins and their major branch es and tribut neal are normal . Machado ry artery calcif icatio ns are noted. PLEURA AND CHEST WALL: No pleura l effusi on or mass. Bilate ral breast recons tructi on is seen. No axilla ry lympha denopa thy is seen. No chest wall abnorm ality. UPPER ABDOMI NAL ORGANS : Liver, gallbl adder, spleen , pancre as, adrena ls and both kidney s are normal . COMBIN ED IMPRES DELFINO: No CT eviden ce of neopla stic recurr ence in the chest or upper abdome n. Interp reted By: Yonis Ge MD Electr onical ly Signed By: Yonis Ge MD on 12/26/19 22 12:18 PM [email or web address] [address] [place] [address], [phone], 12/25/2021 12:46:16 12/25/19 23 12/24/2022 CT, chest , w/o contr ast [facility] [address] [place] [id number] [place] Name: JENNIFER murrell : [phone] 0 Orderi ng Provid er: TRUDY PERALTA EXAM DATE: 2022 EXAM: CT CHEST W/O CONTRA ST CLINIC AL INFORM ATION: Kevan roberts. Breast cancer TECHNI QUE: Multip le axial CT images of the chest were obtain ed withou t inject ion of IV contra st. COMPAR DEMIAN: 2021 FINDIN GS: AIRWAY S AND LUNGS: Trache a, princi pal bronch i and major bronch ial branch es are patent and normal . Calcif ied granul omas are noted. No suspic ious mass or infilt rate in the lung watson . MEDIAS TINUM: No medias tinal lympha denopa thy. Aorta, SVC, pulmon munir arteri es, pulmon munir veins and their major branch es and tribut neal are normal . No gross cardia c abnorm ality. PLEURA AND CHEST WALL: No pleura l effusi on or mass. No chest wall abnorm ality. UPPER ABDOMI NAL ORGANS : Liver, gallbl adder, spleen , pancre as, adrena ls and both kidney s are normal . COMBIN ED IMPRES DELFINO: Exam is stable . No indica tion neopla stic recurr ence involv ing the chest and upper abdome n Interp reted By: Massiel Barraza MD Electr onical ly Signed By: Massiel Barraza MD on 12/25/19 11:[address] [facility] [address], [phone], 12/24/2022 11:32:40 12/30/19 24 12/30/2023 CT, chest , w/o contr ast [facility] [address] [address] [place] Name: JENNIFER murrell : [address] 0 Orderi ng Provid er: TRUDY Rodrigez Albertina CAMP EXAM DATE: 2023 EXAM: CT CHEST W/O CONTRA ST CLINIC AL INFORM ATION: Breast cancer . Lympho ma. Evalua te for lung nodule TECHNI QUE: Multip le axial CT images of the chest were obtain ed withou t inject ion of IV contra st. COMPAR DEMIAN: 023, 2022, 2021 FINDIN GS: AIRWAY S AND LUNGS: Trache a, princi pal bronch i and major bronch ial branch es are patent and normal . Focal somewh at nodula r appear ing pleura l thicke tamara involv ing the anteri or medial left apex. This is stable and likely chroni c fibron odular change s multip le benign calcif ied granul omas are presen t. MEDIAS TINUM: No medias tinal lympha denopa thy. SVC, pulmon munir arteri es, pulmon munir veins and their major branch es and tribut neal are normal . Extens cici machado ry calcif icatio ns. Heavil y calcif ied thorac ic aorta. PLEURA AND CHEST WALL: No pleura l effusi on or mass. No chest wall abnorm ality. UPPER ABDOMI NAL ORGANS : Liver, gallbl adder, spleen , pancre as, adrena ls and both kidney s are normal . COMBIN ED IMPRES DELFINO: No defini te suspic ious lung nodule is noted. There is focal nodula r left apical pleura l thicke tamara howeve r this is stable over multip le prior studie s Interp reted By: Massiel Barraza MD Electr onical ly Signed By: Massiel Barraza MD on 024 11:01 AM [email or web address] [facility] [address], [phone], 06/05/2024 13:17:58 Result Notes Documentation Provider Name and Address Organization Details Recorded Time Ct, Chest, W/o Contrast : [address] [address] Patient Name: JENNIFER KRISHNAMURTHY Patient : 1960 Patient Ordering Provider: ÓSCAR PERALTA EXAM DATE: 01/02/2021 EXAM: CT CHEST W/O CONTRAST CLINICAL INFORMATION: History of lymphoma and breast cancer. TECHNIQUE: Multiple axial CT images of the chest were obtained without injection of IV contrast. COMPARISON: None FINDINGS: AIRWAYS AND LUNGS: Trachea, principal bronchi and major bronchial branches are patent and normal. Stable mild fibrotic changes are seen in the left lung apex. Calcified granulomata are seen in both lungs. Mild fibrotic changes are seen in both lung bases. MEDIASTINUM: Limited evaluation due to absence of IV contrast. Calcified lymph nodes are seen in the mediastinum and leanne. Aorta shows atherosclerotic calcifications with normal caliber. SVC, pulmonary arteries, pulmonary veins and their major branches and tributaries are normal. Coronary artery calcifications are noted. PLEURA AND CHEST WALL: No pleural effusion or mass. Bilateral breast reconstruction is noted. No chest wall abnormality. UPPER ABDOMINAL ORGANS: Liver, gallbladder, spleen, pancreas, adrenals and both kidneys are normal. COMBINED IMPRESSION: No CT evidence of neoplastic recurrence in the chest or upper abdomen. Interpreted By: Babak Ge MD ÓSCAR PERALTA MD [address] [place] [address], [phone] [place] [address] 01/02/2021 11:20:26 Ct, Chest, W/o Contrast : [address] [address] Patient Name: JENNIFER KRISHNAMURTHY Patient : 1960 Patient Ordering Provider: ÓSCAR PERALTA EXAM DATE: 12/25/2021 EXAM: CT CHEST W/O CONTRAST CLINICAL INFORMATION: History of Hodgkin's disease and breast cancer. TECHNIQUE: Multiple axial CT images of the chest were obtained without injection of IV contrast. COMPARISON: 01/02/2021. FINDINGS: AIRWAYS AND LUNGS: Trachea, principal bronchi and major bronchial branches are patent and normal. Calcified granulomata are seen in both lungs. Mild fibrotic changes are seen in the left lung apex. MEDIASTINUM: Limited evaluation due to absence of IV contrast. No mediastinal lymphadenopathy. Aorta shows atherosclerotic calcifications with normal caliber. SVC, pulmonary arteries, pulmonary veins and their major branches and tributaries are normal. Coronary artery calcifications are noted. PLEURA AND CHEST WALL: No pleural effusion or mass. Bilateral breast reconstruction is seen. No axillary lymphadenopathy is seen. No chest wall abnormality. UPPER ABDOMINAL ORGANS: Liver, gallbladder, spleen, pancreas, adrenals and both kidneys are normal. COMBINED IMPRESSION: No CT evidence of neoplastic recurrence in the chest or upper abdomen. Interpreted By: Babak Ge MD ÓSCAR PERALTA MD [address] [place] [address], [phone], [facility] 12/25/2021 12:46:16 Ct, Chest, W/o Contrast : [address] [address] Patient Name: JENNIFER KRISHNAMURTHY Patient : 1960 Patient Ordering Provider: ÓSCAR PERALTA EXAM DATE: 12/24/2022 EXAM: CT CHEST W/O CONTRAST CLINICAL INFORMATION: Lymphoma. Breast cancer TECHNIQUE: Multiple axial CT images of the chest were obtained without injection of IV contrast. COMPARISON: 12/25/2021 FINDINGS: AIRWAYS AND LUNGS: Trachea, principal bronchi and major bronchial branches are patent and normal. Calcified granulomas are noted. No suspicious mass or infiltrate in the lung watson. MEDIASTINUM: No mediastinal lymphadenopathy. Aorta, SVC, pulmonary arteries, pulmonary veins and their major branches and tributaries are normal. No gross cardiac abnormality. PLEURA AND CHEST WALL: No pleural effusion or mass. No chest wall abnormality. UPPER ABDOMINAL ORGANS: Liver, gallbladder, spleen, pancreas, adrenals and both kidneys are normal. COMBINED IMPRESSION: Exam is stable. No indication neoplastic recurrence involving the chest and upper abdomen Interpreted By: Massiel Barraza MD ÓSCAR PERALTA MD [address] [place] [address], [phone], [facility] 12/24/2022 11:32:40 Ct, Chest, W/o Contrast : [address] [address] Patient Name: JENNIFER KRISHNAMURTHY Patient : 1960 Patient Ordering Provider: ÓSCAR PERALTA EXAM DATE: 12/30/2023 EXAM: CT CHEST W/O CONTRAST CLINICAL INFORMATION: Breast cancer. Lymphoma. Evaluate for lung nodule TECHNIQUE: Multiple axial CT images of the chest were obtained without injection of IV contrast. COMPARISON: 03/03/2023, 12/24/2022, 12/25/2021 FINDINGS: AIRWAYS AND LUNGS: Trachea, principal bronchi and major bronchial branches are patent and normal. Focal somewhat nodular appearing pleural thickening involving the anterior medial left apex. This is stable and likely chronic fibronodular changes multiple benign calcified granulomas are present. MEDIASTINUM: No mediastinal lymphadenopathy. SVC, pulmonary arteries, pulmonary veins and their major branches and tributaries are normal. Extensive coronary calcifications. Heavily calcified thoracic aorta. PLEURA AND CHEST WALL: No pleural effusion or mass. No chest wall abnormality. UPPER ABDOMINAL ORGANS: Liver, gallbladder, spleen, pancreas, adrenals and both kidneys are normal. COMBINED IMPRESSION: No definite suspicious lung nodule is noted. There is focal nodular left apical pleural thickening however this is stable over multiple prior studies Interpreted By: Massiel Barraza MD Moisés Fatimasarbjit [facility] 06/05/2024 13:17:58 Problems Name Problem SNOMED Code Status Onset Date Resolution Date Notes Provider Name and Address Organization Details Recorded Time Malignant tumor of breast 291024803 Active Jesica Fried [facility] 9 10:03:49 Screening for malignant neoplasm of respiratory tract Active Jesica Fried [facility] 9 10:04:05 History of Hodgkin lymphoma 989487189 Active Jesica Fried [facility] 9 10:04:19 Hodgkin's disease of lymph nodes of head, face AND/OR neck 28254958 Completed 04/26/2019 DONAVAN CASTANO MD [address] [place] [address], [phone], [facility] 9 10:15:48 Malignant tumor of breast 088044195 Active 2019 ÓSCAR PERALTA MD [address] [place] [address], [phone], [facility] 0 08:17:19 Problem Notes Documentation Provider Name and Address Organization Details Recorded Time Ent Consult Note : [address] [place] [address]BHWVX, DIANA L (id #[id number], : 1960) [facility] [address] [place] [address] Date: 1RE: Jennifer Krishnamurthy, : 1960, PT ID #[id number] Peralta MD, I would like to thank you for referring Jennifer Krishnamurthy to our practice for consultation and evaluation. I have enclosed a copy of the office evaluation for your records. Sincerely, Electronically Signed by: DONAVAN MONROE [facility] Reason/DateTransition of Care Encounter 12/16/2020 - 11:30AM - ENT [facility] History of Present Illness Ref : Dr. Peralta Chief Complaint:FB sensation in throat Timing: > 1 mo Duration:Constant some days worse than others Location:throat Severity:Moderate Quality:Lump Context:No trauma, history of radiation therapy to her neck in the for Hodgkin's lymphoma. Modifying Factors:No Tx. Assoc Signs and Symptoms:No dysphagia, intermittent hoarseness, no hemoptysis, has reflux and heartburn, intermittent dry cough, has PND due to allergy. NO SOA Review of Systems Patient reports no significant weight loss. She reports no double vision. She reports no bleeding gums. She reports no loss of consciousness. She reports no chest pain. She reports no wheezing. She reports normal appetite. She reports no bleeding problems. She reports no depression. She reports no joint pain/arthralgias. She reports no skin itching. She reports no endocrine symptoms. She reports no sneezing. She reports no difficulty urinating. Physical ExamPatient is a 60-year-old female. Constitutional:General Appearance: well-nourished and in no acute distress. Communication: normal voice quality. Head/Face:Inspection: atraumatic. Facial strength: normal strength. Sinuses: no tenderness. Salivary glands: no parotid masses or submandibular masses. Palpation of the TMJ: non-tender. Eyes:Pupils: EOM intact. Ears:Right Hearing: Rinne AC>BC and Caraballo midline. Left Hearing: Rinne AC>BC. Right External ear: free of lesions. Left External ear: free of lesions. Right Tympanic membrane: landmarks clear. Left Tympanic membrane: landmarks clear. Nose:Nasal Dorsum: symmetric with no visible or palpable deformities. Septum: not markedly deformed. Turbinates: normal size and confrontation. Oral Cavity/Mouth:Lips, teeth, gums: normal lips and gums. Oral Mucosa: normal. Palate: normal hard palate and soft palate. Tongue: normal tongue. Posterior pharynx: normal. Neck:Neck: trachea midline. Thyroid: no enlargement. Respiratory:Inspection/Auscultati on: good air movement, chest expands symmetrically. Cardiovascular System:Observation/Palpation of peripheral vascular system: carotid pulse normal. Lymph Nodes:Cervical: no palpable lymph node enlargement. Neurological System:Orientation: oriented to time, place, and person. Mood and affect: normal mood and affect. Cranial Nerves: Cranial Nerves II-XII intact.Procedure DocumentationLaryngoscopy Flex:After discussing the risks and complications of the procedure the patient was agreeable to proceed. Topical lidocaine and oxymetazoline was applied and a flexible fiberoptic nasal laryngoscope was passed in the nasal cavity. The entire nasal cavity, nasopharynx, hypopharynx and larynx were examined. Findings were pharyngeal islas and tongue base normal. Epiglottis normal. Vocal folds move well. No supraglottic lesions. Mild erythema of the arytenoids Assessment/Plan1. Feeling of lump in throat- With a history of radiation to the neck years ago. No evidence of malignancy on exam or endoscopy. Has findings consistent with reflux laryngitis.F45.8: Other somatoform disorders 2. Gastroesophageal reflux disease without esophagitis- Pepcid and Omeprazole. Follow-up 6 [id number]: Gastro-esophageal reflux disease without esophagitis omeprazole 40 mg capsule,delayed release - take 1 capsule daily in the morning Qty: 30 capsule(s) Refills: 1 Pharmacy: [facility] #[id number] Pepcid 40 mg tablet - Take 1 tablet(s) every day by oral route at bedtime. Qty: 30 tablet(s) Refills: 1 Pharmacy: [facility] #[id number] Return to Office LAB [facility] TENT for LAB ONLY at LAB SCHEDULES on 01/02/2021 at 09:30 AM DONAVAN MONROE MD for RECHECK at ENT SB on 01/23/2021 at 10:40 AM BRIGIDA LOREDO MD for ANNUAL PRODUCTION FLOATER at PRODUCTION FLOATER [facility] on 02/19/2021 at 11:45 AM ASHISH DUARTE PA-C for RECHECK at [facility] on 11/16/2021 at 11:30 AM at PRODUCTION FLOATER [facility] CLOSED on or around 03/03/2023 ÓSCAR PERALTA MD [address] [place] [address], [phone], [facility] 12/17/2020 08:15:49 Procedures Surgical History Date Name Laterality Status Provider Name and Address Organization Details Recorded Time 12/21/19 19 Nipple/areola reconstruction completed [facility] 12/09/2020 15:26:07 08/22/19 19 Bilateral mastectomy completed Jackie Garcia [facility] 06/26/2021 11:24:46 Removal of tonsils completed [facility] 12/09/2020 15:24:50 Removal of spleen total completed [facility] 12/09/2020 15:25:03 Other completed [facility] 12/09/2020 15:25:29 Other completed [facility] 12/09/2020 15:25:48 biopsy of breast completed [facility] 12/09/2020 15:26:25 Imaging Results None recorded. Procedure Notes None recorded. Medical Equipment None Reported. Allergies No known drug allergies Medications Name Sig Start Date Stop Date Status Note LastModified by Organization Details LastModified Time anastrozole 1 mg tablet TAKE 1 TABLET DAILY 2022 active Not Available Not Available Not Avai lable pravastatin 40 mg tablet Take 1 tablet every day by oral route. active Not Available Not Available No t Available Synthroid 125 mcg tablet Take 1 tablet every day by oral route. active Not Available Not Available No t Available Synthroid 100 mcg tablet Take 1 tablet every day by oral route. 04/26 completed Not Available Not Available Not Available aspirin 81 mg tablet,delaye d release Take 1 tablet every day by oral route. active Not Available Not Available No t Available bisoprolol fumarate 10 mg tablet Take 1 tablet every day by oral route. active Not Available Not Available No t Available famotidine 20 mg tablet Take 1 tablet twice a day by oral route. active Not Available Not Available No t Available lisinopril 5 mg tablet Take 1 tablet every day by oral route. active Not Available Not Available No t Available Calcium-Vitam in D 1 daily active Not Available Not Available Not Available Prilosec 1 tablet daily 06/26 completed Not Available Not Available Not Available Prevacid 1 tablet daily 06/26 completed Not Available Not Available Not Available Vitals Date Recorded Body height Body mass index (BMI) Body weight Body temperature Heart rate Oxygen saturation Oxygen saturation in Arterial blood by Pulse oximetry Systolic And Diastolic Provider Name and Address Organization Details Last Updated DateTime 1 165.1 cm 29.5 kg/m2 85364.6 5 g 97.1 [degF] 64 /min 97 % 97 % 133/75 mm[Hg] Jesica [facility] 1 14:27:49 Date Recorded Body height Body mass index (BMI) Body weight Body temperature Heart rate Oxygen saturation Oxygen saturation in Arterial blood by Pulse oximetry Systolic And Diastolic Provider Name and Address Organization Details Last Updated DateTime 3 165.1 cm 31 kg/m2 22362.2 3 g 97.5 [degF] 75 /min 96 % 96 % 147/73 mm[Hg] Palak Segura [facility] 3 12:48:45 Date Recorded Body height Body mass index (BMI) Body weight Body temperature Heart rate Oxygen saturation Oxygen saturation in Arterial blood by Pulse oximetry Systolic And Diastolic Provider Name and Address Organization Details Last Updated DateTime 2 165.1 cm 29.8 kg/m2 15543.3 8 g 97.1 [degF] 73 /min 100 % 100 % 130/76 mm[Hg] Jesica Fried [facility] 2 13:04:51 Date Recorded Body height Body temperature Body mass index (BMI) Body weight Heart rate Oxygen saturation Oxygen saturation in Arterial blood by Pulse oximetry Systolic And Diastolic Provider Name and Address Organization Details Last Updated DateTime 1 165.1 cm 97.5 [degF] 29.5 kg/m2 37907.9 g 62 /min 98 % 98 % 152/77 mm[Hg] Mira Jimenez [facility] 1 12:05:18 Date Recorded Body height Body mass index (BMI) Body weight Heart rate Oxygen saturation Oxygen saturation in Arterial blood by Pulse oximetry Body temperature Systolic And Diastolic Provider Name and Address Organization Details Last Updated DateTime 1 165.1 cm 28.5 kg/m2 88573.0 5 g 59 /min 99 % 99 % 97.5 [degF] 155/78 mm[Hg] Jackie Garcia [facility] 1 11:26:23 Social History Question Answer Notes LastModified by [employer] ion Details LastModified Time Tobacco Smoking Status Never Smoker Jackie Garcia [facility] 04/26/2019 09:53:40 How Much Tobacco Do You Chew? None Information not available 04/26/2019 Have You Been To An Area Known To Be High Risk For COVID-19? No Information not available 07/11/2020 Live Alone Or With Others? With Others [email or web address] Information not available 07/11/2020 Education Level High School [email or web address] Informat ion not available 07/11/2020 Would You Like Any HELP Quitting Tobacco? No [email or web address] Information not available 12/25/2021 Exposure To Smoke No [email or web address] Informa tion not available 12/25/2021 Marital Status [email or web address] Informatio n not available 07/11/2020 What Was The Date Of Your Most Recent Tobacco Screening? 12/24/2022 [email or web address] Information not available 12/24/2022 How Many Children Do You Have? 3 [email or web address] Information not available 07/11/2020 What Is Your Relationship Status? [email or web address] Information not available 12/25/2021 How Much Tobacco Do You Smoke? No Information not available 04/26/2019 Has Tobacco Cessation Counseling Been Provided? No Information not available 12/25/2021 How Many Years Have You Smoked Tobacco? 0 Information not available 04/26/2019 Have You Recently Traveled Abroad? No [email or web address] Information not available 12/25/2021 Sex: Female Functional Status Question Answer Note LastModified by Organizat ion Details LastModified Time Do you use any illicit or recreational drugs? No [email or web address] Information not available 12/25/2021 Do you or have you ever used any other forms of tobacco or nicotine? No [email or web address] Information not available 12/25/2021 What is your level of alcohol consumption? None Information not available 04/26/2019 Do you or have you ever used smokeless tobacco? 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 Never used electronic cigarettes Information not available 04/26/2019 Mental Status None recorded. Family History Relationship Description Onset Age of this Age Resolved Age Notes LastModified by Organization Details LastModified Time Father No current problems or disability Not available 04/25 10:07:06 Father Hypertensive disorder [email or web address] Not available 2020 15:22:49 Father Hyperlipidem ia [email or web address] Not available 2020 15:23:34 Mother No current problems or disability [email or web address] Not available 04/25 10:07:06 Mother Myocardial infarction [email or web address] Not available 12/09 15:22:06 Mother Heart disease Not available 2020 15:22:24 Mother Cerebrovascu lar accident [email or web address] Not available 15:22:36 Mother Hypertensive disorder Not available 2020 15:22:49 Mother Kidney disease [email or web address] Not available 2020 15:23:02 Maternal Aunt Malignant tumor of breast [email or web address] Not available 2020 15:23:21 Medical History Condition Response Other Y High Cholesterol Y Thyroid Disorder Y Heart Disease Y Cancer Y Hypertension Y Gynecological HistoryNo gynecological history recorded. Obstetrics History GPAL:G 0 P 0 0 0 0 Immunizations Vaccine Type Date Status Note Provider Nam e and Address Organization Details Recorded Time Influenza, split virus, quadrivalent, preservative 9 completed Jesica Fried [facility] 07/26/2019 09:27:01 zoster live 9 chanelle Fried [facility] 07/26/2019 09:27:13 pneumococcal, unspecified formulation 9 chanelle Fried [facility] 07/26/2019 09:27:21 Influenza, split virus, quadrivalent, preservative 0 completed Jesica Fried [facility] 07/11/2020 11:33:00 COVID-19, mRNA, LNP-S, PF, 30 mcg/0.3 mL dose 1 completed Jesica Fried [facility] 12/10/2020 14:25:33 COVID-19, mRNA, LNP-S, PF, 30 mcg/0.3 mL dose 1 completed Jesica Fried [facility] 12/10/2020 14:25:38 COVID-19, mRNA, LNP-S, PF, 30 mcg/0.3 mL dose 1 completed Jackie Venturaselwynsarbjit [facility] 06/26/2021 11:23:57 Influenza, split virus, quadrivalent, preservative 1 completed Jackiefelix Venturataile [facility] 06/26/2021 11:24:11 Past Encounters Encounter ID Performer Location Encounter Start Date Encounter Closed Date Diagnosis/Indication Diagnosis SNOMED-CT Code Diagnosis ICD10 Code Diagnosis Note [id number] DONAVAN CASTANO MD HEM/ONC [facility] CL[facility] [address] [address] 01/21/2017 11:44:29 01/21/2017 14:25:28 [id number] BRIGIDA LOREDO MD PRODUCTION FLOATER [facility] CLOSED [address] [place] [address] 02/17/2017 12:54:26 02/17/2017 13:46:53 [id number] DONAVAN CASTANO MD HEM/ONC [place] CLOSED [address],[facility] [address] [place] [address] 01/27/2018 11:57:17 01/27/2018 13:24:11 [id number] BRIGIDA LOREDO MD PRODUCTION FLOATER [facility] CLOSED [address] [place] [address] 08/03/2018 13:52:32 08/03/2018 14:24:45 [id number] MASSIEL ACEVEDO JR, MD GENERAL SURGERY [place] [address] [place] [address] 09/05/2018 08:18:31 09/12/2018 08:15:08 [id number] MASSIEL ACEVEDO JR, MD GENERAL SURGERY [address] [address] 10/12/2018 09:52:10 10/13/2018 14:01:17 [id number] DONAVAN CASTANO MD HEM/ONC [place] CLOSED [address],[facility] [address] [place] [id number] 10/19/2018 15:08:39 10/20/2018 09:29:59 [id number] ECHO FORDE MD BONE DENSITY [place] [id number] 10/26/2018 14:42:53 10/26/2018 15:06:53 [id number] DONAVAN CASTANO MD HEM/ONC [place] CLOSED [address],[facility] [address] [place] [id number] 01/26/2019 11:36:33 01/26/2019 13:03:08 [id number] DONAVAN CASTANO MD HEM/ONC [place] CLOSED [address] [place] [id number] 04/26/2019 09:47:03 04/26/2019 10:29:26 Malignant tumor of breast 021524194 C50.011 History of Hodgkin lymphoma [id number] Z85.71 [id number] BRIGIDA LOREDO MD PRODUCTION FLOATER [facility] CLOSED [address] [place] [address] 06/14/2019 13:20:48 06/14/2019 15:03:59 [id number] DONAVAN CASTANO MD HEM/ONC SB CLOSED [address] [address] 07/26/2019 09:18:32 07/26/2019 12:46:01 Malignant tumor of breast 396315602 C50.668 [id number] ASHISH DUARTE PA-C [facility] [address] [place] [address] 09/04/2019 08:29:26 09/04/2019 10:28:29 [id number] BRIGIDA LOREDO MD PRODUCTION FLOATER [facility] CLOS[facility] [address] [place] [address] 09/18/2019 13:14:39 09/18/2019 14:10:55 [id number] ÓSCAR PERALTA MD HEM/ONC SB CLOSED [address] [place] [address] 01/09/2020 08:57:57 01/09/2020 10:08:32 Malignant tumor of breast 113473459 C50.919 History of Hodgkin lymphoma 377930432 Z85.71 Screening for malignant neoplasm of respiratory tract 916556608 Z12.2 [id number] BRIGIDA LOREDO MD PRODUCTION FLOATER [facility] CLOSED [address] [place] [address] 02/18/2020 11:39:12 02/18/2020 12:20:43 [id number] ÓSCAR PERALTA MD HEM/ONC SB CLOSED [address] [place] [address] 07/11/2020 11:27:58 07/11/2020 12:18:43 Malignant tumor of breast 737391424 C50.919 Screening for malignant neoplasm of respiratory tract 254731414 Z12.2 [id number] ASHISH DUARTE PA-C [facility] [address] [place] [address] 11/17/2020 11:37:33 11/17/2020 12:18:22 [id number] ÓSCAR PERALTA MD HEM/ONC SB CLOSED [address] [place] [address] 12/10/2020 14:10:52 12/12/2020 14:50:49 Malignant tumor of breast 755208144 C50.919 Screening for malignant neoplasm of respiratory tract 959553389 Z12.2 History of Hodgkin lymphoma 094144503 Z85.71 [id number] DONAVAN MONROE MD ENT [address] [place] [address] 12/16/2020 11:24:40 12/16/2020 13:57:11 [id number] ÓSCAR PERALTA MD HEM/ONC SB CLOSED [address] [place], [place] [id number] 1 01/02/2021 11:42:22 01/02/2021 12:34:11 Malignant tumor of breast 091194006 C50.919 Screening for malignant neoplasm of respiratory tract 925069370 Z12.2 History of Hodgkin lymphoma 308116364 Z85.71 [id number] [address] [place] [address] 1 01/21/2021 11:11:31 01/22/2021 11:22:41 [id number] BRIGIDA LOREDO MD PRODUCTION FLOATER SB CLOSED [address] [place] [address] 0 03/10/2021 12:57:45 03/10/2021 13:29:46 [id number] DONAVAN MONROE MD ENT SB [address] [place] [address] 1 03/10/2021 12:58:44 03/10/2021 15:08:34 [id number] DONAVAN MONROE MD ENT SB [address] [place] [address] 1 06/09/2021 13:26:56 06/10/2021 08:15:43 [id number] ÓSCAR PERALTA MD HEM/ONC SB CLOSED [address] [place] [address] 1 06/26/2021 11:02:29 06/26/2021 12:04:38 Malignant tumor of breast 331986456 C50.919 Screening for malignant neoplasm of respiratory tract 191754502 Z12.2 History of Hodgkin lymphoma 608384368 Z85.71 [id number] DONAVAN MONROE MD ENT SB [address] [place] [address] 1 08/04/2021 15:57:24 08/05/2021 09:38:26 [id number] ÓSCAR PERALTA MD HEM/ONC SB CLOSED [address] [place] [address] 1 12/25/2021 12:55:37 12/25/2021 13:37:02 Malignant tumor of breast 898007765 C50.919 Screening for malignant neoplasm of respiratory tract 140246655 Z12.2 History of Hodgkin lymphoma 512189380 Z85.71 [id number] BRIGIDA LOREDO MD OBGYN [facility] [address] [place] [address] 04/13/2022 13:31:08 04/13/2022 14:49:12 [id number] ÓSCAR PERALTA MD HEM/ONC SB CLOSED [address] [place] [id number] 12/24/2022 12:44:51 12/24/2022 13:31:05 Malignant tumor of breast 945588201 C50.919 Screening for malignant neoplasm of respiratory tract 049436936 Z12.2 History of Hodgkin lymphoma 925326680 Z85.71 [id number] DONAVAN MONROE MD ENT SB [address] [place] [address] 1 02/18/2023 11:09:50 02/18/2023 13:07:59 [id number] DONAVAN MONROE MD ENT SB [address] [place] [address] 1 03/07/2023 11:24:15 03/07/2023 13:10:20 [id number] DONAVAN MONROE MD ENT SB [address] [place] [address] 1 06/13/2023 16:09:43 06/14/2023 10:16:46 [id number] DONAVAN MONROE MD SURGERY SCHEDULE [address] [place] [address] 1 07/11/2023 09:46:05 07/11/2023 09:47:30 [id number] DONAVAN MONROE MD ENT SB [address] [place] [address] 1 08/03/2023 09:08:32 08/03/2023 15:35:50 [id number] DONAVAN MONROE MD ENT SB [address] [place] [address] 1 10/03/2023 13:23:50 10/04/2023 07:29:36 [id number] DONAVAN MONROE MD SURGERY SCHEDULE [address] [place] [address] 1 01/30/2024 11:04:09 01/30/2024 11:04:57 [id number] DONAVAN MONROE MD ENT [address] [place] [address] 02/07/2024 09:38:01 02/07/2024 15:42:22 [id number] DONAVAN MONROE MD ENT SB [address] [place] [address] 05/11/2024 10:08:33 05/11/2024 14:27:52 [id number] BRIAN CARVAJAL, QUALITY IMPROVEMENT CONSULTANT-[facility] [address] [place] [id number] 06/14/2024 10:04:21 06/14/2024 11:05:56 [id number] ASHISH DUARTE PA-C [facility] [address] [place] [address] 05/21/2024 14:59:33 05/21/2024 16:02:37 [id number] DONAVAN MONROE MD ENT [place] [id number] 11/07/2024 11:05:49 11/07/2024 14:35:14 Health Concerns Section Related Observation LastModified by Organization Detai ls LastModified Time None Recorded Concern Status LastModified by Organization Details LastModified Time None Recorded Advance Directives Directive None Recorded Payers Insurance Date Sequence Insurance Name Policy Number Policy Nicole Covered Member ID Nicole Member ID Guarantor Name 03/14/2022 PAYMENT PLAN Jennifer Krishnamurthy 11/12/2024 1 [place] [id number] Jennifer Krishnamurthy [id number] Jennifer Krishnamurthy Notes Date Note Type Note Provider Name and Address Organization Details Recorded Time 1 text/html HPIReported bypatient.Advanced Directives / BioBank AuthorizationsAdvanced Directives? YES Dischargedischarge disposition stable Distress ScreeningHas the distress screening been completed in the last 45 days? YES; Distress level 2 Practical Problemsno practical problems Family Problemsno family problems Emotional Problemsno emotional problems Spiritual/Religiousspiritua l/lutheran problems? NO Physical Problemsno physical problems; lump in throat, she can tell its there but is not having a hard time eating or swallowing Nutrition ScreeningNutrition Screening YES; Nutrition counseling last 6 months? NO; Nutrition Protocol implemented? NO INTERVAL HISTORY: The patient is a 60-year-old female who I am following predominantly for a diagnosis of a right-sided breast cancer. She had an early stage I invasive cancer and had surgery done in September 2018. She underwent bilateral mastectomies because of the fact that when she was 20 years old, she was diagnosed with Hodgkin disease and was a previous patient of Massiel Bhatia and had thoracic radiation from neck to abdomen as far as treatment. She is followed by Dr. Castano for number of years because of her history of Hodgkin disease and her breast cancer diagnosis as well as given her prior thoracic radiation, she was at increased risk for lung cancer and she got screening CAT scans on a yearly basis. She says that for the past month she has had some trouble and some feeling of fullness in her neck. She has nothing palpable. She says this more occurs in the process of swallowing, etc., but also says she just feels full. She does not note any occasional hoarseness, but she says with her history of multiple cancers in the past, she certainly has a worry for these things and is understandable. Her blood pressure has been up as well. ÓSCAR PERALTA MD [address] [place] [address], [phone], [facility] 12/17/2020 08:04:29 1 text/html HPIReported bypatient.Dischargedischarg e disposition stable Distress ScreeningDistress level 0 no stress Practical Problemsno practical problems Family Problemsno family problems Emotional Problemsno emotional problems Physical Problemsno physical problems; lump in throat, she can tell its there but is not having a hard time eating or swallowing This is a 60-year-old female predominantly being seen by me for follow-up of a right-sided breast cancer. She had an early stage I invasive breast cancer and had surgery done in September 2018. She had bilateral mastectomies. Because when she was 20 years old, she was diagnosed with Hodgkin's disease and previous patient Massiel Roberts and had thoracic radiation, it was felt to be the right thing to do. She is followed by Dr. Castano for many years for Hodgkin's disease and it was felt that probably her breast cancer was related to her thoracic radiation. Additionally, though, we have also done interval yearly x-rays due to her increased risk of lung cancer as well. Also, she has had concerning areas of small area of adenopathy in her arm that she had been previously biopsied in the past, has been unremarkable, but certainly she worries about it. She returns today without any major complaints. Her CT chest shows no evidence of any recurrent disease at this point. Clinically, her labs, her CBC and CMP are unremarkable and she is doing well. The last time we saw her, she had some questionable swallowing issues and hoarseness. Dr. Monroe graciously evaluated her, did a scope, and felt that she had more of an acid reflux and the patient is now pleased with that result and she is feeling better. ÓSCAR PERALTA MD [facility] [place], [address], [facility] 01/08/2021 08:15:24 1 text/html HPIReported bypatient.Dischargedischarg e disposition stable Distress ScreeningDistress level 0 no stress Practical Problemsno practical problems Family Problemsno family problems Emotional Problemsno emotional problems Physical Problemsno physical problems; lump in throat, she can tell its there but is not having a hard time eating or swallowing This is a 61-year-old female, previous patient of Dr. Donavan Castano as well as Massiel Casey. She has 2 separate issues. One, when she was 20 years old, she was diagnosed with Hodgkin's disease and was a previous patient on Dr. Massiel Roberts. She had thoracic radiation and they continued to follow her for a number of years, making sure that she had mammograms as well as CT scans of the chest because of her thoracic radiation. Eventually, she was diagnosed with a right-sided invasive breast cancer. It was a path T1a, N0 disease. This was all diagnosed in September of 2018. Because of her history of radiation, she just elected to have bilateral mastectomies. Her cancer was an invasive ductal, grade 1. She was placed on adjuvant hormonal therapy with anastrozole and has tolerated it quite well now for now 2-1/2 years. Typically, because of her radiation, we get a screening CT images once a year and we will get that. She has had one 6 months ago. ÓSCAR PERALTA MD [address] [place], [address], [facility] 07/02/2021 08:14:27 2 text/html HPIReported bypatient.Advanced Directives / BioBank AuthorizationsAdvanced Directives? YES Dischargedischarge mode ambulatory; discharge disposition stable Distress ScreeningHas the distress screening been completed in the last 45 days? NO; Distress level 0 no stress Practical Problemsno practical problems Family Problemsno family problems Emotional Problemsno emotional problems Spiritual/Religiousspiritua l/lutheran problems? NO Physical Problemsno physical problems Nutrition ScreeningNutrition Screening YES; Nutrition counseling last 6 months? NO This is a 61-year-old female in great shape today, previous patient of Dr. Donavan Castano as well as Massiel Casey. She has 2 separate issues. When she was around 20 years old, she was diagnosed with Hodgkin disease and received thoracic radiation as part of her therapy and they had recommended followup mammography and CAT scans on a yearly basis. Unfortunately, eventually in September 2018, she was diagnosed with very early stage T1a, ER positive breast cancer on the right breast, quadrant unspecified. Because of her prior history of thoracic radiation, she had bilateral mastectomies, reconstruction. She has been on adjuvant hormonal therapy with anastrozole. As she no longer has any further breast tissue, we do not need to screen this, but we continue her screening CTs as recommended by Dr. Castano a number of years ago. She follows up today. Her followup labs, CBC and CMP are unremarkable. CAT scan of the chest shows no other areas of any concern and clinically she is doing well and has a fantastic attitude. She has been on Arimidex adjuvant therapy for the last 3 years now and she is excited about kind of moving past the half way point on that as well. ÓSCAR PERALTA MD [address] [place] [address], [phone], [facility] 12/30/2021 08:19:33 3 text/html [place] HPIReported bypatient.Advanced Directives / BioBank AuthorizationsAdvanced Directives? YES Dischargedischarge mode ambulatory; discharge disposition stable Distress ScreeningHas the distress screening been completed in the last 45 days? NO; Distress level 0 no stress Practical Problemsno practical problems Family Problemsno family problems Emotional Problemsno emotional problems Spiritual/Religiousspiritua l/lutheran problems? NO Physical Problemsno physical problems Nutrition ScreeningNutrition Screening YES; Nutrition counseling last 6 months? NO This is a 62-year-old female now more than 40 years out from a diagnosis of a Hodgkin's disease with thoracic radiation. Unfortunately, she is originally followed by Dr. Castano as well as Dr. Casey, recently diagnosed with an early stage breast cancer in September 2018. She had early stage T1a breast cancer. Because of her prior history of radiation, she would like to do bilateral mastectomies and reconstruction done through Plastic Surgery. In addition, because of her history of extensive thoracic radiation, we have done uncontrasted CT scans on a yearly basis due to increased risk of further malignancies. She returns today without any major issues. She has been on the drug anastrozole now since October 2018. She is doing well, has no new complaints and really has a great attitude. ÓSCAR PERALTA MD [address] [place] [address], [phone], [facility] 12/28/2022 08:15:50 OBGyn Episode No OBEpisode recorded.
--- OUTSIDE RECORDS SUMMARY | 2025-02-26 12:20 | XMS_ITS | Encounter Summary ---
Author Organization [facility] Address [address] [place] [address] Care Team Providers Care Manufacturer Representative Name Role Phone Unknown, Unknown Primary Care Provider Unavailab Esther Molina Primary Care Provider Sonny Gonzalez MD Unavailable [phone] Chava Sanders MD Unavailable Encounter Details Date Type Department Care Team (Late st Contact Info) Description 06/26/2021 Orders Only [facility] [address] [place] [phone] Sonny Gonzalez MD [address] [place], [place] [address] [phone] Social History Tobacco Use Types Packs/Day Years [...] Description 10/18/2025 1:30 PM EST Office Visit [facility] [address] [place] [phone] Sonny Gonzalez MD [address] [address] 11/19/2025 1:30 PM EDT Ovarian Cancer Screening [facility] [address] [place] [address] documented as of this encounter Procedures Procedure Name Priority Date/Time Associated Diagnosis Comments COMPREHENSIVE METABOLIC PANEL, PLASMA Routine 06/26/2021 10:38 AM EDT documented in this encounter Results * (ABNORMAL) Comprehensive Metabolic Panel, Plasma (06/26/2021 10:38 AM EDT) External Glucose 96 74 - 100 mg/dL [facility] External BUN 15 6 - 20 mg/dL [facility] External Creatinine Blood 0.79 0.50 - 0.95 mg/dL [facility] External BUN/Creat Ratio 19 10 - 20 (calc) [facility] External Sodium 141 136 - 145 mmol/L [facility] External Potassium 4.8 3.4 - 5.0 mmol/L [facility] External Chloride 101 98 - 107 mmol/L [facility] External Carbon Dioxide 27 22 - 31 mmol/L [facility] External Anion Gap (AG) 13 7 - 25 (calc) [facility] External Calcium 10.3(H) 8.6 - 10.2 mg/dL [facility] External Total Protein 7.6 6.4 - 8.3 g/dL [facility] External Albumin 4.6 3.5 - 5.2 g/dL [facility] External Globulin 3.0 1.5 - 4.5 g/dL (calc) [facility] External Albumin/Globulin Ratio 1.5 1.1 - 2.5 (calc) [facility] External Bilirubin Total 0.2 0.1 - 1.2 mg/dL [facility] External Alkaline Phosphatase 76 35 - 106 U/L [facility] External AST (SGOT) 21 0 - 32 U/L [facility] External ALT (SGPT) 21 0 - 33 U/L [facility] External EGFR (If AFR/AM) 94 >=60 [facility] External Estimated GFR 81 >=60 [facility] Comment: NOTE Chronic kidney disease is defined as kidney damage for more than 3 months or a GFR less than 60 mL/min/1.73 m2 for greater than 3 months. This calculation has not been validated in women. For pediatric patients refer to [employer] https://www.kidney.org/professionals/KDOQI/gfr_calculatorPed 06/26/2021 10:3 8 AM EDT 06/26/2021 11:17 AM EDT us Sonny Gonzalez MD LAB BLOOD ORDERABLES Final Res ult [facility] [address] [place] [address], documented in this encounter Visit Diagnoses Not on filedocumented in this encounter Care Teams Manufacturer Representative Relationship Specialty Start Date End Date Unknown, Unknown [place], [place] PCP - General Dental Boiler Control Technician 08/22/20 01/14/22 Esther Bobo PA [address] [facility] [address] [place] [address] PCP - General 01/15/22 Sonny Gonzalez MD [address] [place] [address] Medical Oncologist Medical Oncology 12/22/23 Chava Sanders MD [address] [facility] [address] [place] [address] Licensing Engineer 08/09/24 documented as of this encounter
--- OUTSIDE RECORDS SUMMARY | 2025-02-26 12:20 | XMS_ITS | Encounter Summary ---
Author Organization [facility] Address [address] [place] [address] Care Team Providers Care Nuclear Fuels Reclamation Engineer Name Role Phone Unknown, Unknown Primary Care Provider Unavailab Esther Molina Primary Care Provider [phone] Sonny Gonzalez MD Unavailable [phone] Chava Sanders MD Unavailable Encounter Details Date Type Department Care Team (Late st Contact Info) Description 06/26/2021 Orders Only [facility] [address] [place] [phone] Sonny Gonzalez MD [address] [place], [place] [address] [phone] Social History Tobacco Use Types Packs/Day Years [...] Description 10/18/2025 1:30 PM EST Office Visit [facility] [address] [place] [phone] Sonny Gonzalez MD [address] [address] 11/19/2025 1:30 PM EDT Ovarian Cancer Screening [facility] [address] [place] [address] documented as of this encounter Procedures Procedure Name Priority Date/Time Associated Diagnosis Comments CBC WITH AUTO DIFFERENTIAL Routine 06/26/2021 10:32 AM EDT documented in this encounter Results * (ABNORMAL) CBC and Differential (06/26/2021 10:32 AM EDT) External WBC 7.8 3.8 - 10.8 K/uL [facility] External Red Blood Cell (RBC) 4.02 3.80 - 5.20 M/uL [facility] External Hemoglobin 13.7 12.0 - 16.0 G/DL [facility] External Hematocrit 40.3 35.0 - 47.0 % [facility] External MCV 100 80 - 100 fL [facility] External MCH 34 26 - 35 PG [facility] External MCHC 34 32 - 36 G/DL [facility] External RDW 13.4 11.0 - 15.0 % [facility] External Mean Platelet Volume 8.8 6.2 - 10.5 fL [facility] External Platelets 284 130 - 400 K/uL [facility] Comment: Platelet count confirmed by slide estimate. Occ. macrothrombocytes noted. External Neutrophil# 4.0 1.6 - 8.4 K/uL [facility] External Lymphocyte# 2.6 0.4 - 5.1 K/uL [facility] External Absolute Monocyte (Abs Lynn) 1.0 0.0 - 1.2 K/uL [facility] External Eosinophils# 0.1 0.0 - 0.8 K/uL [facility] External Baso# 0.1 0.0 - 0.3 K/uL [facility] External Neutrophils % 51.0 42.0 - 78.0 % [facility] External Lymphocyte % 33.9 11.0 - 47.0 % [facility] External Monocyte % 12.3(H) 0.0 - 11.0 % [facility] External Eosinophil% 1.9 0.0 - 7.0 % [facility] External Basophil % 0.9 0.0 - 3.0 % [facility] External Nucleated RBC%-Auto 0.1 0.0 - 0.9 % [facility] External Nucleated RBC Absolute 0.01 Not Estab. K/uL [facility] 06/26/2021 10:3 2 AM EDT 06/26/2021 10:32 AM EDT Sonny Gonzalez MD LAB BLOOD ORDERABLES Final Res ult [facility] [address] [place] [address], documented in this encounter Visit Diagnoses Not on filedocumented in this encounter Care Teams Nuclear Fuels Reclamation Engineer Relationship Specialty Start Date End Date Unknown, Unknown [place], [place] PCP - General Dental Icicle Machine Operator 08/22/20 01/14/22 Esther Bobo PA [address] [facility] [address] [place] [address] PCP - General 01/15/22 Sonny Gonzalez MD [address] [place] [address] Medical Oncologist Medical Oncology 12/22/23 Chava Sanders MD [address] [place] [address] Neurology Director 08/09/24 documented as of this encounter
[2025-02-26 12:48] LABS: Hematocrit 41.9 % (37.0-47.0); Hemoglobin 14.0 g/dL (12.2-16.2); Immature Granulocytes % 0.2 %; Mean Corpuscular HGB Conc 33.4 g/dL (31.8-35.4); Mean Corpuscular Hemoglobin 33.3 pg (27.0-31.2); Mean Corpuscular Volume 99.8 fl (81-99); Nucleated Red Blood Cells % 0 %; Platelet Count 367 K/mm3 (142-424); Red Blood Count 4.20 M/mm3 (4.20-5.40); Red Cell Distribution Width-SD 54.7 fL; White Blood Count 5.3 K/mm3 (4.8-10.8)
[2025-02-26 13:22] LABS: Alanine Aminotransferase 33 U/L (12-78); Albumin Level 4.1 g/dl (3.5-5.0); Alkaline Phosphatase 79 U/L (38-126); Anion Gap 15.7 mEq/L (5-15); Aspartate Amino Transferase 34 U/L (14-36); Bilirubin,Direct 0.2 mg/dl (0.0-0.4); Bilirubin,Indirect 0.4 mg/dL (0.0-0.9); Bilirubin,Total 0.6 mg/dl (0.2-1.3); Bilirubin,Unconjugated 0.3 mg/dL (0.0-1.1); Blood Urea Nitrogen 13 mg/dl (7-17); Calcium 9.7 mg/dl (8.4-10.2); Carbon Dioxide 29 mmol/L (22.0-30.0); Chloride 98 mmol/L (98-107); Cholesterol 150 mg/dl (140-200); Creatinine,Serum 0.70 mg/dl (0.52-1.04); Estimated Glomerular Filt Rate 84 ml/min (>60); GFR (African American) 102 ML/MIN (>60); Glucose 91 mg/dl (74-100); HDL Cholesterol 71 mg/dl (40-60); Potassium 4.7 mmoL/L (3.5-5.1); Sodium 138 mmol/L (136-145); Total Protein,Serum 7.1 g/dl (6.3-8.2); Triglycerides 80 mg/dl (30-150)
[2025-02-26 13:39] LABS: Free T4 (Free Thyroxine) 1.39 ng/dl (0.78-2.19)
[2025-02-26 13:53] LABS: Thyroid Stimulating Hormone 2.45 uIU/mL (0.465-4.68)
[2025-02-28 14:14] LABS: Iron 82 ug/dL (37-170)
[2025-02-28 14:23] LABS: Total Iron Binding Capacity 346 ug/dL (265-497)
[2025-02-28 14:52] LABS: Ferritin 27.3 ng/ml (11.1-264)
[2025-02-28 15:39] LABS: Folate 6.34 ng/mL
== END 2025-02-26 23:59 | disposition home or self-care (01) ==
LOC: LAB 12:17
PROVIDERS: PCP Physician Assistant; Visit Provider Physician Assistant
DX: I11.0 Hypertensive heart disease with heart failure (principal); I50.20 Unspecified systolic (congestive) heart failure; I25.10 Atherosclerotic heart disease of native coronary artery without angina pectoris; E78.5 Hyperlipidemia, unspecified
CPT/HCPCS: 36415; 80048; 80061; 80076; 82728; 82746; 83540; 83550; 84439; 84443; 85025

== ENCOUNTER 2025-05-15 06:35 | Outpatient (CLI) | payer OTHER, SELFPAY ==
--- OUTSIDE RECORDS SUMMARY | 2024-03-19 10:15 | XMS_ITS ---
Author Organization [facility] Address [address] [facility] [address] [place] [phone] Care Team Providers Care Pen And Pencil Repairer Name Role Phone Odette Pereira Primary Care Provider [phone] Allergies No Known Allergies Reason For Referral Reason upper back pain Diagnosis 1 Acute midline thorac ic back pain (M54.6) [facility] Referring Provider First Name Odette Almanza Referring [...] Orally; Duration: 30 day(s) Active Vital Signs Weight 176.0 lbs 03/19/2024 Blood pressure systolic 112 mm Hg 03/19/20 Blood pressure diastolic 70 mm Hg 024 Heart Rate 81 /min 03/19/2024 Height 64.25 in 03/19/2024 BMI 29.97 kg/m2 03/19/2024 Encounters Encounter Location Date Provider Diagnosis [facility] [address] [facility] [address] [place], [place] [phone] 03/19/2024 Odette Pereira Acute midline thoracic back [...] Up: 3 Weeks, Reason: Progress Notes * Jennifer KRISHNAMURTHYDOB:1960 ( 65 yo F)Acc No.[id number]:03/19/2024 Progress Notes Patient: Jennifer MARIA Provider: Odette Pereira M.D. :1960 A ge:63 Y S ex:Female Date:03/19/2024 Address:[facility] [place], [place] [address] Subjective: * Chief Complaints: * 1 . [...] 2024, with PCI (3 stents placed) at [facility]. * Surgical History: S plenectomy , Tubal Ligation , Tonsillectomy , Partial Thyroidectomy , Heart Cath 02/01/2012, Colonoscopy 03/18/2014, Small Bowel Obstruction 05/2014, LT Wrist Ganglion Cyst Removal 12/2014, Double Masectomy 09/2018, Reconstruction 12/2018, STEMI s/p 3 Coronary Stent Placement 02/19/2024. * Hospitalization/Major Diagno stic Procedure: B bowel Obstruction 03/2014, [facility] ER - L sided chest and [...] * Images: Billing Information: * Visit Code: 70115 Office Visit, Est Pt., Level 3. * Procedure Codes: * Electronic signature of Odette Pereira MD on 05/15/2025 at 06:38 AM EDT Sign off status: Pending * Provider: Odette Pereira M.D. Date: 0 03/19/2024 Generated for Printi ng/Faxing/eTransmitting on: 0 05/15/2025 06:38 AM EDT History and Physical Notes * Examination Category [...]
--- OUTSIDE RECORDS SUMMARY | 2024-04-11 06:45 | XMS_ITS ---
Author Organization [facility] Address [address] [place] [phone] Care Team Providers Care Service Center Manager Name Role Phone Odette Pereira Primary Care Provider Esther Bobo [phone] REASON FOR VISIT 3 week f/u Encounters Encounter Location Date Provider Diagnosis [facility] [address] [place] [phone] 04/11/2024 Esther Bobo Plan Of Treatment No Information Progress Notes * Jennifer KRISHNAMURTHYDOB:1960 ( 65 yo F)Acc No.[id number]:04/11/2024 Patient: Jennifer MARIA Provider: MACI Boogie :1960 A ge:63 Y S ex:Female Date:04/11/2024 Address:[facility] [address] [address] Pcp:Odette Pereira Subjective: * Chief Complaints: * 1 . 3 week f/u. * Medical History: Objective: * Vitals: Assessment: Plan: * Treatment: * Images: Billing Information: * Visit Code: * Procedure Codes: * Electronic signature of MACI Mcgill on 05/15/2025 at 06:38 AM EDT Sign off status: Pending * Provider: MACI Boogie Date: 0 04/11/2024 Generated for Printi ng/Faxing/eTransmitting on: 0 05/15/2025 06:38 AM EDT
--- OUTSIDE RECORDS SUMMARY | 2024-05-02 07:00 | XMS_ITS ---
Author Organization [facility] Address [address] [place] [phone] Care Team Providers Care Painter Spray Name Role Phone Odette Pereira Primary Care Provider [phone] FliiEsther maldonado Unavailable [phone] Allergies No Known Allergies Results Component Value [...] day; Duration: 30 day(s) Active Vital Signs Weight 175.2 lbs 05/02/2024 Blood pressure systolic 140 mm Hg 05/02/20 24 Blood pressure diastolic 74 mm Hg 024 Heart Rate 74 /min 05/02/2024 Height 64.25 in 05/02/2024 BMI 29.84 kg/m2 05/02/2024 Encounters Encounter Location Date Provider Diagnosis [facility] [address] [place] [phone] 05/02/2024 Esther Bobo Osteoporosis screeni ng Z13.820 [...] * Jennifer KRISHNAMURTHYDOB:1960 ( 65 yo F)Acc No.[id number]:05/02/2024 Progress Notes Patient: Jennifer MARIA Provider: MACI Boogie :1960 A ge:64 Y S ex:Female Date:05/02/2024 Address:[address] [address] Pcp:Odette Pereira Subjective: * Chief Complaints: * [...] 2024, with PCI (3 stents placed) at [facility]. * Surgical History: S plenectomy , Tubal Ligation , Tonsillectomy , Partial Thyroidectomy , Heart Cath 02/01/2012, Colonoscopy 03/18/2014, Small Bowel Obstruction 05/2014, LT Wrist Ganglion Cyst Removal 12/2014, Double Masectomy 09/2018, Reconstruction 12/2018, STEMI s/p 3 Coronary Stent Placement 02/19/2024. * Hospitalization/Major Diagno stic Procedure: B bowel Obstruction 03/2014, [facility] ER - L sided chest and [...] * Images: Billing Information: * Visit Code: 14075 Office Visit, Est Pt., Level 3. * Procedure Codes: * Electronic signature of MACI Mcgill on 05/15/2025 at 06:37 AM EDT Sign off status: Pending * Provider: MACI Boogie Date: 05/02/2024 Generated for Pat blankenship/Lizette/eTransmitting on: 05/15/2025 06:37 AM EDT History and Physical Notes * Examination Category Sub-Category Detail Notes Category Not es General Examination Heart: RSR Lungs: clear to auscultatio n General Appearance: NAD Back: ttp along the T-spin e Chest: normal shape and exp ansion
--- OUTSIDE RECORDS SUMMARY | 2024-09-24 06:00 | XMS_ITS ---
Author Organization [facility] Address [address] [facility] [address] [place] [phone] Care Team Providers Care Automobile Travel Club Counselor Name Role Phone Odette Pereira Primary Care Provider Chuyita Vidales Unavailable [phone] Allergies No Known Allergies Results Component Value [...] MG as directed Orally Active Vital Signs Weight 176.2 lbs 09/24/2024 Blood pressure systolic 118 mm Hg 09/24/19 25 Blood pressure diastolic 70 mm Hg 025 Heart Rate 81 /min 09/24/2024 Height 64.25 in 09/24/2024 BMI 30.01 kg/m2 09/24/2024 Encounters Encounter Location Date [facility] [address] [phone] 09/24/2024 Chuyita Vidales URI (upper respirato ry [...] * Jennifer KRISHNAMURTHYDOB:1960 ( 65 yo F)Acc No.[id number]:09/24/2024 Progress Notes Patient: Jennifer MARIA Provider: MERCEDEZ Coulter :1960 A ge:64 Y S ex:Female Date:09/24/2024 [address] Pcp:Odette Pereira Subjective: * Chief Complaints: * [...] 2024, with PCI (3 stents placed) at [facility]. * Surgical History: S plenectomy [...] * Procedure Codes: 9 4760 [place], [address] CAPILLARY BLOOD DRAW, 91517 CBC WITH AUTO DIFF, 78970 Flu Test- Nasal Swab, Modifiers: QW , 69002 COVID TEST IN HOUSE, Modifiers: QW , 3074F SYST BP LT 130 MM HG, 3078F DIAST BP < 80 MM HG * Follow Up: p rn * Images: Billing Information: * Visit Code: 29800 Office Visit, Est Pt., Level 3. * Procedure Codes: [address] [place]. [address] CAPILLARY BLOOD DRAW. 65330 CBC WITH AUTO DIFF. 20357 Flu Test- Nasal Swab. Modifiers: QW 07799 COVID TEST IN HOUSE. Modifiers: QW 3074F SYST BP LT 130 MM HG. 3078F DIAST BP < 80 MM HG. * Electronic signature of Merylshobha alvaradosonali Vidales APRN on 05/15/2025 at 06:37 AM EDT Sign off status: Pending * Provider: MERCEDEZ Coulter Date: 0 09/24/2024 Generated for Pat blankenship/Lizette/Vishnuitting on: 0 05/15/2025 06:37 AM EDT History and Physical Notes * HPI [...]
--- OUTSIDE RECORDS SUMMARY | 2025-02-06 07:45 | XMS_ITS ---
Author Organization [facility] Address [address] [place] [id number] Care Team Providers Care Rug Frame Mounter Name Role Phone Odette Pereira Primary Care Provider Hakeem Jason Unavailable [phone] Allergies No Known Allergies Results Component Value [...] Duration: 30 day(s) Active Vital Signs Weight 172 lbs 02/06/2025 Blood pressure systolic 130 mm Hg 02/07/20 25 Blood pressure diastolic 80 mm Hg 025 Heart Rate 87 /min 02/06/2025 Height 64.25 in 02/06/2025 BMI 29.29 kg/m2 02/06/2025 Encounters Encounter Location Date Provider Diagnosis A[facility] [address] [facility] 36 [facility] [address] [place] [address], [place] [id number] 02/06/2025 Hakeem Jason Acute UTI N39.0 ; [...] * Verito KRISHNAMURTHYDOB:1960 ( 65 yo F)Acc No.[id number]:02/06/2025 Progress Notes Patient: Verito MARIA Provider: Nathalie Jason M.D. :1960 A ge:64 Y S ex:Female Date:02/06/2025 Address:[place] [address], [place], [place] [phone] Pcp:Odette Pereira Subjective: * Chief Complaints: * [...] (3 stents placed) at [facility]. * Surgical History: S plenectomy , Tubal Ligation , Tonsillectomy , Partial Thyroidectomy , Heart Cath 02/01/2012, Colonoscopy 03/18/2014, Small Bowel Obstruction 05/2014, LT Wrist Ganglion Cyst Removal 12/2014, Double Masectomy 09/2018, Reconstruction 12/2018, STEMI s/p 3 Coronary Stent Placement 02/19/2024. * Hospitalization/Major Diagno stic Procedure: B bowel Obstruction 03/2014, [facility] ER - L sided chest and [...] * Images: Billing Information: * Visit Code: 29984 Office Visit, Est Pt., Level 3. * Procedure Codes: 96066 Urinalysis, no micro. 1036F TOBACCO NON-USER. G8783 BP SCR PRFRM RCMDD DEFIND SCR INTVL. G8752 MOST RECENT SYSTOLIC BP < 140MM HG. G8754 MOST RECENT DIASTOLIC BP < 90MM HG. * Electronic signature of Merissa Jason MD on 05/15/2025 at 06:37 AM EDT Sign off status: Pending * Provider: Nathalie Jason M.D. Date: 0 02/06/2025 Generated for Pat blankenship/Lizette/Roxanna on: 0 05/15/2025 06:37 AM EDT History [...]
--- NOTE | 2025-05-15 | CA_ITS ---
APPROVED REPORT Exam: Pharmacologic Technologist: Yu Larsen Stress Nurse: Anitha Mace Ht: 5 ft 5 in Wt: 177 lbs BSA: 1.88 m2 HR: 83 bpm BP: 156/80 mmHg Medical History Medical History: HTN, Hyperlipidemia Medications: Atorvastatin, Calcium Carbonate, Carvedilol, Empagliflozin, Levothyroxine, Ferrous Fumarate, Pantoprazole, Prasugrel HCl, Entresto, Spironolactone Allergies: No known drug allergies Cardiac Risk Factors: HTN, Hyperlipidemia Stress Test Details Test: Lexiscan HR Resting HR: 83 bpm Max Heart Rate (APMHR): 155.431493 bpm Target HR (85% APMHR): 131.558502 bpm Recovery HR: 92 bpm BP Resting BP: 156.0/80.0 mmHg Max BP: 156.0/80.0 mmHg Recovery BP: 153.0/87.0 mmHg ECG Stress ECG Conclusion Pt had nausea Blood pressure decreased at 2 minutes to 99/61 and we reclined pt in chair Nausea continued we placed pt in Trendelenburg Nausea continued into recovery pt remained in Trendelburg BP 113/57 Started sitting pt up she started having a headache All resolved at 5 minute recovery PVC Less than 0.5mm upsloping ST segment changes Nondiagnostic ECG/Lexiscan Electronically signed by : Kirstin Dorsey MD 05/15/2025 23:54:14
--- NOTE | 2025-05-15 06:30 | NM_ITS ---
APPROVED REPORT Exam: Nuclear Stress Test Indication: hypertension..cad Patient Location: Outpatient Stress Tech: Yu Larsen CT Tech:Amanda Morin AVELINA RT(R)(N) Ht: 5 ft 5 in Wt: 172 lbs Bra Size: large HR: 83 bpm BP: 156/80 mmHg BSA: 1.86 m2 TID: 1.24 BMI: 28.6 History: cad..hypertension Procedure: Patient received 0.4 mg of intravenous Lexiscan, resting heart rate 83 bpm, resting blood pressure 156/80 mmHg, with Lexiscan maximum heart rate achieved was 89 bpm which is 85 % of the maximum predicted heart rate and blood pressure was 99/61 mmHg. With Lexiscan, patient denied any complaint of chest pain. Cardiac Stress and Resting SPECT Images: Cardiac Stress and Resting SPECT images were obtained using technetium 99m Myoview 29.7 mCi stress and 10.15 mCi at rest. Technically difficult study due to significant soft tissue overlap with the cardiac borders. This may affect the diagnostic interpretation of the study findings. Resting and stress imaging in supine and prone positions demonstrate a medium sized, moderate, partially reversible perfusion defect in the basal inferior LV wall. There is also increase in transient ischemic dilatation ratio (TID 1.24), which may be suggestive of possible multivessel disease or balanced ischemia. Gated imaging demonstrates normal global LV systolic function. LVEF is calculated at 54%. Conclusion: Technically difficult study. Medium sized, moderate, partially reversible perfusion defect in the basal inferior LV wall. Findings are suggestive of partial reversible ischemia. There is also increase in transient ischemic dilatation ratio (TID 1.24), which may be suggestive of possible multivessel disease or balanced ischemia. Gated imaging demonstrates normal global LV systolic function. LVEF is calculated at 54%. Electronically signed by : Kirstin Dorsey MD 05/16/2025 13:00:43
--- OUTSIDE RECORDS SUMMARY | 2025-05-15 06:38 | XMS_ITS | Clinical Summary ---
Author Organization [facility] Address [address] [place] [address] Care Team Providers Care Dress Marker Name Role Phone Nonstaff, Referring MD Primary Care Provider [phone] Allergies No known active allergies Medications aspirin [...] 12/07/2024 Restenosis of arterial stent, initial encounter 11/29/2024 Family History Medical History Relation Name Comments [...] Tetanus Vaccination (Every 1 0 Years) 1978 Hepatitis C Virus (HCV) Screening 1981 Breast Cancer Screening 2010 Pneumococcal Vaccine: 50+ Ye ars (1 of 1 - PCV) 2010 Zoster-RZV(Shingrix) (1 of 2) 2010 RSV Vaccines (1 - Risk 60-74 years 1-dose series) 2020 BMI Counseling 08/22/2024 Depression Screening 08/22/2024 Advance Care Planning 2025 Fall Risk Assessment 2025 Osteoporosis Screening 2025 10/26/2018, 2018 COVID-19 Vaccine (1 - 2023-2 5 season) 2025 Influenza Vaccination (#1) 04/22/202506/11, 05/10/2023, 05/26/2022, Additional history exists Lipid Monitoring 12/07/2025 12/07/2024 Lipid Screening Discontinued 12/07/2024 Goals Goal Patient Goal Type Associated Problems Recent Progress Patient-Stated? Author Increase physical activity Lifestyle No Letty Castellano BS Medical Devices Implanted Type Area Cab Worker Device Identifier Shelf Expiration Date Model / Serial / Lot Perclose Prostyle. - [id number] Implanted:Qty: 1 on 12/07/2024 by Rod Fuller MD at [facility] [id number] 10/19/2026 [id number] / / [id number] Description:RFA Procedures Procedure Name Priority Date/Time Associated Diagnosis Comments LIPID PROFILE Routine 12/07/2024 6:10 AM EDT from Last 3 Months or Most Recently Relevant to Health Maintenance Results * LIPID PROFILE (12/07/2024 6:10 AM EDT) Cholesterol 157 125 - 199 mg/dL [facility] Comment: TOTAL CHOLESTEROL INTERPRETATION: Less than 200 mg/dL Desireable 200-239 mg/dL Borderline Greater or Equal to 240 mg/dL High LDL Calculated 68 0 - 100 mg/dL [facility] Comment: LDL CHOLESTEROL INTERPRETATION: Less than 100 mg/dL Optimal 100-129 mg/dL Near optimal/above optimal 130-159 mg/dL Borderline High 160-189 mg/dL High Greater or Equal to 190 mg/dL Very High HDL 74 40 - 180 mg/dL [facility] Comment: HDL CHOLESTEROL INTERPRETATION: Less than 40 mg/dL Low Greater than 60 mg/dL Desirable Triglycerides 77 0 - 149 mg/dL [facility] Comment: TOTAL TRIGLYCERIDE INTERPRETATION: Less than 150 mg/dL Normal 150-199 mg/dL Borderline HIgh 200-499 mg/dL High Greater or Equal to 500 mg/dL Very High NONHDL Calculated 83 0 - 129 mg/dL [facility] Comment: NON-HDL INTERPRETATION: Less than 130 mg/dL Desirable 130-159 mg/dL Above Desirable 160-189 mg/dL Borderline High 190-219 mg/dL High Greater than or equal to 220 mg/dL Very High Plasma (Blood) 12/07/2024 6: 10 AM EDT 12/07/2024 6:26 AM EDT us Ord Farzana Fuller MD CHEMISTRY ORDERABLES Final Result [facility] [address] [place] [address], [facility] from Last 3 Months or Most Recently Relevant to Health Maintenance Insurance ANTH Advance Directives For more information, please contact: [phone] * Full Code (Latest Code Status on File) Date Activated Date Inactivated Comments 12/07/2024 9:42 AM No automated c hest compression devices for VAD Patients Care Teams Dress Marker Relationship Specialty Start Date End Date TaytaffFelix MD [address] [place] [address] PCP - General 12/07/24
--- OUTSIDE RECORDS SUMMARY | 2025-05-15 06:38 | XMS_ITS | Patient Health Record ---
Author Organization [facility] Address [address] [facility] [address] [place] [id number] Care Team Providers Care Continuous Improvement Coordinator Name Role Phone Odette Pereira Primary Care Provider [phone] Hakeem Jason Unavailable [phone] VidalesChuyita ryan Unavailable [phone] Allergies No Known Allergies Results Component Value [...] Interpretation:E. Coli Performing Lab: Notes/Report: E. Coli Reason For Referral No Information Medications Medication SIG (Take, Route, Frequency, Duration) [...] spray each nostril as needed 01/30/2011 Active Prasugrel HCl 10 MG as directed Orally Active Empagliflozin 10 MG 1 tablet Orally Once a day; Duration: 30 day(s) Active Carvedilol 3.125 MG 1 tablet with food O rally Twice a day; Duration: 30 day(s) Active Nitrostat 0.4 MG 1 tab(s) sublinguall y every 5 minutes prn; Duration: 0 02/24/2015 Active Levothyroxine Sodium 125 MCG 1 tablet in the morning on an empty stomach Orally Once a day; Duration: 90 days 04/01/2025 Active Atorvastatin Calcium 40 MG 1 tablet [...] Notes Problem Carotid artery occlusion without infarction (640819670167790) STENOSIS OF CAROTID ARTERY WITHOUT INFARCTION (433.10) Active confirmed Problem Sinusitis (59523492) Sinusitis (J32.9) Active confirmed Problem Hyperlipidemia (99315418) Hyperlipidemia (E78.5) Active confirmed Problem Essential hypertension (06951892) Essential hypertension (I10) Active confirmed Problem Hypothyroidism (94409573) Hypothyroidism (E03.9) Active confirmed Problem Hyperlipidemia (90899877) Other and unspecified hyperlipidemia (E78.5) Active confirmed Low Problem Stented coronary artery (193654553) Stented coronary artery (Z95.5) Active confirmed Problem Multi vessel coronary artery disease (794250333) CAD, multiple vessel (I25.10) Active confirmed Vital Signs Heart Rate 87 /min 02/06/2025 Blood pressure diastolic 80 mm Hg 02/06/2025 Height 64.25 in 02/06/2025 Blood pressure systolic 130 mm Hg 02/06/2025 Weight 172 lbs 02/06/2025 BMI 29.29 kg/m2 02/06/2025 Encounters Encounter Location Date Provider Diagnosis [facility] [address] [place], [place] [id number] 09/24/2024 Chuyita Vidales URI (upper respirato ry infection) J06.9 and Sinusitis J32.9 [facility] [address] [place], [place] [id number] 02/06/2025 Hakeem La Joya Acute UTI N39.0 ; Dysuria R30.0 and BMI 29.0-29.9,adult Z68.29 [facility] [address] [facility] [address] [place], [place] [id number] 03/25/2025 Odette Pereira [facility] [address] [facility] [address] [place], [place] [id number] 02/18/2025 Odette Pereira [facility] [address] [place], [place] [id number] 04/01/2025 Odette Pereira Assessments Encounter Date Diagnosis (ICD Code) Assessment Notes Treatment Notes Treatment Clinical Notes Section Notes 09/24/2024 URI (upper respiratory infection) (ICD-10 - J06.9) stressed, fluids, rest, supportive measures for fever/symptom relief; to use inhaler qid prn and q4h prn 09/24/2024 Sinusitis (ICD-10 - J32.9) 02/06/2025 Dysuria (ICD-10 - R30.0) 02/06/2025 Acute UTI (ICD-10 - N39.0) 02/06/2025 BMI 29.0-29.9,adult (ICD-10 - Z68.29) Plan Of Treatment No Information Insurance Providers Payer Name Payer Address Payer Phone Subscriber Number Group Number Insured Name Patient Relationship to Insured Coverage Start Date Coverage End Date [employer] [address] [place] [address] [id number] Jennifer Melgoza Self - patient is the insured Medical (General) History Medical History History ICD Code Hypothyroid Hodgkins Disease Broken neck Moderate Aortic insufficency on Cath 01/21 012 Right Breast cancer Coronary Artery Disease Myocardial Infarction, February 20, 2024, wit h PCI (3 stents placed) at [facility] Surgical History Surgery Date(Month/Year) Splenectomy Tubal Ligation Tonsillectomy Partial Thyroidectomy Heart Cath 02/01/2012 Colonoscopy 03/18/2014 Small Bowel Obstruction 05/2014 LT Wrist Ganglion Cyst Removal 12/2014 Double Masectomy 09/2018 Reconstruction 12/2018 STEMI s/p 3 Coronary Stent Placement Hospitalization History Reason Date(Month/Year) [facility] ER - L sided chest and shoulder pain 06/15/2015 [place] Obstruction 03/2014
--- OUTSIDE RECORDS SUMMARY | 2025-05-15 06:38 | XMS_ITS | Clinical Summary ---
Author Organization [facility] Address [address] [place] [address] Care Team Providers Care Inside Solar Sales Consultant Name Role Phone Archie Pereira MD Primary Care Provider [phone] Allergies No known active allergies Medications calcium carbonate (CALCIUM 600) 600 MG tablet Take 600 mg by mouth Daily. Active anastrozole (ARIMIDEX) 1 MG tablet Take 1 mg by mouth Daily. Active levothyroxine (SYNTHROID, LEVOTHROID) 112 MCG tablet Take 112 mcg by mouth Daily. Active bisoprolol (ZEBeta) 5 MG tablet Take 5 mg by mouth Daily. Active lisinopril (PRINIVIL,ZESTR IL) 5 MG tablet Take 5 mg by mouth Daily. Active pravastatin (PRAVACHOL) 40 MG tablet Take 40 mg by mouth Every Night. Active oxyCODONE-aceta minophen (PERCOCET) 5-325 MG per tablet Take 1-2 tablets by mouth Every 4 (Four) Hours As Needed (Pain). 20 tablet 01/12/2019 11:50 AM EDT 01/12/2019 Active Active Problems No known active problems Social History Tobacco Use Types Packs/Day Years Used Date Smoking Tobacco: Never Smokeless Tobacco: Never Alcohol Use Standard Drinks/Week Comments Yes 2 (1 standard drink = 0.6 oz pur e alcohol) Abuse Screen Answer Date Recorded Unsafe at Home or Work/School Not on file Feels Threatened by Someone? Not on file 04/2023 Does Anyone Keep You from Co ntacting Others or Doint Things Outside the Home? Not on file 05/30/2023 Physical Sign of Abuse Present Not on file 1 Housing Stability Answer Date Recorded Current Living Arrangements Not on file 04/2023 Potentially Unsafe Housing Conditions Not on sven e 05/30/2023 Family and Community Support Answer Zach e Recorded Help with Day-to-Day Activities Not on file 05/30/2023 Lonely or Isolated Not on file 05/30/2023 Employment Answer Date Recorded Do you want help finding or keeping work or a vane b? Not on file 05/30/2023 Disabilities Answer Date Recorded Concentrating, Remembering, or Making Decisions Difficulty Not on file 05/30/2023 Doing Errands Independently Difficulty Not on fi le 05/30/2023 Education Answer Date Recorded Help with school or training? Not on file Preferred Language Not on file 05/30/2023 Comments No Sex and Gender Information Value Date Recorded Sex Assigned at Not on file Legal Sex Female 10:20 AM EDT Gender Identity Not on file Sexual Orientation Not on file Last Filed Vital Signs Vital Sign Reading Time Taken Comments Blood Pressure 156/68 01/12/2019 12:00 PM EDT Pulse 68 01/12/2019 12:00 PM EDT Temperature 36.6 C (97.8 F) 01/12/2019 11:45 AM EDT Respiratory Rate 17 01/12/2019 12:00 PM EDT Oxygen Saturation 99% 01/12/2019 12:00 PM EDT Inhaled Oxygen Concentration - - Weight 76.2 kg (168 lb) 01/12/2019 6:41 AM EDT Height 165.1 cm (5' 5 ) 01/12/2019 6:41 AM EDT Body Mass Index 27.96 01/12/2019 6:41 AM EDT Plan of Treatment Health Maintenance Due Date Last Done Comments DXA SCAN 1960 TDAP/TD VACCINES (1 - Tdap) 1979 MAMMOGRAM 2000 COLOGUARD 2005 COLON CANCER SCREENING 5 YEAR SIGMOIDOSCOPY 2005 COLONOSCOPY [address] SCREENING [address] COLONOGRAPHY 2005 FECAL OCCULT BLOOD TEST 2005 FIT Testing (1 year) 2005 Pneumococcal Vaccine 50+ (1 of 1 - PCV) 2010 1 ZOSTER VACCINE (1 of 2) 2010 ANNUAL PHYSICAL 01/03/2019 HEPATITIS C SCREENING 01/03/2019 OT PLAN OF CARE 06/19/2019 03/21/2019 INFLUENZA VACCINE 03/22/2025 COVID-19 Vaccine ( season) 2025 Medical Devices Implanted Type Area Tank Wagon Operator Device Identifier Shelf Expiration Date Model / Serial / Lot Brst Mae Natrelle Inspira Smoth Xf/P 615cc - [id number] - [id number] Implanted:Qty : 1 on 01/12/2019 by Efrain Alonzo MD at [facility] Implant Left: Breast [employer] 05/16/2023 [id number] / [id number] / [id number] Brst Mae Natrelle Inspira Smoth Xf/P 580cc - [id number] - [id number] Implanted:Qty : 1 on 01/12/2019 by Efrain Alonzo MD at [facility] Implant Right: Breast [employer]ERGAN [employer] 04/16/2023 [id number] / [id number] / [id number] [place] [place] [address] PPO Member Subscriber Plan / Payer (Ef fective 2013-Present) Name:Jennifer Melgoza Relation to Subscriber:Self Name:Jennifer Melgoza Payer ID:[id number] ([facility]) Type:Not on file Address: [address] [place] [id number] Advance Directives Healthcare Agents on File Name Relationship Healthcare Agent [facility] p Communication Tanvir Melgoza Spouse Health Care Surrogate Care Teams Inside Solar Sales Consultant Relationship Specialty Start Date End Date Archie Pereira MD PCP - General 10/11/15
--- OUTSIDE RECORDS SUMMARY | 2025-05-15 06:38 | XMS_ITS | Patient Health Record ---
Author Organization [facility] Address [address] [address] [place] [address] Care Team Providers Care Location Worker Name Role Phone Bernadine Jackson Unavailable [phone] Reason For Referral No Information Problems Problem Type SNOMED Code ICD Code Onset Dates Problem Status W/U Status Risk Notes Problem Epimenorrhea (04596663) Epimenorrhea (N92.0) 010 Active confirmed MENORRHAGIA Problem Abnormal weight gain (602386508) Abnormal weight gain (R63.5) 010 Active confirmed ABNORMAL WEIGHT GAIN Problem Adult health examination (396799399) Adult general medical exam (Z00.00) 010 Active confirmed ANNUAL EXAM Plan Of Treatment No Information Medical (General) History Medical History History ICD Code ABORTIONS: 1 MENSTR FLOW: Heavy SOCIAL HX: non smoker. denies drug use. SOCIAL HX: non smoker. denies drug use. Fibroids Abn paps Yeast inf Thyroid disease COMBIPATCH 0.05-0.14 MG/DAY TRANSDERMAL PATCH TWICE WEEKLY SYNTHROID 100 MCG ORAL TABLET Surgical History Surgery Date(Month/Year) Thyroid- 2000, Spleenectomy- 1979, Tubal- 1988, Tonsillectomy- 1970, Polydonial cyst- 1975
[2025-05-15 08:00] VITALS: BP 156/80; PULSE 90; RESP 14
--- NOTE | 2025-05-15 09:00 | CA_ITS ---
APPROVED REPORT EXAM: Comprehensive 2D, Doppler, and color-flow Echocardiogram Associate Dentist: Hilda Kessler RT(R) Ht: 5 ft 4 in Wt: 177lbs BSA: 1.86 BP: 160/86 mmHg Indications: abn stress, CAD, hx breast cancer with bilateral mastectomies and implants placed, EF 45% 06/2024. Echo Enhancing Agent Indication: Endocardial border delineation Agent(s) / Amount(s) Used: Definity 2 cc 2D Dimensions LA Volume 27.00 mL LA Volume Index 14.52 mL/m2 (M/F) 16-34 EF AP4 45.20 % GL Strain -18.5 % M-Mode Dimensions RVDd 2.64 cm (0.9-2.6) LA Diam 3.12 cm (1.9-4.0) LVDd 4.46 cm (3.5-5.7) LVDs 3.57 cm (3.5-5.7) IVSd 0.89 cm (0.6-1.1) PWd 0.68 cm (0.6-1.1) EF (Teich) 41.10% FS 20.00% EDV (Teich) 90.50 mL ESV (Teich) 53.30 mL LV Diastology E Decel Time 197 (160-240 msec) E/A Ratio 0.9 Aortic Valve AI PHT 526.00 ms Mitral Valve MV E Max Alexandre. 95.0 (40-130 cm/s) MV A Velocity 100.0 (40-130 cm/s) E/A Ratio 0.95 MV PHT 58.0 ms Left Ventricle The left ventricle is normal size. Left ventricular systolic function is mildly reduced. There is increased left ventricular wall thickness. There is mild global hypokinesis present. There is moderate hypokinesis of the basal inferior and inferoseptal LV islas. Grade 1 diastolic dysfunction is present. No left ventricle thrombus noted on this study. LVEF is 45%. Right Ventricle The right ventricle is mildly dilated. The right ventricular systolic function is normal. Atria The left atrium size is normal. The right atrium size is normal. There is no color Doppler evidence of interatrial shunt. Aortic Valve The aortic valve is mildly thickened. There is no hemodynamically significant aortic valvular stenosis. Mild aortic regurgitation is present. Mitral Valve The mitral valve is normal in structure. No evidence of mitral valve stenosis. Trace mitral regurgitation is present. Tricuspid Valve The tricuspid valve leaflets are thin and pliable. Trace tricuspid regurgitation. There is insufficient TR jet to estimate RVSP. Pulmonic Valve The pulmonary valve is grossly normal in structure. Trace pulmonic valve regurgitation is present. Great Vessels The aortic root is normal in size. IVC is normal in size and collapses >50% with inspiration. Pericardium There is no pericardial effusion. Other Information Study Quality: Fair Conclusion Mild reduction in LV systolic function (LVEF 45%). Moderate hypokinesis of the basal inferior and inferoseptal LV islas. Mild RV dilation. Mild AI. Electronically signed by : Kirstin Dorsey MD 05/15/2025 13:22:03
[2025-05-15] MEDS: DEFINITY US ECHO CONTRAST 2ML INJ 2 MG IV (09:17)
[2025-05-15] MEDS: ISOTOPE MYOVIEW (PER STUDY) 1 DOSE IV (10:09)
[2025-05-15] MEDS: SODIUM CHLORIDE 0.9% 10ML SYR (RAD ONLY) 10 ML IV ×2 (10:09)
== END 2025-05-15 23:59 | disposition home or self-care (01) ==
LOC: RAD 06:35
PROVIDERS: PCP Physician Assistant; Visit Provider Internal Medicine
DX: I35.1 Nonrheumatic aortic (valve) insufficiency (principal); I11.0 Hypertensive heart disease with heart failure; I50.20 Unspecified systolic (congestive) heart failure; R93.1 Abnormal findings on diagnostic imaging of heart and coronary circulation; I25.10 Atherosclerotic heart disease of native coronary artery without angina pectoris; R94.39 Abnormal result of other cardiovascular function study; I49.3 Ventricular premature depolarization
CPT/HCPCS: 78452; 93017; 93018; 93306; A9502; J2785; Q9957

== ENCOUNTER 2025-07-03 10:27 | Outpatient (CLI) | payer OTHER, SELFPAY ==
--- OUTSIDE RECORDS SUMMARY | 2024-02-24 06:30 | XMS_ITS ---
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 Name Role Phone Odette Pereira Primary Care Provider ConcordHakeem addison Unavailable [phone] Allergies No Known Allergies Results Component Value Reference Range Notes CBC Fingerstick (in house) Reviewed date:02/27/2024 09:20:35 AM Interpretation: Performing Lab: Notes/Report: wbc 8.4 3.5 - 10 lym 30.3% 15 - 50 mid 6.4% 2 - 15 gran 63.3% 35 - 80 rbc 3.62 3.5 - 5.5 hgb 12.2 11.5 - 16.5 hct 36.7 35 - 55 mcv 101.3 75 - 100 mch 33.8 25 - 35 mchc 33.3 31 - 38 plat 410 100 - 400 REASON FOR VISIT blood in stool Medications Medication SIG (Take, Route, Frequency, Duration) Notes Start Date End Date Status Spironolactone 25 MG 1 tablet Orally; Duration: 30 day(s) Active Calcium Carbonate 1250 (500 Ca) MG 1 tablet with food Orally Twice a day; Duration: 30 day(s) Active Famotidine 40 MG 1 tab(s) orally once a day (at bedtime); Duration: 14 days 01/05/2023 Active Synthroid 125 MCG 1 tablet in the morn ing on an empty stomach Orally Once a day; Duration: 15 day(s) Active Empagliflozin 10 MG 1 tablet Orally Once a day; Duration: 30 day(s) Active Nitrostat 0.4 MG 1 tab(s) sublinguall y every 5 minutes prn; Duration: 0 02/24/2015 Active Fluticasone Propionate 50 MCG/ACT 1 spray each nostril as needed 01/30/2011 Active Carvedilol 3.125 MG 1 tablet with food O rally Twice a day; Duration: 30 day(s) Active Atorvastatin Calcium 40 MG 1 tablet Oral ly Once a day; Duration: 30 day(s) Active Prasugrel HCl 10 MG as directed Orally Active Sacubitril-Valsartan 24-26 MG 1 tablet Orally Twice a day; Duration: 30 day(s) Active Problems Problem Type SNOMED Code ICD Code Onset Dates Problem Status W/U Status Risk Notes Problem Multi vessel coronary artery disease (181533599) CAD, multiple vessel (I25.10) Active confirmed Vital Signs Blood pressure systolic 122 mm Hg 02/24/20 24 Blood pressure diastolic 80 mm Hg 024 Heart Rate 104 /min 02/24/2024 Height 64.25 in 02/24/2024 Weight 179.6 lbs 02/24/2024 BMI 30.59 kg/m2 02/24/2024 Encounters Encounter Location Date Provider Diagnosis [facility] [address] [facility] [address] [place], [place] [id number] 02/24/2024 Hakeem Concord BRBPR (bright red blood per rectum) K62.5 and CAD, multiple vessel I25.10 Assessments Encounter Date Diagnosis (ICD Code) Assessment Notes Treatment Notes Treatment Clinical Notes Section Notes 02/24/2024 BRBPR (bright red blood per rectum) (ICD-10 - K62.5) H/H both higher now than when she was discharged from [facility] 2 days ago. Continue current treatment. Call with any new symptoms. Keep f/u appt. 02/24/2024 CAD, multiple vessel (ICD-10 - I25.10) Plan Of Treatment Treatment Notes Assessment Notes BRBPR (bright red blood per rectum) H/H both higher now than when she was discharged from [facility] 2 days ago. Continue current treatment. Call with any new symptoms. Keep f/u appt. Next Appt Details Follow Up: as scheduled,and prn, Reason: Progress Notes * Estrella KRISHNAMURTHY:1960 ( 65 yo F)Acc No.[id number]:02/24/2024 Progress Notes Patient: Jennifer MARIA Provider: Nathalie Jason M.D. :1960 A ge:63 Y S ex:Female Date:02/24/2024 Address:[address] [address], [place] [phone] Pcp:Odette Pereira Subjective: * Chief Complaints: * 1 . Blood in stool. * HPI: G astroenterology: 63 year old female presents with c/o Blood in Stool P t complains of blood in stool that started yesterday, stools are black. States she had a heart attack (STEMI) at [facility] on Tuesday and had 3 stents placed. She was cared for by the [facility] hospitalist service. Pt called [facility] infection control coordinator today and was advised to see PCP for CBC due to additions of blood thinners this week. * ROS: C ARDIOLOGY: no D izziness. n o C hest pain. D ERMATOLOGY: no R evelyn. n o H ziyad. U ROLOGY: no D ifficulty urinating. n o B lood in urine. * Medical History: H ypothyroid , Hodgkins Disease , Broken neck , Moderate Aortic insufficency on Cath 01/2012, Right Breast cancer , Coronary Artery Disease, Myocardial Infarction, February 20, 2024, with PCI (3 stents placed) at [facility]. * Surgical History: S plenectomy , Tubal Ligation , Tonsillectomy , Partial Thyroidectomy , Heart Cath 02/01/2012, Colonoscopy 03/18/2014, Small Bowel Obstruction 05/2014, LT Wrist Ganglion Cyst Removal 12/2014, Double Masectomy 09/2018, Reconstruction 12/2018, STEMI s/p 3 Coronary Stent Placement 02/19/2024. * Hospitalization/Major Diagno stic Procedure: B bowel Obstruction 03/2014, [facility] ER - L sided chest and shoulder pain 06/15/2015. * Family History: F ather: alive 84 yrs, HBP. M other: alive 82 yrs, Heart attack, kidney disease, HBP. 1 brother(s) . 2 son(s) , 1 daughter(s) - healthy. . * Social History: C URRENT TOBACCO USE S moking Status: Patient does NOT smoke, Second hand smoke exposure: No. C affeine: yes, frequency: coffee. Home smoke detector use: yes. Past smoking status: no, Smoking status: Does not smoke. Alcohol: Yes, Type: wine, mixed drink, Frequency: on occasion ,Years: , Determination:. * Medications: T aking Calcium Carbonate 1250 (500 Ca) MG Tablet Chewable 1 tablet with food Orally Twice a day , Taking Spironolactone 25 MG Tablet 1 tablet Orally , Taking Sacubitril-Valsartan 24-26 MG Tablet 1 tablet Orally Twice a day , Taking Prasugrel HCl 10 MG Tablet as directed Orally , Taking Empagliflozin 10 MG Tablet 1 tablet Orally Once a day , Taking Carvedilol 3.125 MG Tablet 1 tablet with food Orally Twice a day , Taking Atorvastatin Calcium 40 MG Tablet 1 tablet Orally Once a day , Taking Nitrostat 0.4 MG Tablet Sublingual 1 tab(s) sublingually every 5 minutes prn , Taking Fluticasone Propionate 50 MCG/ACT Suspension 1 spray each nostril as needed , Taking Famotidine 40 MG Tablet 1 tab(s) orally once a day (at bedtime) , Taking Synthroid 125 MCG Tablet 1 tablet in the morning on an empty stomach Orally Once a day , Discontinued Anastrozole 1 MG Tablet 1 tab(s) orally once a day , Discontinued Lisinopril 5 MG Tablet 1 tab(s) orally qd am , Discontinued Bisoprolol Fumarate 5 MG Tablet 1 tab(s) orally once a day , Discontinued Flonase Allergy Relief 50 MCG/ACT Suspension 1 spray in each nostril Nasally Once a day , Discontinued Amoxicillin-Pot Clavulanate 875-125 MG Tablet 1 tablet Orally every 12 hrs , Discontinued Nystatin-Triamcinolone APPLY TOPICALLY TID , Notes to Pharmacist: *Please review and pick correct strength-formulation from Medispan options. If intended option is not shown, discontinue and re-order from Quick Search*, Medication List reviewed and reconciled with the patient * Allergies: N .K.D.A. Objective: * Vitals: W t:179.6, Temp:97.9, BP:122/80, HR:104, Nurse:marion, Ht: 64.25, BMI:30.59. * Examination: G astroenterology: General Appearance: p leasant, NAD. O ral cavity: n ormal. S clera: a nicteric. H eart sounds: r egular, normal S1 S2. L ungs: c lear, no rales or wheezes. A bdomen: B S present, soft, nontender, no guarding or rigidity, no masses felt. Assessment: * Assessment: 1. B RBPR (bright red blood per rectum) - K62.5 (Primary) 2 . C AD, multiple vessel - I25.10 Plan: * Treatment: Value Reference Range w bc 8.4 3.5 - 10 * l ym 30.3% 15 - 50 * m id 6.4% 2 - 15 * g ran 63.3% 35 - 80 * r bc 3.62 3.5 - 5.5 * h gb 12.2 11.5 - 16.5 * h ct 36.7 35 - 55 * m cv 101.3 75 - 100 * m ch 33.8 25 - 35 * m chc 33.3 31 - 38 * p lat 410 100 - 400 * Emperatriz Hogan 02/24/2024 12:07:39 PM > , Provider reviewed results while patient in office. Notes: H/H both higher now than when she was discharged from [facility] 2 days ago. Continue current treatment. Call with any new symptoms. Keep f/u appt.?? * Procedure Codes: 3 6416 CAPILLARY BLOOD DRAW, 29615 CBC WITH AUTO DIFF * Follow Up: a s scheduled,and prn * Images: Billing Information: * Visit Code: 42881 Office Visit, Est Pt., Level 3. * Procedure Codes: 11148 CAPILLARY BLOOD DRAW. 40050 CBC WITH AUTO DIFF. * Electronic signature of Merissa Jason MD on 07/03/2025 at 10:33 AM EST Sign off status: Pending * Provider: Nathalie Jason M.D. Date: 0 02/24/2024 Generated for Pat blankenship/Lizette/Vishnuitting on: 09/02/2024 10:33 AM EST History and Physical Notes * HPI (History of Present Illness) Category Sub-Category Detail Notes Category Not es Gastroenterology Blood in Stool Pt complains of blood in stool that started yesterday, stools are black. States she had a heart attack (STEMI) at [facility] on Tuesday and had 3 stents placed. She was cared for by the [facility] hospitalist service. Pt called [facility] infection control coordinator today and was advised to see PCP for CBC due to additions of blood thinners this week Examination Category Sub-Category Detail Notes Category Not es Gastroenterology Oral cavity: normal Sclera: anicteric Heart sounds: regular, normal S1 S 2 Lungs: clear, no rales or w heezes Abdomen: BS present, soft, no ntender, no guarding or rigidity, no masses felt General Appearance: pleasant, NAD
--- OUTSIDE RECORDS SUMMARY | 2024-03-12 10:30 | XMS_ITS ---
Author Organization [facility] Address [address] [place] [id number] Care Team Providers Care Career Portals Teacher Name Role Phone Odette Pereira Primary Care Provider Allergies No Known Allergies Results Component Value Reference Range Notes X ray : Spine, thoracic spin e Reviewed date:03/16/2024 12:14:15 PM Interpretation:Negative Performing Lab: Notes/Report: Negative REASON FOR VISIT FU FROM [facility] ADMISSION Medications Medication SIG (Take, Route, Frequency, Duration) Notes Start Date End Date Status Calcium Carbonate 1250 (500 Ca) MG 1 tablet with food Orally Twice a day; Duration: 30 day(s) Active Synthroid 125 MCG 1 tablet in the morn ing on an empty stomach Orally Once a day; Duration: 15 day(s) Active HYDROcodone-Acetaminophen 5-325 MG 1 tablet as needed Orally four times a day as needed 03/12/2024 Active Fluticasone Propionate 50 MCG/ACT 1 spray each nostril as needed 01/30/2011 Active Famotidine 40 MG 1 tab(s) orally once a day (at bedtime); Duration: 14 days 01/05/2023 Active Empagliflozin 10 MG 1 tablet Orally Once a day; Duration: 30 day(s) Active Carvedilol 3.125 MG 1 tablet with food O rally Twice a day; Duration: 30 day(s) Active Atorvastatin Calcium 40 MG 1 tablet Oral ly Once a day; Duration: 30 day(s) Active Nitrostat 0.4 MG 1 tab(s) sublinguall y every 5 minutes prn; Duration: 0 02/24/2015 Active Prasugrel HCl 10 MG as directed Orally Active Spironolactone 25 MG 1 tablet Orally; Duration: 30 day(s) Active Sacubitril-Valsartan 24-26 MG 1 tablet Orally Twice a day; Duration: 30 day(s) Active Problems Problem Type SNOMED Code ICD Code Onset Dates Problem Status W/U Status Risk Notes Problem Stented coronary artery ([id number]) Stented coronary artery (Z95.5) Active confirmed Vital Signs Blood pressure systolic 120 mm Hg 03/12/20 24 Blood pressure diastolic 70 mm Hg 024 Heart Rate 85 /min 03/12/2024 Height 64.25 in 03/12/2024 Weight 174.6 lbs 03/12/2024 BMI 29.73 kg/m2 03/12/2024 Encounters Encounter Location Date Provider Diagnosis [facility] [address] [facility] [address] [place] [id number] 03/12/2024 Odette Pereira Upper back pain M54. 9 ; CAD, multiple vessel I25.10 and Stented coronary artery Z95.5 Assessments Encounter Date Diagnosis (ICD Code) Assessment Notes Treatment Notes Treatment Clinical Notes Section Notes 03/12/2024 Upper back pain (ICD-10 - M54.9) 03/12/2024 CAD, multiple vessel (ICD-10 - I25.10) 03/12/2024 Stented coronary artery (ICD-10 - Z95.5) Plan Of Treatment Medication Medication Name Sig Start Date Stop Date Notes HYDROcodone-Acetaminophen 5- 325 MG 1 tablet as needed Orally four times a day as needed 03/12/2024 Next Appt Details Follow Up: 1 Week, Reason: Progress Notes * Jennifer KRISHNAMURTHYDOB:1960 ( 65 yo F)Acc No.[id number]:03/12/2024 Progress Notes Patient: Jennifer MARIA Provider: Odette Pereira M.D. :1960 A ge:63 Y S ex:Female Date:03/12/2024 Address[id number] Subjective: * Chief Complaints: * 1 . FU FROM [facility] ADMISSION. * HPI: C ardiology: The patient is here for a follow up after [facility] discharge. Pt states she is having some back pain. Pt states she went to the ER on February 24 and they ruled out anything with the heart and stent placement. Pt states she is using a heating pad and that helps. Pt states the pain is worse when she does anything with her arms extended in front of her. 63 year old female presents with c/o Short of Breath. Denies : Chest Pain. D enies : Dizziness. D enies : Palpitations. * ROS: D ERMATOLOGY: no R evelyn. n o H ziyad. G ASTROENTEROLOGY: no N ausea. n o V omiting. n o D iarrhea.? U ROLOGY: no D ifficulty urinating. n o B lood in urine. * Medical History: H ypothyroid , Hodgkins Disease , Broken neck , Moderate Aortic insufficency on Cath 01/2012, Right Breast cancer , Coronary Artery Disease, Myocardial Infarction, February 20, 2024, with PCI (3 stents placed) at [facility]. * Surgical History: S plenectomy , Tubal Ligation , Tonsillectomy , Partial Thyroidectomy , Heart Cath 02/01/2012, Colonoscopy 03/18/2014, Small Bowel Obstruction 05/2014, LT Wrist Ganglion Cyst Removal 12/2014, Double Masectomy 09/2018, Reconstruction 12/2018, STEMI s/p 3 Coronary Stent Placement 02/19/2024. * Hospitalization/Major Diagno stic Procedure: B bowel Obstruction 03/2014, [facility] ER - L sided chest and shoulder [...] empty stomach Orally Once a day , Medication List reviewed and reconciled with the patient * Allergies: N .K.D.A. Objective: * Vitals: W t:174.6, Temp:97.6, BP:120/70, HR:85, Nurse:MANUEL, Ht: 64.25, BMI:29.73. * Examination: G eneral Examination: General Appearance: N AD. H EENT: u nremarkable.?Oral cavity: n o lesions, mucosa moist and WNL, no erythema. N caryn: s upple, no lymphadenopathy. C hest: n ormal shape and expansion. H eart: R SR, no ectopics, no murmur. L ungs: c lear to auscultation, no wheezes or rales. N eurologic Exam: I ntact, gait normal. S kin: n ormal, no rash. P eripheral pulses: n ormal . B ack: tenderness of the trapezius, upper back, and some evidence of spasm?. E xtremities: n o leg edema. Assessment: * Assessment: 1. U pper back pain - M54.9 (Primary) 2 . C AD, multiple vessel - I25.10? 3. S tented coronary artery - Z95.5 Plan: * Treatment: * Follow Up: 1 Week * Images: Billing Information: * Visit Code: 27743 Office Visit, Est Pt., Level 4. * Procedure Codes: * Electronic signature of Odette Pereira MD on 07/03/2025 at 10:34 AM EST Sign off status: Pending * Provider: Odette Pereira M.D. Date: 0 03/12/2024 Generated for Pat blankenship/Lizette/Roxanna on: 1 09/02/2024 10:34 AM EST History and Physical Notes * HPI (History of Present Illness) Category Sub-Category Detail Notes Category Not es Cardiology Short of Breath Chest Pain Palpitations Dizziness Examination Category Sub-Category Detail Notes Category Not es General Examination HEENT: unremarkable Heart: RSR, no ectopics, no murmur Lungs: clear to auscultatio n, no wheezes or rales Extremities: no leg edema General Appearance: NAD Skin: normal, no rash Neurologic Exam: Intact, gait normal Neck: supple, no lymphaden opathy Oral cavity: no lesions, mucosa m oist and WNL, no erythema Peripheral pulses: normal Back: tenderness of the tr apezius, upper back, and some evidence of spasm? Chest: normal shape and exp ansion
--- OUTSIDE RECORDS SUMMARY | 2024-03-19 09:15 | XMS_ITS ---
[facility] [address] [facility] [address] [place] [phone] Care Team Providers Care Louver Door Assembler Name Role Phone Odette Pereira Primary Care Provider Allergies No Known Allergies Reason For Referral Reason upper back pain Diagnosis 1 Acute midline thorac ic back pain (M54.6) [facility] Referring Provider First Name Odette Almanza Referring Provider Last Name Randall Referring Provider Speciality Family Pra ctice Referred Provider Specialty Physical The rapist General Notes Radha Cid 03/19/20 24 3:48:39 PM > faxed to scheduling Referral Priority Routine REASON FOR VISIT 1 week f/u Medications Medication SIG (Take, Route, Frequency, Duration) Notes Start Date End Date Status Atorvastatin Calcium 40 MG 1 tablet Orally MWF Active Fluticasone Propionate 50 MCG/ACT 1 spray [...] times a day as needed 03/12/2024 Active Carvedilol 3.125 MG 1 tablet with food Orally Twice a day; Duration: 30 day(s) Active Nitrostat 0.4 MG 1 tab(s) sublinguall y every 5 minutes prn; Duration: 0 02/24/2015 Active Prasugrel HCl 10 MG as directed Orally Active Empagliflozin 10 MG 1 tablet Orally Once a day; Duration: 30 day(s) Active Cyclobenzaprine HCl 10 MG 1 tablet at be dtime as needed Orally Three times a day; Duration: 20 day(s) 03/19/2024 Active Sacubitril-Valsartan 24-26 MG 1 tablet Orally Twice a day; Duration: 30 day(s) Active Calcium Carbonate 1250 (500 Ca) MG 1 tablet with food Orally Twice a day; Duration: 30 day(s) Active Spironolactone 25 MG 1 tablet Orally; Duration: 30 day(s) Active Vital Signs Blood pressure systolic 112 mm Hg 03/19/20 Blood pressure diastolic 70 mm Hg 024 Heart Rate 81 /min 03/19/2024 Height 64.25 in 03/19/2024 Weight 176.0 lbs 03/19/2024 BMI 29.97 kg/m2 03/19/2024 Encounters Encounter Location Date Provider Diagnosis [facility] [address] [facility] [address] [place], [place] [phone] 03/19/2024 Odette Pereira Acute midline thoracic back pain M54.6 and CAD, multiple vessel I25.10 Assessments Encounter Date Diagnosis (ICD Code) Assessment Notes Treatment Notes Treatment Clinical Notes Section Notes 03/19/2024 Acute midline thoracic back pain (ICD-10 - M54.6) Stop Methacarbamol 03/19/2024 CAD, multiple vessel (ICD-10 - I25.10) Plan Of Treatment Medication Medication Name Sig Start Date Stop Date Notes Atorvastatin Calcium 40 MG 1 tablet Orally MWF Cyclobenzaprine HCl 10 MG 1 tablet at be dtime as needed Orally Three times a day; Duration: 20 day(s) 03/19/2024 Treatment Notes Assessment Notes Acute midline thoracic back pain Stop Me thacarbamol Referrals Referral Date Details 03/19/2024 03/19/2024, upper ba ck pain Next Appt Details Follow Up: 3 Weeks, Reason: Progress Notes * Jenniefr KRISHNAMURTHYDOB:1960 ( 65 yo F)Acc No.[id number]:03/19/2024 Progress Notes Patient: Jennifer MARIA Provider: Odette Pereira M.D. :1960 A ge:63 Y S ex:Female Date:03/19/2024 Address:[facility] [place], [place] [address] Subjective: * Chief Complaints: * 1 . 1 week f/u. * HPI: U pper back: The pt is here for a follow up on upper back pain and x ray results. Pt states the pain is better but still having bouts of spasms but not as frequent. Taking Methacabamol 500mg 2 po q6 prn. N eurology: Having speech therapy. * ROS: D ERMATOLOGY: no R evelyn. [...] PCI (3 stents placed) at [facility]. * Surgical History: S plenectomy , Tubal Ligation , Tonsillectomy , Partial Thyroidectomy , Heart Cath 02/01/2012, Colonoscopy 03/18/2014, Small Bowel Obstruction 05/2014, LT Wrist Ganglion Cyst Removal 12/2014, Double Masectomy 09/2018, Reconstruction 12/2018, STEMI s/p 3 Coronary Stent Placement 02/19/2024. * Hospitalization/Major Diagno stic Procedure: B bowel Obstruction 03/2014, [facility] ER - L sided chest and shoulder [...] empty stomach Orally Once a day , Taking HYDROcodone-Acetaminophen 5-325 MG Tablet 1 tablet as needed Orally four times a day as needed , Medication List reviewed and reconciled with the patient * Allergies: N .K.D.A. Objective: * Vitals: W t:176.0, Temp:98.1, BP:112/70, HR:81, Nurse:MANUEL, Ht: 64.25, BMI:29.97. * Examination: G eneral Examination: General Appearance: N AD. H EENT: u nremarkable.?Oral cavity: n o lesions, mucosa moist and WNL, no erythema. N caryn: s upple, no lymphadenopathy. C hest: n ormal shape and expansion. H eart: R SR, no ectopics, no murmur. L ungs: c lear to auscultation, no wheezes or rales. N eurologic Exam: I ntact, gait normal. Her voice sounds better today!. S kin: n ormal, no rash. P eripheral pulses: n ormal . B ack: tenderness of the trapezius, upper back, and some evidence of spasm?. E xtremities: n o leg edema. Assessment: * Assessment: 1. A cute midline thoracic back pain - M54.6 (Primary) 2 . C AD, multiple vessel - I25.10 Plan: * Treatment: 2. C AD, multiple vessel Refill Atorvastatin Calcium Tablet, 40 MG, 1 tablet, Orally, MW. * Follow Up: 3 Weeks * Images: Billing Information: * Visit Code: 32657 Office Visit, Est Pt., Level 3. * Procedure Codes: * Electronic signature of Odette Pereira MD on 07/03/2025 at 10:33 AM EST Sign off status: Pending * Provider: Odette Pereira M.D. Date: 0 03/19/2024 Generated for Printi ng/Faxing/eTransmitting on: 1 09/02/2024 10:33 AM EST History and Physical Notes * Examination Category Sub-Category Detail Notes Category Not es General Examination HEENT: unremarkable Heart: RSR, no ectopics, no murmur Lungs: clear to auscultatio n, no wheezes or rales Extremities: no leg edema General Appearance: NAD Skin: normal, no rash Neurologic Exam: Intact, gait normal. Her voice sounds better today! Neck: supple, no lymphaden opathy Oral cavity: no lesions, mucosa m oist and WNL, no erythema Peripheral pulses: normal Back: tenderness of the tr apezius, upper back, and some evidence of spasm? Chest: normal shape and exp ansion Consultation Request Notes Referral Date Referring Provider Referred Provider Not es 03/19/2024 Odette Pereira , upper back pain
--- OUTSIDE RECORDS SUMMARY | 2024-04-11 05:45 | XMS_ITS ---
Author Organization [facility] Address [address] [place] [phone] Care Team Providers Care Concessions Manager Name Role Phone Odette Pereira Primary Care Provider Esther Bobo [phone] REASON FOR VISIT 3 week f/u Encounters Encounter Location Date Provider Diagnosis [facility] [address] [place] [phone] 04/11/2024 Esther Bobo Plan Of Treatment No Information Progress Notes * Jennifer KRISHNAMURTHYDOB:1960 ( 65 yo F)Acc No.[id number]:04/11/2024 Patient: Jennifer MARIA Provider: MACI Boogie :1960 A ge:63 Y S ex:Female Date:04/11/2024 Address:[facility] [address] [address] Pcp:Odette Pereira Subjective: * Chief Complaints: * 1 . 3 week f/u. * Medical History: Objective: * Vitals: Assessment: Plan: * Treatment: * Images: Billing Information: * Visit Code: * Procedure Codes: * Electronic signature of MACI Mcgill on 07/03/2025 at 10:33 AM EST Sign off status: Pending * Provider: MACI Boogie Date: 0 04/11/2024 Generated for Printi ng/Faxing/eTransmitting on: 1 09/02/2024 10:33 AM EST
--- OUTSIDE RECORDS SUMMARY | 2024-05-02 06:00 | XMS_ITS ---
Author Organization [facility] Address [address] [place] [phone] Care Team Providers Care Assistant Store Manager Operations Name Role Phone Odette Pereira Primary Care Provider FiliEsther maldonado Unavailable [phone] Allergies No Known Allergies Results Component Value Reference Range Notes DEXA Hip and Spine Reviewed date:06/07/2024 12:51:02 PM Interpretation:Normal Performing Lab: Notes/Report: Normal REASON FOR VISIT Follow Up & Schedule DEXA Medications Medication SIG (Take, Route, Frequency, Duration) Notes Start Date End Date Status Spironolactone 25 MG 1 tablet Orally; Duration: 30 day(s) Active Calcium Carbonate 1250 (500 Ca) MG 1 tablet with food Orally Twice a day; Duration: 30 day(s) Active Atorvastatin Calcium 40 MG 1 tablet Orally MWF Active Synthroid 125 MCG 1 tablet in the morn ing on an empty stomach Orally Once a day; Duration: 90 days Active Cyclobenzaprine HCl 10 MG 1 tablet at be dtime as needed Orally Three times a day; Duration: 20 day(s) 03/19/2024 Active Famotidine 40 MG 1 tab(s) orally once a day (at bedtime); Duration: 14 days 01/05/2023 Active Fluticasone Propionate 50 MCG/ACT 1 spray each nostril as needed 01/30/2011 Active HYDROcodone-Acetaminophen 5-325 MG 1 tablet as needed Orally four times a day as needed 03/12/2024 Active Nitrostat 0.4 MG 1 tab(s) sublinguall y every 5 minutes prn; Duration: 0 02/24/2015 Active Carvedilol 3.125 MG 1 tablet with food Orally Twice a day; Duration: 30 day(s) Active Prasugrel HCl 10 MG as directed Orally Active Sacubitril-Valsartan 24-26 MG 1 tablet Orally Twice a day; Duration: 30 day(s) Active Empagliflozin 10 MG 1 tablet Orally Once a day; Duration: 30 day(s) Active Vital Signs Blood pressure systolic 140 mm Hg 05/02/20 24 Blood pressure diastolic 74 mm Hg 024 Heart Rate 74 /min 05/02/2024 Height 64.25 in 05/02/2024 Weight 175.2 lbs 05/02/2024 BMI 29.84 kg/m2 05/02/2024 Encounters Encounter Location Date Provider Diagnosis [facility] [address] [place] [phone] 05/02/2024 Esther Bobo Osteoporosis screeni ng Z13.820 and Back pain, unspecified back location, unspecified back pain laterality, unspecified chronicity M54.9 Assessments Encounter Date Diagnosis (ICD Code) Assessment Notes Treatment Notes Treatment Clinical Notes Section Notes 05/02/2024 Osteoporosis screening (ICD-10 - Z13.820) 05/02/2024 Back pain, unspecified back location, unspecified back pain laterality, unspecified chronicity (ICD-10 - M54.9) Plan Of Treatment Next Appt Details Follow Up: via phone to repo rt test results, Reason: Progress Notes * Jennifer KRISHNAMURTHYDOB:1960 ( 65 yo F)Acc No.[id number]:05/02/2024 Progress Notes Patient: Jennifer MARIA Provider: MACI Boogie :1960 A ge:64 Y S ex:Female Date:05/02/2024 Address:[address] [address] Pcp:Odette Pereira Subjective: * Chief Complaints: * 1 . Follow Up & Schedule DEXA. * HPI: M id Back: The pt is here for a follow up on mid back pain. Pt states she saw Orthopedics and they scheduled her for physical therapy. Pt states the MRI revealed a fracture of the t6 level. Pt states they also recommended she get a bone density. * ROS: D ERMATOLOGY: no R evelyn. [...] placed) at [facility]. * Surgical History: S plenectomy , Tubal Ligation , Tonsillectomy , Partial Thyroidectomy , Heart Cath 02/01/2012, Colonoscopy 03/18/2014, Small Bowel Obstruction 05/2014, LT Wrist Ganglion Cyst Removal 12/2014, Double Masectomy 09/2018, Reconstruction 12/2018, STEMI s/p 3 Coronary Stent Placement 02/19/2024. * Hospitalization/Major Diagno stic Procedure: B bowel Obstruction 03/2014, [facility] ER - L sided chest and shoulder [...] ,Years: , Determination:. * Medications: T aking Cyclobenzaprine HCl 10 MG Tablet 1 tablet at bedtime as needed Orally Three times a day , Taking Atorvastatin Calcium 40 MG Tablet 1 tablet Orally MWF , Taking Calcium Carbonate 1250 (500 Ca) MG Tablet [...] food Orally Twice a day , Taking Nitrostat 0.4 MG Tablet Sublingual 1 tab(s) sublingually every 5 minutes prn , Taking Fluticasone Propionate 50 MCG/ACT Suspension 1 spray each nostril as needed , Taking Famotidine 40 MG Tablet 1 tab(s) orally once a day (at bedtime) , Taking HYDROcodone-Acetaminophen 5-325 MG Tablet 1 tablet as needed Orally four times a day as needed , Taking Synthroid 125 MCG Tablet 1 tablet in the morning on an empty stomach Orally Once a day , Medication List reviewed and reconciled with the patient * Allergies: N .K.D.A. Objective: * Vitals: W t:175.2, Temp:97.7, BP:140/74, HR:74, Nurse:MANUEL, Ht: 64.25, BMI:29.84. * Examination: G eneral Examination: General Appearance: N AD. C hest: n ormal shape and expansion. H eart: R SR. L ungs: c lear to auscultation. B ack: ttp along the T-spine. Assessment: * Assessment: 1. O steoporosis screening - Z13.820 (Primary) 2 . B ack pain, unspecified back location, unspecified back pain laterality, unspecified chronicity - M54.9 Plan: * Treatment: * Follow Up: v ia phone to report test results * Images: Billing Information: * Visit Code: 83804 Office Visit, Est Pt., Level 3. * Procedure Codes: * Electronic signature of MACI Mcgill on 07/03/2025 at 10:34 AM EST Sign off status: Pending * Provider: MACI Boogie Date: 0 05/02/2024 Generated for Pat blankenship/Lizette/eTransmitting on: 1 09/02/2024 10:34 AM EST History and Physical Notes * Examination Category Sub-Category Detail Notes Category Not es General Examination Heart: RSR Lungs: clear to auscultatio n General Appearance: NAD Back: ttp along the T-spin e Chest: normal shape and exp ansion
--- OUTSIDE RECORDS SUMMARY | 2024-09-24 05:00 | XMS_ITS ---
Author Organization [facility] Address [address] [facility] [address] [place] [id number] Care Team Providers Care Web Site Developer Name Role Phone Odette Pereira Primary Care Provider Chuyita Vidales Unavailable [phone] Allergies No Known Allergies Results Component Value Reference Range Notes Influenza Screen (in house) Reviewed date:09/24/2024 01:21:27 PM Interpretation:neg Performing Lab: Notes/Report: neg results neg CBC Fingerstick (in house) Reviewed date:09/24/2024 01:21:06 PM Interpretation: Performing Lab: Notes/Report: wbc 6.9 3.5 - 10 lym 28.5 15 - 50 mid 7.8 2 - 15 gran 63.7 35 - 80 rbc 4.32 3.5 - 5.5 hgb 12.0 11.5 - 16.5 hct 38.3 35 - 55 mcv 88.7 75 - 100 mch 27.9 25 - 35 mchc 31.4 31 - 38 plat 433 100 - 400 Covid test (in house) Reviewed date:09/24/2024 01:21:17 PM Interpretation:neg Performing Lab: Notes/Report: neg Result: neg REASON FOR VISIT poss sinus infection Medications Medication SIG (Take, Route, Frequency, Duration) Notes Start Date End Date Status Atorvastatin Calcium 40 MG 1 tablet Orally MWF Active Iron 325 (65 Fe) MG 1 tablet Orally Thre e times a Week; Duration: 30 day(s) Active Protonix 40 MG 1 tablet 1/2 to 1 ho ur before morning meal Orally Once a day; Duration: 30 day(s) Active Albuterol Sulfate HFA 108 (90 Base) MCG/ACT 1 puff as needed Inhalation every 4 hrs prn 09/24/2024 Active Cefuroxime Axetil 500 MG 1 tab Orally ev paul 12 hrs; Duration: 7 day(s) 09/24/2024 Active Synthroid 125 MCG 1 tablet in the morn ing on an empty stomach Orally Once a day; Duration: 90 days Active Fluticasone Propionate 50 MCG/ACT 1 spray each nostril as needed 01/30/2011 Active Nitrostat 0.4 MG 1 tab(s) sublinguall y every 5 minutes prn; Duration: 0 02/24/2015 Active Carvedilol 3.125 MG 1 tablet with food O rally Twice a day; Duration: 30 day(s) Active Calcium Carbonate 1250 (500 Ca) MG 1 tablet with food Orally Twice a day; Duration: 30 day(s) Active Sacubitril-Valsartan 24-26 MG 1 tablet Orally Twice a day; Duration: 30 day(s) Active Spironolactone 25 MG 1 tablet Orally; Duration: 30 day(s) Active Empagliflozin 10 MG 1 tablet Orally Once a day; Duration: 30 day(s) Active Prasugrel HCl 10 MG as directed Orally Active Vital Signs Blood pressure systolic 118 mm Hg 09/24/19 25 Blood pressure diastolic 70 mm Hg 025 Heart Rate 81 /min 09/24/2024 Height 64.25 in 09/24/2024 Weight 176.2 lbs 09/24/2024 BMI 30.01 kg/m2 09/24/2024 Encounters Encounter Location Date [facility] [address] [phone] 09/24/2024 Chuyita Vidales URI (upper respirato ry infection) J06.9 and Sinusitis J32.9 Assessments Encounter Date Diagnosis (ICD Code) Assessment Notes Treatment Notes Treatment Clinical Notes Section Notes 09/24/2024 URI (upper respiratory infection) (ICD-10 - J06.9) stressed, fluids, rest, supportive measures for fever/symptom relief; to use inhaler qid prn and q4h prn 09/24/2024 Sinusitis (ICD-10 - J32.9) Plan Of Treatment Medication Medication Name Sig Start Date Stop Date Notes Albuterol Sulfate HFA 108 (9 0 Base) MCG/ACT 1 puff as needed Inhalation every 4 hrs prn 09/24/2024 Cefuroxime Axetil 500 MG 1 tab Orally ev paul 12 hrs; Duration: 7 day(s) 09/24/2024 Treatment Notes Assessment Notes URI (upper respiratory infection) stress ed, fluids, rest, supportive measures for fever/symptom relief; to use inhaler qid prn and q4h prn Next Appt Details Follow Up: prn, Reason: Progress Notes * Jennifer KRISHNAMURTHYDOB:1960 ( 65 yo F)Acc No.[id number]:09/24/2024 Progress Notes Patient: Jennifer MARIA Provider: MERCEDEZ Coulter :1960 A ge:64 Y S ex:Female Date:09/24/2024 [address] Pcp:Odette Pereira Subjective: * Chief Complaints: * 1 . Poss sinus infection. * HPI: E NT/respiratory: 64 year old female presents with c/o cough g reenish yellow sputum production. c/o nasal congestion P t sts she has been coughing and sneezing, runny nose for a week now and sts she is now having pain in her ears and the middle of her head.? c/o ear pain. c/o rhinorrhea. c/o Short of Breath. c/o headache. c/o chest congestion. Denies : sore throat. D enies : smoking. D enies : body aches. eating and drinking OK; sleping less due to SOB. * ROS: D ERMATOLOGY: no R evelyn. [...] 2024, with PCI (3 stents placed) at [facility]. * Surgical History: S plenectomy , Tubal Ligation , Tonsillectomy , Partial Thyroidectomy , Heart Cath 02/01/2012, Colonoscopy 03/18/2014, Small Bowel Obstruction 05/2014, LT Wrist Ganglion Cyst Removal 12/2014, Double Masectomy 09/2018, Reconstruction 12/2018, STEMI s/p 3 Coronary Stent Placement 02/19/2024. * Hospitalization/Major Diagno stic Procedure: B bowel Obstruction 03/2014, H ER - L sided chest and shoulder pain 06/15/2015. * Family History: F ather: alive 85 yrs, HBP. M other: alive 83 yrs, Heart attack, kidney disease, HBP. 1 [...] ,Years: , Determination:. * Medications: T aking Iron 325 (65 Fe) MG Tablet 1 tablet Orally Three times a Week , Taking Protonix 40 MG Tablet Delayed Release 1 tablet 1/2 to 1 hour before morning meal Orally Once a day , Taking Atorvastatin Calcium 40 [...] spray each nostril as needed , Taking Synthroid 125 MCG Tablet 1 tablet in the morning on an empty stomach Orally Once a day , Discontinued HYDROcodone-Acetaminophen 5-325 MG Tablet 1 tablet as needed Orally four times a day as needed , Medication List reviewed and reconciled with the patient * Allergies: N .K.D.A. Objective: * Vitals: W t:176.2, Temp:98.1, BP:118/70, HR:81, O2 Sat:95% on RA, Nurse:JACKELINE, Ht: 64.25, BMI:30.01. * Examination: E NT/Respiratory: General Appearance: well nourished and hydrated, NAD, alert. E yes: sclera and conjunctiva clear. E ars: auditory canals normal bilaterally, tympanic membranes normal bilaterally. N ose : nares patent. S inuses : non tender bilaterally. O ral cavity : no erythema or exudate seen on pharynx. N caryn :? supple, no cervical lymphadenopathy. H eart : RRR. L ungs: left fine b asilar crackles. Assessment: * Assessment: 1. U RI (upper respiratory infection) - J06.9 (Primary) 2 . S inusitis - J32.9 Plan: * Treatment: * Labs: * L ab: CBC Fingerstick (in house) (Collection Date & Time - 09/24/2024) Value Reference Range w bc 6.9 3.5 - 10 * l ym 28.5 15 - 50 * m id 7.8 2 - 15 * g ran 63.7 35 - 80 * r bc 4.32 3.5 - 5.5 * h gb 12.0 11.5 - 16.5 * h ct 38.3 35 - 55 * m cv 88.7 75 - 100 * m ch 27.9 25 - 35 * m chc 31.4 31 - 38 * p lat 433 100 - 400 * Juanis Cunningham 09/24/2024 10:08: 10 AM > Provider reviewed results while patient in office.Chuyita Vidales 09/24/2024 1:21:03 PM > ?Lab: Covid test (in house) (Collection Date & Time - 09/24/2024)?neg* Value Reference Range R esult: neg * Juanis Cunningham 09/24/2024 10:21: 28 AM > Provider reviewed results while patient in office.Chuyita Vidales 09/24/2024 1:21:14 PM > ?Lab: Influenza Screen (in house) (Collection Date & Time - 09/24/2024)?neg * Value Reference Range r esults neg * Juanis Cunningham 09/24/2024 10:21: 04 AM > Provider reviewed results while patient in office.Chuyita Vidales 09/24/2024 1:21:25 PM > * Procedure Codes: 9 [address] [place], [address] CAPILLARY BLOOD DRAW, 39981 CBC WITH AUTO DIFF, 41837 Flu Test- Nasal Swab, Modifiers: QW , 94350 COVID TEST IN HOUSE, Modifiers: QW , 3074F SYST BP LT 130 MM HG, 3078F DIAST BP < 80 MM HG * Follow Up: p rn * Images: Billing Information: * Visit Code: 71705 Office Visit, Est Pt., Level 3. * Procedure Codes: [address] [place]. [address] CAPILLARY BLOOD DRAW. 52245 CBC WITH AUTO DIFF. 88460 Flu Test- Nasal Swab. Modifiers: QW 21412 COVID TEST IN HOUSE. Modifiers: QW 3074F SYST BP LT 130 MM HG. 3078F DIAST BP < 80 MM HG. * Electronic signature of Meryl jabari Vidales APRN on 07/03/2025 at 10:33 AM EST Sign off status: Pending * Provider: MERCEDEZ Coulter Date: 0 09/24/2024 Generated for Pat blankenship/Lizette/Vishnuitting on: 1 09/02/2024 10:33 AM EST History and Physical Notes * HPI (History of Present Illness) Category Sub-Category Detail Notes Category Not es ENT/respiratory sore throat eating and d rinking OK; sleping less due to SOB ear pain Short of Breath cough greenish yellow sput um production headache chest congestion rhinorrhea nasal congestion Pt sts she has been coughing and sneezing, runny nose for a week now and sts she is now having pain in her ears and the middle of her head smoking body aches Examination Category Sub-Category Detail Notes Category Not es ENT/Respiratory Oral cavity : no erythema or exudate s een on pharynx Sinuses : non tender bilateral ly Ears: auditory canals norm al bilaterally, tympanic membranes normal bilaterally Neck : supple, no cervical lymphadenopathy Heart : RRR Lungs: left fine basilar cr ackles General Appearance: well nourished and h ydrated, NAD, alert Nose : nares patent Eyes: sclera and conjuncti va clear
--- OUTSIDE RECORDS SUMMARY | 2025-02-06 06:45 | XMS_ITS ---
Author Organization [facility] Address [address] [place] [id number] Care Team Providers Care Rotary Planer Set Up Operator Name Role Phone Odette Pereira Primary Care Provider [phone] Hakeem Jason Unavailable [phone] Allergies No Known Allergies Results Component Value Reference Range Notes Urinalysis - Inhouse Reviewed date:02/07/2025 09:52:19 AM Interpretation: Performing Lab: Notes/Report: Color/Clarity yellow/clowdy Leuk trace Nitrite neg Urobili 3.2 Protein 2+ pH 7.0 Blood 3+ Sp. Gr. 1.015 Ketone neg Bili neg Gluc 3+ TEN-UTI panel Reviewed date:02/08/2025 01:49:29 PM Interpretation:E. Coli Performing Lab: Notes/Report: E. Coli REASON FOR VISIT poss UTI Medications Medication SIG (Take, Route, Frequency, Duration) Notes Start Date End Date Status Fluticasone Propionate 50 MCG/ACT 1 spray each nostril as needed 01/30/2011 Active Synthroid 125 MCG 1 tablet in the morn ing on an empty stomach Orally Once a day; Duration: 90 days Active Nitrostat 0.4 MG 1 tab(s) sublinguall [...] Twice a day; Duration: 30 day(s) Active Macrobid 100 MG 1 capsule with food Orally every 12 hrs; Duration: 5 days 02/06/2025 Active Iron 325 (65 Fe) MG 1 tablet Orally Thre e times a Week; Duration: 30 day(s) Active Protonix 40 MG 1 tablet 1/2 to 1 ho ur before morning meal Orally Once a day; Duration: 30 day(s) Active Atorvastatin Calcium 40 MG 1 tablet Orally MWF Active Calcium Carbonate 1250 (500 Ca) MG 1 tablet with food Orally Twice a day; Duration: 30 day(s) Active Vital Signs Blood pressure systolic 130 mm Hg 02/07/20 25 Blood pressure diastolic 80 mm Hg 025 Heart Rate 87 /min 02/06/2025 Height 64.25 in 02/06/2025 Weight 172 lbs 02/06/2025 BMI 29.29 kg/m2 02/06/2025 Encounters Encounter Location Date Provider Diagnosis [place] [address] [facility] 36 [facility] [address] [place] [address], [place] [id number] 02/06/2025 Hakeem Jason Acute UTI N39.0 ; Dysuria R30.0 and BMI 29.0-29.9,adult Z68.29 Assessments Encounter Date Diagnosis (ICD Code) Assessment Notes Treatment Notes Treatment Clinical Notes Section Notes 02/06/2025 Acute UTI (ICD-10 - N39.0) 02/06/2025 Dysuria (ICD-10 - R30.0) 02/06/2025 BMI 29.0-29.9,adult (ICD-10 - Z68.29) Plan Of Treatment Medication Medication Name Sig Start Date Stop Date Notes Macrobid 100 MG 1 capsule with food Orally every 12 hrs; Duration: 5 days 02/06/2025 Next Appt Details Follow Up: via phone to repo rt progress, Reason: Progress Notes * Verito KRISHNAMURTHYDOB:1960 ( 65 yo F)Acc No.[id number]:02/06/2025 Progress Notes Patient: Verito MARIA Provider: Nathalie Jason M.D. :1960 A ge:64 Y S ex:Female Date:02/06/2025 Address:[place] [address], [place], [place] [phone] Pcp:Odette Pereira Subjective: * Chief Complaints: * 1 . poss UTI. * HPI: U rology: 64 year old female presents with c/o frequent urination s mall amount. c/o burning sensation P t c/o burning with urination and frequency. Pt states this started 4 days ago and has gotten worse. Denies : hematuria. D enies : fever. * ROS: C ARDIOLOGY: no C hest pain. n o S hortness of breath. ? D ERMATOLOGY: no R evelyn. n o H ziyad. G ASTROENTEROLOGY: no N ausea. n o V omiting. n o D iarrhea.? * Medical History: H ypothyroid , Hodgkins Disease , Broken neck , Moderate Aortic insufficency on Cath 01/2012, Right Breast cancer , Coronary Artery Disease, Myocardial Infarction, February 20, 2024, with PCI (3 stents placed) at [facility]. * Surgical History: S plenectomy , Tubal Ligation , Tonsillectomy , Partial Thyroidectomy , Heart Cath 02/01/2012, Colonoscopy 03/18/2014, Small Bowel Obstruction 05/2014, LT Wrist Ganglion Cyst Removal 12/2014, Double Masectomy 09/2018, Reconstruction 12/2018, STEMI s/p 3 Coronary Stent Placement 02/19/2024. * Hospitalization/Major Diagno stic Procedure: B bowel Obstruction 03/2014, [facility] ER - L sided chest and [...] stomach Orally Once a day , Discontinued Cefuroxime Axetil 500 MG Tablet 1 tab Orally every 12 hrs , Discontinued Albuterol Sulfate HFA 108 (90 Base) MCG/ACT Aerosol Solution 1 puff as needed Inhalation every 4 hrs prn , Medication List reviewed and reconciled with the patient * Allergies: N .K.D.A. Objective: * Vitals: W t: 172, Temp: 98.3, BP: 130/80, HR: 87, Nurse: MANUEL/BARBARA, Ht: 64.25, BMI:29.29. * Examination: G eneral Examination: General Appearance: N AD. H eart: R SR. L ungs:?clear to auscultation. B ack: n o CVA tenderness. Assessment: * Assessment: 1. A cute UTI - N39.0 (Primary) 2 . D ysuria - R30.0 3 .?BMI 29.0-29.9,adult - Z68.29 Plan: * Treatment: Value Reference Range C olor/Clarity yellow/clowdy * L euk trace * N itrite neg * U robili 3.2 * P rotein 2+ * p H 7.0 * B lood 3+ * S p. Gr. 1.015 * K etone neg * B minh neg * G susan 3+ * Ale Hurd 02/06/2025 01 :13:50 PM EDT > Provider reviewed results while patient in office. ?LAB: TEN-UTI panel (Collection Date & Time - 02/06/2025)?E. Coli* Zayra Kaiser 02/08/2025 07: 55:54 AM EDT > pt started on MacrobidKEmperatriz mckeon 02/08/2025 01:48:53 PM EDT > Pt informed * Procedure Codes: 8 1002 Urinalysis, no micro, 1036F TOBACCO NON-USER, G8783 BP SCR PRFRM RCMDD DEFIND SCR INTVL, G8752 MOST RECENT SYSTOLIC BP < 140MM HG, G8754 MOST RECENT DIASTOLIC BP < 90MM HG * Follow Up: v ia phone to report progress * Images: Billing Information: * Visit Code: 36572 Office Visit, Est Pt., Level 3. * Procedure Codes: 00255 Urinalysis, no micro. 1036F TOBACCO NON-USER. G8783 BP SCR PRFRM RCMDD DEFIND SCR INTVL. G8752 MOST RECENT SYSTOLIC BP < 140MM HG. G8754 MOST RECENT DIASTOLIC BP < 90MM HG. * Electronic signature of Merissa Jason MD on 07/03/2025 at 10:34 AM EST Sign off status: Pending * Provider: Nathalie Jason M.D. Date: 0 02/06/2025 Generated for Pat blankenship/Lizette/Roxanna on: 1 09/02/2024 10:34 AM EST History and Physical Notes * HPI (History of Present Illness) Category Sub-Category Detail Notes Category Not es Urology frequent urination small amount burning sensation Pt c/o burning with urination and frequency. Pt states this started 4 days ago and has gotten worse hematuria fever Examination Category Sub-Category Detail Notes Category Not es General Examination Heart: RSR Lungs: clear to auscultatio n General Appearance: NAD Back: no CVA tenderness
--- OUTSIDE RECORDS SUMMARY | 2025-06-12 14:00 | XMS_ITS | Encounter Summary ---
Author Organization [facility] Address [address] [place] [address] Care Team Providers Care Shoe Lining Fitter Name Role Phone Esther Bobo Primary Care Provider [phone] Sonny Gonzalez MD Unavailable [phone] Chava Sanders MD Unavailable [phone] Encounter Details Date Type Department Care Team (Late st Contact Info) Description 06/12/2025 3:00 PM EDT Immunization [facility] Pharmacist Care Team [address] [place] [address] Flu vaccine need (Primary Dx) Social History Tobacco Use Types Packs/Day Years Used Date Smoking Tobacco: Never Passive Smoke Exposure: Never Smokeless Tobacco: Never Alcohol Use Standard Drinks/Week Comments Yes 0 [...] Description 10/18/2025 1:30 PM EST Office Visit [facility] [address] [place] [address] Sonny Gonzalez MD [address] [place] [phone] 11/19/2025 10:30 AM EDT Ovarian Cancer Screening [facility] Gynecology [address] [facility], 3rd [place] [address] documented as of this encounter Visit Diagnoses Diagnosis Flu vaccine need- Primary documented in this encounter Care Teams Shoe Lining Fitter Relationship Specialty Start Date End Date Esther Bobo PA [address] [place] [address] PCP - General 01/15/22 [place] [address] [place] [address] Medical Oncologist Medical Oncology 12/22/23 Chava Sanders MD [address] [facility] [address] [place] [address] Biometric Screener 08/09/24 documented as of this encounter
--- OUTSIDE RECORDS SUMMARY | 2025-06-13 10:00 | XMS_ITS | Encounter Summary ---
Author Organization [facility] Address [address] [place] [address] Care Team Providers Care Supervisor Pile Driving Name Role Phone Nonstaff, Referring MD Primary Care Provider [phone] Reason for Visit * Reason Comments Establish Care DJK did cath 12/10/24 Nuc Stress 05/15 images in epic Dizziness Intermittent Fatigue Encounter Details Date Type Department Care Team (Late st Contact Info) Description 06/13/2025 11:00 AM EDT Office Visit [facility] Physicians - Heart & Vascular, [facility] [address] [place] [address] Medical Office Building [address] [place] [address] Horace Lee MD [address] [place] [address] [address] [place] [address] Establishing care with new doctor, encounter for (Primary Dx) Social History Tobacco Use Types Packs/Day Years Used Date Smoking Tobacco: Never Smokeless Tobacco: Never Tobacco Cessation:Counseling Given: No Alcohol Use Standard Drinks/Week Comments Not Currently 0 (1 standard drink = 0.6 oz pur e alcohol) occasionally Comments Unknown Sex and Gender Information Value Date Recorded Sex Assigned at Not on file Legal Sex Female 3:25 PM EDT Gender Identity Not on file Sexual Orientation Not on file documented as of this encounter Last Filed Vital Signs Vital Sign Reading Time Taken Comments Blood Pressure 119/66 06/13/2025 10:43 AM EDT Pulse 81 06/13/2025 10:43 AM EDT Temperature - - Respiratory Rate - - Oxygen Saturation - - Inhaled Oxygen Concentration - - Weight 80.7 kg (178 lb) 06/13/2025 10:43 AM EDT Height 165.1 cm (5' 5 ) 06/13/2025 10:43 AM EDT pt stated Body Mass Index 29.62 06/13/2025 10:43 AM EDT documented in this encounter Functional Status * Are you blind or do you have difficulty seeing, even when wearing glasses? Answer Date of Assessment Author No 12/07/2024 3:08 PM EDT Cullen Morgan RN * Do you have serious difficulty walking or climbing stairs? Answer Date of Assessment Author No 12/07/2024 3:08 PM EDT Cullen Morgan RN * Do you have difficulty dressing or bathing? Answer Date of Assessment Author No 12/07/2024 3:08 PM EDT Cullen Morgan RN * Because of a physical, mental, or emotional condition, do you have difficulty doing errands alone such as a visiting a doctor's office or shopping? Answer Date of Assessment Author No 12/07/2024 3:08 PM EDT Cullen Morgan RN documented as of this encounter Mental Status * Because of a physical, mental, or emotional condition, do you have serious difficulty concentrating, remembering, or making decisions? Answer Entry Date Author No 12/07/2024 3:08 PM EDT Cullen Morgan RN documented in this encounter Progress Notes * Horace eLe MD - 06/13/2025 11:00 AM EDT Images from the original note were not included. [facility] Medical Office Building [address] [place] [address], [address] [facility], [address] Structural Heart Note Patient name: Jennifer Krishnamurthy June 13, 2025 06/13/2025 : 1960 Referring MD: Felix Nicole MD Age: 65 y.o. Sex: female Reason for consultation: Coronary artery disease, abnormal stress test and ongoing chest pain on exertion History of present illness: A 65-year-old female with history of Hodgkin's lymphoma status post radiation therapy to chest in the , breast cancer status post bilateral mastectomy, coronary artery disease status post stenting to all 3 coronary arteries who is here today for abnormal stress testand ongoing symptoms. Patient initially had stents to all 3 coronary arteries back in 2023 when shepresented with STEMI. Subsequently in November 2024 she underwent diagnostic coronary angiogram that showed 99% InStent restenosis of LCX which was treated with PTCA and DCB. At that time she was found to have SUPERVISOR NET MAKING of RCA with a abundant collaterals from the left system. The SUPERVISOR NET MAKING of RCA appears to be within the stent in the proximal segment. She mentioned that with normal levels of activities she doesnot have any symptoms, however with higher levels of activity such as walking uphill or climbing stairs she does have exertional chest pain and shortness of breath. Her symptoms resolve with rest. She had a recent stress test in April that showed inferior basal ischemia which correlates with RCA territory. Stress EF of 54%. She has a baseline LVEF of 40- 45% from her previous RI last year. Denies any orthopnea, PND, dizziness, lightheadedness, syncopal episodes, palpitations. Past history: Past Medical History[1] Past Surgical History[2] Medications:Current Medications[3] [email or web address] #[id number] - [facility], [id number] [facility] [address] [facility] [id number] [facility] [address] Review of Systems: General: Denies weight change or fatigue. No fevers, sweats, or chills. Eyes: Denies visual loss or recent vision change, eye pain, or redness. Ear/Nose/Throat: Denies hearing loss. Denies snoring. Allergic/Immunologic: Denies persistent infections, hay fever, or HIV exposure. Cardiovascular: Denies orthopnea, palpitations or syncope. Positive for chest pain on exertion Respiratory: Denies cough, COPD, or asthma. Positive for exertional shortness of breath Musculoskeletal: Denies arthritis or weakness. Gastrointestinal: Denies abdominal pain, melena or hematochezia. Genitourinary: Denies dysuria or hematuria. Skin: Denies rashes or bruising. Neurologic: Denies CVA or TIA recently. No numbness, tingling or extremity pain. Psychiatric: Denies anxiety or depression. Endocrine: Denies diabetes or thyroid disease. Heme/Lymphatic: Denies abnormal bruising, bleeding or clotting disorders. Vitals: 06/13/25 1043 BP: 119/66 Pulse: 81 General: Awake, alert, in non-obvious distress Neck: Supple, normal jugular venous pressure. No carotid bruits. Lungs: Clear to auscultation bilaterally. No crackles. Cardiovascular: Pulse of maximal impulse not displaced. S1--S2. No S3 or S4. No murmurs, clicks or gallops. Abdomen: Soft, non-tender, no organomegaly or ascites. : No CVA tenderness Extremities: no cyanosis, clubbing or edema Lab Results Component Value Date HGB 14.4 11/30/2024 HCT 42.1 11/30/2024 PLT 332 11/30/2024 Lab Results Component Value Date NA 139 11/30/2024 K 4.0 11/30/2024 CO2 29 11/30/2024 BUN 14 11/30/2024 CREATININE 0.80 11/30/2024 Lab Results Component Value Date GLU 114 11/30/2024 Imaging studies: Echocardiogram: 10/20/2023 at outside facility Normal sized left ventricle. Mild left ventricular hypertrophy. Visually estimated ejection fraction 55% +/- 5%. Abnormal systolic strain pattern. Indeterminate diastolic function. Mild aortic valve regurgitation. Cardiac catheterization: 12/07/2024 Left Anterior Descending 0% stenosed Ost LAD lesion. JACIEL flow is 3. Left Circumflex Prox Cx lesion is 99% stenosed. JACIEL flow is 2 Ost LAD lesion Angioplasty The lesion was treated with angioplasty using a standard balloon. The balloon used was a BLLN NC EMERGE 3.5X12. Initial inflation pressure: 12 chelly. Kissing balloons Supplies used: BLLN NC EMERGE 3.5X12 Post-Intervention Lesion Assessment Post-intervention JACIEL flow is 3. There is a 0% residual stenosis post intervention. Prox Cx lesion Angioplasty The lesion was treated with angioplasty using a standard balloon. The balloon used was a BLLN TAKERU 2.0X20 MM. Initial inflation pressure: 14 chelly. 2nd inflation pressure: 14 chelly. Supplies used: BLLN TAKERU 2.0X20 MM Angioplasty The lesion was treated with angioplasty using a standard balloon. The balloon used was a BLLN NC EMERGE 3X20. Initial inflation pressure: 16 chelly. Supplies used: BLLN NC EMERGE 3X20 Angioplasty The lesion was treated with angioplasty using a standard balloon. The balloon used was a BLLN NC EMERGE 3X20. Initial inflation pressure: 16 chelly. Supplies used: BLLN NC EMERGE 3X20 Angioplasty The lesion was treated with angioplasty using a cutting balloon. The balloon used was a BLLN WOLVRINE RX 3.5X10. Initial inflation pressure: 5 chelly. 2nd inflation pressure: 6 chelly. Supplies used: BLLN WOLVRINE RX 3.5X10 Angioplasty The lesion was treated with angioplasty using a drug-coated balloon. The balloon used was a AGENT US MR 3.50 X 20MM. Initial inflation pressure: 10 chelly. 2nd inflation pressure: 12 chelly. Supplies used: AGENT US MR 3.50 X 20MM Angioplasty The lesion was treated with angioplasty using a drug-coated balloon. The balloon used was a AGENT US MR 3.50 X 20MM. Initial inflation pressure: 12 chelly. Kissing balloons Supplies used: AGENT US MR 3.50 X 20MM Post-Intervention Lesion Assessment Post-intervention JACIEL flow is 3. There is a 0% residual stenosis post intervention. Nuclear stress test: 05/17/2025 at outside facility Moderate size medium intensity perfusion defect in the basal inferior 1 suggestive of ischemia Stress LVEF 54% ECG: Personally reviewed by me. Normal sinus rhythm Assessment and Plan: Abnormal stress test, associated with exertional chest tightness and shortness of breath. Patient denies any symptoms at normal levels of activity. However at severe activity levels, like walking uphill, she does complain of chest tightness and shortness of breath stress test from April showed reversible ischemia in the basal inferior segments. She had PTCA and DCB to 99% InStent restenosis of proximal LCX in November 2024. At that time she was noted to have SUPERVISOR NET MAKING of RCA (InStent) with abundant collaterals from the left system. Given her ongoing symptoms and abnormal stress test we will proceed with diagnostic coronary angiogram. I explained to the patient and family potential scenarios which include three-vessel coronary artery disease including LAD which is known to have moderate stenosis in the midsegment, two-vessel disease involving RCA and LCX. Potential management options include referral to CT surgery for CABG if she has three-vessel coronary artery disease. If LAD is free of severe disease She will need SUPERVISOR NET MAKING PCI of RCA. I discussed with her about long-term management of CAD gives well. Patient is currently plan to go out of town for a trip 2 weeks from now. We will plan fordiagnostic coronary angiogram after her return. Heart failure with moderately reduced ejection fraction. On GDM T. euvolemic on exam. Stress EF on recent nuclear stress test was 54%. Horace Lee MD Interventional and Structural Cardiology [place] [address] [email or web address] Please note that I used [employer]ist voice recognition software to generate the above note. Occasionallywords are mistranscribed despite my best efforts to edit errors. [1] Past Medical History: Diagnosis Date Cancer (CMS/HCC) Coronary artery disease Myocardial infarction (CMS/HCC) Thyroid disorder [2] Past Surgical History: Procedure Laterality Date BREAST SURGERY HX THYROID SURGERY HX TONSILLECTOMY HX TUBAL LIGATION INTERVENTION - CORONARY 12/07/2024 INTERVENTION - CORONARY performed by Rod Fuller MD at [facility] CARDIAC TECHNICAL PROJECT COORDINATOR LEFT HEART CATH 12/07/2024 LEFT HEART CATH w/SELECT COR performed by Rod Fuller MD at [facility] CARDIAC TECHNICAL PROJECT COORDINATOR [3] Current Outpatient Medications: atorvastatin (LIPITOR) 40 mg Tablet, Take 40 mg by mouth in the morning., Disp: , Rfl: calcium carbonate 1250 mg (500 mg elemental) tablet, Take 1,250 mg by mouth daily (with breakfast)., Disp: , Rfl: carvediloL (COREG) 3.125 mg Tablet, Take 3.125 mg by mouth in the morning and 3.125 mg in the evening. Take with meals., Disp: , Rfl: empagliflozin (Jardiance) 10 mg Tablet tablet, Take 10 mg by mouth in the morning., Disp: , Rfl: ferrous sulfate 325 mg (65 mg iron) tablet, Take 325 mg by mouth once weekly., Disp: , Rfl: levothyroxine (SYNTHROID) 125 mcg tablet, Take 125 mcg by mouth in the morning., Disp: , Rfl: pantoprazole (PROTONIX) 40 mg Tablet, Delayed Release (E.C.), Take 40 mg by mouth in the morning., Disp: , Rfl: PRASUGREL (Effient) 10 MG Tablet, Take 10 mg by mouth in the morning., Disp: , Rfl: sacubitriL-valsartan (Entresto) 24-26 mg Tablet, Take 1 Tablet by mouth in the morning and 1 Tabletbefore bedtime., Disp: , Rfl: spironolactone (ALDACTONE) 25 mg tablet, Take 25 mg by mouth., Disp: , Rfl: No current facility-administered medications for this visit. Facility-Administered Medications Ordered in Other Visits: dextrose 50 % injection 25-50 mL, 25-50 mL, Intravenous, PRN, Horace Lee MD documented in this encounter Plan of Treatment Upcoming Encounters Date Type Department Care Team (Late st Contact Info) Description 07/05/2025 8:00 AM EST Hospital Encounter Cardiovascular Recovery Unit (CVRU) [address] [id number] Horace Lee MD [address] [facility] [address] [place] [address] Coronary artery disease of choctaw artery of choctaw heart with stable angina pectoris; Abnormal stress test 07/05/2025 8:00 AM EST - 07/05/2025 9:15 AM EST Surgery Cardiac Consultant Internship [address] [place] [address] Horace Lee MD [address] [facility] [address] [place] [address] LEFT HEART CATH w/SELECT COR 07/25/2025 10:00 AM EST Appointment [facility] Physicians - Heart & Vascular, [place] [address] [facility] Medical Office Building [address] [place] [address] Luis Eduardo Dahl NP [address] [facility] [place] [address] Scheduled Procedures Name Priority Associated Diagnoses Date/Ti me INTERVENTION - CORONARY Coronary artery disease of choct[place] artery of choctaw heart with stable angina pectoris Abnormal stress test 07/05/2025 8:00 AM EST documented as of this encounter Goals Goal Patient Goal Type Associated Problems Recent Progress Patient-Stated? Author Increase physical activity Lifestyle No Letty Castellano BS documented as of this encounter Procedures Procedure Name Priority Date/Time Associated Diagnosis Comments ECG Routine 06/13/2025 10:56 AM EDT Establishing care with new doctor, encounter for documented in this encounter Results * ECG (06/13/2025 10:56 AM EDT) Heart Rate 75 bpm [facility] EXTER NAL [facility] QRS Interval 93 ms [facility] EXT ERNAL LAB QT Interval 392 ms [facility] EXTE RNAL LAB QTc Interval 438 ms [facility] EXT ERNAL LAB P [place] 5 deg [facility] GLOBAL CMO AL LAB QRS [place] -14 deg [facility] GLOBAL CMO AL LAB T Wave [place] -16 deg [facility] EXTE RNAL LAB P-R Interval 150 msec [facility] EXT ERNAL LAB 06/13/2025 10:5 6 AM EDT Narrative [facility] EXTERNAL [facility] - 06/13/2025 1:04 PM EDT [facility] Test Date: 2025-06-13 10:56:52 Pat Name: JENNIFER KRISHNAMURTHY Department: [id number] Room: [facility] Gender: Female Music Rehabilitation Therapist: JJ : 1960 Requested By: HORACE Beltran Order Number: [id number] Reading MD: Horace Lee MD Interpretive Statements Sinus rhythm Left ventricular hypertrophy Inferior infarct, age indeterminate Electronically Signed On 06-13-2025 13:04:52 EDT by Horace Lee MD Procedure Note Horace Lee MD - 06/13/2025 [facility] Test Date: 2025-06-13 10:56:52 Pat Name: JENNIFER KRISHNAMURTHY Department: [id number] Room: [facility] Gender: Female Music Rehabilitation Therapist: TUNDE : 1960 Requested By: HORACE Beltran Order Number: [id number] Reading MD: Horace Lee MD Interpretive Statements Sinus rhythm Left ventricular hypertrophy Inferior infarct, age indeterminate Electronically Signed On 06-13-2025 13:04:52 EDT by Horace Lee MD us Horace Lee MD ECG ORDERABLES Final Res ult [facility] EXTERNAL LAB [address] documented in this encounter Visit Diagnoses Diagnosis Establishing care with new doctor, encounter for- Primary Other reasons for seeking consultation Coronary artery disease of choct[place] artery of choctaw heart with stable angina pectoris Abnormal stress test Other nonspecific abnormal cardiovascular system function study Coronary artery disease of choct[place] artery of choctaw heart with stable angina pectoris Abnormal stress test Other nonspecific abnormal cardiovascular system function study documented in this encounter Care Teams Supervisor Pile Driving Relationship Specialty Start Date End Date Nonstaff, MD Felix [address] [place] [address] PCP - General 12/07/24 documented as of this encounter
--- OUTSIDE RECORDS SUMMARY | 2025-07-03 10:32 | XMS_ITS | Encounter Summary ---
Author Organization [facility] Address [address] [place] [address] Care Team Providers Care Ore Charger Name Role Phone Unknown, Unknown Primary Care Provider Unavailab Esther Molina Primary Care Provider [phone] Sonny Gonzalez MD Unavailable [phone] Chava Sanders MD Unavailable [phone] Encounter Details Date Type Department Care Team (Late Contact Info) Description 12/25/2021 Orders Only [facility] [address] [place] [address] Sonny Gonzalez MD [address] [place] [address] Social History Tobacco Use Types Packs/Day [...] Description 10/18/2025 1:30 PM EST Office Visit [facility] [address] [place] [address] Sonny Gonzalez MD [address] [place] [address] 11/19/2025 10:30 AM EDT Ovarian Cancer Screening [facility] Gynecology [address] [place] [address] documented as of this encounter Procedures Procedure Name Priority Date/Time Associated Diagnosis Comments COMPREHENSIVE METABOLIC PANEL, PLASMA Routine 12/25/2021 10:56 AM EDT documented in this encounter Results * (ABNORMAL) Comprehensive Metabolic Panel, Plasma (12/25/2021 10:56 AM EDT) External Glucose 101(H) 74 - 100 mg/dL [facility] External BUN 16 6 - 20 mg/dL [facility] External Creatinine Blood 0.90 0.50 - 0.95 mg/dL [facility] External BUN/Creat Ratio 18 10 - 20 (calc) [facility] External Sodium 142 136 - 145 mmol/L [facility] External Potassium 4.8 3.4 - 5.0 mmol/L [facility] External Chloride 103 98 - 107 mmol/L [facility] External Carbon Dioxide 27 22 - 31 mmol/L [facility] External Anion Gap (AG) 12 7 - 25 (calc) [facility] External Calcium 9.8 8.6 - 10.2 mg/dL [facility] External Total Protein 7.8 6.4 - 8.3 g/dL [facility] External Albumin 4.4 3.5 - 5.2 g/dL [facility] External Globulin 3.4 1.5 - 4.5 g/dL (calc) [facility] External Albumin/Globulin Ratio 1.3 1.1 - 2.5 (calc) [facility] External Bilirubin Total 0.2 0.1 - 1.2 mg/dL [facility] External Alkaline Phosphatase 73 30 - 121 U/L [facility] External AST (SGOT) 24 0 - 32 U/L [facility] External ALT (SGPT) 21 0 - 33 U/L [facility] External EGFR (If AFR/AM) 80 >=[address] [facility] External Estimated GFR 69 >=[address] [facility] Comment: NOTE Chronic kidney disease is [...] BLOOD ORDERABLES Final Res ult [facility] [address] [place] [address], documented in this encounter Visit Diagnoses Not on filedocumented in this encounter Care Teams Ore Charger Relationship Specialty Start Date End Date Unknown, Unknown [place], [place] PCP - General Dental Outdoor Emergency Care Technician 08/22/20 01/14/22 Esther Bobo PA [address] [place] [address] PCP - General 01/15/22 [place] [address] [place] [address] Medical Oncologist Medical Oncology 12/22/23 Chava Sanders MD [address] [place] [address] [address] [place] [address] Insole Taper 08/09/24 documented as of this encounter
--- OUTSIDE RECORDS SUMMARY | 2025-07-03 10:33 | XMS_ITS | Clinical Summary ---
Author Organization [facility] ([place], [place], [place], [place], [place]) Address [address] [place] [address] Care Team Providers Care Fur Remodeler Name Role Phone Esther Bobo Primary Care Provider [phone] Allergies No known active allergies Medications levothyroxine [...] 1960 Colonoscopy 1960 Colorectal Cancer Screening 1960 DXA SCAN 1960 FOBT/FIT 1960 Fit-DNA (Cologuard) 1960 Sigmoidoscopy 1960 Depression Screening (12+) 1972 HIV Screening 1975 Hepatitis C Screening 1978 DTAP/TDAP/TD VACCINES (1 - Tdap) 1979 Pap Smear 1981 Lipid Panel 2005 Pneumococcal 50+ years (2 of 2 - PCV) 06/16/2019 06/16/2018 Respiratory Syncytial Virus (RSV) Adult or (1 - Risk 60-74 years 1-dose series) 2020 Breast Cancer Screening 08/04/2020 08/04/2018, 08/02 Falls Risk Screening 08/22/2024 Tobacco Cessation Counseling and Screening (12+) 02/13/2025 02/14/2024 COVID-19 VACCINE (5 - 5-2 6 season) 2025 07/21/2022, 06/09/2021, 09/24/2020, Additional history exists Influenza Vaccine (#1) 2025 0, 05/29/2019, 05/22/2019, Additional history exists Shingles Vaccine (Zoster) Completed 2018, 07/27/2018, 05/09/2018 Insurance BLUE CROSS/BLUE SHIELD Care Teams Fur Remodeler Relationship Specialty Start Date End Date Esther Bobo PA [address] [place] [address] PCP - General Physician Silver Cleaner 07/29/23
--- OUTSIDE RECORDS SUMMARY | 2025-07-03 10:33 | XMS_ITS | Encounter Summary ---
Author Organization [facility] Address [address] [place] [address] Care Team Providers Care Paper Stripper Name Role Phone Unknown, Unknown Primary Care Provider Unavailab Esther Molina Primary Care Provider [phone] Sonny Gonzalez MD Unavailable [phone] Chava Sanders MD Unavailable [phone] Encounter Details Date Type Department Care Team (Late Contact Info) Description 12/25/2021 Orders Only [facility] at [facility] [address] [place] [address] Sonny Gonzalez MD [address] [place] [address] Social History Tobacco Use Types Packs/Day [...] Description 10/18/2025 1:30 PM EST Office Visit [facility] [address] [place] [address] Sonny Gonzalez MD [address] [place] [address] 11/19/2025 10:30 AM EDT Ovarian Cancer Screening [facility] [address] 3rd [place] [address] documented as of this encounter Procedures Procedure Name Priority Date/Time Associated Diagnosis Comments CBC WITH AUTO DIFFERENTIAL Routine 12/25/2021 10:56 AM EDT documented in this encounter Results * (ABNORMAL) CBC and Differential (12/25/2021 10:56 AM EDT) External WBC 6.5 3.8 - 10.8 K/uL [facility] External Red Blood Cell (RBC) 4.07 3.80 - 5.20 M/uL [facility] External Hemoglobin 13.5 12.0 - 16.0 G/DL [facility] External Hematocrit 39.7 35.0 - 47.0 % [facility] External MCV 97 80 - 100 fL [facility] External MCH 33 26 - 35 PG [facility] External MCHC 34 32 - 36 G/DL [facility] External RDW 13.9 11.0 - 15.0 % [facility] External Mean Platelet Volume 8.6 6.2 - 10.5 fL [facility] External Platelets 289 130 - 400 K/uL [facility] External Neutrophil# 3.0 1.6 - 8.4 K/uL [facility] External Lymphocyte# 2.5 0.4 - 5.1 K/uL [facility] External Absolute Monocyte (Abs Branch) 0.8 0.0 - 1.2 K/uL [facility] External Eosinophils# 0.1 0.0 - 0.8 K/uL [facility] External Baso# 0.1 0.0 - 0.3 K/uL [facility] External Neutrophils % 46.6 42.0 - 78.0 % [facility] External Lymphocyte % 37.7 11.0 - 47.0 % [facility] External Monocyte % 12.6(H) 0.0 - 11.0 % [facility] External Eosinophil% 2.3 0.0 - 7.0 % [facility] External Basophil % 0.8 0.0 - 3.0 % [facility] External Nucleated RBC%-Auto 0.1 0.0 - 0.9 % [facility] External Nucleated RBC Absolute 0.01 Not Estab. K/uL [facility] 12/25/2021 10:5 6 AM EDT 12/25/2021 11:03 AM EDT Sonny Gonzalez MD LAB BLOOD ORDERABLES Final Res ult [facility] [address] [place] [address], documented in this encounter Visit Diagnoses Not on filedocumented in this encounter Care Teams Paper Stripper Relationship Specialty Start Date End Date Unknown, Unknown [place] PCP - General Dental Technical Training Specialist 08/22/20 01/14/22 Esther Bobo PA [facility] [address] [place] [address] PCP - General 01/15/22 Sonny Gonzalez MD [address] [place], [place] [id number] Medical Oncologist Medical Oncology 12/22/23 Chava Sanders MD [address] [place] [address] [address] [place], [place] [id number] Scientific Informatics Leader 08/09/24 documented as of this encounter
--- OUTSIDE RECORDS SUMMARY | 2025-07-03 10:33 | XMS_ITS | Clinical Summary ---
Author Organization [facility] Address [address] [place] [address] Care Team Providers Care Boring Machine Operator Production Name Role Phone Esther Bobo Primary Care Provider [phone] Sonny Gonzalez MD Unavailable [phone] Chava Sanders MD Unavailable [phone] Allergies No known active allergies Medications * [...] cancer 10/18/2024 History of thoracic irradiation 10/18/2024 Encounters Date Type Department Care Team Description 06/18/2025 Orders Only [facility] [address] [place] [address] Laure Pardo MD 06/12/2025 3:00 PM EDT Immunization [facility] Pharmacist Care Team [address] [facility] [address] [place] [address] Flu vaccine need (Primary Dx) 06/12/2025 Travel from Last 3 Months Immunizations Immunization Administration Dates Next Due Hep A, Adult 02/06/2019,07/18/2018 Influenza, High-dose, Split Virus, Trivalent, Injectable, preservative free 06/12/2025 Influenza, Unspecified 06/14/2020,2017,06/23/2017,2015,06/04/2015,06/04/2014,06/06/2013,1 ,06/09/2011 Influenza, injectable, quadr ivalent, preservative free 05/10/2023,05/26/2022,06/03/2021 Influenza, seasonal, injecta ble, preservative free 06/11/2024 PPD Skin Test (TB Skin Test) 12/09/2006,11/26/19 07 Pfizer-BioNTech COVID-19 Biv alent (Mo Cap) 12+ years [...] Description 10/18/2025 1:30 PM EST Office Visit [facility] at [facility] [address] [place] [address] Sonny Gonzalez MD [address] [phone] 11/19/2025 10:30 AM EDT Ovarian Cancer Screening [facility] [address] [facility], 3rd [place] [address] Health Maintenance Due Date Last Done Comments [facility]-Depression Screening 1960 [facility]-Hepatitis C Screening 1960 [facility]-Infant/Child/Adol SDOH Screenings 1960 [facility]-Obesity Intervention 1966 [facility]- SDOH Screenings 1978 [facility]-Adult SDOH Screenings 1978 [facility]-HPV/Cotest 1990 CT Colonography 2005 Colonoscopy 2005 FIT-DNA 2005 FIT 2005 FOBT 2005 Sigmoidoscopy 2005 [facility]-Colorectal Cancer Screening 2005 [facility]-Pneumococcal Vaccine: 50+ Years (2 of 2 - PCV) 10/19/2019 10/19/2018, 06/16/2018, 06/05/2018 [facility]-RSV Vaccine: 60+ Years or (1 - Risk 60-74 years 1-dose series) 2020 [facility]-Bone Density Scan 10/26/2020 10/26/2018, 019 [facility]-DTaP,Tdap,and Td Vaccines (2 - Td or Tdap) 05/14/2023 05/14/2013 [id number]-05 Vaccine ( season) 2025 07/21/2022, 06/09/2021, 09/24/2020, Additional history exists [facility]-Cervical Cancer Screening 06/14/2027 [facility]-Pap Smear 06/14/2027 06/14/2024 [facility]-Zoster Vaccines Completed 10/19/2018, 07/27/2018, 05/09/2018 [facility]-Hepatitis A Vaccines Aged Out 02/06/2019, 06/23 No longer eligible based on patient's age to complete this topic [facility]-Influenza Vaccine Completed 06/12/2025 , 06/11/2024, 05/10/2023, Additional history exists HPV Vaccines Aged Out No longer eligi [...] Procedure Name Priority Date/Time Associated Diagnosis Comments EXTERNAL HPV, REFLEX TO GENOTYPE 16,18/45 Routine 06/18/2025 12:17 PM EDT PAP TEST - CYTOLOGY Routine 06/14/2024 1 1:34 AM EDT from Last 3 Months or Most Recently Relevant to Health Maintenance Results * External HPV, Reflex To Genotype 16,18/45 (06/18/2025 12:17 PM EDT) External HPV, High Risk Negative Negative 06/21/2025 1:51 PM EDT [facility] Comment: This assay detects E6/E7 viral messenger RNA (mRNA) from 14 high-risk HPV types (16,18,31,33,35,39,45,51,52,56, 58,59,66,68) without differentiation. Sensitivity may be affected by specimen collection methods, stage of infection, and the presence of interfering substances. Results should be interpreted in conjunction with other available laboratory and clinical data. A negative Aptima HPV assay result does not exclude the possibility of cytologic abnormalities or future or underlying CIN2, CIN3, or cancer. This test is intended for medical purposes and has not been evaluated in cases of suspected abuse. This assay is not intended for use as a screening device for women under age 30 with normal cervical cytology. The Aptima HPV assay is not intended to substitute for regular cervical cytology. Test methodology is Nucleic Acid Amplification (NAAT) 06/18/2025 12:1 7 PM EDT 06/19/2025 8:56 AM EDT us Laure Pardo MD LAB REF LAB BLOOD AND F FLAKITA BUSH Final Result [facility] [address] [place] [address], * (ABNORMAL) Pap Test (06/14/2024 11:34 AM EDT) Pathologist [facility] [place] External RESEARCH AND EVALUATION ANALYST Cytology SEE BELOW(A) [facility] Comment: Department of Pathology GYNECOLOGICAL CYTOLOGY REPORT NAME:JENNIFER KRISHNAMURTHY PATHOLOGY NO.: [id number] Copy to: SOURCE OF SPECIMEN: CERVICAL/ENDOCERVICAL-THIN PREP [...] 06/15/2024 9:10 AM EDT us Meg Machado DIRECT CASTING OPERATOR LAB CYTOLOGY ORDERABLES Fin al Result [facility] [address] [place] [address], from Last 3 Months or Most Recently Relevant to Health Maintenance Care Teams Boring Machine Operator Production Relationship Specialty Start Date End Date Esther Bobo PA [facility] [address] [place] [address] PCP - General 01/15/22 Sonny Gonzalez MD [address] [place] [address] Medical Oncologist Medical Oncology 12/22/23 Chava Sanders MD [address] [place] [address] [address] [place] [address] Horticultural Services Supervisor 08/09/24
--- OUTSIDE RECORDS SUMMARY | 2025-07-03 10:33 | XMS_ITS | Referral Summary ---
Author Organization [employer] ([place], [place], [place], [place], [place]) Address [address] [place] [address] Care Team Providers Care Operations Trainer Name Role Phone Esther Bobo Primary Care Provider [phone] Allergies No known active allergies Medications levothyroxine [...] Date Kristofer rded Speak language other than Kiswahili at home Not on file 09/09/2023 Want [...] file Insurance BLUE CROSS/BLUE SHIELD Care Teams Operations Trainer Relationship Specialty Start Date End Date Esther Bobo PA [address] [place] [address] PCP - General Physician Sales Advisory Manager 07/29/23
--- OUTSIDE RECORDS SUMMARY | 2025-07-03 10:33 | XMS_ITS | Encounter Summary ---
Author Organization [facility] Address [address] [place] [address] Care Team Providers Care Functional Skills Tutor Name Role Phone Esther Bobo Primary Care Provider Sonny Gonzalez MD Unavailable [phone] Chava Sanders MD Unavailable Encounter Details Date Type Department Care Team (Late Contact Info) Description 12/24/2022 Orders Only [facility] [address] [place] [address] Sonny Gonzalez MD [address] [place] [address] Social History Tobacco Use Types Packs/Day [...] Description 10/18/2025 1:30 PM EST Office Visit [facility] [address] [place] [address] Sonny Gonzalez MD [address] [place] [address] 11/19/2025 10:30 AM EDT Ovarian Cancer Screening [facility] [address]rd [place] [address] documented as of this encounter Procedures Procedure Name Priority Date/Time Associated Diagnosis Comments COMPREHENSIVE METABOLIC PANEL, PLASMA Routine 12/24/2022 10:43 AM EDT documented in this encounter Results * (ABNORMAL) Comprehensive Metabolic Panel, Plasma (12/24/2022 10:43 AM EDT) External Glucose 105(H) 74 - 100 mg/dL [facility] External BUN 9 6 - 20 mg/dL [facility] External Creatinine Blood 0.70 0.50 - 0.95 mg/dL [facility] External BUN/Creat Ratio 13 10 - 20 (calc) [facility] External Sodium 140 136 - 145 mmol/L [facility] External Potassium 4.5 3.4 - 5.0 mmol/L [facility] External Chloride 101 98 - 107 mmol/L [facility] External Carbon Dioxide 28 22 - 31 mmol/L [facility] External Anion Gap (AG) 11 7 - 25 (calc) [facility] External Calcium 10.3(H) 8.6 - 10.2 mg/dL [facility] External Total Protein 7.8 6.4 - 8.3 g/dL [facility] External Albumin 4.2 3.5 - 5.2 g/dL [facility] External Globulin 3.6 1.5 - 4.5 g/dL (calc) [facility] External Albumin/Globulin Ratio 1.2 1.1 - 2.5 (calc) [facility] External Bilirubin Total 0.2 0.1 - 1.2 mg/dL [facility] External Alkaline Phosphatase 80 30 - 121 U/L [facility] External AST (SGOT) 25 0 - 32 U/L [facility] External ALT (SGPT) 24 0 - 33 U/L [facility] External Estimated GFR 97 >=60 [facility] Comment: NOTE New calculation for GFR (CKD-EPI 2020) is formulated without race adjustment factors at the recommendation of the National Kidney Foundation and [place] Society of Nephrology. This calculation has not been validated in women. For pediatric patients refer to https://www.kidney.org/professionals/KDOQI/gfr_calculatorPed 12/24/2022 10:4 3 AM EDT 12/24/2022 10:46 AM EDT Sonny Gonzalez MD LAB BLOOD ORDERABLES Final Res ult [facility] [address] [place] [address], documented in this encounter Visit Diagnoses Not on filedocumented in this encounter Care Teams Functional Skills Tutor Relationship Specialty Start Date End Date Esther Bobo PA [facility] [address] [place] [address] PCP - General 01/15/22 Sonny Gonzalez MD [address] [place] [address] Medical Oncologist Medical Oncology 12/22/23 Chava Sanders MD [address] [facility] [address] [place] [address] Yard Caller 08/09/24 documented as of this encounter
--- OUTSIDE RECORDS SUMMARY | 2025-07-03 10:33 | XMS_ITS | Encounter Summary ---
Author Organization [facility] Address [address] [place] [address] Care Team Providers Care Sales And Management Trainee Name Role Phone Esther Bobo Primary Care Provider [phone] Sonny Gonzalez MD Unavailable [phone] Chava Sanders MD Unavailable Encounter Details Date Type Department Care Team (Late Contact Info) Description 12/24/2022 Orders Only [facility] [address] [place] [address] Sonny Gonzalez MD [address] [place] [address] Social History Tobacco Use Types Packs/Day [...] Description 10/18/2025 1:30 PM EST Office Visit [facility] [address] [place] [address] Sonny Gonzalez MD [address] [place] [address] 11/19/2025 10:30 AM EDT Ovarian Cancer Screening [facility] [address] 3rd [place] [address] documented as of this encounter Procedures Procedure Name Priority Date/Time Associated Diagnosis Comments RBC MORPHOLOGY ([facility]) Routine 12/24/2022 10:43 AM EDT documented in this encounter Results * (ABNORMAL) RBC MORPHOLOGY ([facility]) (12/24/2022 10:43 AM EDT) External Platelet Morphology NORMAL [facility] External Ovalocytes SLIGHT(A) [facility] External Stomatocyte SLIGHT(A) [facility] Comment: Smear reviewed to confirm cell morphology. 12/24/2022 10:4 3 AM EDT 12/24/2022 10:46 AM EDT Sonny Gonzalez MD LAB BLOOD ORDERABLES Final Res ult Performing Organization Address City/State/[facility] Co de Phone Number [facility] [address] [place] [address], documented in this encounter Visit Diagnoses Not on filedocumented in this encounter Care Teams Sales And Management Trainee Relationship Specialty Start Date End Date Esther Bobo PA [facility] [address] [place] [address] PCP - General 01/15/22 Sonny Gonzalez MD [address] [place] [address] Medical Oncologist Medical Oncology 12/22/23 Chava Sanders MD [address] [facility] [address] [place] [address] Real Estate Acquisition Analyst 08/09/24 documented as of this encounter
--- OUTSIDE RECORDS SUMMARY | 2025-07-03 10:33 | XMS_ITS | Encounter Summary ---
Author Organization [facility] Address [address] [place] [address] Care Team Providers Care Emergency Specialist Name Role Phone Esther Bobo Primary Care Provider Sonny Gonzalez MD Unavailable [phone] Chava Sanders MD Unavailable Encounter Details Date Type Department Care Team (Late Contact Info) Description 12/24/2022 Orders Only [facility] at [facility] [address] [place] [address] Sonny Gonzalez MD [address] [place] [address] Social History Tobacco Use Types Packs/Day [...] Description 10/18/2025 1:30 PM EST Office Visit [facility] [address] [place] [address] Sonny Gonzalez MD [address] [place] [address] 11/19/2025 10:30 AM EDT Ovarian Cancer Screening [facility] [address] [place] [address] documented as of this encounter Procedures Procedure Name Priority Date/Time Associated Diagnosis Comments CBC WITH AUTO DIFFERENTIAL Routine 12/24/2022 10:43 AM EDT documented in this encounter Results * (ABNORMAL) CBC and Differential (12/24/2022 10:43 AM EDT) External WBC 7.5 3.8 - 10.8 K/uL [facility] External Red Blood Cell (RBC) 4.12 3.80 - 5.20 M/uL [facility] External Hemoglobin 14.0 12.0 - 16.0 G/DL [facility] External Hematocrit 41.1 35.0 - 47.0 % [facility] External MCV 100 80 - 100 fL [facility] External MCH 34 26 - 35 PG [facility] External MCHC 34 32 - 36 G/DL [facility] External RDW 14.8 11.0 - 15.0 % [facility] External Mean Platelet Volume 8.7 6.2 - 10.5 fL [facility] External Platelets 297 130 - 400 K/uL [facility] Comment: Platelet count confirmed by slide estimate. External Neutrophil# 3.3 1.6 - 8.4 K/uL [facility] External Lymphocyte# 3.0 0.4 - 5.1 K/uL [facility] External Absolute Monocyte (Abs [place]) 0.9 0.0 - 1.2 K/uL [facility] External Eosinophils# 0.2 0.0 - 0.8 K/uL [facility] External Baso# 0.1 0.0 - 0.3 K/uL [facility] External Neutrophils % 44.3 42.0 - 78.0 % [facility] External Lymphocyte % 40.1 11.0 - 47.0 % [facility] External Monocyte % 12.1(H) 0.0 - 11.0 % [facility] External Eosinophil% 2.7 0.0 - 7.0 % [facility] External Basophil % 0.8 0.0 - 3.0 % [facility] External Nucleated RBC%-Auto 0.0 0.0 - 0.9 % [facility] External Nucleated RBC Absolute 0.00 Not Estab. K/uL [facility] 12/24/2022 10:4 3 AM EDT 12/24/2022 10:46 AM EDT Sonny Gonzalez MD LAB BLOOD ORDERABLES Final Res ult [facility] [address] [place] [address], documented in this encounter Visit Diagnoses Not on filedocumented in this encounter Care Teams Emergency Specialist Relationship Specialty Start Date End Date Esther Bobo PA [facility] [address] [place] [address] PCP - General 01/15/22 Sonny Gonzalez MD [address] [place] [address] Medical Oncologist Medical Oncology 12/22/23 Chava Sanders MD [address] [facility] [address] [place], [place] [id number] Outside Salesman 08/09/24 documented as of this encounter
--- OUTSIDE RECORDS SUMMARY | 2025-07-03 10:33 | XMS_ITS | Clinical Summary ---
Author Organization [facility] Address [address] [place] [address] Care Team Providers Care Chemistry Specialist Name Role Phone Archie Pereira MD Primary Care Provider [phone] Allergies No known active allergies Medications calcium [...] season) 2025 Medical Devices Implanted Type Area State Comptroller Device Identifier Shelf Expiration Date Model / Serial / Lot Brst Mae Natrelle Inspira Smoth Xf/P 615cc - [id number] - [id number] Implanted:Qty : 1 on 01/12/2019 by Efrain Alonzo MD at [facility] Implant Left: Breast [employer] 05/16/2023 [id number] / [id number] / [id number] Brst Mae Natrelle Inspira Smoth Xf/P 580cc - [id number] - [id number] Implanted:Qty : 1 on 01/12/2019 by Efrain Alonzo MD at [facility] Implant Right: Breast [employer] 04/16/2023 [id number] / [id number] / [id number] [place] [address] PPO Member Subscriber Plan / Payer (Ef fective 2013-Present) Name:Jennifer Melgoza Relation to Subscriber:Self Name:Jennifer Melgoza Payer ID:[id number] ([facility]) Type:Not on file Address: [address] [place] [phone] Advance Directives Healthcare Agents on File Name Relationship Healthcare Agent [facility] p Communication Tanvir Melgoza Spouse Health Care Surrogate Care Teams Chemistry Specialist Relationship Specialty Start Date End Date Archie Pereira MD PCP - General 10/11/15
--- OUTSIDE RECORDS SUMMARY | 2025-07-03 10:34 | XMS_ITS | Encounter Summary ---
Author Organization [facility] Address [address] [place] [address] Care Team Providers Care Field Pipe Lines Supervisor Name Role Phone Esther Bobo Primary Care Provider [phone] Sonny Gonzalez MD Unavailable [phone] Chava Sanders MD Unavailable [phone] Encounter Details Date Type Department Care Team (Late Contact Info) Description 06/18/2025 Orders Only [facility] [address] [place] [address] Laure Pardo MD [address] [place] [address] Social History Tobacco Use Types Packs/Day Years [...] Description 10/18/2025 1:30 PM EST Office Visit [facility] [address] [place] [address] Sonny Gonzalez MD [address] [address] 11/19/2025 10:30 AM EDT Ovarian Cancer Screening [facility] [address] [place] [address] documented as of this encounter Procedures Procedure Name Priority Date/Time Associated Diagnosis Comments EXTERNAL HPV, REFLEX TO GENOTYPE 16,18/45 Routine 06/18/2025 12:17 PM EDT documented in this encounter Results * External HPV, Reflex To Genotype 16,18/45 (06/18/2025 12:17 PM EDT) External HPV, High Risk Negative Negative 06/21/2025 1:51 PM EDT [facility] Comment: This assay detects E6/E7 viral [...] MD LAB REF LAB BLOOD AND F LUID ORD Final Result [facility] [address] [place] [address], documented in this encounter Visit Diagnoses Not on filedocumented in this encounter Care Teams Field Pipe Lines Supervisor Relationship Specialty Start Date End Date Esther Bobo PA [address] [place] [address] PCP - General 01/15/22 Sonny Gonzalez MD [address] [place] [address] Medical Oncologist Medical Oncology 12/22/23 Chava Sanders MD [address] [place] [address] [address] [place] [address] Shoe Sprayer 08/09/24 documented as of this encounter
--- OUTSIDE RECORDS SUMMARY | 2025-07-03 10:34 | XMS_ITS | Clinical Summary ---
Author Organization [facility] Address [address] [place] [address] Care Team Providers Care Nurse Ob Name Role Phone Nonstaff, Referring MD Primary Care Provider [phone] Allergies No known active allergies Medications atorvastatin (LIPITOR) 40 mg Tablet Take 40 mg by mouth in the morning. Active calcium carbonate 1250 mg (500 mg elemental) tablet Take 1,250 mg by mouth daily (with breakfast). Active carvediloL (COREG) 3.125 mg Tablet Take 3.125 mg by mouth in the morning and 3.125 mg in the evening. Take with meals. Active ferrous sulfate 325 mg (65 mg iron) tablet Take 325 mg by mouth once weekly. Active empagliflozin (Jardiance) 10 mg Tablet tablet Take 10 mg by mouth in the morning. Active levothyroxine (SYNTHROID) 125 mcg tablet Take 125 mcg by mouth in the morning. Active pantoprazole (PROTONIX) 40 mg Tablet, Delayed Release (E.C.) Take 40 mg by mouth in the morning. Active PRASUGREL (Effient) 10 MG Tablet Take 10 mg by mouth in the morning. Active sacubitriL-rosana sartan (Entresto) 24-26 mg Tablet Take 1 Tablet by mouth in the morning and 1 Tablet before bedtime. 5 Active spironolactone (ALDACTONE) 25 mg tablet Take 25 mg by mouth. 5 Active aspirin 81 mg Tablet, Delayed Release (E.C.) Take 81 mg by mouth daily. 06/13/20 25 Discontinued Active Problems Problem Noted Date Diagnosed Date Abnormal stress test 06/13/2025 CAD (coronary artery disease) 12/07/2024 Restenosis of arterial stent, initial encounter 11/29/2024 Encounters Date Type Department Care Team Description 06/13/2025 11:00 AM EDT Office Visit [facility] Heart [address] Office [address] [place] [address] [phone] Christina Lee MD Establishing care with new doctor, encounter for (Primary Dx) 06/13/2025 Telephone The [address] Office [facility] [address] [place] [address] [phone] Yana Meyers, TATI Record external results (echo); Cath Instructions 06/13/2025 Preop Surgical Orders The [address] [place] [phone] Christina Lee MD Coronary artery disease of [place] artery [place] heart with stable angina pectoris (Primary Dx); Abnormal stress test 06/12/2025 Telephone The [address] [place] [phone] Christina Lee MD Records 05/28/2025 Telephone [facility] Heart & Vascular, [facility] [address] [facility] [address] [place] [address] Christina Lee MD Scheduling 05/28/2025 Telephone [facility] Heart & Vascular, [facility] [address] [facility] [address] [place], [place] [address] Rod Fuller MD Scheduling 05/17/2025 Telephone [facility] [address] [facility] [address] [place] [phone] Rod Fuller MD Scheduling from Last 3 Months Family History Medical [...] Pulse 81 06/13/2025 10:43 AM EDT Temperature 36.8 C (98.2 F) 12/08/2024 7:25 AM EDT Respiratory Rate 18 12/08/2024 7:25 AM EDT Oxygen Saturation 94% 12/08/2024 7:25 AM EDT Inhaled Oxygen Concentration - - Weight 80.7 kg (178 lb) 06/13/2025 10:43 AM EDT Height 165.1 cm (5' 5 ) 06/13/2025 10:43 AM EDT pt stated Body Mass Index 29.62 06/13/2025 10:43 AM EDT Plan of Treatment Upcoming Encounters Date Type Department Care Team (Late st Contact Info) Description 07/05/2025 8:00 AM EST Hospital Encounter Cardiovascular Recovery Unit (CVRU) [address] [place] [address] Christina Lee MD [address] [facility] [address] [place] [address] Coronary artery disease of [place] artery [place] heart with stable angina pectoris; Abnormal stress test 07/05/2025 8:00 AM EST - 07/05/2025 9:15 AM EST Surgery Cardiac Crop Duster [address] [place] [address] Christina Lee MD [address] [facility] [address] [place] [address] LEFT HEART CATH w/[facility] 07/25/2025 10:00 AM EST Appointment [facility] Physicians - Heart & Vascular, [place] [address] [facility] Medical Office Building [address] [place] [address] Luis Eduardo Dahl NP [address] [facility]. [address] [place] [address] Scheduled Procedures Name Priority Associated Diagnoses Date/Ti me INTERVENTION - CORONARY Coronary artery disease of [place] artery of [place] heart with stable angina pectoris Abnormal stress test 07/05/2025 8:00 AM EST Health Maintenance Due Date Last Done Comments Cologuard 1960 Colonoscopy 1960 Colorectal Cancer Screening 1960 FIT 1960 Tetanus Vaccination (Every 1 0 Years) 1978 Hepatitis C Virus (HCV) Screening 1981 Breast Cancer Screening 2010 Pneumococcal Vaccine: 50+ Ye ars (1 of 1 - PCV) 2010 RSV Vaccines (1 - Risk 60-74 years 1-dose series) 2020 BMI Counseling 08/22/2024 Depression Screening 08/22/2024 Advance Care Planning 2025 Fall Risk Assessment 2025 Osteoporosis Screening 2025 10/26/2018, 2018 COVID-19 Vaccine (5 - 2024-2 6 season) 2025 07/21/2022, 06/09/2021, 09/24/2020, Additional history exists Influenza Vaccination (#1) 04/22/202506/11, 05/10/2023, 05/26/2022, Additional history exists Lipid Monitoring 12/07/2025 12/07/2024 Zoster-RZV(Shingrix) Completed 07/27/2018, 05/09/20 Lipid Screening Discontinued 12/07/2024 Goals Goal Patient Goal Type Associated Problems Recent Progress Patient-Stated? Author Increase physical activity Lifestyle No Letty Castellano BS Medical Devices Implanted Type Area Ship Pilot Device Identifier Shelf Expiration Date Model / Serial / Lot Perclose Prostyle. - [id number] Implanted:Qty: 1 on 12/07/2024 by Rod Fuller MD at [facility] [id number] 10/19/2026 [id number] -[id number] Description:RFA Procedures Procedure Name Priority Date/Time Associated Diagnosis Comments ECG Routine 06/13/2025 10:56 AM EDT Establishing care with new doctor, encounter for LIPID PROFILE Routine 12/07/2024 6:10 AM EDT from Last 3 Months or Most Recently Relevant to Health Maintenance Results * ECG (06/13/2025 10:56 AM EDT) Heart Rate 75 bpm [facility] QRS Interval 93 ms [facility] QT Interval 392 ms [facility] QTc Interval 438 ms [facility] P [place] 5 deg [facility] QRS [place] -14 deg [facility] LAB T Wave [place] -16 deg [facility] P-R Interval 150 msec [facility] 06/13/2025 10:5 6 AM EDT Narrative [facility] - 06/13/2025 1:04 PM EDT [facility] Test Date: 2025-06-13 10:56:52 Pat Name: JENNIFER KRISHNAMURTHY Department: [id number] Room: blank Gender: Female Hunting Sales Associate: TUNDE : 1960 Requested By: CHRISTINA Beltran Order Number: [id number] Reading MD: Christina Lee MD Interpretive Statements Sinus rhythm Left ventricular hypertrophy Inferior infarct, age indeterminate Electronically Signed On 06-13-2025 13:04:52 EDT by Christina Lee MD Procedure Note Christina Lee MD - 06/13/2025 [facility] Test Date: 2025-06-13 10:56:52 Pat Name: JENNIFER KRISHNAMURTHY Department: [id number] Room: blank Gender: Female Hunting Sales Associate: OdetteOdette : 1960 Requested By: CHRISTINA Beltran Order Number: [id number] Reading MD: Christina Lee MD Interpretive Statements Sinus rhythm Left ventricular hypertrophy Inferior infarct, age indeterminate Electronically Signed On 06-13-2025 13:04:52 EDT by Christina Lee MD us Christina Lee MD ECG ORDERABLES Final Res ult Performing Organization Address [facility] Co de Phone Number [facility] [address] * LIPID PROFILE (12/07/2024 6:10 AM EDT) Cholesterol 157 125 - 199 mg/dL [facility] Comment: TOTAL CHOLESTEROL INTERPRETATION: Less than 200 mg/dL Desireable 200-239 mg/dL Borderline Greater or Equal to 240 mg/dL High LDL Calculated 68 0 - 100 mg/dL [facility] Comment: LDL CHOLESTEROL INTERPRETATION: Less than 100 mg/dL Optimal 100-129 mg/dL Near optimal/above optimal 130-159 mg/dL Borderline High 160-189 mg/dL High Greater or Equal to 190 mg/dL Very High HDL 74 40 - 180 mg/dL [facility] Comment: HDL CHOLESTEROL INTERPRETATION: Less than 40 mg/dL Low Greater than 60 mg/dL Desirable Triglycerides 77 0 - 149 mg/dL [facility] Comment: TOTAL TRIGLYCERIDE INTERPRETATION: Less than 150 mg/dL Normal 150-199 mg/dL Borderline HIgh 200-499 mg/dL High Greater or Equal to 500 mg/dL Very High NONHDL Calculated 83 0 - 129 mg/dL [facility] Comment: NON-HDL INTERPRETATION: Less than 130 mg/dL Desirable 130-159 mg/dL Above Desirable 160-189 mg/dL Borderline High 190-219 mg/dL High Greater than or equal to 220 mg/dL Very High Plasma (Blood) 12/07/2024 6: 10 AM EDT 12/07/2024 6:26 AM EDT us Rod Fuller MD CHEMISTRY ORDERABLES Final Result Performing Organization Address [facility]/ZIP Co de Phone Number [facility] [address] [place] [address] from Last 3 Months or Most Recently Relevant to Health Maintenance Insurance [facility]IC[facility] Advance Directives For more information, please contact: [phone] * Full Code (Latest Code Status on File) Date Activated Date Inactivated Comments 12/07/2024 9:42 AM No automated c hest compression devices for VAD Patients Care Teams Nurse Ob Relationship Specialty Start Date End Date TaytaFelix graf MD [address] [place] [address] PCP - General 12/07/24
--- OUTSIDE RECORDS SUMMARY | 2025-07-03 10:34 | XMS_ITS | Patient Health Record ---
Author Organization [facility] Address [address] [place] [id number] Care Team Providers Care Bar Machine Operator Multiple Spindle Name Role Phone Odette Pereira Primary Care Provider [phone] Hakeem Jason Unavailable [phone] VidalesChuyita ryan Unavailable [phone] Allergies No Known Allergies Results Component Value [...] spray each nostril as needed 01/30/2011 Active Levothyroxine Sodium 125 MCG 1 tablet [...] Vaccine Route Administration Date Status Comme nts COVID 19 Pfizer Unknown 09/02/2020 Administered COVID 19 Pfizer Unknown 09/24/2020 Administered COVID 19 Pfizer Unknown 06/09/2021 Administered Fluzone PF Quad (6-35 months) Unknown 06/03/2021 Administered Fluzone PF Quad (6-35 months) Unknown 05/26/2022 Administered Fluzone PF Quad (6-35 months) Unknown 05/10/2023 Administered Hepatitis A (adult) IM Intramuscular 07/18/2018 Administer ed PNEUMOVAX 23 VACCINE IM Intramuscular 06/16/2018 Administe red Shingrix Unknown 05/09/2018 Administered Shingrix Unknown 07/27/2018 Administered Tetanus Tdap-Adacel (over 7yrs) IM Intramuscular 05/14/2013 Administered Problems Problem Type SNOMED Code ICD Code Onset Dates Problem Status W/U Status Risk Notes Problem Carotid artery occlusion without infarction (119055371155369) STENOSIS OF CAROTID ARTERY WITHOUT INFARCTION (433.10) Active confirmed Problem Sinusitis (91153101) Sinusitis (J32.9) Active confirmed Problem Hyperlipidemia (66228537) Hyperlipidemia (E78.5) Active confirmed Problem Essential hypertension (18461585) Essential hypertension (I10) Active confirmed Problem Hypothyroidism (12024703) Hypothyroidism (E03.9) Active confirmed Problem Hyperlipidemia (45784818) Other and unspecified hyperlipidemia (E78.5) Active confirmed Low Problem Stented coronary artery (509380099) Stented coronary artery (Z95.5) Active confirmed Problem Multi vessel coronary artery disease (938788105) CAD, multiple vessel (I25.10) Active confirmed Vital Signs Heart Rate 87 /min 02/06/2025 Blood pressure diastolic 80 mm Hg 02/06/2025 Height 64.25 in 02/06/2025 Blood pressure systolic 130 mm Hg 02/06/2025 Weight 172 lbs 02/06/2025 BMI 29.29 kg/m2 02/06/2025 Encounters Encounter Location Date Provider Diagnosis [facility] [address] [place], [place] [id number] 03/25/2025 Odette Pereira [facility] [address] [facility] [address] [place], [place] [id number] 02/18/2025 Odette Pereira [facility] [address] [facility] [address] [place], [place] [id number] 04/01/2025 Odette Pereira [facility] [address] [place], [place] [id number] 09/24/2024 Chuyita [place] URI (upper respirato ry infection) J06.9 and Sinusitis J32.9 [facility] [address] [facility] [address] [place], [place] [id number] 02/06/2025 Hakeem [place] Acute UTI N39.0 ; Dysuria R30.0 and [...] BELLA BLUE CROSSBLUE SHIELD [address] [place] [address] [id number] Jennifer Melgoza Self - patient is the insured Medical (General) History Medical History History ICD Code Hypothyroid Hodgkins Disease Broken neck Moderate Aortic insufficency on Cath 01/21 012 Right Breast cancer Coronary Artery Disease Myocardial Infarction, February 20, 2024, wit h PCI (3 stents placed) at [facility] Surgical History Surgery Date(Month/Year) Splenectomy Tubal Ligation Tonsillectomy Partial Thyroidectomy Heart Cath 02/01/2012 Colonoscopy 03/18/2014 Small Bowel Obstruction 05/2014 LT Wrist Ganglion Cyst Removal 12/2014 Double Masectomy 09/2018 Reconstruction 12/2018 STEMI s/p 3 Coronary Stent Placement Hospitalization History Reason Date(Month/Year) [facility] ER - L sided chest and shoulder pain 06/15/2015 Bbowel Obstruction 03/2014
--- OUTSIDE RECORDS SUMMARY | 2025-07-03 10:34 | XMS_ITS | Encounter Summary ---
Author Organization [facility] Address [address] [place] [address] Care Team Providers Care Sawdust Drier Name Role Phone Esther Bobo Primary Care Provider [phone] Sonny Gonzalez MD Unavailable [phone] Chava Sanders MD Unavailable [phone] Encounter Details Date Type Department Care Team (Latest Contact Info) Description 06/12/2025 Travel Social History Tobacco Use Types Packs/Day Years [...] Description 10/18/2025 1:30 PM EST Office Visit [facility] [address] [place] [phone] Sonny Gonzalez MD [address] [phone] 11/19/2025 10:30 AM EDT Ovarian Cancer Screening [facility] [address] [place] [address] documented as of this encounter Visit Diagnoses Not on filedocumented in this encounter Care Teams Sawdust Drier Relationship Specialty Start Date End Date Esther Bobo PA [address] [place] [address] PCP - General 01/15/22 Sonny Gonzalez MD [address] [place] [address] Medical Oncologist Medical Oncology 12/22/23 Chava Sanders MD [address] [facility] [address] [place], [place] [phone] Driller'S Offsider 08/09/24 documented as of this encounter
--- OUTSIDE RECORDS SUMMARY | 2025-07-03 10:35 | XMS_ITS | Encounter Summary ---
Author Organization [facility] Address [address] [place] [address] Care Team Providers Care Nurse Sitter Name Role Phone Unknown, Unknown Primary Care Provider Unavailab Esther Molina Primary Care Provider Sonny Gonzalez MD Unavailable [phone] Chava Sanders MD Unavailable Encounter Details Date Type Department Care Team (Late st Contact Info) Description 06/26/2021 Orders Only [facility] [address] [place] [phone] Sonny Gonzalez MD [address] [place], [place] [address] [address] Social History Tobacco Use Types Packs/Day [...] Description 10/18/2025 1:30 PM EST Office Visit [facility] [address] [place] [phone] Sonny Gonzalez MD [address] [place] [address] [phone] 11/19/2025 10:30 AM EDT Ovarian Cancer Screening [facility] [address] [place] [address] documented as of this encounter Procedures Procedure Name Priority Date/Time Associated Diagnosis Comments COMPREHENSIVE METABOLIC PANEL, PLASMA Routine 06/26/2021 10:38 AM EDT documented in this encounter Results * (ABNORMAL) Comprehensive Metabolic Panel, Plasma (06/26/2021 10:38 AM EDT) External Glucose 96 74 - 100 mg/dL [facility] External BUN 15 6 - 20 mg/dL [facility] External Creatinine Blood 0.79 0.50 - 0.95 mg/dL [facility] External BUN/Creat Ratio 19 10 - 20 (calc) [facility] External Sodium 141 136 - 145 mmol/L [facility] External Potassium 4.8 3.4 - 5.0 mmol/L [facility] External Chloride 101 98 - 107 mmol/L [facility] External Carbon Dioxide 27 22 - 31 mmol/L [facility] External Anion Gap (AG) 13 7 - 25 (calc) [facility] External Calcium 10.3(H) 8.6 - 10.2 mg/dL [facility] External Total Protein 7.6 6.4 - 8.3 g/dL [facility] External Albumin 4.6 3.5 - 5.2 g/dL [facility] External Globulin 3.0 1.5 - 4.5 g/dL (calc) [facility] External Albumin/Globulin Ratio 1.5 1.1 - 2.5 (calc) [facility] External Bilirubin Total 0.2 0.1 - 1.2 mg/dL [facility] External Alkaline Phosphatase 76 35 - 106 U/L [facility] External AST (SGOT) 21 0 - 32 U/L [facility] External ALT (SGPT) 21 0 - 33 U/L [facility] External EGFR (If AFR/AM) 94 >=60 [facility] External Estimated GFR 81 >=60 [facility] Comment: NOTE Chronic kidney disease [...] LAB BLOOD ORDERABLES Final Res ult [facility] [address] [place] [address], documented in this encounter Visit Diagnoses Not on filedocumented in this encounter Care Teams Nurse Sitter Relationship Specialty Start Date End Date Unknown, Unknown [place], [place] PCP - General Dental Signal Constructor 08/22/20 01/14/22 Esther Bobo PA [address] [place] [address] PCP - General 01/15/22 Sonny Gonzalez MD [address] [place] [address] Medical Oncologist Medical Oncology 12/22/23 Chava Sanders MD [address] [facility] [address] [place] [address] Pie Bakery Laborer 08/09/24 documented as of this encounter
--- OUTSIDE RECORDS SUMMARY | 2025-07-03 10:35 | XMS_ITS | Encounter Summary ---
Author Organization [facility] Address [address] [place] [address] Care Team Providers Care Manager Mission Name Role Phone Nonstaff, Referring MD Primary Care Provider [phone] Encounter Details Date Type Department Care Team (Late st Contact Info) Description 06/13/2025 Preop Surgical Orders [facility] Physicians - Heart & Vascular, [facility] [address] [facility] Medical Office [address] [place] [address] Christina Lee MD [address] [facility] [address] [place], [place] [address] Coronary artery disease of [place] artery [place] heart with stable angina pectoris (Primary Dx); Abnormal stress test Social History Tobacco Use Types Packs/Day Years Used Date Smoking Tobacco: Never Smokeless Tobacco: Never Alcohol Use Standard Drinks/Week Comments Not Currently 0 (1 standard drink = 0.6 oz pur e alcohol) occasionally Comments Unknown Sex and Gender Information Value Date Recorded Sex Assigned at Not on file Legal Sex Female 3:25 PM EDT Gender Identity Not on file Sexual Orientation Not on file documented as of this encounter Functional Status * Are you blind or do you have difficulty seeing, even when wearing glasses? Answer Date of Assessment Author No 12/07/2024 3:08 PM EDT Cullen Morgan, RN * Do you have serious difficulty walking or climbing stairs? Answer Date of Assessment Author No 12/07/2024 3:08 PM EDT Cullen Morgan RN * Do you have difficulty dressing or bathing? Answer Date of Assessment Author No 12/07/2024 3:08 PM EDT Cullen Morgan, TATI * Because of a physical, mental, or [...] Cullen Morgan RN documented in this encounter Plan of Treatment Upcoming Encounters Date Type Department Care Team (Late st Contact Info) Description 07/05/2025 8:00 AM EST Hospital Encounter Cardiovascular Recovery Unit (CVRU) [address] [place] [address] Christina Lee MD [address] [facility] [address] [place] [address] Coronary artery disease of [place] artery [place] heart with stable angina pectoris; Abnormal stress test 07/05/2025 8:00 AM EST - 07/05/2025 9:15 AM EST Surgery Cardiac Patented Hogshead Assembler [address] [place] [address] Christina Lee MD [address] [facility] [address] [place] [address] LEFT HEART CATH w/[facility] 07/25/2025 10:00 AM EST Appointment [facility] - Heart & Vascular, [place] [address] [facility] Medical Office [address] [place] [phone] Luis Eduardo Dahl NP [address] [facility]. [address] [place] [address] Scheduled Procedures Name Priority Associated Diagnoses Date/Ti me INTERVENTION - CORONARY Coronary artery disease of [place] artery [place] heart with stable angina pectoris Abnormal stress test 07/05/2025 8:00 AM EST documented as of this encounter Goals Goal Patient Goal Type Associated Problems Recent Progress Patient-Stated? Author Increase physical activity Lifestyle No Letty Castellano BS documented as of this encounter Visit Diagnoses Diagnosis Coronary artery disease of [place] artery of [place] heart with stable angina pectoris- Primary Abnormal stress test Other nonspecific abnormal cardiovascular system function study Coronary artery disease of [place] artery of [place] heart with stable angina pectoris Abnormal stress test Other nonspecific abnormal cardiovascular system function study Coronary artery disease [place] artery of [place] heart with stable angina pectoris Abnormal stress test Other nonspecific abnormal cardiovascular system function study documented in this encounter Care Teams Manager Mission Relationship Specialty Start Date End Date Felix Nicole MD [address] [place], [place] [address] PCP - General 12/07/24 documented as of this encounter
--- OUTSIDE RECORDS SUMMARY | 2025-07-03 10:35 | XMS_ITS | Encounter Summary ---
Author Organization [facility] Address [address] [place] [address] Care Team Providers Care Retail Advertising Account Executive Name Role Phone Nonstaff, Referring MD Primary Care Provider [phone] Reason for Visit * Reason Onset Date Comments Scheduling 05/28/2025 Encounter Details Date Type Department Care Team (Late st Contact Info) Description 05/28/2025 Telephone [facility] Physicians - Heart & Vascular, [facility] [address] [facility] [address] [place] [address] Rod Fuller MD [address] [id number] Scheduling Social History Tobacco Use Types Packs/Day Years Used Date Smoking Tobacco: Never Smokeless Tobacco: Never Alcohol Use Standard Drinks/Week Comments Not Asked [...] 3:08 PM EDT Cullen Morgan, TATI * Do you have serious difficulty walking or climbing stairs? Answer Date of Assessment Author No 12/07/2024 3:08 PM EDT Cullen Morgan, RN * Do you have difficulty dressing or bathing? Answer Date of Assessment Author No 12/07/2024 3:08 PM EDT Cullen Morgan, RN * Because of a physical, mental, [...] Cullen Morgan RN documented in this encounter Miscellaneous Notes * Telephone Encounter - Luis Eduardo Dahl NP - 05/28/2025 10:53 AM EDT Discussed with racing secretary and handicapper: Zo and pt can be seen per Dr. Cooper or Dr. Reina in June. Pt is s/p PCI from November 2024. Referral was received via secure network. Nuclear test has been completed and reviewed per [facility]. This is not an emergency per MD. Luis Eduardo Dahl, MSN, CERAMIC TILER, SOFT TOP INSTALLER-C * Telephone Encounter - Zo Rubin - 05/28/2025 10:43 AM EDT Called pt to schedule NPV with DJK. The patient stated she seen Dr. Sanders (her previous card) after procedure with DJK on 12/07. She recently had nuclear stress done and NEWS WRITER Cesar Castillo (Tommy's NEWS WRITER) stated she had blockages again and needed to be seen. Patient is asking if her nuc stress test was read yet? She thinks she needs to be seen JEY and feels if we looked at these we would think the same. Can you advise if this has been read on how to proceed with scheduling. documented in this encounter Plan of Treatment Upcoming Encounters Date Type Department Care Team (Late st Contact Info) Description 07/05/2025 8:00 AM EST Hospital Encounter Cardiovascular Recovery Unit (CVRU) [address] [place] [address] Christina Lee MD [address] [facility] [address] [place] [address] [address] artery disease of [place] artery of [place] heart with stable angina pectoris; Abnormal stress test 07/05/2025 8:00 AM EST - 07/05/2025 9:15 AM EST Surgery Cardiac Watch Engineer [address] [place] [address] Christina Lee MD [address] [facility] [address] [place] [address] LEFT HEART CATH w/[facility] 07/25/2025 10:00 AM EST Appointment [facility] Physicians - Heart & Vascular, [address] Medical Office [address] [place] [address] Luis Eduardo Dahl NP [address] [facility]. [address] [place] [address] Scheduled Procedures Name Priority Associated Diagnoses Date/Ti me INTERVENTION - CORONARY Coronary artery disease of [place] artery of [place] heart with stable angina pectoris Abnormal stress test 07/05/2025 8:00 AM EST documented as of this encounter Goals Goal Patient Goal Type Associated Problems Recent Progress Patient-Stated? Author Increase physical activity Lifestyle No Letty Castellano BS documented as of this encounter Visit Diagnoses Not on filedocumented in this encounter Care Teams Retail Advertising Account Executive Relationship Specialty Start Date End Date Felix Nicole MD [address] [place] [address] PCP - General 12/07/24 documented as of this encounter
--- OUTSIDE RECORDS SUMMARY | 2025-07-03 10:35 | XMS_ITS | Encounter Summary ---
Author Organization [facility] Address [address] [place] [address] Care Team Providers Care Firepot Operator And Tender Name Role Phone Nonstaff, Referring MD Primary Care Provider [phone]- [phone] Reason for Visit * Reason Onset Date Comments Scheduling 05/17/2025 Encounter Details Date Type Department Care Team (Late st Contact Info) Description 05/17/2025 Telephone [facility] Physicians - Heart & Vascular, [place] [address] [facility] [address] [place] [address] Rod Fuller MD [address] [facility] [address] [place] [address] Scheduling Social History Tobacco Use Types Packs/Day [...] encounter Miscellaneous Notes * Telephone Encounter - Jesica Najera - 05/24/2025 4:02 PM EDT Pt calling to check status and is concerned since its been a week. * Telephone Encounter - Zo Rubin - 05/22/2025 1:43 PM EDT He performed a cath on her but she is not established with him in clinic. Please review and advise. * Telephone Encounter - Venessa Loving - 05/17/2025 4:36 PM EDT Pt calling back again to see about getting an appointment w/Dr Fuller. Hospital near Pt sent over testing External Correspondence - NUCLEAR MEDICINE REPORT (05/17/2025) and Pt wanted toconfirm we got it too. Please call Pt back to schedule * Telephone Encounter - Riana Saleh - 05/17/2025 9:03 AM EDT Pt calling to schedule appt with Dr Fuller . Coin Collector unavailable please advise documented in this encounter Plan of Treatment Upcoming Encounters Date Type Department Care Team (Late st Contact Info) Description 07/05/2025 8:00 AM EST Hospital Encounter Cardiovascular Recovery Unit (CVRU) [address] [place] [address] Christina Lee MD [address] [facility] [address] [place] [address] Coronary artery disease of [place] artery of [place] heart with stable angina pectoris; Abnormal stress test 07/05/2025 8:00 AM EST - 07/05/2025 9:15 AM EST Surgery Cardiac Kettle Operator [address] [place] [address] Christina Lee MD [address] [facility] [address] [place] [address] LEFT HEART CATH w/[facility] 07/25/2025 10:00 AM EST Appointment [facility] Physicians - Heart & Vascular, Ct[facility]ahram Emma [address] [place] [address] Medical Office Building [address] [place] [address] Luis Eduardo Dahl NP [address] [facility]. [address] [place] [address] Scheduled Procedures Name Priority Associated Diagnoses Date/Ti me INTERVENTION - CORONARY Coronary artery disease of [place] artery of [place] heart with stable angina pectoris Abnormal stress test 07/05/2025 8:00 AM EST documented as of this encounter Goals Goal Patient Goal Type Associated Problems Recent Progress Patient-Stated? Author Increase physical activity Lifestyle No Letty Castellano, KAVIN documented as of this encounter Visit Diagnoses Not on filedocumented in this encounter Care Teams Firepot Operator And Tender Relationship Specialty Start Date End Date Felix Nicole MD [address] [place] [address] PCP - General 12/07/24 documented as of this encounter
--- OUTSIDE RECORDS SUMMARY | 2025-07-03 10:35 | XMS_ITS | Encounter Summary ---
Author Organization [facility] Address [address] [place] [address] Care Team Providers Care Plaster Mold Maker Name Role Phone Unknown, Unknown Primary Care Provider Unavailab Esther Molina Primary Care Provider Sonny Gonzalez MD Unavailable [phone] Chava Sanders MD Unavailable Encounter Details Date Type Department Care Team (Late st Contact Info) Description 06/26/2021 Orders Only [facility] [address] [place] [address] Sonny Gonzalez MD [address] [place], [place] [address] [address] Social History Tobacco Use Types [...] EST Office Visit [facility] [address] [place] [phone] Sonny Gonzalez MD [address] [address] 11/19/2025 10:30 AM EDT Ovarian Cancer Screening [facility] Gynecology [address] [place] [address] documented as of this encounter Procedures Procedure Name Priority Date/Time Associated Diagnosis Comments RBC MORPHOLOGY ([facility]) Routine 06/26/2021 10:32 AM EDT documented in this encounter Results * RBC MORPHOLOGY ([facility]) (06/26/2021 10:32 AM EDT) External RBC Morphology Comment NORMAL [facility] 06/26/2021 10:3 2 AM EDT 06/26/2021 10:32 AM EDT Sonny Gonzalez MD LAB BLOOD ORDERABLES Final Res ult [facility] [address] [place] [address], documented in this encounter Visit Diagnoses Not on filedocumented in this encounter Care Teams Plaster Mold Maker Relationship Specialty Start Date End Date Unknown, Unknown [place], [place] PCP - General Dental Asphalt Spreader Operator 08/22/20 01/14/22 Esther Bobo PA [facility] [address] [place] [address] PCP - General 01/15/22 Sonny Gonzalez MD [address] [place] [address] Medical Oncologist Medical Oncology 12/22/23 Chava Sanders MD [address] [facility] [address] [place] [address] Php Engineer 08/09/24 documented as of this encounter
--- OUTSIDE RECORDS SUMMARY | 2025-07-03 10:35 | XMS_ITS | Encounter Summary ---
Author Organization [facility] Address [address] [place] [address] Care Team Providers Care Pricer Bagger Name Role Phone Nonstaff, Referring MD Primary Care Provider [phone]- [phone] Reason for Visit * Reason Onset Date Comments Records 06/12/2025 Encounter Details Date Type Department Care Team (Late st Contact Info) Description 06/12/2025 Telephone [facility] Physicians - Heart & Vascular, [facility] [address] [facility] Medical Office Building [address] [place] [address] Christina Lee MD [address] [facility] [address] [place] [address] Records Social History Tobacco Use Types Packs/Day Years [...] encounter Miscellaneous Notes * Telephone Encounter - Sara High MA - 06/12/2025 9:44 AM EDT Images in merge * Telephone Encounter - Sara High MA - 06/12/2025 9:33 AM EDT 10/20/2023 echo images requested from [facility] Non-Invasive Cardiology [address] [place] [phone] documented in this encounter Plan of Treatment Upcoming Encounters Date Type Department Care Team (Late st Contact Info) Description 07/05/2025 8:00 AM EST Hospital Encounter Cardiovascular Recovery Unit (CVRU) [address] [place] [address] Christina Lee MD [address] [facility] [address] [place] [address] Coronary artery disease of [place] artery of [place] heart with stable angina pectoris; Abnormal stress test 07/05/2025 8:00 AM EST - 07/05/2025 9:15 AM EST Surgery Cardiac Automotive Electrician Helper [address] [place] [address] Christina Lee MD [address] [facility] [address] [place] [address] LEFT HEART CATH w/[facility] 07/25/2025 10:00 AM EST Appointment [facility] Physicians - Heart & Vascular, [place] [address] [facility] Medical Office Building [address] [place] [phone] Luis Eduardo Dahl NP [address] [facility]. [address] [place], [place] [address] Scheduled Procedures Name Priority Associated Diagnoses Date/Ti me INTERVENTION - CORONARY Coronary artery disease of [place] artery of [place] heart with stable angina pectoris Abnormal stress test 07/05/2025 8:00 AM EST documented as of this encounter Goals Goal Patient Goal Type Associated Problems Recent Progress Patient-Stated? Author Increase physical activity Lifestyle No Letty Castellano, KAVIN documented as of this encounter Visit Diagnoses Not on filedocumented in this encounter Care Teams Pricer Bagger Relationship Specialty Start Date End Date Felix Nicole MD [address] [place] [address] PCP - General 12/07/24 documented as of this encounter
--- OUTSIDE RECORDS SUMMARY | 2025-07-03 10:35 | XMS_ITS | Patient Health Record ---
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
--- OUTSIDE RECORDS SUMMARY | 2025-07-03 10:35 | XMS_ITS | Encounter Summary ---
Author Organization [facility] Address [address] [place] [address] Care Team Providers Care Mechanical Engineering Manager Name Role Phone Nonstaff, Referring MD Primary Care Provider [phone] Reason for Visit * Reason Onset Date Comments Record external results 06/13/2025 echo Cath Instructions 06/13/2025 Encounter Details Date Type Department Care Team (Late st Contact Info) Description 06/13/2025 Telephone [facility] Physicians - Heart & Vascular, [address] Medical Office Building [address] [place] [phone] Yana Meyers RN [address] [place] [address] Record external results (echo); Cath Instructions Social History Tobacco Use Types Packs/Day Years [...] encounter Miscellaneous Notes * Telephone Encounter - Amanda Pina RN - 06/19/2025 10:20 AM EDT Results received and available in Product Marketing Engineer: Summary: 05/15/2025 Mild reduction in LV systolic function (LVEF 45%) Moderate hypokinesis of basal inferior and inferoseptal LV islas Mild RV dilation Mild AI * Telephone Encounter - Yana Meyers RN - 06/13/2025 12:12 PM EDT ECHO at [facility], get results Request faxed to [phone] * Telephone Encounter - Yana Meyers RN - 06/13/2025 11:58 AM EDT Procedure: LHC/COR Case request sent by: rosalie Lee at Labs ordered: [x] [facility] orders mailed: [] Yes [x] No paper copy provider at Insurance question complete: [x] Medication reconciliation complete: [x] Date and time: 07/05/2025 [] Awaiting date and time from Medical Driver scheduling [] Still need to discuss with patient [x] Patient accepted procedure date and time [x] Placed to Medical Driver schedule Pre-Cath Flowsheet: [] Partial [x] Complete Pre-Cath Letter: [] Partial [x] Complete Sent to Patient via: [] PF Management Servicest Communication [x] Printed for patient in office [] Mailed to patient [] Encrypted Email Procedure Education: Review with patient on: 06/13 at with also present for education/questions Follow-Up appointment: Follow-up in: [] 2 weeks [] 4 weeks 6 weeks, or sooner with CTS if needed after cath Provider: [] Toby [] Duglas [] Malgorzata [] Jani [x] TRANSLATOR INTERPRETER/PA or Rosa Routed to Schedulers to schedule Follow-Up appointment: [x] completed documented in this encounter Plan of Treatment Upcoming Encounters Date Type Department Care Team (Late st Contact Info) Description 07/05/2025 8:00 AM EST Hospital Encounter Cardiovascular Recovery Unit (CVRU) [address] [place] [address] Christina Lee MD [address] [facility] [address] [place] [address] Coronary artery disease of [place] artery of [place] heart with stable angina pectoris; Abnormal stress test 07/05/2025 8:00 AM EST - 07/05/2025 9:15 AM EST Surgery Cardiac Medical Driver [address] [place] [address] Christina Lee MD [address] [facility] [address] [place] [address] LEFT HEART CATH w/SELECT COR 07/25/2025 10:00 AM EST Appointment [facility] Physicians - Heart & Vascular, [place] [address] [facility] Medical Office Building [address] [place] [address] Luis Eduardo Dahl NP [address] [facility] [address] [place] [address] Scheduled Orders Name Type Priority Associated Diagnoses Orde r Schedule CBC (COMPLETE BLOOD COUNT) Lab Routine Coronary artery disease of [place] artery of [place] heart with stable angina pectoris Abnormal stress test 1 Occurrences starting 06/13/2025 until 06/13/2026 COMPREHENSIVE METABOLIC PANEL Lab Routine Coronary artery disease of [place] artery of [place] heart with stable angina pectoris Abnormal stress test 1 Occurrences starting 06/13/2025 until 06/13/2026 LIPID PROFILE Lab Routine Coronary artery disease of [place] artery of [place] heart with stable angina pectoris Abnormal stress test 1 Occurrences starting 06/13/2025 until 06/13/2026 Scheduled Procedures Name Priority Associated Diagnoses Date/Ti me INTERVENTION - CORONARY Coronary artery disease of [place] artery of [place] heart with stable angina pectoris Abnormal stress test 07/05/2025 8:00 AM EST documented as of this encounter Goals Goal Patient Goal Type Associated Problems Recent Progress Patient-Stated? Author Increase physical activity Lifestyle No Letty Castellano, BS documented as of this encounter Visit Diagnoses Diagnosis Coronary artery disease of [place] artery of [place] heart with stable angina pectoris- Primary Abnormal stress test Other nonspecific abnormal cardiovascular system function study Coronary artery disease of [place] artery of [place] heart with stable angina pectoris Abnormal stress test Other nonspecific abnormal cardiovascular system function study Coronary artery disease of [place] artery of [place] heart with stable angina pectoris Abnormal stress test Other nonspecific abnormal cardiovascular system function study documented in this encounter Care Teams Mechanical Engineering Manager Relationship Specialty Start Date End Date Felix Nicole MD [place] [address] PCP - General 12/07/24 documented as of this encounter
--- OUTSIDE RECORDS SUMMARY | 2025-07-03 10:35 | XMS_ITS | Encounter Summary ---
Author Organization [facility] Address [address] [place] [address] Care Team Providers Care Plant Electrician Name Role Phone Unknown, Unknown Primary Care Provider Unavailab Esther Molina Primary Care Provider Sonny Gonzalez MD Unavailable [phone] Chava Sanders MD Unavailable [phone] Encounter Details Date Type Department Care Team (Late st Contact Info) Description 06/26/2021 Orders Only [facility] [address] [place] [address] Sonny Gonzalez MD [address] [place], [place] [address] [address] Social History Tobacco Use Types [...] Description 10/18/2025 1:30 PM EST Office Visit [facility] [address] [place] [address] Sonny Gonzalez MD [address] [place] [address] [address] 11/19/2025 10:30 AM EDT Ovarian Cancer Screening [facility] Gynecology [address] [place] [address] documented as of this encounter Procedures Procedure Name Priority Date/Time Associated Diagnosis Comments CBC WITH AUTO DIFFERENTIAL Routine 06/26/2021 10:32 AM EDT documented in this encounter Results * (ABNORMAL) CBC and Differential (06/26/2021 10:32 AM EDT) External WBC 7.8 3.8 - 10.8 K/uL [facility] External Red Blood Cell (RBC) 4.02 3.80 - 5.20 M/uL [facility] External Hemoglobin 13.7 12.0 - 16.0 G/DL [facility] External Hematocrit 40.3 35.0 - 47.0 % [facility] External MCV 100 80 - 100 fL [facility] External MCH 34 26 - 35 PG [facility] External MCHC 34 32 - 36 G/DL [facility] External RDW 13.4 11.0 - 15.0 % [facility] External Mean Platelet Volume 8.8 6.2 - 10.5 fL [facility] External Platelets 284 130 - 400 K/uL [facility] Comment: Platelet count confirmed by slide estimate. Occ. macrothrombocytes noted. External Neutrophil# 4.0 1.6 - 8.4 K/uL [facility] External Lymphocyte# 2.6 0.4 - 5.1 K/uL [facility] External Absolute Monocyte (Abs [place]) 1.0 0.0 - 1.2 K/uL [facility] External Eosinophils# 0.1 0.0 - 0.8 K/uL [facility] External Baso# 0.1 0.0 - 0.3 K/uL [facility] External Neutrophils % 51.0 42.0 - 78.0 % [facility] External Lymphocyte % 33.9 11.0 - 47.0 % [facility] External Monocyte % 12.3(H) 0.0 - 11.0 % [facility] External Eosinophil% 1.9 0.0 - 7.0 % [facility] External Basophil % 0.9 0.0 - 3.0 % [facility] External Nucleated RBC%-Auto 0.1 0.0 - 0.9 % [facility] External Nucleated RBC Absolute 0.01 Not Estab. K/uL [facility] 06/26/2021 10:3 2 AM EDT 06/26/2021 10:32 AM EDT Sonny Gonzalez MD LAB BLOOD ORDERABLES Final Res ult [facility] [address] [place] [address], documented in this encounter Visit Diagnoses Not on filedocumented in this encounter Care Teams Plant Electrician Relationship Specialty Start Date End Date Unknown, Unknown [place], [place] PCP - General Dental Associate Financial Analyst 08/22/20 01/14/22 Esther Bobo PA [facility] [address] [place] [address] [place] [address] PCP - General 01/15/22 Sonny Gonzalez MD [address] [place] [address] Medical Oncologist Medical Oncology 12/22/23 Chava Sanders MD [address] [facility] [address] [place] [address] Orientation And Mobility Instructor 08/09/24 documented as of this encounter
--- OUTSIDE RECORDS SUMMARY | 2025-07-03 10:35 | XMS_ITS | Encounter Summary ---
Author Organization [facility] Address [address] [place] [address] Care Team Providers Care Retail Store Clerk Name Role Phone Nonstaff, Referring MD Primary Care Provider [phone]- [phone] Reason for Visit * Reason Onset Date Comments Scheduling 05/28/2025 Encounter Details Date Type Department Care Team (Late st Contact Info) Description 05/28/2025 Telephone [facility] Physicians - Heart & Vascular, [facility] [address] [facility] [address] [place] [address] Christina Lee MD [address] [place] [id number] Scheduling Social History Tobacco Use Types Packs/Day [...] 12/07/2024 3:08 PM EDT Cullen Morgan, RN documented as of this encounter Mental Status * Because of a physical, mental, or emotional condition, do you have serious difficulty concentrating, remembering, or making decisions? Answer Entry Date Author No 12/07/2024 3:08 PM EDT Cullen Morgan RN documented in this encounter Miscellaneous Notes * Telephone Encounter - Zo Rubin - 05/28/2025 11:19 AM EDT Spoke with pt and she is schedule to see Dr. Lee on 06/13/25. documented in this encounter Plan of Treatment Upcoming Encounters Date Type Department Care Team (Late st Contact Info) Description 07/05/2025 8:00 AM EST Hospital Encounter Cardi[facility] Unit ([facility]) [address] [place] [address] Christina Lee MD [address] [place] [address] Coronary artery disease of iliamna artery of [place]amna heart with stable angina pectoris; Abnormal stress test 07/05/2025 8:00 AM EST - 07/05/2025 9:15 AM EST Surgery Cardiac [facility]utter [facility] [address] [place] [address] Christina Lee MD [address] [place] [address] LEFT HEART CATH w/[facility] 07/25/2025 10:00 AM EST Appointment [facility] Physicians - Heart & Vascular, [place] [address] [place] [phone] Luis Eduardo Dahl NP [address] [place], [place] [id number] Scheduled Procedures Name Priority Associated Diagnoses Date/Ti me INTERVENTION - CORONARY Coronary artery disease of iliam[place] artery of [place]am[place] heart with stable angina pectoris Abnormal stress test 07/05/2025 8:00 AM EST documented as of this encounter Goals Goal Patient Goal Type Associated Problems Recent Progress Patient-Stated? Author Increase physical activity Lifestyle No Letty Castellano, BS documented as of this encounter Visit Diagnoses Not on filedocumented in this encounter Care Teams Retail Store Clerk Relationship Specialty Start Date End Date Felix Nicole MD [address] [place] [address] PCP - General 12/07/24 documented as of this encounter
[2025-07-03 12:06] LABS: Hematocrit 39.8 % (37.0-47.0); Hemoglobin 13.8 g/dL (12.2-16.2); Immature Granulocytes % 0.6 %; Mean Corpuscular HGB Conc 34.7 g/dL (31.8-35.4); Mean Corpuscular Hemoglobin 35.7 pg (27.0-31.2); Mean Corpuscular Volume 102.8 fl (81-99); Nucleated Red Blood Cells % 0 %; Platelet Count 281 K/mm3 (142-424); Red Blood Count 3.87 M/mm3 (4.20-5.40); Red Cell Distribution Width-SD 54.3 fL; White Blood Count 5.2 K/mm3 (4.8-10.8)
[2025-07-03 12:38] LABS: Alanine Aminotransferase 43 U/L (12-78); Albumin Level 4.2 g/dl (3.5-5.0); Albumin/Globulin Ratio 1.4 (1.1-1.8); Alkaline Phosphatase 96 U/L (38-126); Anion Gap 8.3 mEq/L (5-15); Aspartate Amino Transferase 38 U/L (14-36); Bilirubin,Total 0.6 mg/dl (0.2-1.3); Blood Urea Nitrogen 14 mg/dl (7-17); Calcium 9.6 mg/dl (8.4-10.2); Carbon Dioxide 31 mmol/L (22.0-30.0); Chloride 103 mmol/L (98-107); Cholesterol 154 mg/dl (140-200); Creatinine,Serum 0.70 mg/dl (0.52-1.04); Estimated Glomerular Filt Rate 84 ml/min (>60); GFR (African American) 102 ML/MIN (>60); Globulin 3.1 g/dL (1.3-3.2); Glucose 107 mg/dl (74-100); HDL Cholesterol 83 mg/dl (40-60); Potassium 4.3 mmoL/L (3.5-5.1); Sodium 138 mmol/L (136-145); Total Protein,Serum 7.3 g/dl (6.3-8.2); Triglycerides 67 mg/dl (30-150)
== END 2025-07-03 23:59 | disposition home or self-care (01) ==
LOC: LAB 10:29
PROVIDERS: PCP Physician Assistant; Visit Provider Student in an Organized Health Care Education/Training Program
DX: I25.118 Atherosclerotic heart disease of native coronary artery with other forms of angina pectoris (principal); R94.39 Abnormal result of other cardiovascular function study
CPT/HCPCS: 36415; 80053; 80061; 85025